=== PATIENT | female | born 1950 | race Caucasian/White ===

== ENCOUNTER 2016-04-06 13:01 | Emergency (ER) | payer OTHER, MEDICAID ==
[~2016-04-06] VITALS: Ht 165.1 cm; Wt 73.6 kg
[~2016-04-06 13:01] MED LIST: ALBUPOW26; CLOP75TA28 PO; ESCI10TA; ESCI10TA PO; GABA-339 PO; GEM600T GT; HYDR-2549 PO; LEVO13CA PO; LEVOTHYROXINE PO; LORA2TAB10 PO; METF-312 PO; NITR0.4S31; OXYB5TAB62 PO; PHEN60IN; PHENOBARBITAL PO; TIOTCAP IN; phenobarbital PO
[2016-04-06 14:25] VITALS: BP 146/86
== END 2016-04-06 15:04 | disposition home or self-care (01) ==
LOC: ER 13:05
DX: S60.212A Contusion of left wrist, initial encounter (principal); M19.90 Unspecified osteoarthritis, unspecified site; J45.909 Unspecified asthma, uncomplicated; J44.9 Chronic obstructive pulmonary disease, unspecified; Z86.73 Personal history of transient ischemic attack (TIA), and cerebral infarction without residual deficits; I25.10 Atherosclerotic heart disease of native coronary artery without angina pectoris; E11.9 Type 2 diabetes mellitus without complications; E78.5 Hyperlipidemia, unspecified; I10 Essential (primary) hypertension; Z88.6 Allergy status to analgesic agent; I25.2 Old myocardial infarction; E07.9 Disorder of thyroid, unspecified; Z90.49 Acquired absence of other specified parts of digestive tract; Z88.0 Allergy status to penicillin; Z88.8 Allergy status to other drugs, medicaments and biological substances; Z79.899 Other long term (current) drug therapy; F17.210 Nicotine dependence, cigarettes, uncomplicated; W18.39XA Other fall on same level, initial encounter; Y93.41 Activity, dancing; Y99.9 Unspecified external cause status; Y92.89 Other specified places as the place of occurrence of the external cause
CPT/HCPCS: 29125; 73110

== ENCOUNTER 2016-09-26 15:14 | Inpatient (IN) | payer OTHER, MEDICAID ==
[~2016-09-26] VITALS: Ht 165.1 cm; Wt 89.7 kg
[~2016-09-26 15:14] MED LIST changes: -METF-312 PO; +METF-370 PO
[2016-09-26 16:17] LABS: Basophils # (auto) 0 uL; Basophils % (auto) 0.3 % (0.0-2.0); CONDITION Y; Eosinophils # (auto) 0.2 uL; Eosinophils % (auto) 1.7 % (0.0-7.0); Hematocrit 42.3 % (36.0-46.0); Hemoglobin 14.7 g/dL (12.2-16.2); Lymphocytes # (auto) 1.9 uL; Lymphocytes % (auto) 21.6 % (10.0-50.0); Mean Corpuscular Hemoglobin 33.6 pg (28.0-32.0); Mean Corpuscular Hgb Conc. 34.7 g/dL (32.0-36.0); Mean Corpuscular Volume 96.9 fL (80.0-100.0); Mean Platelet Volume 8.3 fL (7.4-10.4); Monocytes # (auto) 0.6 uL; Monocytes % (auto) 7.2 % (0.0-12.0); Neutrophils # (auto) 6.2 uL; Neutrophils % (auto) 69.2 % (37.0-80.0); Platelet Count (auto) 327 10^3/uL (140-450); Red Cell Distribution Width 12.6 % (11.6-16.0); White Blood Cell 8.9 10^3/uL (4.4-10.8)
[2016-09-26 16:55] LABS: Albumin 3.9 g/dL (3.4-5.0); Alkaline Phosphatase 82 U/L (45-117); BUN/Creatinine Ratio 21.2; Bilirubin, Total 0.3 mg/dL (0.2-1.0); Blood Urea Nitrogen 21 mg/dL (7-18); Calcium 8.4 mg/dL (8.5-10.1); Carbon Dioxide 22 mmol/L (21-32); Chloride 107 mmol/L (98-107); GFR African American 72 mL/min; GFR Non-African American 60 mL/min; Glucose 111 mg/dL (74-106); Total Protein 7.3 g/dL (6.4-8.2)
[2016-09-26 17:09] LABS: Anion Gap 15 (5-15); Sodium 144 mmol/L (136-145)
[2016-09-26 17:10] LABS: Aspartate Aminotransferase 21 U/L (15-37); Potassium 4.1 mmol/L (3.5-5.1)
[2016-09-26] MEDS ORDERED: NITROGLYCERIN 0.2MG/HR TOPICAL PATCH TD ONE (20:00)
[2016-09-26] MEDS ORDERED: ONDANSETRON HCL 4 MG/2 ML VIAL IV ONE (20:00)
[2016-09-26] MEDS ORDERED: SODIUM CHLORIDE 0.9% 1,000 ML IV ONE (20:00)
[2016-09-26] MEDS ORDERED: MORPHINE SULFATE 4 MG/ML SYRG IV ONE (20:00)
[2016-09-26] MEDS ORDERED: ASPirin 81 mg TAB PO ONE ×2 (20:15→21:30)
[2016-09-26 20:33] LABS: B-Type Natriuretic Peptide 4.12 pg/mL (0-100)
[2016-09-26 20:42] LABS: Temperature: 23.9 C (20.0-25.0)
[2016-09-26] MEDS: SODIUM CHLORIDE 0.9% 1,000 ML IV SCH (21:19)
[2016-09-26] MEDS ORDERED: DEXTROSE (50%) 50ML SYRG IV PRN (21:30)
[2016-09-26] MEDS ORDERED: NITROGLYCERIN 0.4 MG SL TAB SL PRN (21:30)
[2016-09-26] MEDS ORDERED: LACTULOSE 20Gm/30ML SOLN PO PRN (21:30)
[2016-09-26] MEDS ORDERED: MORPHINE SULF INJ 2 MG/ML SYRINGE 1ML IV PRN (21:30)
[2016-09-26 23:00] VITALS: BP 127/59
[2016-09-26] MEDS: GEMFIBROZIL 600 MG TAB PO SCH (23:45)
[2016-09-26] MEDS: ENOXAPARIN SOD 30 MG/0.3 ML SYRINGE SC SCH (23:45)
[2016-09-26] MEDS: ATORVASTATIN 20 MG TAB PO SCH (23:46)
[2016-09-26] MEDS: OXYBUTYNIN CHL 5 MG TAB PO SCH (23:46)
[2016-09-26] MEDS: PHENobarbital 32.4 MG TAB PO SCH (23:46)
[2016-09-26] MEDS: ACCU-CHEK COMFORT CURVE STRIP VI SCH (23:48)
[2016-09-26] MEDS: METOPROLOL TARTRATE 25 MG TAB PO SCH (23:48)
[2016-09-26] MEDS: InsuLIN REG 1unit/0.01ml Soln (100units/ml) SC SCH (23:48)
[2016-09-27] VITALS (8 sets, daily range): BP systolic 93–127; BP diastolic 44–65
[2016-09-27] MEDS ORDERED: ACETAMINOPHEN 325 MG TAB PO ONE (02:37)
[2016-09-27] MEDS: ACETAMINOPHEN 325 MG TAB PO PRN ×3 (02:40→11:00)
[2016-09-27] MEDS: ALBUTEROL SULF 2.5 MG/0.5ML(0.5%) NEB SOLN NEB PRN ×2 (02:50→19:05)
[2016-09-27] MEDS: IPRATROPIUM BROM 0.5 MG/2.5ML INH SOL NEB SCH ×4 (02:50→19:05)
[2016-09-27] MEDS: InsuLIN REG 1unit/0.01ml Soln (100units/ml) SC SCH ×4 (06:00→23:59)
[2016-09-27] MEDS: ACCU-CHEK COMFORT CURVE STRIP VI SCH ×4 (06:00→23:59)
[2016-09-27 06:18] LABS: Basophils # (auto) 0 uL; Basophils % (auto) 0.3 % (0.0-2.0); CONDITION Y; Eosinophils # (auto) 0 uL; Eosinophils % (auto) 0.4 % (0.0-7.0); Hematocrit 37.6 % (36.0-46.0); Hemoglobin 13.1 g/dL (12.2-16.2); Lymphocytes # (auto) 1.5 uL; Mean Corpuscular Hemoglobin 33.8 pg (28.0-32.0); Mean Corpuscular Hgb Conc. 34.9 g/dL (32.0-36.0); Mean Corpuscular Volume 96.9 fL (80.0-100.0); Mean Platelet Volume 8.1 fL (7.4-10.4); Monocytes # (auto) 0.7 uL; Monocytes % (auto) 5.8 % (0.0-12.0); Neutrophils # (auto) 9.1 uL; Neutrophils % (auto) 80.5 % (37.0-80.0); Platelet Count (auto) 285 10^3/uL (140-450); Red Cell Distribution Width 12.6 % (11.6-16.0); White Blood Cell 11.3 10^3/uL (4.4-10.8)
[2016-09-27] MEDS: PHENobarbital 32.4 MG TAB PO SCH ×3 (06:42→21:35)
[2016-09-27] MEDS: LEVOTHYROXINE SODIUM 50 MCG TAB PO SCH (06:43)
[2016-09-27 07:03] LABS: Albumin 3.4 g/dL (3.4-5.0); BUN/Creatinine Ratio 25.6; Bilirubin, Total 0.4 mg/dL (0.2-1.0); Calcium 8.1 mg/dL (8.5-10.1); Potassium 4.5 mmol/L (3.5-5.1); Total Protein 6.2 g/dL (6.4-8.2)
[2016-09-27] MEDS: SODIUM CHLORIDE 0.9% 1,000 ML IV SCH (09:49)
[2016-09-27] MEDS ORDERED: ROZEREM 8 MG PO SCH ×2 (10:00→22:00)
[2016-09-27] MEDS: METOPROLOL TARTRATE 25 MG TAB PO SCH ×2 (10:00→21:35)
[2016-09-27] MEDS: OXYBUTYNIN CHL 5 MG TAB PO SCH ×2 (10:31→21:34)
[2016-09-27] MEDS: ASPirin 81 mg TAB PO SCH (10:32)
[2016-09-27] MEDS: GEMFIBROZIL 600 MG TAB PO SCH ×2 (10:32→21:34)
[2016-09-27] MEDS: ENALAPRIL MALEATE 10 MG TAB PO SCH (10:32)
[2016-09-27] MEDS: NITROGLYCERIN 0.2MG/HR TOPICAL PATCH TD SCH (10:32)
[2016-09-27] MEDS ORDERED: HYDROcodone-ACET 10/325MG TAB PO PRN (17:15)
[2016-09-27] MEDS: ENOXAPARIN SOD 30 MG/0.3 ML SYRINGE SC SCH (19:54)
[2016-09-27] MEDS: ATORVASTATIN 20 MG TAB PO SCH (21:34)
[2016-09-27] MEDS: IBUPROFEN 600 MG TAB PO SCH (21:34)
[2016-09-28 05:00] VITALS: BP 100/64
[2016-09-28] MEDS: IBUPROFEN 600 MG TAB PO SCH ×2 (05:40→14:36)
[2016-09-28] MEDS: PHENobarbital 32.4 MG TAB PO SCH ×2 (05:41→14:36)
[2016-09-28] MEDS: ACCU-CHEK COMFORT CURVE STRIP VI SCH ×2 (05:49→12:00)
[2016-09-28] MEDS: InsuLIN REG 1unit/0.01ml Soln (100units/ml) SC SCH ×2 (05:50→12:00)
[2016-09-28 06:08] LABS: Basophils # (auto) 0.1 uL; Basophils % (auto) 0.9 % (0.0-2.0); CONDITION Y; Eosinophils # (auto) 0.2 uL; Eosinophils % (auto) 1.7 % (0.0-7.0); Hemoglobin 13.5 g/dL (12.2-16.2); Lymphocytes % (auto) 21.3 % (10.0-50.0); Mean Corpuscular Hemoglobin 33.6 pg (28.0-32.0); Mean Corpuscular Hgb Conc. 34.5 g/dL (32.0-36.0); Mean Corpuscular Volume 97.3 fL (80.0-100.0); Mean Platelet Volume 7.8 fL (7.4-10.4); Monocytes # (auto) 0.8 uL; Monocytes % (auto) 8.8 % (0.0-12.0); Neutrophils # (auto) 6.3 uL; Neutrophils % (auto) 67.3 % (37.0-80.0); Platelet Count (auto) 288 10^3/uL (140-450); Red Cell Distribution Width 12.5 % (11.6-16.0); White Blood Cell 9.3 10^3/uL (4.4-10.8)
[2016-09-28] MEDS: IPRATROPIUM BROM 0.5 MG/2.5ML INH SOL NEB SCH ×3 (06:24→11:42)
[2016-09-28 06:27] LABS: BUN/Creatinine Ratio 19.6; Calcium 8.2 mg/dL (8.5-10.1); Magnesium 2.3 mg/dL (1.6-2.6); Phosphorus 3.3 mg/dL (2.5-4.90)
[2016-09-28] MEDS: LEVOTHYROXINE SODIUM 50 MCG TAB PO SCH (06:44)
[2016-09-28 07:00] LABS: Potassium 4.4 mmol/L (3.5-5.1)
[2016-09-28 08:00] VITALS: BP 123/86
[2016-09-28 09:00] VITALS: BP 123/86
[2016-09-28] MEDS: METOPROLOL TARTRATE 25 MG TAB PO SCH (09:53)
[2016-09-28] MEDS: ASPirin 81 mg TAB PO SCH (09:53)
[2016-09-28] MEDS: ENALAPRIL MALEATE 10 MG TAB PO SCH (09:53)
[2016-09-28] MEDS: OXYBUTYNIN CHL 5 MG TAB PO SCH (09:53)
[2016-09-28] MEDS: GEMFIBROZIL 600 MG TAB PO SCH (09:54)
[2016-09-28] MEDS: NITROGLYCERIN 0.2MG/HR TOPICAL PATCH TD SCH (09:54)
[2016-09-28 11:13] VITALS: BP 123/86
[2016-09-28 13:00] VITALS: BP 111/68
== END 2016-09-28 14:50 | disposition home or self-care (01) | DRG 198 ==
LOC: ER 15:18 → TELE 15:19 → CENTRAL 21:45 → TELE-CENTR 23:49
PROVIDERS: ADMIT Family Medicine; ATTEND Family Medicine
DX: J84.9 Interstitial pulmonary disease, unspecified (principal); E03.9 Hypothyroidism, unspecified; E11.9 Type 2 diabetes mellitus without complications; E78.5 Hyperlipidemia, unspecified; M94.0 Chondrocostal junction syndrome [Tietze]; F17.210 Nicotine dependence, cigarettes, uncomplicated; F41.9 Anxiety disorder, unspecified; G40.909 Epilepsy, unspecified, not intractable, without status epilepticus; I11.0 Hypertensive heart disease with heart failure; I25.10 Atherosclerotic heart disease of native coronary artery without angina pectoris; I50.9 Heart failure, unspecified; J44.9 Chronic obstructive pulmonary disease, unspecified; M19.90 Unspecified osteoarthritis, unspecified site; Z82.49 Family history of ischemic heart disease and other diseases of the circulatory system; Z83.3 Family history of diabetes mellitus; Z86.73 Personal history of transient ischemic attack (TIA), and cerebral infarction without residual deficits; I25.2 Old myocardial infarction; Z88.6 Allergy status to analgesic agent; Z88.0 Allergy status to penicillin; Z88.8 Allergy status to other drugs, medicaments and biological substances; Z79.899 Other long term (current) drug therapy; Z90.49 Acquired absence of other specified parts of digestive tract; Z90.89 Acquired absence of other organs; Z98.51 Tubal ligation status
CPT/HCPCS: 36415; 71010; 80048; 80053; 80061; 82962; 83036; 83735; 83880; 84100; 84484; 85025; 93005; 94640; 96374; 96375; J2405

== ENCOUNTER 2017-01-17 23:44 | Emergency (ER) | payer OTHER, MEDICAID ==
[~2017-01-17] VITALS: Ht 165.1 cm; Wt 81.6 kg
[~2017-01-17 23:44] MED LIST changes: -ALBUPOW26; -ESCI10TA; -NITR0.4S31; -PHEN60IN; -PHENOBARBITAL PO
[2017-01-18 01:51] LABS: Basophils # (auto) 0.1 uL; Basophils % (auto) 0.7 % (0.0-2.0); Eosinophils # (auto) 0.1 uL; Eosinophils % (auto) 1.3 % (0.0-7.0); Hematocrit 43.5 % (36.0-46.0); Hemoglobin 14.9 g/dL (12.2-16.2); Lymphocytes # (auto) 1.5 uL; Mean Corpuscular Hemoglobin 33.6 pg (28.0-32.0); Mean Corpuscular Hgb Conc. 34.1 g/dL (32.0-36.0); Mean Corpuscular Volume 98.5 fL (80.0-100.0); Mean Platelet Volume 7.1 fL (6.9-10.8); Monocytes # (auto) 0.5 uL; Neutrophils # (auto) 6.2 uL; Platelet Count (auto) 325 10^3/uL (140-450); White Blood Cell 8.4 10^3/uL (4.4-10.8)
[2017-01-18 02:04] LABS: Albumin 4.4 g/dL (3.4-5.0); BUN/Creatinine Ratio 21.3; Calcium 9.1 mg/dL (8.5-10.1); Potassium 3.3 mmol/L (3.5-5.1)
[2017-01-18 02:06] LABS: Bilirubin, Total 0.3 mg/dL (0.2-1.0); Total Protein 7.8 g/dL (6.4-8.2)
[2017-01-18 04:36] VITALS: BP 125/78
[2017-01-18] MEDS ORDERED: ACETAMINOPHEN 325 MG TAB PO ONE ×2 (04:45→04:54)
== END 2017-01-18 05:19 | disposition home or self-care (01) ==
LOC: EDBD 23:44 → ER 23:49
DX: S01.01XA Laceration without foreign body of scalp, initial encounter (principal); J45.909 Unspecified asthma, uncomplicated; E11.9 Type 2 diabetes mellitus without complications; I10 Essential (primary) hypertension; I25.2 Old myocardial infarction; M19.90 Unspecified osteoarthritis, unspecified site; E78.5 Hyperlipidemia, unspecified; I25.10 Atherosclerotic heart disease of native coronary artery without angina pectoris; F17.210 Nicotine dependence, cigarettes, uncomplicated; Z86.73 Personal history of transient ischemic attack (TIA), and cerebral infarction without residual deficits; Z90.49 Acquired absence of other specified parts of digestive tract; Z98.51 Tubal ligation status; X58.XXXA Exposure to other specified factors, initial encounter; Y93.89 Activity, other specified; Y99.8 Other external cause status; Y92.89 Other specified places as the place of occurrence of the external cause; Z88.0 Allergy status to penicillin; Z88.6 Allergy status to analgesic agent
CPT/HCPCS: 12002; 36415; 70450; 72125; 80053; 80320; 85025

== ENCOUNTER 2017-11-03 14:04 | Emergency (ER) | payer MEDICARE ==
[~2017-11-03] VITALS: Ht 165.1 cm; Wt 81.6 kg
[~2017-11-03 14:04] MED LIST changes: +ALBUAER3 IN; -CLOP75TA28 PO; -ESCI10TA PO; -GABA-339 PO; -GEM600T GT; -HYDR-2549 PO; -LEVO13CA PO; +LEVO500T21 PO; -LEVOTHYROXINE PO; -LORA2TAB10 PO; -METF-370 PO; -OXYB5TAB62 PO; -TIOTCAP IN; -phenobarbital PO
[2017-11-03 14:45] LABS: Basophils # (auto) 0 uL; Basophils % (auto) 0.7 % (0.0-2.0); Eosinophils # (auto) 0.2 uL; Eosinophils % (auto) 2.8 % (0.0-7.0); Hematocrit 39.9 % (36.0-46.0); Hemoglobin 13.6 g/dL (12.2-16.2); Lymphocytes % (auto) 32.2 % (10.0-50.0); Mean Corpuscular Hemoglobin 33.7 pg (28.0-32.0); Mean Corpuscular Hgb Conc. 34.1 g/dL (32.0-36.0); Mean Corpuscular Volume 98.7 fL (80.0-100.0); Monocytes # (auto) 0.4 uL; Monocytes % (auto) 6.6 % (0.0-12.0); Neutrophils # (auto) 3.6 uL; Neutrophils % (auto) 57.7 % (37.0-80.0); Platelet Count (auto) 268 10^3/uL (140-450); Red Blood Cells 4.05 10^6/uL (4.0-5.20); Red Cell Distribution Width 13.1 % (11.8-14.3); White Blood Cell 6.3 10^3/uL (4.4-10.8)
[2017-11-03 15:10] LABS: Alanine Aminotransferase 22 U/L (13-56); Albumin 3.7 g/dL (3.4-5.0); Alkaline Phosphatase 65 U/L (45-117); Anion Gap 7 (5-15); Aspartate Aminotransferase 12 U/L (15-37); Bilirubin, Total 0.5 mg/dL (0.2-1.0); Blood Urea Nitrogen 19 mg/dL (7-18); Calcium 8.3 mg/dL (8.5-10.1); Carbon Dioxide 24 mmol/L (21-32); Chloride 110 mmol/L (98-107); GFR African American 58 mL/min; GFR Non-African American 48 mL/min; Glucose 117 mg/dL (74-106); Potassium 3.7 mmol/L (3.5-5.1); Sodium 141 mmol/L (136-145); Total Protein 6.9 g/dL (6.4-8.2)
[2017-11-03] MEDS ORDERED: FUROSEMIDE 40 MG TAB PO ONE (19:45)
[2017-11-03 19:55] VITALS: BP 155/92
== END 2017-11-03 20:22 | disposition home or self-care (01) ==
LOC: ER 14:05
DX: R60.0 Localized edema (principal); M19.90 Unspecified osteoarthritis, unspecified site; J44.9 Chronic obstructive pulmonary disease, unspecified; E78.5 Hyperlipidemia, unspecified; I10 Essential (primary) hypertension; E07.9 Disorder of thyroid, unspecified; F17.210 Nicotine dependence, cigarettes, uncomplicated; Z88.5 Allergy status to narcotic agent; Z88.0 Allergy status to penicillin; Z88.1 Allergy status to other antibiotic agents; Z88.8 Allergy status to other drugs, medicaments and biological substances; Z79.899 Other long term (current) drug therapy; Z86.73 Personal history of transient ischemic attack (TIA), and cerebral infarction without residual deficits; Z90.49 Acquired absence of other specified parts of digestive tract
CPT/HCPCS: 36415; 71045; 80053; 83880; 84484; 85025; 93005; 93970

== ENCOUNTER 2018-02-08 14:20 | Emergency (ER) | payer MEDICARE ==
[~2018-02-08] VITALS: Ht 165.1 cm; Wt 95.3 kg
[~2018-02-08 14:20] MED LIST changes: +LEV100T PO
[2018-02-08 15:03] VITALS: BP 134/72
== END 2018-02-08 15:42 | disposition home or self-care (01) ==
LOC: ER 14:23
DX: S80.01XA Contusion of right knee, initial encounter (principal); M19.90 Unspecified osteoarthritis, unspecified site; J44.9 Chronic obstructive pulmonary disease, unspecified; E78.5 Hyperlipidemia, unspecified; I10 Essential (primary) hypertension; I25.2 Old myocardial infarction; E07.9 Disorder of thyroid, unspecified; F17.210 Nicotine dependence, cigarettes, uncomplicated; Z88.5 Allergy status to narcotic agent; Z88.0 Allergy status to penicillin; Z88.8 Allergy status to other drugs, medicaments and biological substances; Z79.899 Other long term (current) drug therapy; Z86.73 Personal history of transient ischemic attack (TIA), and cerebral infarction without residual deficits; Z90.49 Acquired absence of other specified parts of digestive tract; W01.0XXA Fall on same level from slipping, tripping and stumbling without subsequent striking against object, initial encounter; Y93.89 Activity, other specified; Y99.8 Other external cause status; Y92.096 Garden or yard of other non-institutional residence as the place of occurrence of the external cause
CPT/HCPCS: 73562

== ENCOUNTER 2018-08-18 16:20 | Emergency (ER) | payer MEDICARE ==
[~2018-08-18] VITALS: Ht 162.6 cm; Wt 103.4 kg
[~2018-08-18 16:20] MED LIST changes: +GABA300C10 PO; -LEVO500T21 PO
[2018-08-18 16:37] VITALS: BP 148/79
[2018-08-18 17:10] LABS: Basophils # (auto) 0 uL; Basophils % (auto) 0.6 % (0.0-2.0); Eosinophils # (auto) 0.1 uL; Eosinophils % (auto) 1.9 % (0.0-7.0); Hematocrit 42.9 % (36.0-46.0); Hemoglobin 14.5 g/dL (12.2-16.2); Lymphocytes # (auto) 1.4 uL; Mean Corpuscular Hemoglobin 33.5 pg (28.0-32.0); Mean Corpuscular Hgb Conc. 33.8 g/dL (32.0-36.0); Mean Corpuscular Volume 99.1 fL (80.0-100.0); Monocytes # (auto) 0.6 uL; Monocytes % (auto) 8.3 % (0.0-12.0); Neutrophils # (auto) 4.7 uL; Neutrophils % (auto) 68.2 % (37.0-80.0); Nucleated Red Blood Cells % 0.1 %; Platelet Count (auto) 250 10^3/uL (140-450); Red Blood Cells 4.33 10^6/uL (4.0-5.20); Red Cell Distribution Width 12.9 % (11.8-14.3); White Blood Cell 6.8 10^3/uL (4.4-10.8)
[2018-08-18 17:22] LABS: Alanine Aminotransferase 28 U/L (13-56); Albumin 3.9 g/dL (3.4-5.0); Anion Gap 10 (5-15); Aspartate Aminotransferase 19 U/L (15-37); BUN/Creatinine Ratio 20.6; Blood Urea Nitrogen 20 mg/dL (7-18); Calcium 8.6 mg/dL (8.5-10.1); Carbon Dioxide 23 mmol/L (21-32); Chloride 110 mmol/L (98-107); GFR African American 74 mL/min; GFR Non-African American 61 mL/min; Glucose 102 mg/dL (74-106); Magnesium 2.1 mg/dL (1.6-2.6); Sodium 143 mmol/L (136-145)
[2018-08-18 17:27] LABS: Alkaline Phosphatase 94 U/L (45-117); Bilirubin, Total 0.3 mg/dL (0.2-1.0); Total Protein 7.4 g/dL (6.4-8.2)
[2018-08-18 17:29] LABS: INR 0.93 (0.9-1.15); Partial Thromboplastin Time 26.9 sec (23.78-33.04)
== END 2018-08-18 20:55 | disposition left against medical advice (07) ==
LOC: ER 16:24
DX: R07.9 Chest pain, unspecified (principal); Z53.21 Procedure and treatment not carried out due to patient leaving prior to being seen by health care provider
CPT/HCPCS: 36415; 71045; 80053; 83735; 83880; 84484; 85025; 85610; 85730; 93005

== ENCOUNTER 2018-08-19 14:03 | Inpatient (IN) | payer MEDICARE ==
[~2018-08-19] VITALS: Ht 162.6 cm; Wt 108.7 kg
[2018-08-19 17:42] LABS: Basophils # (auto) 0 uL; Basophils % (auto) 0.6 % (0.0-2.0); Eosinophils # (auto) 0.1 uL; Eosinophils % (auto) 2.2 % (0.0-7.0); Hematocrit 42.6 % (36.0-46.0); Hemoglobin 14.6 g/dL (12.2-16.2); Lymphocytes # (auto) 1.7 uL; Lymphocytes % (auto) 27.4 % (10.0-50.0); Mean Corpuscular Hemoglobin 33.8 pg (28.0-32.0); Mean Corpuscular Hgb Conc. 34.2 g/dL (32.0-36.0); Mean Corpuscular Volume 99.1 fL (80.0-100.0); Monocytes # (auto) 0.6 uL; Neutrophils # (auto) 3.8 uL; Neutrophils % (auto) 60.8 % (37.0-80.0); Platelet Count (auto) 255 10^3/uL (140-450); Red Cell Distribution Width 13.1 % (11.8-14.3); White Blood Cell 6.3 10^3/uL (4.4-10.8)
[2018-08-19 17:48] LABS: INR 0.93 (0.9-1.15); Partial Thromboplastin Time 27.7 sec (23.78-33.04)
[2018-08-19 17:52] LABS: Anion Gap 7 (5-15); Blood Urea Nitrogen 15 mg/dL (7-18); Calcium 8.7 mg/dL (8.5-10.1); Carbon Dioxide 24 mmol/L (21-32); Chloride 111 mmol/L (98-107); Glucose 142 mg/dL (74-106); Magnesium 2.3 mg/dL (1.6-2.6); Potassium 3.7 mmol/L (3.5-5.1); Sodium 142 mmol/L (136-145)
[2018-08-19 17:59] LABS: Alanine Aminotransferase 27 U/L (13-56); Alkaline Phosphatase 93 U/L (45-117); Aspartate Aminotransferase 17 U/L (15-37); BUN/Creatinine Ratio 15.2; Bilirubin, Total 0.3 mg/dL (0.2-1.0); GFR African American 72 mL/min; GFR Non-African American 59 mL/min; Total Protein 7.3 g/dL (6.4-8.2)
[2018-08-19] MEDS ORDERED: NITROGLYCERIN 0.4 MG SL TAB SL PRN (19:00)
[2018-08-19] MEDS ORDERED: LACTULOSE 20Gm/30ML SOLN PO PRN (19:00)
[2018-08-19] MEDS ORDERED: ONDANSETRON HCL 4 MG/2 ML VIAL IV PRN (19:00)
[2018-08-19] MEDS ORDERED: ACETAMINOPHEN 500 MG TAB PO PRN (19:00)
[2018-08-19] MEDS ORDERED: ALBUTEROL SULF 2.5 MG/0.5ML(0.5%) NEB SOLN NEB PRN (19:00)
[2018-08-19] MEDS ORDERED: DEXTROSE (50%) 50ML SYRG IV PRN (19:00)
[2018-08-19] MEDS ORDERED: traMADol HCL 50 MG TAB PO PRN (19:00)
[2018-08-19] MEDS ORDERED: MORPHINE SULF INJ 2 MG/ML SYRINGE 1ML IV PRN (19:00)
[2018-08-19] MEDS: DOXYCYCLINE 100MG/250ML 250 ML IV SCH (21:57)
[2018-08-19] MEDS: ATORVASTATIN 20 MG TAB PO SCH (22:33)
[2018-08-19] MEDS: GABAPENTIN 300 MG CAP PO SCH (22:34)
[2018-08-19] MEDS: ACCU-CHEK COMFORT CURVE STRIP VI SCH (22:34)
[2018-08-19] MEDS: SODIUM CHLOR 0.9% PF (SALINE LOCK) 10ML VIAL/SYR IV SCH (22:34)
[2018-08-19] MEDS: InsuLIN REG 1unit/0.01ml Soln (100units/ml) SC SCH (22:35)
[2018-08-19 22:50] VITALS: BP 146/94
--- NOTE | 2018-08-19 22:50 | NUR ---
Telemetry admit from ER LEATHACONSUELO admitted to Telemetry unit after SBAR received. Patient oriented to HERB RABAGO RN primary RN, unit, room, bed, and unit policies regarding patient care and visiting hours. Patient now on continuous telemetry monitoring, tele box # 42 and telemetry reading on arrival to unit is SR. Patient placed on bedside oxygen, weighed by bedscale and encouraged to call if they need something. All questions and concerns addressed, patient verbalized understanding. Note:
[2018-08-19 22:55] VITALS: BP 146/94
[2018-08-20] MEDS: ALBUTEROL SULF 2.5 MG/0.5ML(0.5%) NEB SOLN NEB SCH ×4 (00:23→18:56)
[2018-08-20] MEDS: IPRATROPIUM BROM 0.5 MG/2.5ML INH SOL NEB SCH ×4 (00:23→18:56)
[2018-08-20 05:00] VITALS: BP 118/69
[2018-08-20] MEDS: ACCU-CHEK COMFORT CURVE STRIP VI SCH ×4 (05:38→21:28)
[2018-08-20] MEDS: LEVOTHYROXINE SODIUM 100 MCG TAB PO SCH (05:38)
[2018-08-20] MEDS: DOXYCYCLINE 100MG/250ML 250 ML IV SCH ×2 (05:38→18:26)
[2018-08-20] MEDS: GABAPENTIN 300 MG CAP PO SCH ×3 (05:38→21:28)
[2018-08-20] MEDS: SODIUM CHLOR 0.9% PF (SALINE LOCK) 10ML VIAL/SYR IV SCH ×3 (05:38→21:29)
[2018-08-20] MEDS: InsuLIN REG 1unit/0.01ml Soln (100units/ml) SC SCH ×4 (06:06→21:33)
[2018-08-20 08:38] VITALS: BP 159/82
--- NOTE | 2018-08-20 09:15 | NUR ---
pt went outside AMA to smoke, pt educated for tips on how to stop smoking but pt said " i will have anxiety and panic attack if i cannot smoke" pt given information regarding nicotine patch but she refused it, per pt it doesn't work for her.
--- NOTE | 2018-08-20 10:12 | NUR ---
pt is back in room.
[2018-08-20] MEDS: ASPirin 81 mg TAB PO SCH (10:15)
[2018-08-20] MEDS: PANTOPRAZOLE 40 MG TAB PO SCH (10:15)
[2018-08-20] MEDS: ENOXAPARIN SOD 40 MG/0.4 ML SYRINGE SC SCH (10:15)
[2018-08-20 11:11] LABS: Urine Bacteria NONE SEEN /hpf (None Seen); Urine Blood Negative /uL (Negative); Urine Specific Gravity 1.017 (1.001-1.035); Urine WBC 1 /hpf (0 - 5)
[2018-08-20 11:17] LABS: Alcohol, Urine < 3.0 mg/dL (0-5); Amphetamine Screen, Urine NEGATIVE (NEGATIVE); Barbiturate Scree,Urine NEGATIVE (NEGATIVE); Benzodiazephine Screen, Urine NEGATIVE (NEGATIVE); Cannabinoid Screen, Urine NEGATIVE (NEGATIVE); Cocaine Screen, Urine NEGATIVE (NEGATIVE); Opiate Scree,Urine NEGATIVE (NEGATIVE); Phencyclidine Screen, Urine NEGATIVE (NEGATIVE)
[2018-08-20 12:03] VITALS: BP 116/79
--- NOTE | 2018-08-20 12:30 | NUR ---
PT WENT OUTSIDE AMA TO SMOKE
--- NOTE | 2018-08-20 14:40 | NUR ---
HEADACHE DR. MORFIN MADE AWARE PT IS COMPLAINING OF HEADACHE 12/14, PT WAS GIVEN TRAMADOL BUT DID NOT HELP, PER PT TYLENOL DOES NOT HELP EITHER. DR. MORFIN ORDERED TO PUT CONSULT FOR NEUROLOGY FOR HEADACHE AND LEFT SIDED WEAKNESS, HE ORDERED NORCO 10/325 Q6HRS PRN FOR PAIN.
[2018-08-20] MEDS ORDERED: HYDROcodone-ACET 10/325MG TAB PO PRN (15:00)
--- NOTE | 2018-08-20 16:07 | NUR ---
DR. MORFIN ORDERED TO INSERT MIDLINE
[2018-08-20 16:21] VITALS: BP 120/96
--- NOTE | 2018-08-20 16:53 | NUR ---
Midline Placement: Patient educated on need for midline placement. All risks and benefits explained and all questions and concerns addresses prior to procedure. 18g/10cm midline inserted via left basilic vein using Ultrasound. Sterile technique utilized. Blood return obtained from the lumen and flushed easily with NS using proper technique. Midline secured with saline lock; biodisc and occlusive dressing applied. Primary RN notified. Midline lot # [id number]. x1 attempt
--- NOTE | 2018-08-20 19:20 | NUR ---
Opening Shift Note Assumed care of patient, awake and alert. No S/S of distress/SOB or pain. Bed in lowest locked position, side rails up x2, call light within reach. Instructed on POC and to call for assist PRN, will continue to monitor for changes Q1hr and PRN. Addendum: 08/23/18 at 0102 by SAM ELIZABETH RN RN ADDITION: Seizure precautions in place at time of original note.
[2018-08-20] MEDS: ATORVASTATIN 20 MG TAB PO SCH (21:27)
[2018-08-20] MEDS: HYDROcodone-ACET 10/325MG TAB PO PRN (21:27)
[2018-08-20 22:00] VITALS: BP 141/86
[2018-08-21] MEDS: ALBUTEROL SULF 2.5 MG/0.5ML(0.5%) NEB SOLN NEB SCH ×5 (00:27→23:27)
[2018-08-21] MEDS: IPRATROPIUM BROM 0.5 MG/2.5ML INH SOL NEB SCH ×5 (00:27→23:27)
[2018-08-21 05:00] VITALS: BP 121/73
--- NOTE | 2018-08-21 06:14 | NUR ---
Smoking Patient ambulating downstairs to smoke, steady gait noted with no s/s of distress.
[2018-08-21] MEDS: InsuLIN REG 1unit/0.01ml Soln (100units/ml) SC SCH ×4 (07:00→22:00)
--- NOTE | 2018-08-21 07:00 | NUR ---
Return From Smoking Patient returned from smoking , no s/s of distress, will continue to monitor.
[2018-08-21] MEDS: HYDROcodone-ACET 10/325MG TAB PO PRN ×3 (07:08→22:24)
[2018-08-21] MEDS: LEVOTHYROXINE SODIUM 100 MCG TAB PO SCH (07:08)
[2018-08-21] MEDS: SODIUM CHLOR 0.9% PF (SALINE LOCK) 10ML VIAL/SYR IV SCH ×3 (07:09→22:24)
[2018-08-21] MEDS: ACCU-CHEK COMFORT CURVE STRIP VI SCH ×4 (07:09→22:24)
[2018-08-21] MEDS: GABAPENTIN 300 MG CAP PO SCH ×3 (07:09→22:23)
[2018-08-21] MEDS: DOXYCYCLINE 100MG/250ML 250 ML IV SCH ×2 (07:13→18:45)
--- NOTE | 2018-08-21 07:15 | NUR ---
Closing Note Patient lying in bed, awake and alert. No s/s of distress. Care endorsed to dayshift RN.
[2018-08-21 08:00] VITALS: BP 155/93
[2018-08-21 09:00] VITALS: BP 155/93
--- NOTE | 2018-08-21 10:10 | NUR ---
DR. LIMA AT BEDSIDE FOR NEUROLOGY CONSULT.
--- NOTE | 2018-08-21 10:30 | NUR ---
DR. ROBERTS AT BEDSIDE. POC DISCUSSED WITH PT.
[2018-08-21] MEDS: ASPirin 81 mg TAB PO SCH (10:34)
[2018-08-21] MEDS: PANTOPRAZOLE 40 MG TAB PO SCH (10:34)
[2018-08-21] MEDS: ENOXAPARIN SOD 40 MG/0.4 ML SYRINGE SC SCH (10:35)
[2018-08-21 12:40] VITALS: BP 129/83
[2018-08-21 17:00] VITALS: BP 125/100
[2018-08-21 22:05] VITALS: BP 102/66
[2018-08-21] MEDS: ATORVASTATIN 20 MG TAB PO SCH (22:23)
[2018-08-22] VITALS (7 sets, daily range): BP systolic 102–125; BP diastolic 58–75
[2018-08-22] MEDS: HYDROcodone-ACET 10/325MG TAB PO PRN ×3 (04:42→22:25)
--- NOTE | 2018-08-22 06:17 | NUR ---
Smoking Patient ambulating downstairs to smoke, steady gait noted with no s/s of distress.
--- NOTE | 2018-08-22 06:41 | NUR ---
Return From Smoking Patient returned from smoking , no s/s of distress, will continue to monitor.
[2018-08-22] MEDS: SODIUM CHLOR 0.9% PF (SALINE LOCK) 10ML VIAL/SYR IV SCH ×3 (06:56→22:22)
[2018-08-22] MEDS: GABAPENTIN 300 MG CAP PO SCH ×3 (06:56→22:22)
[2018-08-22] MEDS: DOXYCYCLINE 100MG/250ML 250 ML IV SCH ×2 (06:57→18:28)
[2018-08-22] MEDS: LEVOTHYROXINE SODIUM 100 MCG TAB PO SCH (06:57)
[2018-08-22] MEDS: ACCU-CHEK COMFORT CURVE STRIP VI SCH ×4 (06:57→22:22)
[2018-08-22] MEDS: InsuLIN REG 1unit/0.01ml Soln (100units/ml) SC SCH ×4 (07:00→22:30)
--- NOTE | 2018-08-22 07:20 | NUR ---
Closing Note Patient lying in bed, awake and alert. No s/s of distress. Care endorsed to dayshift RN.
--- NOTE | 2018-08-22 07:28 | NUR ---
Opening Shift Note Assumed care of patient, awake and alert. No S/S of distress/SOB or pain. Instructed on POC and to call for assist PRN, will continue to monitor for changes Q1hr and PRN.
[2018-08-22] MEDS: ALBUTEROL SULF 2.5 MG/0.5ML(0.5%) NEB SOLN NEB SCH ×4 (07:48→23:42)
[2018-08-22] MEDS: IPRATROPIUM BROM 0.5 MG/2.5ML INH SOL NEB SCH ×4 (07:48→23:42)
[2018-08-22] MEDS: ASPirin 81 mg TAB PO SCH (10:04)
[2018-08-22] MEDS: PANTOPRAZOLE 40 MG TAB PO SCH (10:04)
[2018-08-22] MEDS: ENOXAPARIN SOD 40 MG/0.4 ML SYRINGE SC SCH (10:04)
--- NOTE | 2018-08-22 19:21 | NUR ---
Change of shift given to aeronautical inspector RN. No distress noted.
--- NOTE | 2018-08-22 22:00 | NUR ---
CPAP Patient placed on CPAP by RT, tolerating well, will continue to monitor.
[2018-08-22] MEDS: ATORVASTATIN 20 MG TAB PO SCH (22:22)
[2018-08-23 06:20] VITALS: BP 130/70
[2018-08-23] MEDS: DOXYCYCLINE 100MG/250ML 250 ML IV SCH (06:21)
[2018-08-23] MEDS: LEVOTHYROXINE SODIUM 100 MCG TAB PO SCH (06:21)
[2018-08-23] MEDS: GABAPENTIN 300 MG CAP PO SCH ×2 (06:21→14:00)
[2018-08-23] MEDS: SODIUM CHLOR 0.9% PF (SALINE LOCK) 10ML VIAL/SYR IV SCH ×2 (06:21→14:00)
[2018-08-23] MEDS: ACCU-CHEK COMFORT CURVE STRIP VI SCH ×2 (06:22→11:30)
--- NOTE | 2018-08-23 06:34 | NUR ---
Smoking Patient ambulating downstairs to smoke, steady gait noted with no s/s of distress.
[2018-08-23] MEDS: InsuLIN REG 1unit/0.01ml Soln (100units/ml) SC SCH ×2 (06:36→11:30)
[2018-08-23] MEDS: IPRATROPIUM BROM 0.5 MG/2.5ML INH SOL NEB SCH ×2 (06:57→12:56)
[2018-08-23] MEDS: ALBUTEROL SULF 2.5 MG/0.5ML(0.5%) NEB SOLN NEB SCH ×2 (06:57→12:56)
[2018-08-23] MEDS: HYDROcodone-ACET 10/325MG TAB PO PRN (07:06)
--- NOTE | 2018-08-23 07:06 | NUR ---
Return From Smoking Patient returned from smoking , no s/s of distress, will continue to monitor.
--- NOTE | 2018-08-23 07:18 | NUR ---
Closing Note Patient lying in bed, awake and alert. No s/s of distress. Care endorsed to dayshift RN.
[2018-08-23 08:15] VITALS: BP 115/91
[2018-08-23 09:00] VITALS: BP 115/91
[2018-08-23] MEDS: ASPirin 81 mg TAB PO SCH (09:40)
[2018-08-23] MEDS: PANTOPRAZOLE 40 MG TAB PO SCH (09:40)
[2018-08-23] MEDS: ENOXAPARIN SOD 40 MG/0.4 ML SYRINGE SC SCH ×2 (09:41→10:00)
--- NOTE | 2018-08-23 12:20 | NUR ---
Spoke with Dr. Hernandez. aware of allergies. Patient is receiving doxycycline, no reaction noted. Per MD, patient can receive doxycycline on discharge.
[2018-08-23 13:00] VITALS: BP 119/69
--- NOTE | 2018-08-23 14:31 | NUR ---
Discharge instructions given as ordered. Encourage to follow up with PMD as instructed. All questions and concerns addressed. Patient verbalized understanding. Medication reconciliation form completed and copy given to patient. Patient denies Home medications held in Pharmacy. IV removed with catheter intact, pressure dressing applied. Telemetry unit returned to [facility]. Patient taken to vehicle via wheelchair with all personal belongings, accompanied by staff and family member. No distress noted at time of departure.
--- NOTE | 2018-08-23 16:00 | NUR ---
assessment Patient discharged home prior to being assessed. Addendum: 08/24/18 at 0919 by Delma SEGOVIA Amended: Links added.
== END 2018-08-23 14:15 | disposition home or self-care (01) | DRG 65 ==
LOC: ER 14:10 → TELE 19:03 → TELE-WESTW 22:50
PROVIDERS: ADMIT Internal Medicine; ATTEND Family Medicine
DX: I63.9 Cerebral infarction, unspecified (principal); J44.1 Chronic obstructive pulmonary disease with (acute) exacerbation; I13.0 Hypertensive heart and chronic kidney disease with heart failure and stage 1 through stage 4 chronic kidney disease, or unspecified chronic kidney disease; Z68.41 Body mass index [BMI] 40.0-44.9, adult; R56.9 Unspecified convulsions; N18.2 Chronic kidney disease, stage 2 (mild); E11.21 Type 2 diabetes mellitus with diabetic nephropathy; E11.40 Type 2 diabetes mellitus with diabetic neuropathy, unspecified; E11.22 Type 2 diabetes mellitus with diabetic chronic kidney disease; I50.9 Heart failure, unspecified; F41.9 Anxiety disorder, unspecified; F32.9 Major depressive disorder, single episode, unspecified; E03.9 Hypothyroidism, unspecified; E66.01 Morbid (severe) obesity due to excess calories; I25.10 Atherosclerotic heart disease of native coronary artery without angina pectoris; M19.90 Unspecified osteoarthritis, unspecified site; E78.00 Pure hypercholesterolemia, unspecified; K44.9 Diaphragmatic hernia without obstruction or gangrene; E78.5 Hyperlipidemia, unspecified; G47.10 Hypersomnia, unspecified; I25.2 Old myocardial infarction; Z79.899 Other long term (current) drug therapy; Z79.82 Long term (current) use of aspirin; Z82.0 Family history of epilepsy and other diseases of the nervous system; Z82.49 Family history of ischemic heart disease and other diseases of the circulatory system; Z83.3 Family history of diabetes mellitus; Z90.49 Acquired absence of other specified parts of digestive tract; Z88.0 Allergy status to penicillin; Z88.8 Allergy status to other drugs, medicaments and biological substances; Z72.0 Tobacco use
CPT/HCPCS: 36415; 70450; 70551; 71045; 80053; 80307; 81001; 82550; 82962; 83036; 83735; 83880; 84443; 84484; 85025; 85379; 85610; 85652; 85730; 87070; 87205; 93005; 94640; 94660; 94761; 94762; 96365; G0378; J3490

== ENCOUNTER 2018-09-26 16:07 | Inpatient (IN) | payer MEDICARE ==
[~2018-09-26] VITALS: Ht 162.6 cm; Wt 102.9 kg
[2018-09-26] MEDS ORDERED: ALBUTEROL SULF 2.5 MG/0.5ML(0.5%) NEB SOLN NEB ONE ×2 (16:30→20:00)
[2018-09-26] MEDS ORDERED: IPRATROPIUM BROM 0.5 MG/2.5ML INH SOL NEB ONE ×2 (16:30→20:00)
[2018-09-26 18:44] LABS: Eosinophils # (auto) 0.1 uL; Monocytes # (auto) 0.6 uL; Neutrophils # (auto) 6.5 uL; Nucleated Red Blood Cells % 0.1 %
[2018-09-26] MEDS ORDERED: ONDANSETRON HCL 4 MG/2 ML VIAL IV ONE ×2 (18:45→20:00)
[2018-09-26] MEDS ORDERED: MORPHINE SULF INJ 2 MG/ML SYRINGE 1ML IV ONE (18:45)
[2018-09-26 18:47] LABS: Basophils # (auto) 0.1 uL; Basophils % (auto) 0.6 % (0.0-2.0); Hematocrit 45.1 % (36.0-46.0); Hemoglobin 15.2 g/dL (12.2-16.2); Lymphocytes # (auto) 2.2 uL; Lymphocytes % (auto) 23.3 % (10.0-50.0); Mean Corpuscular Hemoglobin 33.7 pg (28.0-32.0); Mean Corpuscular Hgb Conc. 33.7 g/dL (32.0-36.0); Mean Corpuscular Volume 99.8 fL (80.0-100.0); Monocytes % (auto) 6.2 % (0.0-12.0); Neutrophils % (auto) 68.9 % (37.0-80.0); Platelet Count (auto) 260 10^3/uL (140-450); Red Blood Cells 4.52 10^6/uL (4.0-5.20); Red Cell Distribution Width 12.7 % (11.8-14.3); White Blood Cell 9.4 10^3/uL (4.4-10.8)
[2018-09-26 19:05] LABS: Albumin 4.4 g/dL (3.4-5.0); Anion Gap 7 (5-15); Blood Urea Nitrogen 14 mg/dL (7-18); Calcium 9.3 mg/dL (8.5-10.1); Carbon Dioxide 26 mmol/L (21-32); Chloride 107 mmol/L (98-107); Glucose 92 mg/dL (74-106); Potassium 3.8 mmol/L (3.5-5.1); Sodium 140 mmol/L (136-145)
[2018-09-26 19:11] LABS: Alanine Aminotransferase 22 U/L (13-56); Alkaline Phosphatase 93 U/L (45-117); Aspartate Aminotransferase 14 U/L (15-37); BUN/Creatinine Ratio 14.4; Bilirubin, Total 0.3 mg/dL (0.2-1.0); GFR African American 74 mL/min; GFR Non-African American 61 mL/min; Total Protein 7.7 g/dL (6.4-8.2)
[2018-09-26] MEDS ORDERED: methylPREDNISolone SOD SUCC 125 MG/2 ML VL IV ONE (20:00)
[2018-09-26] MEDS ORDERED: ONDANSETRON HCL 4 MG/2 ML VIAL ONE (21:50)
[2018-09-26] MEDS ORDERED: NITROGLYCERIN 0.4 MG SL TAB SL PRN (22:30)
[2018-09-26] MEDS ORDERED: MORPHINE SULF INJ 2 MG/ML SYRINGE 1ML IV PRN (22:30)
[2018-09-26] MEDS ORDERED: ONDANSETRON HCL 4 MG/2 ML VIAL IV PRN (22:30)
[2018-09-26] MEDS ORDERED: ACETAMINOPHEN 500 MG TAB PO PRN (22:30)
--- NOTE | 2018-09-26 23:10 | NUR ---
Telemetry admit from ER LEATHACONSUELO Eduardo admitted to Telemetry unit after SBAR received. Patient oriented to CHRISTIAN CHURCH RN primary RN, unit, room, bed, and unit policies regarding patient care and visiting hours. Patient now on continuous telemetry monitoring, tele box # 23 and telemetry reading on arrival to unit is SR. Patient placed on bedside oxygen, weighed by bedscale and encouraged to call if they need something. All questions and concerns addressed, patient verbalized understanding.
[2018-09-27] VITALS (7 sets, daily range): BP systolic 116–177; BP diastolic 62–101
--- NOTE | 2018-09-27 00:12 | NUR ---
Hospitalist paged. Patient complaining of pain and had an elevated BP.
--- NOTE | 2018-09-27 00:25 | NUR ---
Hospitalist returned page: Hospitalist informed about patients situation and status. New orders obtained.
[2018-09-27] MEDS ORDERED: HYDROcodone-ACET 10/325MG TAB PO PRN (00:45)
[2018-09-27] MEDS: HYDROcodone-ACET 5/325MG TAB PO PRN ×4 (01:11→19:23)
[2018-09-27] MEDS ORDERED: HYDR-4683 PO (01:32)
[2018-09-27] MEDS: IPRATROPIUM BROM 0.5 MG/2.5ML INH SOL NEB SCH ×7 (02:25→21:15)
[2018-09-27] MEDS: ALBUTEROL SULF 2.5 MG/0.5ML(0.5%) NEB SOLN NEB SCH ×7 (02:25→21:15)
[2018-09-27] MEDS: PANTOPRAZOLE 40 MG TAB PO SCH (05:31)
[2018-09-27] MEDS: GABAPENTIN 300 MG CAP PO SCH ×3 (05:31→21:40)
[2018-09-27] MEDS: methylPREDNISolone SOD SUCC 40 MG/ML VL IV SCH ×3 (05:31→21:40)
[2018-09-27] MEDS: LEVOTHYROXINE SODIUM 100 MCG TAB PO SCH (06:34)
[2018-09-27] MEDS ORDERED: ALBUTEROL SULF 2.5 MG/0.5ML(0.5%) NEB SOLN NEB PRN (12:45)
[2018-09-27] MEDS ORDERED: NICOTINE 21MG/24 HR TOPICAL PATCH TD ONE (12:45)
--- NOTE | 2018-09-27 16:30 | NUR ---
PT DENIES NEED FOR P.T.
--- NOTE | 2018-09-27 19:00 | NUR ---
Opening Shift Note Assumed care of patient, awake and alert. No S/S of distress/SOB or pain. Instructed on POC and to call for assist PRN, will continue to monitor for changes Q1hr and PRN.
--- NOTE | 2018-09-27 20:23 | NUR ---
IV insertion IV access obtained, via clean sterile technique by inserting 22 gauge catheter at left hand after 1 attempt. IV secured properly. No trauma to site. Patient tolerated procedure well.
[2018-09-28] MEDS: IPRATROPIUM BROM 0.5 MG/2.5ML INH SOL NEB SCH ×3 (01:18→14:37)
[2018-09-28] MEDS: ALBUTEROL SULF 2.5 MG/0.5ML(0.5%) NEB SOLN NEB SCH ×3 (01:18→14:37)
[2018-09-28 05:29] VITALS: BP 105/44
[2018-09-28] MEDS: GABAPENTIN 300 MG CAP PO SCH (05:48)
[2018-09-28] MEDS: methylPREDNISolone SOD SUCC 40 MG/ML VL IV SCH (05:48)
[2018-09-28] MEDS: PANTOPRAZOLE 40 MG TAB PO SCH (05:49)
[2018-09-28] MEDS: HYDROcodone-ACET 5/325MG TAB PO PRN ×2 (05:50→12:17)
[2018-09-28 05:56] LABS: Basophils # (auto) 0 uL; Eosinophils # (auto) 0 uL; Hematocrit 39.2 % (36.0-46.0); Hemoglobin 13.2 g/dL (12.2-16.2); Lymphocytes # (auto) 0.7 uL; Lymphocytes % (auto) 3.2 % (10.0-50.0); Mean Corpuscular Hemoglobin 33.5 pg (28.0-32.0); Mean Corpuscular Hgb Conc. 33.8 g/dL (32.0-36.0); Mean Corpuscular Volume 99.2 fL (80.0-100.0); Monocytes # (auto) 0.6 uL; Monocytes % (auto) 2.7 % (0.0-12.0); Neutrophils # (auto) 19.7 uL; Neutrophils % (auto) 94.1 % (37.0-80.0); Platelet Count (auto) 248 10^3/uL (140-450); Red Blood Cells 3.95 10^6/uL (4.0-5.20); Red Cell Distribution Width 12.7 % (11.8-14.3)
[2018-09-28 06:23] LABS: Calcium 8.8 mg/dL (8.5-10.1); Magnesium 2.6 mg/dL (1.6-2.6); Potassium 4.6 mmol/L (3.5-5.1)
[2018-09-28] MEDS: LEVOTHYROXINE SODIUM 100 MCG TAB PO SCH (06:30)
--- NOTE | 2018-09-28 06:43 | NUR ---
Respiratory note: PT NOT IN ROOM FOR SCHEDULED MED NEB TX.
--- NOTE | 2018-09-28 06:51 | NUR ---
Respiratory note: PT NOT IN ROOM FOR SCHEDULED MED NEB TX
[2018-09-28 09:00] VITALS: BP 150/75
[2018-09-28] MEDS ORDERED: NICOTINE 21MG/24 HR TOPICAL PATCH TD SCH (10:00)
[2018-09-28] MEDS ORDERED: DOXYCYCLINE 100MG/250ML 250 ML IV SCH (10:00)
[2018-09-28] MEDS ORDERED: SODIUM CHLORIDE 0.9% 1,000 ML IV SCH (10:00)
[2018-09-28] MEDS ORDERED: DOXY100C41 PO (12:25)
[2018-09-28] MEDS ORDERED: ALBUAER3 IN (12:25)
[2018-09-28] MEDS ORDERED: METH4PAK PO (12:25)
[2018-09-28] MEDS ORDERED: PANT40TA2 PO (12:25)
[2018-09-28 12:32] VITALS: BP 140/87
--- NOTE | 2018-09-28 16:32 | NUR ---
patient dc home feeling very well vitals signs in normal limits not complaining of pain at this time all DC instruction gave to the patient //Epi RN
[2018-09-28 16:35] VITALS: BP 136/75
[2018-09-28] MEDS ORDERED: methylPREDNISolone SOD SUCC 40 MG/ML VL IV SCH (18:00)
== END 2018-09-28 18:00 | disposition home or self-care (01) | DRG 189 ==
LOC: ER 16:07 → TELE 16:08 → TELE-WESTW 23:13
PROVIDERS: ADMIT Nurse Practitioner Family; ATTEND Internal Medicine
DX: J96.00 Acute respiratory failure, unspecified whether with hypoxia or hypercapnia (principal); N17.0 Acute kidney failure with tubular necrosis; I13.0 Hypertensive heart and chronic kidney disease with heart failure and stage 1 through stage 4 chronic kidney disease, or unspecified chronic kidney disease; J43.9 Emphysema, unspecified; E66.01 Morbid (severe) obesity due to excess calories; E03.9 Hypothyroidism, unspecified; E11.22 Type 2 diabetes mellitus with diabetic chronic kidney disease; E11.40 Type 2 diabetes mellitus with diabetic neuropathy, unspecified; E78.5 Hyperlipidemia, unspecified; M19.90 Unspecified osteoarthritis, unspecified site; R07.89 Other chest pain; F17.210 Nicotine dependence, cigarettes, uncomplicated; F32.9 Major depressive disorder, single episode, unspecified; F41.9 Anxiety disorder, unspecified; I25.10 Atherosclerotic heart disease of native coronary artery without angina pectoris; I50.9 Heart failure, unspecified; K44.9 Diaphragmatic hernia without obstruction or gangrene; N18.9 Chronic kidney disease, unspecified; T38.0X5A Adverse effect of glucocorticoids and synthetic analogues, initial encounter; Z82.49 Family history of ischemic heart disease and other diseases of the circulatory system; Z83.3 Family history of diabetes mellitus; I25.2 Old myocardial infarction; Z86.73 Personal history of transient ischemic attack (TIA), and cerebral infarction without residual deficits; Z91.19 Patient's noncompliance with other medical treatment and regimen; Z79.899 Other long term (current) drug therapy; Z81.8 Family history of other mental and behavioral disorders; Y92.89 Other specified places as the place of occurrence of the external cause; Z88.0 Allergy status to penicillin; Z88.5 Allergy status to narcotic agent; Z88.1 Allergy status to other antibiotic agents; Z98.51 Tubal ligation status; Z90.49 Acquired absence of other specified parts of digestive tract
CPT/HCPCS: 36415; 71045; 80048; 80053; 83735; 83880; 84443; 84484; 85025; 93005; 94640; 96374; 96375; G0378; J2405

== ENCOUNTER 2018-10-26 16:01 | Inpatient (IN) | payer MEDICARE ==
[~2018-10-26] VITALS: Ht 165.1 cm; Wt 151.9 kg
[~2018-10-26 16:01] MED LIST changes: +DOXY-299 PO; +HYDR-4833 PO; +METH4PAK PO; +PANT40TA2 PO
[2018-10-26] MEDS ORDERED: methylPREDNISolone SOD SUCC 125 MG/2 ML VL IV ONE (16:30)
[2018-10-26] MEDS ORDERED: ALBUTEROL SULF 2.5 MG/0.5ML(0.5%) NEB SOLN HHN ONE (16:30)
[2018-10-26] MEDS ORDERED: IPRATROPIUM BROM 0.5 MG/2.5ML INH SOL HHN ONE (16:30)
[2018-10-26] MEDS ORDERED: cefTRIAXone 1GM/50ML D5W 50 ML IV ONE (17:30)
[2018-10-26 18:29] LABS: Basophils # (auto) 0.1 uL; Basophils % (auto) 0.7 % (0.0-2.0); Eosinophils # (auto) 0.1 uL; Eosinophils % (auto) 1.4 % (0.0-7.0); Hematocrit 43.5 % (36.0-46.0); Hemoglobin 14.8 g/dL (12.2-16.2); Lymphocytes # (auto) 2.5 uL; Lymphocytes % (auto) 31.5 % (10.0-50.0); Mean Corpuscular Hemoglobin 33.7 pg (28.0-32.0); Mean Corpuscular Volume 99.4 fL (80.0-100.0); Monocytes # (auto) 0.7 uL; Monocytes % (auto) 8.6 % (0.0-12.0); Neutrophils # (auto) 4.6 uL; Neutrophils % (auto) 57.8 % (37.0-80.0); Platelet Count (auto) 267 10^3/uL (140-450); Red Blood Cells 4.38 10^6/uL (4.0-5.20); White Blood Cell 7.9 10^3/uL (4.4-10.8)
[2018-10-26 18:48] LABS: Alanine Aminotransferase 24 U/L (13-56); Albumin 4.3 g/dL (3.4-5.0); Anion Gap 7 (5-15); BUN/Creatinine Ratio 14.3; Blood Urea Nitrogen 17 mg/dL (7-18); Calcium 9.1 mg/dL (8.5-10.1); Carbon Dioxide 25 mmol/L (21-32); Chloride 113 mmol/L (98-107); GFR African American 58 mL/min; GFR Non-African American 48 mL/min; Potassium 3.2 mmol/L (3.5-5.1); Sodium 145 mmol/L (136-145)
[2018-10-26 18:53] LABS: Alkaline Phosphatase 83 U/L (45-117); Aspartate Aminotransferase 15 U/L (15-37); Bilirubin, Total 0.3 mg/dL (0.2-1.0); Glucose 116 mg/dL (74-106); Total Protein 7.6 g/dL (6.4-8.2)
[2018-10-26] MEDS ORDERED: MORPHINE SULF INJ 2 MG/ML SYRINGE 1ML IV PRN ×2 (19:00)
[2018-10-26] MEDS ORDERED: NITROGLYCERIN 0.4 MG SL TAB SL PRN (19:00)
[2018-10-26] MEDS ORDERED: ALBUTEROL SULF 2.5 MG/0.5ML(0.5%) NEB SOLN NEB PRN (19:00)
[2018-10-26] MEDS ORDERED: ONDANSETRON HCL 4 MG/2 ML VIAL IV PRN (19:00)
[2018-10-26] MEDS ORDERED: IPRATROPIUM BROM 0.5 MG/2.5ML INH SOL NEB PRN (19:00)
[2018-10-26] MEDS ORDERED: FUROSEMIDE 20 MG/2 ML VIAL IV ONE (19:00)
[2018-10-26] MEDS ORDERED: ACETAMINOPHEN 500 MG TAB PO PRN (19:00)
[2018-10-26] MEDS ORDERED: DOCUSATE SOD 100 MG CAP PO PRN (19:00)
[2018-10-26] MEDS: BUDESONIDE (INHALATION) 0.5 MG/2 ML NEB NEB SCH (19:50)
[2018-10-26 22:00] VITALS: BP 139/85
--- NOTE | 2018-10-26 22:01 | NUR ---
HOSPITALIST PAGED PATIENT DOES NOT HAVE A DIET ORDER.
[2018-10-26] MEDS: GABAPENTIN 300 MG CAP PO SCH (22:17)
[2018-10-26] MEDS: ENALAPRIL MALEATE 2.5 MG TAB PO SCH (22:17)
[2018-10-26] MEDS: HYDROcodone-ACET 5/325MG TAB PO PRN (22:22)
--- NOTE | 2018-10-26 23:00 | NUR ---
CONSUELO ZHANG states they want to leave the floor Against Medical Advice (AMA) to go outside and smoke. Patient encouraged to stay on floor and not smoke. Patient advised of the risks and benefits of leaving AMA. Patient verbalized understanding and signed required AMA form.
[2018-10-27 03:47] VITALS: BP 139/85
[2018-10-27] MEDS: HYDROcodone-ACET 5/325MG TAB PO PRN ×3 (04:56→20:20)
[2018-10-27 05:00] VITALS: BP 123/77
[2018-10-27 06:01] LABS: Basophils # (auto) 0 uL; Basophils % (auto) 0.1 % (0.0-2.0); Eosinophils # (auto) 0 uL; Hematocrit 41.5 % (36.0-46.0); Hemoglobin 14.2 g/dL (12.2-16.2); Lymphocytes # (auto) 0.5 uL; Lymphocytes % (auto) 5.7 % (10.0-50.0); Mean Corpuscular Hemoglobin 33.9 pg (28.0-32.0); Mean Corpuscular Hgb Conc. 34.1 g/dL (32.0-36.0); Mean Corpuscular Volume 99.5 fL (80.0-100.0); Monocytes # (auto) 0.1 uL; Neutrophils # (auto) 8.5 uL; Neutrophils % (auto) 93.2 % (37.0-80.0); Platelet Count (auto) 283 10^3/uL (140-450); Red Blood Cells 4.18 10^6/uL (4.0-5.20); White Blood Cell 9.1 10^3/uL (4.4-10.8)
[2018-10-27] MEDS: LEVOTHYROXINE SODIUM 100 MCG TAB PO SCH (06:03)
[2018-10-27] MEDS: GABAPENTIN 300 MG CAP PO SCH ×3 (06:03→21:59)
[2018-10-27 06:32] LABS: Potassium 3.3 mmol/L (3.5-5.1)
[2018-10-27 06:37] LABS: Albumin 4.1 g/dL (3.4-5.0); BUN/Creatinine Ratio 14.9; Calcium 8.5 mg/dL (8.5-10.1)
[2018-10-27 06:40] LABS: Bilirubin, Total 0.3 mg/dL (0.2-1.0); Total Protein 7.1 g/dL (6.4-8.2)
[2018-10-27] MEDS: IPRATROPIUM BROM 0.5 MG/2.5ML INH SOL NEB SCH ×3 (07:22→19:23)
[2018-10-27] MEDS: ALBUTEROL SULF 2.5 MG/0.5ML(0.5%) NEB SOLN NEB SCH ×3 (07:22→19:23)
[2018-10-27] MEDS: BUDESONIDE (INHALATION) 0.5 MG/2 ML NEB NEB SCH ×2 (07:22→19:23)
--- NOTE | 2018-10-27 07:55 | NUR ---
Opening Shift Note Assumed care of patient, awake and alert. No S/S of distress/SOB or pain. Instructed on POC and to call for assist PRN, will continue to monitor for changes Q1hr and PRN.
--- NOTE | 2018-10-27 08:35 | NUR ---
PATIENT GOING DOWN TO SMOKE, RISKS EXPLAINED PT AWARE SHE SIGNED AMA FORM TO SMOKE
[2018-10-27 09:00] VITALS: BP 137/93
[2018-10-27] MEDS: PANTOPRAZOLE 40 MG TAB PO SCH (09:55)
[2018-10-27] MEDS: FAMOTIDINE 20 MG TAB PO SCH (09:56)
[2018-10-27] MEDS: ENALAPRIL MALEATE 2.5 MG TAB PO SCH ×2 (09:56→22:01)
--- NOTE | 2018-10-27 11:25 | NUR ---
patient came from smoking downstairs noted at the nursing station with SOB, shaking, diaphoretic, walked patient to room in bed, vitals 140/86 p:90 o2:95% on 6 LITERS O2 mask put on pt, blood sugar: 162. MD Hernandez made aware new order to order Lorazepam 1mg x1 dose stat
[2018-10-27] MEDS ORDERED: LORazepam 2MG/ML-1ML VIAL IV ONE (11:30)
[2018-10-27 13:00] VITALS: BP 139/88
--- NOTE | 2018-10-27 13:23 | NUR ---
sister at bedside, MD Hernandez rounded on pt updated on POC, possible discharge tomorrow, copd exacerbation, pt explained she gets frequent muscle cramping new orders noted and carried out
[2018-10-27] MEDS ORDERED: methylPREDNISolone SOD SUCC 125 MG/2 ML VL IM ONE (13:30)
--- NOTE | 2018-10-27 13:45 | NUR ---
pt went to smoke outside accomoanied by sister pt in wheelchair, advised the risk of smoking
[2018-10-27] MEDS: CYCLOBENZAPRINE HCL 10 MG TAB PO SCH ×2 (13:51→22:03)
[2018-10-27] MEDS: LORazepam 2MG/ML-1ML VIAL IV PRN ×2 (14:07→20:43)
--- NOTE | 2018-10-27 14:10 | NUR ---
pt back in room, sister came to station and stated "my sister is having a seizure" MD Hernandez and myself went to pt room to assess pt in wheelchair at bedside shaking, sob diaphoretic. O2 put on pt via mask, new orders for lorazepam q6 prn per MD Hernandez "she has rhese all the time"
--- NOTE | 2018-10-27 15:08 | NUR ---
PT left to go downstairs to smoke, advised risk of going downstairs to smoke consodering last two times she went down she was sob shaky. pt stated "i wont have a seizure ill go slow" advised pt that lroazepam cant be given upon her return because she already recieved 2 doses. pt verbalized understanding and walking downstairs to smoke
--- NOTE | 2018-10-27 15:26 | NUR ---
pt back inside her room no respiratory distress noted
[2018-10-27 16:54] VITALS: BP 141/83
--- NOTE | 2018-10-27 17:32 | NUR ---
PT LEAVING DOWNSTAIRS TO SMOKE ADVISED RISK PT STILL GOING TO SMOKE
--- NOTE | 2018-10-27 20:20 | NUR ---
PATIENT RETURNS FROM SMOKING WITH A PACK OF CIGARETTES IN HAND. PATIENT HAS SIGNED AMA TO SMOKE IN CHART. PATIENT AMBULATING BACK TO ROOM AND REPORTS INCREASED SHORTNESS OF BREATH AND LOWER EXTREMITY WEAKNESS. PATIENT PLACED IN WHEELCHAIR AND WHEELED THE REST OF THE WAY BACK TO ROOM. PLACED ON OXYGEN AT 3LNC. PATIENT REPORTS IMPROVEMENT IN SHORTNESS OF BREATH. ENCOURAGED PATIENT NOT TO GO DOWNSTAIRS TO SMOKE, SHE VERBALIZED UNDERSTANDING.
--- NOTE | 2018-10-27 20:35 | NUR ---
IV insertion IV access obtained, via clean sterile technique by inserting 22 gauge catheter at Right Hand after 1 attempt. IV secured properly. No trauma to site. Patient tolerated well. NOTE: IV inserted by Natacha CHOW
--- NOTE | 2018-10-27 20:37 | NUR ---
IV removal IV DC'd with clean sterile technique, catheter fully intact. Pressure dressing applied to site. Patient tolerated well. Patient reporting tenderness at site.
[2018-10-27 22:00] VITALS: BP 128/82
[2018-10-27] MEDS: methylPREDNISolone SOD SUCC 125 MG/2 ML VL IV SCH (22:03)
[2018-10-28] MEDS: LORazepam 2MG/ML-1ML VIAL IV PRN (05:21)
[2018-10-28] MEDS: HYDROcodone-ACET 5/325MG TAB PO PRN (05:23)
[2018-10-28 05:59] VITALS: BP 145/96
[2018-10-28] MEDS: ALBUTEROL SULF 2.5 MG/0.5ML(0.5%) NEB SOLN NEB SCH ×2 (06:30→12:15)
[2018-10-28] MEDS: IPRATROPIUM BROM 0.5 MG/2.5ML INH SOL NEB SCH ×2 (06:30→12:15)
[2018-10-28] MEDS: LEVOTHYROXINE SODIUM 100 MCG TAB PO SCH (06:36)
[2018-10-28] MEDS: GABAPENTIN 300 MG CAP PO SCH (06:36)
[2018-10-28] MEDS: CYCLOBENZAPRINE HCL 10 MG TAB PO SCH (06:36)
[2018-10-28 08:00] VITALS: BP_SYST 112; BP_SYST 142; BP_DIAS 70; BP_DIAS 97
[2018-10-28 08:03] VITALS: BP 142/97
[2018-10-28] MEDS: PANTOPRAZOLE 40 MG TAB PO SCH (09:22)
[2018-10-28] MEDS: ENALAPRIL MALEATE 2.5 MG TAB PO SCH (09:22)
[2018-10-28] MEDS: methylPREDNISolone SOD SUCC 125 MG/2 ML VL IV SCH (09:24)
[2018-10-28] MEDS: FAMOTIDINE 20 MG TAB PO SCH (09:24)
[2018-10-28] MEDS ORDERED: ALPRAZolam 0.5 MG TAB PO ONE (09:45)
[2018-10-28 11:43] VITALS: BP 142/97
[2018-10-28] MEDS: BUDESONIDE (INHALATION) 0.5 MG/2 ML NEB NEB SCH (12:15)
--- NOTE | 2018-10-28 12:55 | NUR ---
Discharge from Med Surg Discharge instructions given as ordered. Encourage to follow up with PMD as instructed. All questions and concerns addressed. Patient verbalized understanding. Medication reconciliation form completed and copy given to patient. IV removed with catheter intact, pressure dressing applied. Patient taken to vehicle via wheelchair with all personal belongings, accompanied by staff and family member. No distress noted at time of departure.
== END 2018-10-28 13:00 | disposition home or self-care (01) | DRG 291 ==
LOC: ER 16:08 → OVERFLOW 16:09 → CENTRAL 21:02
PROVIDERS: ADMIT Nurse Practitioner Acute Care; ATTEND Family Medicine
DX: I11.0 Hypertensive heart disease with heart failure (principal); J96.20 Acute and chronic respiratory failure, unspecified whether with hypoxia or hypercapnia; J18.9 Pneumonia, unspecified organism; J44.1 Chronic obstructive pulmonary disease with (acute) exacerbation; J44.0 Chronic obstructive pulmonary disease with (acute) lower respiratory infection; Z68.43 Body mass index [BMI] 50.0-59.9, adult; I50.43 Acute on chronic combined systolic (congestive) and diastolic (congestive) heart failure; E66.9 Obesity, unspecified; E03.9 Hypothyroidism, unspecified; E87.6 Hypokalemia; E78.00 Pure hypercholesterolemia, unspecified; E11.21 Type 2 diabetes mellitus with diabetic nephropathy; F41.9 Anxiety disorder, unspecified; I25.10 Atherosclerotic heart disease of native coronary artery without angina pectoris; E11.42 Type 2 diabetes mellitus with diabetic polyneuropathy; Z86.73 Personal history of transient ischemic attack (TIA), and cerebral infarction without residual deficits; Z88.8 Allergy status to other drugs, medicaments and biological substances; Z91.19 Patient's noncompliance with other medical treatment and regimen; Z71.6 Tobacco abuse counseling
CPT/HCPCS: 36415; 71045; 80053; 82962; 83036; 83605; 83880; 84443; 84484; 85025; 85379; 87040; 93005; 94640; 94644; 94761; 96365; 96375; G0378; J0696

== ENCOUNTER 2018-11-18 17:13 | Inpatient (IN) | payer MEDICARE ==
[~2018-11-18] VITALS: Ht 165.1 cm; Wt 101.8 kg
[2018-11-18 18:00] LABS: Basophils # (auto) 0 uL; Basophils % (auto) 0.6 % (0.0-2.0); Eosinophils # (auto) 0.2 uL; Eosinophils % (auto) 2.2 % (0.0-7.0); Hematocrit 42.2 % (36.0-46.0); Hemoglobin 14.3 g/dL (12.2-16.2); Lymphocytes # (auto) 2.1 uL; Lymphocytes % (auto) 27.4 % (10.0-50.0); Mean Corpuscular Hemoglobin 33.9 pg (28.0-32.0); Mean Corpuscular Volume 99.7 fL (80.0-100.0); Monocytes # (auto) 0.6 uL; Neutrophils # (auto) 4.8 uL; Neutrophils % (auto) 61.8 % (37.0-80.0); Platelet Count (auto) 268 10^3/uL (140-450); Red Blood Cells 4.23 10^6/uL (4.0-5.20); White Blood Cell 7.7 10^3/uL (4.4-10.8)
[2018-11-18 18:13] LABS: Albumin 3.9 g/dL (3.4-5.0); Anion Gap 7 (5-15); Blood Urea Nitrogen 18 mg/dL (7-18); Calcium 8.7 mg/dL (8.5-10.1); Carbon Dioxide 25 mmol/L (21-32); Chloride 111 mmol/L (98-107); Glucose 112 mg/dL (74-106); Potassium 3.7 mmol/L (3.5-5.1); Sodium 143 mmol/L (136-145)
[2018-11-18 18:14] LABS: BUN/Creatinine Ratio 15.1; GFR African American 58 mL/min; GFR Non-African American 48 mL/min
[2018-11-18] MEDS ORDERED: ONDANSETRON HCL 4 MG/2 ML VIAL IV ONE (18:15)
[2018-11-18] MEDS ORDERED: HYDROmorphone HCL 2 MG/ML VL IV ONE ×2 (18:15→21:30)
[2018-11-18 18:20] LABS: Alanine Aminotransferase 31 U/L (13-56); Alkaline Phosphatase 90 U/L (45-117); Aspartate Aminotransferase 16 U/L (15-37); Bilirubin, Total 0.2 mg/dL (0.2-1.0); Total Protein 7.1 g/dL (6.4-8.2)
[2018-11-18] MEDS ORDERED: ONDANSETRON HCL 4 MG/2 ML VIAL IV PRN (21:30)
[2018-11-18] MEDS ORDERED: DOCUSATE SOD 100 MG CAP PO PRN (21:30)
[2018-11-18] MEDS ORDERED: ACETAMINOPHEN 500 MG TAB PO PRN (21:30)
[2018-11-18] MEDS ORDERED: NITROGLYCERIN 0.4 MG SL TAB SL PRN (21:30)
[2018-11-18 21:46] VITALS: BP 130/71
[2018-11-18] MEDS ORDERED: ATORVASTATIN 20 MG TAB PO SCH (22:00)
[2018-11-18] MEDS: ALBUTEROL SULF 2.5 MG/0.5ML(0.5%) NEB SOLN NEB SCH (22:09)
[2018-11-18] MEDS: IPRATROPIUM BROM 0.5 MG/2.5ML INH SOL NEB SCH (22:09)
[2018-11-18 22:30] VITALS: BP_SYST 133; BP_DIAS 77; BP_DIAS 97
--- NOTE | 2018-11-18 22:30 | NUR ---
Telemetry admit from ER LEATHACONUSELO Eduardo admitted to Telemetry unit after SBAR received. Patient oriented to Belen Hawthorne, primary RN, unit, room, bed, and unit policies regarding patient care and visiting hours. Patient now on continuous telemetry monitoring, tele box # 45 and telemetry reading on arrival to unit is 77. Patient placed on bedside oxygen, weighed by bedscale and encouraged to call if they need something. All questions and concerns addressed, patient verbalized understanding. Note:
[2018-11-18] MEDS: GABAPENTIN 300 MG CAP PO SCH (22:50)
[2018-11-18] MEDS ORDERED: ASPI-404 PO (22:52)
[2018-11-18] MEDS ORDERED: GABA300C PO (22:52)
[2018-11-18] MEDS ORDERED: DEXTROSE (50%) 50ML SYRG IV PRN (23:00)
[2018-11-19 00:26] VITALS: BP 133/77
[2018-11-19] MEDS: IPRATROPIUM BROM 0.5 MG/2.5ML INH SOL NEB SCH ×6 (02:31→22:32)
[2018-11-19] MEDS: ALBUTEROL SULF 2.5 MG/0.5ML(0.5%) NEB SOLN NEB SCH ×6 (02:31→22:31)
[2018-11-19] MEDS: HYDROcodone-ACET 5/325MG TAB PO PRN ×4 (02:44→22:13)
[2018-11-19 05:41] VITALS: BP 98/74
[2018-11-19] MEDS: GABAPENTIN 300 MG CAP PO SCH ×3 (05:43→22:00)
[2018-11-19] MEDS: InsuLIN REG 1unit/0.01ml Soln (100units/ml) SC SCH ×4 (06:04→21:57)
[2018-11-19] MEDS: ACCU-CHEK COMFORT CURVE STRIP VI SCH ×4 (06:05→21:57)
[2018-11-19 09:00] VITALS: BP 116/74
--- NOTE | 2018-11-19 09:30 | NUR ---
Opening Shift Note Assumed care of patient, awake and alert. No S/S of distress/SOB or pain. Instructed on POC and to call for assist PRN, will continue to monitor for changes Q1hr and PRN.
[2018-11-19] MEDS: ASPirin-EC 81 mg tab PO SCH (09:42)
[2018-11-19 11:56] LABS: Basophils # (auto) 0 uL; Basophils % (auto) 0.5 % (0.0-2.0); Eosinophils # (auto) 0.1 uL; Eosinophils % (auto) 0.8 % (0.0-7.0); Hematocrit 38.2 % (36.0-46.0); Hemoglobin 13.1 g/dL (12.2-16.2); Lymphocytes # (auto) 1.7 uL; Lymphocytes % (auto) 24.9 % (10.0-50.0); Mean Corpuscular Hemoglobin 33.8 pg (28.0-32.0); Mean Corpuscular Hgb Conc. 34.3 g/dL (32.0-36.0); Mean Corpuscular Volume 98.6 fL (80.0-100.0); Monocytes # (auto) 0.6 uL; Monocytes % (auto) 8.1 % (0.0-12.0); Neutrophils # (auto) 4.6 uL; Neutrophils % (auto) 65.7 % (37.0-80.0); Platelet Count (auto) 243 10^3/uL (140-450); Red Blood Cells 3.88 10^6/uL (4.0-5.20); Red Cell Distribution Width 12.6 % (11.8-14.3)
[2018-11-19 12:16] LABS: Calcium 8.6 mg/dL (8.5-10.1); Potassium 3.8 mmol/L (3.5-5.1)
[2018-11-19] MEDS ORDERED: IOHEXOL 350 MG/ML 100ML IJ ONE (12:17)
--- NOTE | 2018-11-19 12:18 | NUR ---
Patient left unit to OR. Addendum: 11/19/18 at 1242 by SHANTELL SILVERIO RN wrong patient
[2018-11-19 12:33] LABS: Cholesterol 178 mg/dL (< 200)
[2018-11-19 12:36] LABS: HDL Cholesterol 26 mg/dL (40-59); LDL Cholesterol 103 mg/dL (< 100); Triglycerides 266 mg/dL (< 150)
[2018-11-19 13:00] VITALS: BP 139/69
[2018-11-19] MEDS: LORazepam 0.5 MG TAB PO PRN (16:19)
[2018-11-19 17:00] VITALS: BP 130/76
--- NOTE | 2018-11-19 19:35 | NUR ---
Assumed care of patient, awake and alert. No S/S of distress/SOB or pain. Instructed on POC and to call for assist PRN, will continue to monitor for changes Q1hr and PRN.
[2018-11-19 21:53] VITALS: BP 103/52
[2018-11-19] MEDS: methylPREDNISolone SOD SUCC 40 MG/ML VL IV SCH (21:59)
[2018-11-19] MEDS: ATORVASTATIN 20 MG TAB PO SCH (21:59)
[2018-11-19 22:09] LABS: Urine Bacteria NONE SEEN /hpf (None Seen); Urine Blood TRACE /uL (Negative); Urine WBC <1 /hpf (0 - 5)
[2018-11-19 23:06] LABS: Alcohol, Urine < 3.0 mg/dL (0-5); Amphetamine Screen, Urine NEGATIVE (NEGATIVE); Barbiturate Scree,Urine NEGATIVE (NEGATIVE); Benzodiazephine Screen, Urine NEGATIVE (NEGATIVE); Cannabinoid Screen, Urine NEGATIVE (NEGATIVE); Cocaine Screen, Urine NEGATIVE (NEGATIVE); Opiate Scree,Urine NEGATIVE (NEGATIVE); Phencyclidine Screen, Urine NEGATIVE (NEGATIVE)
[2018-11-20] MEDS: ALBUTEROL SULF 2.5 MG/0.5ML(0.5%) NEB SOLN NEB SCH ×6 (02:41→22:06)
[2018-11-20] MEDS: IPRATROPIUM BROM 0.5 MG/2.5ML INH SOL NEB SCH ×6 (02:41→22:06)
--- NOTE | 2018-11-20 02:42 | NUR ---
RT NOTE PT ASKED NOT TO BE WOKEN FOR THIS TX IF SLEEPING. PT SLEEPING. NO SIGNS OF RESP DISTRESS NOTED BY RT. TX HELD PER PT REQUEST.
[2018-11-20 04:53] VITALS: BP 120/72
[2018-11-20] MEDS: HYDROcodone-ACET 5/325MG TAB PO PRN ×3 (05:27→20:44)
[2018-11-20] MEDS: methylPREDNISolone SOD SUCC 40 MG/ML VL IV SCH ×3 (06:03→22:07)
[2018-11-20] MEDS: GABAPENTIN 300 MG CAP PO SCH ×3 (06:03→22:07)
[2018-11-20] MEDS: ACCU-CHEK COMFORT CURVE STRIP VI SCH ×4 (06:03→22:08)
[2018-11-20] MEDS: InsuLIN REG 1unit/0.01ml Soln (100units/ml) SC SCH ×4 (06:58→22:15)
[2018-11-20] MEDS: LORazepam 0.5 MG TAB PO PRN ×2 (08:15→20:00)
[2018-11-20] MEDS: ASPirin-EC 81 mg tab PO SCH (09:34)
[2018-11-20 09:36] VITALS: BP 131/79
[2018-11-20 13:00] VITALS: BP 133/80
[2018-11-20 17:28] VITALS: BP 125/85
[2018-11-20 22:00] VITALS: BP 143/88
[2018-11-20] MEDS: ATORVASTATIN 20 MG TAB PO SCH (22:08)
[2018-11-21] MEDS: ALBUTEROL SULF 2.5 MG/0.5ML(0.5%) NEB SOLN NEB SCH ×3 (02:05→09:36)
[2018-11-21] MEDS: IPRATROPIUM BROM 0.5 MG/2.5ML INH SOL NEB SCH ×3 (02:05→09:36)
[2018-11-21 05:00] VITALS: BP 148/90
[2018-11-21] MEDS: GABAPENTIN 300 MG CAP PO SCH ×2 (06:27→13:39)
[2018-11-21] MEDS: methylPREDNISolone SOD SUCC 40 MG/ML VL IV SCH ×2 (06:27→13:39)
[2018-11-21] MEDS: ACCU-CHEK COMFORT CURVE STRIP VI SCH ×2 (06:28→11:45)
[2018-11-21] MEDS: InsuLIN REG 1unit/0.01ml Soln (100units/ml) SC SCH ×2 (06:30→11:45)
[2018-11-21] MEDS: LORazepam 0.5 MG TAB PO PRN (06:33)
[2018-11-21] MEDS: HYDROcodone-ACET 5/325MG TAB PO PRN ×2 (08:50→13:40)
[2018-11-21 09:00] VITALS: BP 139/91
[2018-11-21] MEDS: ASPirin-EC 81 mg tab PO SCH (10:07)
[2018-11-21 12:16] VITALS: BP 151/86
[2018-11-21 13:00] VITALS: BP 151/86
--- NOTE | 2018-11-21 14:08 | NUR ---
Discharge instructions given as ordered. Encourage to follow up with PMD (Please follow up with Dr. Martín Flores.Phone number: [phone]. Adress: [id number] [facility] [address]. Follow up with Dr. Hudson in 1-3 days or sooner Address: [address] [place] [address] ) as instructed. All questions and concerns addressed. Patient verbalized understanding. Medication reconciliation form completed and copy given to patient. IV removed with catheter intact, pressure dressing applied. Telemetry unit returned to [facility]. Patient taken to vehicle via wheelchair with all personal belongings, accompanied by staff and family member. No distress noted at time of departure.
== END 2018-11-21 14:10 | disposition home or self-care (01) | DRG 191 ==
LOC: ER 17:16 → TELE 17:17 → TELE-WESTW 22:33
PROVIDERS: ADMIT Nurse Practitioner Family; ATTEND Internal Medicine
DX: J44.1 Chronic obstructive pulmonary disease with (acute) exacerbation (principal); J98.11 Atelectasis; I13.0 Hypertensive heart and chronic kidney disease with heart failure and stage 1 through stage 4 chronic kidney disease, or unspecified chronic kidney disease; R07.89 Other chest pain; I50.9 Heart failure, unspecified; E78.5 Hyperlipidemia, unspecified; F17.210 Nicotine dependence, cigarettes, uncomplicated; F32.9 Major depressive disorder, single episode, unspecified; M19.90 Unspecified osteoarthritis, unspecified site; E66.9 Obesity, unspecified; E03.9 Hypothyroidism, unspecified; E11.22 Type 2 diabetes mellitus with diabetic chronic kidney disease; N18.9 Chronic kidney disease, unspecified; F41.9 Anxiety disorder, unspecified; Z88.5 Allergy status to narcotic agent; Z88.0 Allergy status to penicillin; Z88.1 Allergy status to other antibiotic agents; Z88.8 Allergy status to other drugs, medicaments and biological substances; I25.2 Old myocardial infarction; Z79.84 Long term (current) use of oral hypoglycemic drugs; Z79.899 Other long term (current) drug therapy; Z86.73 Personal history of transient ischemic attack (TIA), and cerebral infarction without residual deficits; Z90.49 Acquired absence of other specified parts of digestive tract; Z90.89 Acquired absence of other organs; Z90.710 Acquired absence of both cervix and uterus; Z98.51 Tubal ligation status; Z83.3 Family history of diabetes mellitus; Z82.49 Family history of ischemic heart disease and other diseases of the circulatory system; Z68.37 Body mass index [BMI] 37.0-37.9, adult; Z71.6 Tobacco abuse counseling; Z82.0 Family history of epilepsy and other diseases of the nervous system
CPT/HCPCS: 36415; 36600; 71046; 71275; 80048; 80053; 80061; 80307; 80320; 81001; 82805; 82962; 83735; 83880; 84439; 84484; 85025; 87081; 93005; 94640; 94761; 99291; G0378; J1815; J2405

== ENCOUNTER 2018-12-13 13:42 | Emergency (ER) | payer MEDICARE ==
[~2018-12-13] VITALS: Ht 165.1 cm; Wt 80.7 kg
[~2018-12-13 13:42] MED LIST changes: -ALBUAER3 IN; +ASPI-404 PO; -DOXY-299 PO; +GABA300C PO; -GABA300C10 PO; -HYDR-4833 PO; -LEV100T PO; -METH4PAK PO; -PANT40TA2 PO
[2018-12-13 14:26] LABS: Basophils # (auto) 0 uL; Basophils % (auto) 0.4 % (0.0-2.0); Eosinophils # (auto) 0.1 uL; Eosinophils % (auto) 1.7 % (0.0-7.0); Hematocrit 40.9 % (36.0-46.0); Hemoglobin 14.1 g/dL (12.2-16.2); Lymphocytes # (auto) 1.6 uL; Lymphocytes % (auto) 22.2 % (10.0-50.0); Mean Corpuscular Hemoglobin 34.6 pg (28.0-32.0); Mean Corpuscular Hgb Conc. 34.4 g/dL (32.0-36.0); Mean Corpuscular Volume 100.5 fL (80.0-100.0); Monocytes # (auto) 0.5 uL; Monocytes % (auto) 6.9 % (0.0-12.0); Neutrophils # (auto) 5.1 uL; Neutrophils % (auto) 68.8 % (37.0-80.0); Platelet Count (auto) 230 10^3/uL (140-450); Red Blood Cells 4.07 10^6/uL (4.0-5.20); Red Cell Distribution Width 13.1 % (11.8-14.3); White Blood Cell 7.4 10^3/uL (4.4-10.8)
[2018-12-13 14:39] LABS: INR < 0.93 (0.9-1.15); Partial Thromboplastin Time 26.5 sec (23.64-32.05)
[2018-12-13 14:42] LABS: Albumin 3.9 g/dL (3.4-5.0); Anion Gap 6 (5-15); BUN/Creatinine Ratio 17.8; Blood Urea Nitrogen 18 mg/dL (7-18); Calcium 8.6 mg/dL (8.5-10.1); Carbon Dioxide 28 mmol/L (21-32); Chloride 109 mmol/L (98-107); GFR African American 70 mL/min; GFR Non-African American 58 mL/min; Glucose 106 mg/dL (74-106); Potassium 4.2 mmol/L (3.5-5.1); Sodium 143 mmol/L (136-145)
[2018-12-13 14:47] LABS: Alanine Aminotransferase 21 U/L (13-56); Alkaline Phosphatase 75 U/L (45-117); Aspartate Aminotransferase 15 U/L (15-37); Bilirubin, Total 0.5 mg/dL (0.2-1.0); Total Protein 6.8 g/dL (6.4-8.2)
[2018-12-13] MEDS ORDERED: HYDROmorphone HCL 2 MG/ML VL IV ONE (16:15)
[2018-12-13] MEDS ORDERED: ALBUTEROL SULF 2.5 MG/0.5ML(0.5%) NEB SOLN HHN ONE (16:15)
[2018-12-13] MEDS ORDERED: ONDANSETRON HCL 4 MG/2 ML VIAL IV ONE (16:15)
[2018-12-13] MEDS ORDERED: methylPREDNISolone SOD SUCC 125 MG/2 ML VL IV ONE (16:15)
[2018-12-13] MEDS ORDERED: IPRATROPIUM BROM 0.5 MG/2.5ML INH SOL HHN ONE (16:15)
[2018-12-13 18:18] VITALS: BP 112/72
== END 2018-12-13 18:29 | disposition home or self-care (01) ==
LOC: ER 13:42
DX: R07.89 Other chest pain (principal); J44.1 Chronic obstructive pulmonary disease with (acute) exacerbation; E11.22 Type 2 diabetes mellitus with diabetic chronic kidney disease; I13.0 Hypertensive heart and chronic kidney disease with heart failure and stage 1 through stage 4 chronic kidney disease, or unspecified chronic kidney disease; N18.9 Chronic kidney disease, unspecified; I50.89 Other heart failure; E78.5 Hyperlipidemia, unspecified; F17.210 Nicotine dependence, cigarettes, uncomplicated; Z86.73 Personal history of transient ischemic attack (TIA), and cerebral infarction without residual deficits; Z90.49 Acquired absence of other specified parts of digestive tract; Z90.710 Acquired absence of both cervix and uterus; Z98.51 Tubal ligation status; Z88.0 Allergy status to penicillin; Z88.1 Allergy status to other antibiotic agents; Z88.6 Allergy status to analgesic agent
CPT/HCPCS: 36415; 71045; 80053; 83880; 84484; 85025; 85610; 85730; 93005; 94640; 94761; 96374; 96375; 99284; J1170; J2405; J2930; J7611; J7644; 94644

== ENCOUNTER 2018-12-20 19:37 | Emergency (ER) | payer MEDICARE ==
[~2018-12-20] VITALS: Ht 165.1 cm; Wt 80.7 kg
[2018-12-21 02:53] VITALS: BP 151/103
[2018-12-21] MEDS ORDERED: HYDROcodone-ACET 5/325MG TAB PO ONE (03:15)
== END 2018-12-21 03:33 | disposition home or self-care (01) ==
LOC: ER 19:39
DX: S92.514A Nondisplaced fracture of proximal phalanx of right lesser toe(s), initial encounter for closed fracture (principal); M19.90 Unspecified osteoarthritis, unspecified site; J44.9 Chronic obstructive pulmonary disease, unspecified; E78.5 Hyperlipidemia, unspecified; I25.2 Old myocardial infarction; E07.9 Disorder of thyroid, unspecified; E11.22 Type 2 diabetes mellitus with diabetic chronic kidney disease; I13.0 Hypertensive heart and chronic kidney disease with heart failure and stage 1 through stage 4 chronic kidney disease, or unspecified chronic kidney disease; N18.9 Chronic kidney disease, unspecified; I50.9 Heart failure, unspecified; F17.210 Nicotine dependence, cigarettes, uncomplicated; Z88.5 Allergy status to narcotic agent; Z88.0 Allergy status to penicillin; Z88.1 Allergy status to other antibiotic agents; Z88.8 Allergy status to other drugs, medicaments and biological substances; Z79.82 Long term (current) use of aspirin; Z86.73 Personal history of transient ischemic attack (TIA), and cerebral infarction without residual deficits; Z90.49 Acquired absence of other specified parts of digestive tract; Z90.710 Acquired absence of both cervix and uterus; Z98.51 Tubal ligation status; W22.8XXA Striking against or struck by other objects, initial encounter; Y93.89 Activity, other specified; Y99.8 Other external cause status; Y92.89 Other specified places as the place of occurrence of the external cause
CPT/HCPCS: 73630

== ENCOUNTER 2019-01-25 16:05 | Inpatient (IN) | payer MEDICARE ==
[~2019-01-25] VITALS: Ht 153.4 cm; Wt 99.3 kg
[2019-01-25 20:32] LABS: Basophils # (auto) 0 uL; Basophils % (auto) 0.5 % (0.0-2.0); Eosinophils # (auto) 0.1 uL; Hematocrit 46.5 % (36.0-46.0); Hemoglobin 15.6 g/dL (12.2-16.2); Lymphocytes # (auto) 2.2 uL; Lymphocytes % (auto) 21.9 % (10.0-50.0); Mean Corpuscular Hemoglobin 33.9 pg (28.0-32.0); Mean Corpuscular Hgb Conc. 33.6 g/dL (32.0-36.0); Monocytes # (auto) 0.7 uL; Monocytes % (auto) 6.6 % (0.0-12.0); Neutrophils # (auto) 7.1 uL; Nucleated Red Blood Cells % 0.1 %; Platelet Count (auto) 332 10^3/uL (140-450); Red Blood Cells 4.61 10^6/uL (4.0-5.20); Red Cell Distribution Width 12.3 % (11.8-14.3); White Blood Cell 10.1 10^3/uL (4.4-10.8)
[2019-01-25 20:44] LABS: Anion Gap 10 (5-15); Blood Urea Nitrogen 17 mg/dL (7-18); Calcium 8.5 mg/dL (8.5-10.1); Carbon Dioxide 22 mmol/L (21-32); Chloride 109 mmol/L (98-107); Glucose 99 mg/dL (74-106); Potassium 4.2 mmol/L (3.5-5.1); Sodium 141 mmol/L (136-145)
[2019-01-25 20:49] LABS: Alanine Aminotransferase 30 U/L (13-56); Alkaline Phosphatase 94 U/L (45-117); Aspartate Aminotransferase 16 U/L (15-37); BUN/Creatinine Ratio 15.3; Bilirubin, Total 0.3 mg/dL (0.2-1.0); GFR African American 63 mL/min; GFR Non-African American 52 mL/min; Total Protein 7.6 g/dL (6.4-8.2)
[2019-01-25 21:00] LABS: INR < 0.93 (0.9-1.15); Partial Thromboplastin Time 28.2 sec (23.64-32.05)
[2019-01-26] VITALS (7 sets, daily range): BP systolic 103–131; BP diastolic 65–90
[2019-01-26] MEDS ORDERED: FUROSEMIDE 20 MG/2 ML VIAL IV ONE (00:45)
[2019-01-26] MEDS ORDERED: HYDROmorphone HCL 2 MG/ML VL IV ONE (03:15)
[2019-01-26] MEDS ORDERED: ONDANSETRON HCL 4 MG/2 ML VIAL IV ONE (03:15)
[2019-01-26] MEDS ORDERED: TEMAZEPAM 15 MG CAP PO PRN (05:15)
[2019-01-26] MEDS ORDERED: ONDANSETRON HCL 4 MG/2 ML VIAL IV PRN (05:15)
[2019-01-26] MEDS ORDERED: ACETAMINOPHEN 325 MG TAB PO PRN (05:15)
[2019-01-26] MEDS ORDERED: DEXTROSE (50%) 50ML SYRG IV PRN (05:15)
[2019-01-26] MEDS ORDERED: ALBUTEROL SULF 2.5 MG/0.5ML(0.5%) NEB SOLN NEB PRN (05:15)
[2019-01-26] MEDS ORDERED: MORPHINE SULF INJ 2 MG/ML SYRINGE 1ML IV PRN (05:45)
[2019-01-26] MEDS ORDERED: NITROGLYCERIN 0.4 MG SL TAB SL PRN (05:45)
[2019-01-26] MEDS: InsuLIN REG 1unit/0.01ml Soln (100units/ml) SC SCH ×4 (07:00→22:25)
[2019-01-26] MEDS: GABAPENTIN 300 MG CAP PO SCH ×3 (07:04→22:24)
[2019-01-26] MEDS: ACCU-CHEK COMFORT CURVE STRIP VI SCH ×4 (07:09→22:24)
--- NOTE | 2019-01-26 07:10 | NUR ---
Opening Shift Note Assumed care of patient, awake and alert. No S/S of distress/SOB or pain. Instructed on POC and to call for assist PRN, will continue to monitor for changes Q1hr and PRN. Bed locked in lowest position with two side rails up and call light in reach.
[2019-01-26 09:06] LABS: Urine Bacteria FEW /hpf (None Seen); Urine Blood TRACE /uL (Negative); Urine Specific Gravity 1.028 (1.001-1.035); Urine WBC 2 /hpf (0 - 5)
[2019-01-26] MEDS: FAMOTIDINE 20 MG TAB PO SCH ×2 (09:17→22:24)
[2019-01-26] MEDS: ASPirin 81 mg TAB PO SCH (09:17)
[2019-01-26] MEDS: HYDROcodone-ACET 5/325MG TAB PO PRN ×3 (09:18→22:24)
[2019-01-26] MEDS: SOD CHL 0.45% 1,000 ML IV SCH (11:14)
[2019-01-26 11:26] LABS: Basophils # (auto) 0 uL; Eosinophils # (auto) 0.1 uL; Hemoglobin 13.8 g/dL (12.2-16.2); Lymphocytes # (auto) 1.5 uL; Monocytes # (auto) 0.6 uL; Neutrophils # (auto) 6.7 uL; White Blood Cell 8.9 10^3/uL (4.4-10.8)
[2019-01-26 11:29] LABS: Basophils % (auto) 0.2 % (0.0-2.0); Hematocrit 40.8 % (36.0-46.0); Lymphocytes % (auto) 16.7 % (10.0-50.0); Mean Corpuscular Hgb Conc. 33.8 g/dL (32.0-36.0); Mean Corpuscular Volume 100.5 fL (80.0-100.0); Monocytes % (auto) 7.1 % (0.0-12.0); Platelet Count (auto) 267 10^3/uL (140-450); Red Blood Cells 4.06 10^6/uL (4.0-5.20); Red Cell Distribution Width 12.2 % (11.8-14.3)
[2019-01-26 11:44] LABS: Alanine Aminotransferase 76 U/L (13-56); Albumin 3.5 g/dL (3.4-5.0); Anion Gap 7 (5-15); Aspartate Aminotransferase 75 U/L (15-37); BUN/Creatinine Ratio 22.8; Blood Urea Nitrogen 23 mg/dL (7-18); Calcium 8.5 mg/dL (8.5-10.1); Carbon Dioxide 25 mmol/L (21-32); Chloride 108 mmol/L (98-107); GFR African American 70 mL/min; GFR Non-African American 58 mL/min; Glucose 122 mg/dL (74-106); Magnesium 2.2 mg/dL (1.6-2.6); Sodium 140 mmol/L (136-145)
[2019-01-26 11:48] LABS: Alkaline Phosphatase 94 U/L (45-117); Bilirubin, Total 0.5 mg/dL (0.2-1.0); Total Protein 6.6 g/dL (6.4-8.2)
[2019-01-26 11:55] LABS: Free T4 (Free Thyroxine) 0.51 ng/dL (0.89-1.76)
--- NOTE | 2019-01-26 12:30 | NUR ---
DR JORGE DING
--- NOTE | 2019-01-26 17:43 | NUR ---
IV DISCONTINUED LEFT WRIST IV DC'D NEW IV PLACED ON UPPER LEFT ARM 22G PATIENT TOLERATED WELL. IV IS PATENT AND FLUSHING WELL.
--- NOTE | 2019-01-26 19:25 | NUR ---
Opening Shift Note Received report from mariusz Schwarz RN. Assumed care of patient, awake and alert. No S/S of distress/SOB or pain. Instructed on POC and to call for assist PRN, will continue to monitor for changes Q1hr and PRN. Bed placed in lowest position, and call light within reach. Patient refused to have bed alarm on. Will monitor.
--- NOTE | 2019-01-26 20:00 | NUR ---
Patient left AMA to smoke.
--- NOTE | 2019-01-26 20:20 | NUR ---
Patient came back from [place] to smoke.
[2019-01-26] MEDS ORDERED: ATORVASTATIN 20 MG TAB PO SCH (22:00)
--- NOTE | 2019-01-26 22:31 | NUR ---
PT ASSESSED FOR PRN MED NEB TX. SPO2 87% ON RA. PT PLACED ON 2L NC. SPO2 NOW 93%, HR 86. PT DENIES ANY RESPIRATORY DISTRESS. NO TX INDICATED. PT IS AWARE TO HAVE RT PAGED IF TX NEEDED.
[2019-01-27 04:48] LABS: Basophils # (auto) 0 uL; Eosinophils # (auto) 0.2 uL; Lymphocytes # (auto) 1.9 uL; Mean Corpuscular Hemoglobin 34.5 pg (28.0-32.0); Monocytes # (auto) 0.8 uL; Platelet Count (auto) 257 10^3/uL (140-450)
[2019-01-27 04:49] LABS: Basophils % (auto) 0.4 % (0.0-2.0); Eosinophils % (auto) 2.3 % (0.0-7.0); Hematocrit 40.3 % (36.0-46.0); Lymphocytes % (auto) 25.2 % (10.0-50.0); Mean Corpuscular Hgb Conc. 34.7 g/dL (32.0-36.0); Mean Corpuscular Volume 99.3 fL (80.0-100.0); Monocytes % (auto) 10.2 % (0.0-12.0); Neutrophils # (auto) 4.7 uL; Neutrophils % (auto) 61.9 % (37.0-80.0); Red Blood Cells 4.06 10^6/uL (4.0-5.20); Red Cell Distribution Width 12.3 % (11.8-14.3); White Blood Cell 7.5 10^3/uL (4.4-10.8)
[2019-01-27 05:06] LABS: Albumin 3.4 g/dL (3.4-5.0); BUN/Creatinine Ratio 25.8; Calcium 8.2 mg/dL (8.5-10.1)
[2019-01-27 05:09] LABS: Bilirubin, Total 0.4 mg/dL (0.2-1.0); Total Protein 6.2 g/dL (6.4-8.2)
[2019-01-27 05:32] VITALS: BP 109/80
--- NOTE | 2019-01-27 06:00 | NUR ---
IV insertion IV access obtained, via clean sterile technique by inserting 22 gauge catheter at Left hand after 3rd attempt(s). IV secured properly. No trauma to site. Patient tolerated procedure well.
[2019-01-27] MEDS: GABAPENTIN 300 MG CAP PO SCH ×2 (06:05→14:00)
[2019-01-27] MEDS: SOD CHL 0.45% 1,000 ML IV SCH (06:06)
[2019-01-27] MEDS: HYDROcodone-ACET 5/325MG TAB PO PRN (06:07)
[2019-01-27] MEDS: ACCU-CHEK COMFORT CURVE STRIP VI SCH ×2 (06:40→11:30)
[2019-01-27] MEDS: InsuLIN REG 1unit/0.01ml Soln (100units/ml) SC SCH ×2 (06:41→11:30)
[2019-01-27] MEDS ORDERED: LEVOTHYROXINE SODIUM 112 MCG TAB PO SCH (07:00)
[2019-01-27 08:00] VITALS: BP 137/86
[2019-01-27] MEDS ORDERED: ADENOSINE 83 MG in GIVE UN-DILUTED 0 ML IV STA (08:23)
[2019-01-27 09:00] VITALS: BP 99/88
[2019-01-27 09:52] LABS: Hepatitis A Ab IgM Negative; Hepatitis B Core IgM Negative
[2019-01-27 09:53] LABS: Hepatitis B Surface Antigen Negative (Negative); Hepatitis C Antibody Negative (Negative)
[2019-01-27] MEDS: ASPirin 81 mg TAB PO SCH (10:10)
[2019-01-27] MEDS: FAMOTIDINE 20 MG TAB PO SCH (10:11)
[2019-01-27] MEDS ORDERED: ROSU20TA14 PO (12:05)
[2019-01-27] MEDS ORDERED: GABA300C10 PO (12:05)
[2019-01-27] MEDS ORDERED: ASPI-404 PO (12:05)
[2019-01-27] MEDS ORDERED: LEV112T PO (12:05)
[2019-01-27 13:00] VITALS: BP 128/75
[2019-01-27 14:04] VITALS: BP 128/75
--- NOTE | 2019-01-27 14:16 | NUR ---
IV removal 2IVS DC'd with clean sterile technique, catheter fully intact. Pressure dressing applied to site. Patient tolerated well.
--- NOTE | 2019-01-27 14:53 | NUR ---
Discharge instructions given as ordered. Encourage to follow up with PMD as instructed. All questions and concerns addressed. Patient verbalized understanding. Medication reconciliation form completed and copy given to patient. IV removed with catheter intact, pressure dressing applied. Telemetry unit returned to ICU. Patient taken to vehicle via wheelchair with all personal belongings, accompanied by staff. No distress noted at time of departure.
== END 2019-01-27 14:55 | disposition home or self-care (01) | DRG 313 ==
LOC: ER 16:05 → TELE 16:06 → TELE-WESTW 01-26 09:04
PROVIDERS: ADMIT Nurse Practitioner; ATTEND Internal Medicine
DX: R07.89 Other chest pain (principal); J44.1 Chronic obstructive pulmonary disease with (acute) exacerbation; I13.0 Hypertensive heart and chronic kidney disease with heart failure and stage 1 through stage 4 chronic kidney disease, or unspecified chronic kidney disease; I31.3 Pericardial effusion (noninflammatory); Z68.41 Body mass index [BMI] 40.0-44.9, adult; E66.01 Morbid (severe) obesity due to excess calories; E11.22 Type 2 diabetes mellitus with diabetic chronic kidney disease; G89.4 Chronic pain syndrome; I08.0 Rheumatic disorders of both mitral and aortic valves; I50.9 Heart failure, unspecified; N18.9 Chronic kidney disease, unspecified; F32.9 Major depressive disorder, single episode, unspecified; I25.10 Atherosclerotic heart disease of native coronary artery without angina pectoris; F41.9 Anxiety disorder, unspecified; M19.90 Unspecified osteoarthritis, unspecified site; R56.9 Unspecified convulsions; E03.9 Hypothyroidism, unspecified; F17.210 Nicotine dependence, cigarettes, uncomplicated; Z82.0 Family history of epilepsy and other diseases of the nervous system; Z82.49 Family history of ischemic heart disease and other diseases of the circulatory system; Z86.73 Personal history of transient ischemic attack (TIA), and cerebral infarction without residual deficits; Z90.710 Acquired absence of both cervix and uterus; Z91.19 Patient's noncompliance with other medical treatment and regimen; Z88.1 Allergy status to other antibiotic agents; Z88.5 Allergy status to narcotic agent; Z88.0 Allergy status to penicillin; Z88.8 Allergy status to other drugs, medicaments and biological substances; Z98.51 Tubal ligation status; Z90.49 Acquired absence of other specified parts of digestive tract
CPT/HCPCS: 36415; 71045; 76705; 80053; 80074; 81001; 82140; 82607; 82962; 83036; 83735; 83880; 84439; 84443; 84484; 85025; 85379; 85610; 85730; 86703; 93005; 93306; 96374; 96375; G0378; J0153; J1815; J2405

== ENCOUNTER 2019-02-08 15:16 | Inpatient (IN) | payer MEDICARE ==
[~2019-02-08] VITALS: Ht 162.6 cm; Wt 100.2 kg
[~2019-02-08 15:16] MED LIST changes: -GABA300C PO; +GABA300C10 PO; +LEV112T PO; +ROSU20TA14 PO
[2019-02-08] MEDS ORDERED: cloNIDine HCL 0.1 MG TAB PO ONE (16:00)
[2019-02-08 16:12] LABS: Basophils # (auto) 0.1 uL; Monocytes # (auto) 0.5 uL; Monocytes % (auto) 6.3 % (0.0-12.0)
[2019-02-08 16:14] LABS: Basophils % (auto) 0.7 % (0.0-2.0); Eosinophils # (auto) 0.1 uL; Eosinophils % (auto) 1.7 % (0.0-7.0); Hematocrit 41.7 % (36.0-46.0); Hemoglobin 14.5 g/dL (12.2-16.2); Lymphocytes % (auto) 23.8 % (10.0-50.0); Mean Corpuscular Hemoglobin 34.6 pg (28.0-32.0); Mean Corpuscular Hgb Conc. 34.7 g/dL (32.0-36.0); Mean Corpuscular Volume 99.5 fL (80.0-100.0); Neutrophils # (auto) 5.8 uL; Neutrophils % (auto) 67.5 % (37.0-80.0); Platelet Count (auto) 315 10^3/uL (140-450); Red Blood Cells 4.19 10^6/uL (4.0-5.20); Red Cell Distribution Width 12.1 % (11.8-14.3); White Blood Cell 8.6 10^3/uL (4.4-10.8)
[2019-02-08 16:26] LABS: INR < 0.93 (0.9-1.15); Partial Thromboplastin Time 26.8 sec (23.64-32.05)
[2019-02-08 16:28] LABS: Alanine Aminotransferase 26 U/L (13-56); Albumin 4.1 g/dL (3.4-5.0); Anion Gap 8 (5-15); Blood Alcohol < 3.0 mg/dL (0-5); Blood Urea Nitrogen 20 mg/dL (7-18); Calcium 8.7 mg/dL (8.5-10.1); Carbon Dioxide 23 mmol/L (21-32); Chloride 110 mmol/L (98-107); Glucose 125 mg/dL (74-106); Potassium 3.9 mmol/L (3.5-5.1); Sodium 141 mmol/L (136-145)
[2019-02-08 16:33] LABS: Alkaline Phosphatase 87 U/L (45-117); Aspartate Aminotransferase 20 U/L (15-37); BUN/Creatinine Ratio 20.2; Bilirubin, Total 0.2 mg/dL (0.2-1.0); GFR African American 72 mL/min; GFR Non-African American 59 mL/min; Total Protein 7.4 g/dL (6.4-8.2)
[2019-02-08] MEDS ORDERED: IPRATROPIUM BROM 0.5 MG/2.5ML INH SOL NEB PRN (20:15)
[2019-02-08] MEDS ORDERED: MORPHINE SULF INJ 2 MG/ML SYRINGE 1ML IV PRN (20:15)
[2019-02-08] MEDS ORDERED: ALBUTEROL SULF 2.5 MG/0.5ML(0.5%) NEB SOLN NEB PRN (20:15)
[2019-02-08] MEDS ORDERED: DEXTROSE (50%) 50ML SYRG IV PRN (20:15)
[2019-02-08] MEDS ORDERED: NITROGLYCERIN 0.4 MG SL TAB SL PRN (20:15)
[2019-02-08] MEDS ORDERED: HYDROmorphone HCL 2 MG/ML VL IV PRN (20:15)
[2019-02-08] MEDS ORDERED: traMADol HCL 50 MG TAB PO PRN (20:15)
[2019-02-08] MEDS: DOXYCYCLINE 100MG/250ML 250 ML IV SCH (21:35)
[2019-02-08] MEDS: InsuLIN REG 1unit/0.01ml Soln (100units/ml) SC SCH (22:00)
[2019-02-08] MEDS ORDERED: BUDESONIDE (INHALATION) 0.5 MG/2 ML NEB NEB SCH (22:00)
[2019-02-08] MEDS ORDERED: AMITRIPTYLINE HCL 25 MG TAB PO SCH (22:00)
[2019-02-08] MEDS: DOCUSATE SOD 100 MG CAP PO SCH (22:25)
[2019-02-08] MEDS: GABAPENTIN 300 MG CAP PO SCH (22:26)
[2019-02-08 22:29] VITALS: BP 154/94
[2019-02-08] MEDS: ACCU-CHEK COMFORT CURVE STRIP VI SCH (22:29)
[2019-02-08 22:47] VITALS: BP 154/94
--- NOTE | 2019-02-08 22:47 | NUR ---
Telemetry admit from ER LEATHA,CONSUELO Eduardo admitted to Telemetry unit. Patient oriented to JOSH SAUCEDA RN primary RN, unit, room, bed, and unit policies regarding patient care and visiting hours. Patient now on continuous telemetry monitoring, tele box #30 and telemetry reading on arrival to unit is SR. Patient placed on bedside oxygen 2L NC, weighed by bedscale and encouraged to call if they need something. Fall and safety precautions in place. Call light within reach. All questions and concerns addressed, patient verbalized understanding.
--- NOTE | 2019-02-08 23:00 | NUR ---
MRSA MRSA swab obtained of nares and sent to lab via bullet. Patient tolerated well
--- NOTE | 2019-02-08 23:15 | NUR ---
AMA Patient requesting to go downstairs to smoke. Patient was advised against smoking and educated, but still insisting to go. AMA form signed and placed in chart. Patient currently ambulating down hallway towards elevator. No distress noted.
--- NOTE | 2019-02-08 23:45 | NUR ---
AMA Patient back on floor. No distress noted
--- NOTE | 2019-02-08 23:50 | NUR ---
URINE Urine sample obtained and sent to lab via bullet.
[2019-02-08 23:59] LABS: Urine WBC None Seen /hpf (0 - 5)
[2019-02-09 00:14] LABS: Urine Bacteria NONE SEEN /hpf (None Seen); Urine Blood TRACE /uL (Negative); Urine Specific Gravity 1.017 (1.001-1.035)
--- NOTE | 2019-02-09 00:20 | NUR ---
Respiratory note: PT SEEN FOR PRN MED NEB TX AT 0020, TX NOT INDICATED AT THIS TIME. PT DISPLAYING NO SIGNS OF DISTRESS. PT'S SCHEDULED WHILE AWAKE ALBUTEROL AND ATROVENT TXS WERE ORDERED AFTER 1800 AND UNAVAILABLE TO GIVE, BUT CHECKED IF SHE WANTED HER PRN TX. PT NEXT SCHEDULED MED NEB IS DUE AT 0600. PT AWARE. HR 78 RR 18 POX 96% ON ROOM AIR.
[2019-02-09 00:22] VITALS: BP 154/94
[2019-02-09 00:22] LABS: Alcohol, Urine < 3.0 mg/dL (0-5); Amphetamine Screen, Urine NEGATIVE (NEGATIVE); Barbiturate Scree,Urine NEGATIVE (NEGATIVE); Benzodiazephine Screen, Urine NEGATIVE (NEGATIVE); Cannabinoid Screen, Urine NEGATIVE (NEGATIVE); Cocaine Screen, Urine NEGATIVE (NEGATIVE); Opiate Scree,Urine NEGATIVE (NEGATIVE); Phencyclidine Screen, Urine NEGATIVE (NEGATIVE)
--- NOTE | 2019-02-09 01:20 | NUR ---
IV insertion IV access obtained, via clean sterile technique by inserting 22 gauge catheter at right shoulder after 3 attempts. IV secured properly. No trauma to site. Patient tolerated well. IV removal IV DC'd with clean sterile technique, catheter fully intact. Pressure dressing applied to site. Patient tolerated well. Left shoulder 20 gauge dc due to pain.
[2019-02-09] MEDS ORDERED: DIPH1TAB30 PO (02:27)
[2019-02-09] MEDS ORDERED: INFLUENZA QUAD 2019-2020 0.5ml SYRG IM ONE (02:30)
[2019-02-09 05:00] VITALS: BP 123/86
[2019-02-09] MEDS ORDERED: IPRATROPIUM BROM 0.5 MG/2.5ML INH SOL NEB SCH (06:00)
[2019-02-09] MEDS ORDERED: ALBUTEROL SULF 2.5 MG/0.5ML(0.5%) NEB SOLN NEB SCH (06:00)
[2019-02-09] MEDS: GABAPENTIN 300 MG CAP PO SCH ×2 (06:07→13:58)
[2019-02-09] MEDS: InsuLIN REG 1unit/0.01ml Soln (100units/ml) SC SCH ×2 (06:57→11:57)
[2019-02-09] MEDS: ACCU-CHEK COMFORT CURVE STRIP VI SCH ×2 (06:58→11:57)
[2019-02-09] MEDS ORDERED: LEVOTHYROXINE SODIUM 112 MCG TAB PO SCH (07:00)
--- NOTE | 2019-02-09 08:00 | NUR ---
RECEIVED PATIENT ALERT AND ORIENTED X4, NOT IN DISTRESS, WHEEZING LS IN BILATERAL UPPER AND LOWER LS, RR=18 SAT=95% IN RA, RS R=76 ON TELE MONITOR, ABDOMEN SOFT WITH ACTIVE BS, TOLERATED 100% OF BREAKFAST TRAY, LAST BM THIS MORNING REPORTED, SKIN INTACT WARM TO TOUCH, RADIAL AND PEDAL PULSES PALPABLE AND STRONG, NO EDEMA OR SKIN BREAK NOTED, RESTING ON BED, HEAD OF BED ELEVATED, BED ON LOW POSITION, RAILS UP X2, CALL LIGHT ON REACH, PENDING SS CONSULT ORDERED, WILL CONTINUE MONITORING.
[2019-02-09] MEDS: DOXYCYCLINE 100MG/250ML 250 ML IV SCH (08:58)
[2019-02-09] MEDS: DOCUSATE SOD 100 MG CAP PO SCH (08:58)
[2019-02-09 09:00] VITALS: BP 135/91
[2019-02-09] MEDS ORDERED: ASPirin-EC 81 mg tab PO SCH ×2 (10:00)
[2019-02-09] MEDS ORDERED: LEVOTHYROXINE SODIUM 100 MCG/5 ML INJ IV SCH (10:00)
--- NOTE | 2019-02-09 11:00 | NUR ---
assessment Patient is a 68 year old female who is alert and oriented. Patients cognitive abilities are intact. Prior to admission patient lived home with family and functioned independently. Patient informed me she is able to care for her own ADLs. Per patient she will return home to her prior living arrangements post discharge and family will transport her home. Patients PCP is Dr Flores. Patient informed me she feels safe returning home on discharge. Patient informed me she has a fww for home use. I informed patient she has a ss consult for dc planning and medication assistance. 2nd ss consult patient cannot afford prescriptions. Patient has an income of 1,204 per month. I informed patient to apply for [employer] to help cover her 20% that medicare does not cover. I also informed patient to get any secondary insurance. I referred patient to Onel De Oliveira of [facility] for help with applying for medi-jose. Patient agreed to finding a secondary insurance. I informed patient she has a right to speak to a social staff worker regarding all care. I informed patient she has a right to participate in any and all discharge planning. Patient does not have a POA and advanced directive. I have offered patient information on POA and advanced directives. I informed the patient the advantages and benefits of having an Advanced Directive. Patient verbalized understanding and agreed to discharge plan. Addendum: 02/09/19 at 1609 by Delma SEGOVIA Amended: Links added.
[2019-02-09] MEDS ORDERED: ASP81EC PO (11:53)
[2019-02-09] MEDS ORDERED: ROSU20TA14 PO (11:53)
[2019-02-09] MEDS ORDERED: LEV112T PO (11:53)
--- NOTE | 2019-02-09 12:25 | NUR ---
PENDING D/C HOME, SS LORY WAS CONTACTED FOR FOLLOW UP, PENDING SS CONSULT REPORTED BY SS LORY, WILL CONTINUE MONITORING.
[2019-02-09 13:23] VITALS: BP 138/82
--- NOTE | 2019-02-09 14:14 | NUR ---
D/C INSTRUCTIONS WERE GIVEN, FOLLOW UP PCP APPOINTMENT AND TO FOLLOW UP WITH DR. KOENIG THE TOBACCO SCRAP SIFTER INFORMATION PROVIDED, VERBALIZED UNDERSTANDING, D/C IV SITE AND TELE, TOLERATED WELL, VS T=98.3 RR=18 SAT=96, P=80 IH=360/73, NOT IN DISTRESS, DENIED PAIN, WC WAS PROVIDED, D/C HOME WALKING, ACCOMPANIED BY SISTER, TOOK ALL BELONGINGS AND LEFT NOTING BEHIND.
== END 2019-02-09 14:06 | disposition home or self-care (01) | DRG 192 ==
LOC: ER 15:23 → TELE 15:24 → TELE-CENTR 22:39
PROVIDERS: ADMIT Nurse Practitioner Acute Care; ATTEND Internal Medicine
DX: J44.1 Chronic obstructive pulmonary disease with (acute) exacerbation (principal); R09.1 Pleurisy; E03.9 Hypothyroidism, unspecified; E66.9 Obesity, unspecified; F41.9 Anxiety disorder, unspecified; E11.40 Type 2 diabetes mellitus with diabetic neuropathy, unspecified; F17.210 Nicotine dependence, cigarettes, uncomplicated; F32.9 Major depressive disorder, single episode, unspecified; K21.9 Gastro-esophageal reflux disease without esophagitis; M19.90 Unspecified osteoarthritis, unspecified site; R56.9 Unspecified convulsions; H53.8 Other visual disturbances; I50.9 Heart failure, unspecified; I11.0 Hypertensive heart disease with heart failure; Z79.84 Long term (current) use of oral hypoglycemic drugs; Z86.73 Personal history of transient ischemic attack (TIA), and cerebral infarction without residual deficits; Z91.19 Patient's noncompliance with other medical treatment and regimen; Z68.37 Body mass index [BMI] 37.0-37.9, adult; Z88.5 Allergy status to narcotic agent; Z88.1 Allergy status to other antibiotic agents; Z88.8 Allergy status to other drugs, medicaments and biological substances; Z23 Encounter for immunization; Z82.0 Family history of epilepsy and other diseases of the nervous system; Z82.49 Family history of ischemic heart disease and other diseases of the circulatory system; Z90.710 Acquired absence of both cervix and uterus; Z79.899 Other long term (current) drug therapy; Z90.49 Acquired absence of other specified parts of digestive tract; Z98.51 Tubal ligation status
CPT/HCPCS: 36415; 70450; 71045; 80053; 80307; 80320; 81001; 82962; 83036; 83880; 84443; 84484; 85025; 85610; 85730; 87081; 93005; 94640; 99291; G0378; J1815; J3490

== ENCOUNTER 2019-07-24 14:14 | Inpatient (IN) | payer MEDICARE ==
[~2019-07-24] VITALS: Ht 152.4 cm; Wt 95.5 kg
[~2019-07-24 14:14] MED LIST changes: +ASP81EC PO; -ASPI-404 PO; +NIC21P TOP
[2019-07-24 15:03] LABS: Basophils # (auto) 0.1 10 ^3/uL (0-0.2); Eosinophils # (auto) 0.1 10 ^3/uL (0-0.8); Lymphocytes # (auto) 2.3 10 ^3/uL (0.4-5.4); Lymphocytes % (auto) 27.6 % (10.0-50.0); Mean Corpuscular Hemoglobin 34.3 pg (28.0-32.0); Monocytes # (auto) 0.7 10 ^3/uL (0-1.3); Monocytes % (auto) 7.9 % (0.0-12.0); Neutrophils # (auto) 5.2 10 ^3/uL (1.6-8.6); Neutrophils % (auto) 62.2 % (37.0-80.0); Nucleated Red Blood Cells % 0.1 %; Red Blood Cells 4.74 10^6/uL (4.0-5.20); White Blood Cell 8.4 10^3/uL (4.4-10.8)
[2019-07-24 15:05] LABS: Eosinophils % (auto) 1.3 % (0.0-7.0); Hematocrit 47.2 % (36.0-46.0); Hemoglobin 16.3 g/dL (12.2-16.2); Mean Corpuscular Hgb Conc. 34.5 g/dL (32.0-36.0); Mean Corpuscular Volume 99.5 fL (80.0-100.0); Platelet Count (auto) 297 10^3/uL (140-450); Red Cell Distribution Width 12.9 % (11.8-14.3)
[2019-07-24 15:15] LABS: Albumin 4.3 g/dL (3.4-5.0); Anion Gap 8 (5-15); Blood Urea Nitrogen 14 mg/dL (7-18); Calcium 8.9 mg/dL (8.5-10.1); Carbon Dioxide 25 mmol/L (21-32); Chloride 109 mmol/L (98-107); Glucose 94 mg/dL (74-106); Potassium 4.2 mmol/L (3.5-5.1); Sodium 142 mmol/L (136-145)
[2019-07-24 15:19] LABS: INR 0.97 (0.9-1.15); Partial Thromboplastin Time 27.7 sec (23.64-32.05)
[2019-07-24 15:20] LABS: Alanine Aminotransferase 19 U/L (13-56); Alkaline Phosphatase 96 U/L (45-117); Aspartate Aminotransferase 18 U/L (15-37); BUN/Creatinine Ratio 13.6; Bilirubin, Total 0.3 mg/dL (0.2-1.0); GFR African American 69 mL/min; GFR Non-African American 57 mL/min; Total Protein 7.6 g/dL (6.4-8.2)
[2019-07-24] MEDS ORDERED: SODIUM CHLORIDE 0.9% 1,000 ML IV ONE ×2 (15:58)
[2019-07-24] MEDS ORDERED: KETOROLAC TROMETH 15 mg/ml 1ML VL IV ONE (16:00)
[2019-07-24] MEDS ORDERED: KETOROLAC TROMETH 30 MG/ML 1ML VIAL ONE (16:14)
[2019-07-24 16:35] LABS: Urine Bacteria FEW /hpf (None Seen); Urine Blood 1+ /uL (Negative); Urine WBC <1 /hpf (0 - 5)
[2019-07-24] MEDS ORDERED: ONDANSETRON HCL 4 MG/2 ML VIAL ONE (17:07)
[2019-07-24] MEDS ORDERED: NITROGLYCERIN 0.4 MG SL TAB SL PRN (17:30)
[2019-07-24] MEDS ORDERED: DEXTROSE (50%) 50ML SYRG IV PRN (17:30)
[2019-07-24] MEDS ORDERED: TEMAZEPAM 15 MG CAP PO PRN (17:30)
[2019-07-24] MEDS ORDERED: LACTULOSE 20Gm/30ML SOLN PO PRN (17:30)
[2019-07-24] MEDS ORDERED: ACETAMINOPHEN 500 MG TAB PO PRN (17:30)
[2019-07-24] MEDS ORDERED: ALBUTEROL SULF 2.5 MG/0.5ML(0.5%) NEB SOLN NEB SCH ×2 (17:30→18:00)
[2019-07-24] MEDS ORDERED: IPRATROPIUM BROM 0.5 MG/2.5ML INH SOL NEB SCH ×2 (17:30→18:00)
[2019-07-24] MEDS ORDERED: ALBUTEROL SULF 2.5 MG/0.5ML(0.5%) NEB SOLN NEB PRN (17:30)
[2019-07-24] MEDS ORDERED: PROMETHAZINE HCL 25 MG/ML 1ML IV PRN (17:30)
[2019-07-24] MEDS: DOXYCYCLINE 100MG/250ML 250 ML IV SCH (18:09)
[2019-07-24] MEDS: ENOXAPARIN SOD 40 MG/0.4 ML SYRINGE SC SCH (18:09)
[2019-07-24] MEDS: methylPREDNISolone SOD SUCC 40 MG/ML VL IV SCH (18:09)
--- NOTE | 2019-07-24 18:35 | NUR ---
Telemetry admit from ER LEATHACONSUELO Eduardo admitted to Telemetry unit after SBAR received. Patient oriented to CLEMENTINA BASURTO, primary RN, unit, room, bed, and unit policies regarding patient care and visiting hours. Patient now on continuous telemetry monitoring, tele box # 2 and telemetry reading on arrival to unit is . Patient placed on bedside oxygen, weighed by bedscale and encouraged to call if they need something. All questions and concerns addressed, patient verbalized understanding.
[2019-07-24 18:45] VITALS: BP 142/103
[2019-07-24] MEDS ORDERED: LEVOTHYROXINE SODIUM 25 MCG TAB PO ONE (19:15)
[2019-07-24] MEDS: traMADol HCL 50 MG TAB PO PRN (19:25)
--- NOTE | 2019-07-24 19:25 | NUR ---
OPENING NOTE- NOC SHIFT RECEIVED REPORT FROM DAY SHIFT NURSE WILL RN PATIENT IS ADMITTED COVID-19 RULE OUT. COVID-19, PRECAUTIONS PER PROTOCOL IN PLACE. THIS PATIENT WILL RECEIVE CLUSTERED CARE USING PROVIDED PPE. PATIENT IS ON CONTINUOUS EKG, BP AND PULSE OX MONITOR.
--- NOTE | 2019-07-24 19:28 | NUR ---
CARE AND ADMISSION ENDORSED TO ERYN ALBERT RN.
[2019-07-24 20:00] VITALS: BP 150/97
--- NOTE | 2019-07-24 20:20 | NUR ---
DECAF COFFEE PROVIDED REQUESTED FOR PATIENT.
--- NOTE | 2019-07-24 20:45 | NUR ---
ROUNDS PATIENT IS COMFORTABLE IN BED. NO S/SX OF DISTRESS OR SOB. PATIENT COMPLAINS OF ABDOMINAL PAIN 11/13, PAIN MEDICATION WAS PROVIDED BY DAY SHIFT RN; OFFERED HEAT PACK. PATIENT BED IS LOCKED AT LOWEST POSITION, BED RAILS UP X2 AND HEAD OF BED IS UP >30 DEGREES. BEDSIDE TABLE WITHIN REACH, CALL LIGHT WITHIN REACH. DISCUSSED POC WITH PATIENT AND INSTRUCTED PATIENT TO CALL USING CALL LIGHT; PATIENT VERBALIZES UNDERSTANDING. WILL CONTINUE TO MONITOR.
--- NOTE | 2019-07-24 20:46 | NUR ---
BLOOD SENT TO LAB
[2019-07-24 21:12] VITALS: BP 150/97
[2019-07-24 21:24] LABS: CRP High Sensitivity 0.08 mg/dL (< 0.3)
[2019-07-24] MEDS ORDERED: ATORVASTATIN 20 MG TAB PO SCH (22:00)
[2019-07-24] MEDS: InsuLIN REG 1unit/0.01ml Soln (100units/ml) SC SCH (22:00)
[2019-07-24] MEDS ORDERED: ROSUVASTATIN CALCIUM PO SCH (22:00)
[2019-07-24] MEDS: ALBUTEROL SULF HFA 90MCG INH 200DOSE IN SCH (22:25)
[2019-07-24] MEDS: GABAPENTIN 300 MG CAP PO SCH (22:26)
[2019-07-24] MEDS: ACCU-CHEK COMFORT CURVE STRIP VI SCH (22:27)
--- NOTE | 2019-07-24 22:27 | NUR ---
PATIENT REFUSED INSULIN BS 161. PATIENT STATES THAT SHE IS CONCERNED THAT HER BLOOD SUGAR WILL DROP SINCE SHE WILL NOT BE EATING DURING THE NIGHT, SHE STATES THAT SHE WILL HAVE INSULIN IN THE MORNING IF SHE NEEDS IT.
--- NOTE | 2019-07-24 22:28 | NUR ---
BREATHING TREATMENT COMPLETED PER eMAR. EDUCATION PROVIDED. PATIENT TOLERATED WELL.
--- NOTE | 2019-07-25 00:40 | NUR ---
UNSUCCESSFUL BLOOD DRAW FOR ORDERED LAB SPOKE WITH BARN BOSS TO REQUEST SUPERVISORY INVESTIGATIVE SPECIALIST FOR BLOOD DRAW.
--- NOTE | 2019-07-25 01:19 | NUR ---
LAB AT BEDSIDE
[2019-07-25 02:35] LABS: Cholesterol 220 mg/dL (< 200)
[2019-07-25 02:38] LABS: HDL Cholesterol 36 mg/dL (40-59); LDL Cholesterol 139 mg/dL (< 100); Triglycerides 156 mg/dL (< 150)
[2019-07-25] MEDS: GABAPENTIN 300 MG CAP PO SCH ×3 (06:06→21:51)
[2019-07-25] MEDS: methylPREDNISolone SOD SUCC 40 MG/ML VL IV SCH (06:06)
[2019-07-25] MEDS: DOXYCYCLINE 100MG/250ML 250 ML IV SCH (06:06)
[2019-07-25] MEDS: ALBUTEROL SULF HFA 90MCG INH 200DOSE IN SCH ×3 (06:07→22:25)
[2019-07-25] MEDS: LEVOTHYROXINE SODIUM 112 MCG TAB PO SCH (06:07)
[2019-07-25] MEDS: InsuLIN REG 1unit/0.01ml Soln (100units/ml) SC SCH ×4 (06:07→21:56)
[2019-07-25] MEDS: ACCU-CHEK COMFORT CURVE STRIP VI SCH ×4 (06:08→21:51)
--- NOTE | 2019-07-25 06:08 | NUR ---
PATIENT STATES THAT SHE WILL TAKE INSULIN IF SHE NEEDS IT AFTER BREAKFAST.
[2019-07-25] MEDS: traMADol HCL 50 MG TAB PO PRN ×3 (06:35→17:15)
--- NOTE | 2019-07-25 06:47 | NUR ---
Respiratory note: HR 77, RR 26, SPO2 97% ON RA, BS CLEAR. MDI GIVEN BY RN. PT TOLERATED WELL. NO SIGNS OR SYMPTOMS OF RESPIRATORY DISTRESS NOTED AT THIS TIME.
--- NOTE | 2019-07-25 06:53 | NUR ---
CLOSING NOTE- NOC SHIFT PATIENT IS RESTING IN BED. NO S/SX OF DISTRESS OR SOB. WILL ENDORSE PATIENT CARE TO DAY SHIFT NURSE.
[2019-07-25] MEDS ORDERED: LEVOTHYROXINE SODIUM 25 MCG TAB PO SCH (07:00)
--- NOTE | 2019-07-25 07:15 | NUR ---
Opening Shift Note Assumed care of patient, awake and alert. No S/S of distress/SOB or pain. Instructed on POC and to call for assist PRN, will continue to monitor for changes Q1hr and PRN. Fall precautions in place per safety protocol.
[2019-07-25 08:00] VITALS: BP 150/95
--- NOTE | 2019-07-25 09:49 | NUR ---
Received Social Service consult regarding Advance Directives. Provided pt with information on Advance Directives and Durable power of Wire Stitcher Machine Form. Pt verbalized understanding and accepted the information. Will Contact Benefits Technician for any further concern or issues. Addendum: 07/25/19 at 1003 by EVI SIMON SS Amended: Links added.
[2019-07-25] MEDS ORDERED: FUROSEMIDE 40 MG/4 ML VIAL IV SCH (10:00)
[2019-07-25] MEDS: NITROGLYCERIN 0.2MG/HR TOPICAL PATCH TD SCH (10:00)
[2019-07-25] MEDS ORDERED: FUROSEMIDE 20 MG/2 ML VIAL IV SCH ×2 (10:13→18:00)
[2019-07-25] MEDS: ASPirin 81 mg TAB PO SCH (10:19)
[2019-07-25] MEDS: ENALAPRIL MALEATE 2.5 MG TAB PO SCH (10:20)
[2019-07-25] MEDS: POTASSIUM CHL 20 Meq TABLET PO SCH (10:20)
[2019-07-25] MEDS: ENOXAPARIN SOD 40 MG/0.4 ML SYRINGE SC SCH (10:20)
[2019-07-25 10:29] LABS: Free T3 2.27 pg/mL (2.3-4.2); Free T4 (Free Thyroxine) 0.56 ng/dL (0.89-1.76)
--- NOTE | 2019-07-25 11:15 | NUR ---
Hospitalist at bedside. MD Lopez at bedside, aware of patient status. No new orders received at this time. Will cont to monitor patient.
--- NOTE | 2019-07-25 11:50 | NUR ---
Patient requesting pin medication at this time for pain med of 10/13. Will administer medications accordingly and cont to monitor ptient.
--- NOTE | 2019-07-25 12:00 | NUR ---
Patient COVID result back negative, Patient will be transferred to room 220A with FLORENCE Barrett.
--- NOTE | 2019-07-25 12:50 | NUR ---
RECEIVED PATIENT FROM [facility]. REPORT RECEIVED FROM FLORENCE HASSAN. NO S/S OF DISTRESS OR SOB, NO PAIN NOTED. BED LOCKED IN LOWEST POSITION, SIDE RAILS UP X2, CALL LIGHT WITHIN REACH. WILL CONTINUE TO MONITOR Q1HR AND PRN.
--- NOTE | 2019-07-25 13:00 | NUR ---
PATIENT SIGNED AMA TO SMOKE. PATIENT OFF THE UNIT TO SMOKE.
[2019-07-25 14:00] VITALS: BP 146/81
--- NOTE | 2019-07-25 14:15 | NUR ---
MDI GIVEN BY RT, TOLERATED WELL. NO SIGNS OR SYMPTOMS OF RESPIRATORY DISTRESS NOTED. Respiratory note:
[2019-07-25] MEDS ORDERED: ONDANSETRON HCL 4 MG/2 ML VIAL IV PRN (17:00)
[2019-07-25 17:14] VITALS: BP 111/73
[2019-07-25 17:14] LABS: Basophils # (auto) 0 10 ^3/uL (0-0.2); Basophils % (auto) 0.1 % (0.0-2.0); Eosinophils # (auto) 0 10 ^3/uL (0-0.8); Hematocrit 42.3 % (36.0-46.0); Hemoglobin 14.3 g/dL (12.2-16.2); Lymphocytes # (auto) 1.1 10 ^3/uL (0.4-5.4); Lymphocytes % (auto) 6.5 % (10.0-50.0); Mean Corpuscular Hemoglobin 33.3 pg (28.0-32.0); Mean Corpuscular Hgb Conc. 33.7 g/dL (32.0-36.0); Mean Corpuscular Volume 98.8 fL (80.0-100.0); Monocytes # (auto) 0.8 10 ^3/uL (0-1.3); Monocytes % (auto) 4.7 % (0.0-12.0); Neutrophils # (auto) 14.5 10 ^3/uL (1.6-8.6); Neutrophils % (auto) 88.7 % (37.0-80.0); Platelet Count (auto) 303 10^3/uL (140-450); Red Blood Cells 4.28 10^6/uL (4.0-5.20); Red Cell Distribution Width 13.1 % (11.8-14.3); White Blood Cell 16.4 10^3/uL (4.4-10.8)
[2019-07-25] MEDS: DOXYCYCLINE 100 MG TAB/CAP PO SCH (17:15)
[2019-07-25 17:32] LABS: Albumin 3.8 g/dL (3.4-5.0); Calcium 9.1 mg/dL (8.5-10.1); Potassium 4.1 mmol/L (3.5-5.1)
[2019-07-25 17:35] LABS: Bilirubin, Total 0.4 mg/dL (0.2-1.0); Total Protein 7.4 g/dL (6.4-8.2)
--- NOTE | 2019-07-25 17:36 | NUR ---
IV removal and insertion IV DC'd with clean sterile technique, catheter fully intact. Pressure dressing applied to site. Patient tolerated well. IV insertion IV access obtained, via clean sterile technique by inserting 22 gauge catheter at left hand after 1 attempt. IV secured properly. No trauma to site. Patient tolerated procedure well.
[2019-07-25] MEDS: ATORVASTATIN 20 MG TAB PO SCH (21:51)
[2019-07-25 21:57] VITALS: BP 109/72
[2019-07-25] MEDS ORDERED: ROSUVASTATIN CALCIUM 20 MG PO SCH (22:00)
[2019-07-26] VITALS (7 sets, daily range): BP systolic 99–160; BP diastolic 62–85
[2019-07-26] MEDS: InsuLIN REG 1unit/0.01ml Soln (100units/ml) SC SCH ×4 (05:56→22:00)
[2019-07-26] MEDS: DOXYCYCLINE 100 MG TAB/CAP PO SCH ×2 (05:56→17:40)
[2019-07-26] MEDS: LEVOTHYROXINE SODIUM 112 MCG TAB PO SCH (05:56)
[2019-07-26] MEDS: GABAPENTIN 300 MG CAP PO SCH ×3 (05:56→20:30)
[2019-07-26] MEDS: ACCU-CHEK COMFORT CURVE STRIP VI SCH ×4 (05:57→22:00)
[2019-07-26] MEDS: traMADol HCL 50 MG TAB PO PRN ×3 (06:03→15:49)
[2019-07-26] MEDS: ALBUTEROL SULF HFA 90MCG INH 200DOSE IN SCH ×3 (06:24→22:20)
--- NOTE | 2019-07-26 08:00 | NUR ---
opening note Assumed care of patient. Alert and orientated x4. No distress or SOB noted. POC discussed. Patient verbalized understanding. Bed in lowest position. Brakes on. Side rails up x2. Will continue to monitor.
[2019-07-26] MEDS ORDERED: ADENOSINE 82 MG in GIVE UN-DILUTED 0 ML IV STA (08:34)
--- NOTE | 2019-07-26 08:45 | NUR ---
Social Service consult regarding Advance Directives. Provided pt with information on Advance Directives and Durable Power of Hydraulic Rockbreaker Operator Form. Pt verbalized understanding and accepted information. Will contact Helper Driver for any further concerns or issues.
[2019-07-26] MEDS: ENALAPRIL MALEATE 2.5 MG TAB PO SCH (10:00)
[2019-07-26] MEDS: NITROGLYCERIN 0.2MG/HR TOPICAL PATCH TD SCH ×2 (10:00→17:27)
[2019-07-26] MEDS: ASPirin 81 mg TAB PO SCH (10:12)
[2019-07-26] MEDS: POTASSIUM CHL 20 Meq TABLET PO SCH (10:12)
[2019-07-26] MEDS: ENOXAPARIN SOD 40 MG/0.4 ML SYRINGE SC SCH (10:13)
--- NOTE | 2019-07-26 13:23 | NUR ---
Patient back from stress test, per tech okay to eat now.
[2019-07-26] MEDS: MORPHINE SULF INJ 2 MG/ML SYRINGE 1ML IV PRN ×2 (16:37→18:38)
--- NOTE | 2019-07-26 16:40 | NUR ---
CHEST PAIN PATIENT WAS COMPLAINING OF ACUTE CHEST PAIN RADIATING TO LEFT ARM, PAIN 10/10. EKG PERFORMED AND READ BY STEFFANY PEDERSON. NO NEW ORDERS RECEIVED. ADMINISTERED MORPHINE PER MD ORDERS FOR CHEST PAIN. SPOKE WITH CARDIO FRONT OFFICE SPEC ANICETO, WILL BE COME TO THE FLOOR TO ASSESS PATIENT.
--- NOTE | 2019-07-26 17:34 | NUR ---
NITRO PATCH PATIENT REQUESTING NITRO PATCH THAT WAS REFUSED DURING MORNING MEDICATION PASS. ADMINISTERED UNSCHEDULED ADMINISTRATION.
[2019-07-26] MEDS: ATORVASTATIN 20 MG TAB PO SCH (20:31)
[2019-07-26] MEDS: RANOLAZINE ER 500 MG TAB PO SCH (20:32)
--- NOTE | 2019-07-26 20:35 | NUR ---
OBTAINED CONSENT FOR PATIENT LEFT HEART CATHERIZATION WITH DR EDWARDS. PATIENT VERBALIZES UNDERSTANDING NO QUESTIONS ASKED.
[2019-07-27] MEDS: MORPHINE SULF INJ 2 MG/ML SYRINGE 1ML IV PRN ×2 (04:07→10:06)
[2019-07-27 05:00] VITALS: BP 95/55
[2019-07-27] MEDS: GABAPENTIN 300 MG CAP PO SCH ×2 (06:00→14:23)
[2019-07-27] MEDS: DOXYCYCLINE 100 MG TAB/CAP PO SCH (06:00)
[2019-07-27 06:13] LABS: Basophils # (auto) 0.1 10 ^3/uL (0-0.2); Basophils % (auto) 0.8 % (0.0-2.0); Eosinophils # (auto) 0.2 10 ^3/uL (0-0.8); Eosinophils % (auto) 2.2 % (0.0-7.0); Hematocrit 41.6 % (36.0-46.0); Hemoglobin 14.3 g/dL (12.2-16.2); Lymphocytes # (auto) 3.5 10 ^3/uL (0.4-5.4); Lymphocytes % (auto) 35.2 % (10.0-50.0); Mean Corpuscular Hemoglobin 34.4 pg (28.0-32.0); Mean Corpuscular Hgb Conc. 34.4 g/dL (32.0-36.0); Mean Corpuscular Volume 99.9 fL (80.0-100.0); Monocytes # (auto) 0.9 10 ^3/uL (0-1.3); Monocytes % (auto) 9.2 % (0.0-12.0); Neutrophils # (auto) 5.3 10 ^3/uL (1.6-8.6); Neutrophils % (auto) 52.6 % (37.0-80.0); Nucleated Red Blood Cells % 0.1 %; Platelet Count (auto) 274 10^3/uL (140-450); Red Blood Cells 4.17 10^6/uL (4.0-5.20); Red Cell Distribution Width 13.1 % (11.8-14.3)
[2019-07-27] MEDS: ACCU-CHEK COMFORT CURVE STRIP VI SCH ×3 (06:18→17:00)
[2019-07-27] MEDS: InsuLIN REG 1unit/0.01ml Soln (100units/ml) SC SCH ×3 (06:18→17:00)
[2019-07-27 06:31] LABS: Partial Thromboplastin Time 26.3 sec (23.64-32.05)
[2019-07-27 06:34] LABS: Calcium 8.2 mg/dL (8.5-10.1); Potassium 4.8 mmol/L (3.5-5.1)
[2019-07-27 06:36] LABS: BUN/Creatinine Ratio 21.3
[2019-07-27] MEDS: LEVOTHYROXINE SODIUM 112 MCG TAB PO SCH (06:56)
[2019-07-27] MEDS: ALBUTEROL SULF HFA 90MCG INH 200DOSE IN SCH ×2 (07:06→15:06)
--- NOTE | 2019-07-27 07:30 | NUR ---
Opening shift note Assumed care of patient. Patient sitting up in bed A&Ox4, respirations even and non-labored with no s/s of distress. Discussed POC with patient who verbalized understanding. Patient on 3L NC. IVs flushed, patent and intact. Bed lowered/locked with 2 side rails up. Call light within reach. Will continue to monitor.
[2019-07-27 09:00] VITALS: BP 105/70
[2019-07-27] MEDS: ENOXAPARIN SOD 40 MG/0.4 ML SYRINGE SC SCH (10:00)
--- NOTE | 2019-07-27 10:00 | NUR ---
Pain Patient c/o 8/10 left upper chest pain. Administered 2mg Morphine per EMAR. Will continue to monitor.
[2019-07-27] MEDS: ENALAPRIL MALEATE 2.5 MG TAB PO SCH (10:03)
[2019-07-27] MEDS: RANOLAZINE ER 500 MG TAB PO SCH (10:03)
[2019-07-27] MEDS: ASPirin 81 mg TAB PO SCH (10:05)
[2019-07-27] MEDS: NITROGLYCERIN 0.2MG/HR TOPICAL PATCH TD SCH (10:05)
[2019-07-27] MEDS: POTASSIUM CHL 20 Meq TABLET PO SCH (10:05)
--- NOTE | 2019-07-27 10:40 | NUR ---
Pain reassessed Patient reassessed for pain. Patient stated that her pain was a 4/10 and now at a tolerable level. Will continue to monitor.
--- NOTE | 2019-07-27 11:30 | NUR ---
PATIENT WAS NOT IN ROOM TO DO BLOOD GLUCOSE CHECK. WILL RE-ATTEMPT WHEN BACK IN BED.
--- NOTE | 2019-07-27 12:10 | NUR ---
RETAIL ZONE SPECIALIST REQUESTING PATIENT TO BE BROUGHT DOWN. PATIENT JUST RETURNED TO ROOM, UNABLE TO DO BLOOD GLUCOSE CHECK AT THIS TIME,.
--- NOTE | 2019-07-27 12:15 | NUR ---
PATIENT TAKEN TO BUS ASSISTANT. NO DISTRESS NOTED.
[2019-07-27] MEDS ORDERED: IODIXANOL 320MG/ML 100ML BTL IV ONE (12:22)
[2019-07-27] MEDS ORDERED: LIDOCAINE 2%HCL (LOCAL ANESTH.) INJ 20ML MDV ONE (12:22)
[2019-07-27] MEDS ORDERED: ANGIOMAX 250 MG VIAL IV ONE (12:40)
[2019-07-27] MEDS ORDERED: HEPARIN SODIUM (PORCINE) 5000 UNITS/ML 1ML VIAL ONE ×2 (12:40)
[2019-07-27] MEDS ORDERED: fentaNYL CITRATE 100 MCG/2 ML VL ONE (12:41)
[2019-07-27] MEDS ORDERED: MIDAZOLAM HCL 1MG/1ML-2 ML VIAL ONE (12:41)
[2019-07-27] MEDS ORDERED: VERAPAMIL 2.5MG/ML INJ 2ML VIAL IV ONE (12:41)
[2019-07-27] MEDS ORDERED: SODIUM CHL 0.9% 0 ML ONE (12:42)
[2019-07-27 13:00] VITALS: BP 153/111
--- NOTE | 2019-07-27 13:50 | NUR ---
Patient returned from laboratory development technician
[2019-07-27 14:00] VITALS: BP 112/65
--- NOTE | 2019-07-27 14:00 | NUR ---
Post cath VS 97.4, 112/65, 57 MS, 18RR, 95% on RA. 0/10 pain. Patient A&Ox4, educated patient not to use right arm and to notify if bleeding occurs at right vasc band. Will continue to monitor.
--- NOTE | 2019-07-27 14:20 | NUR ---
Removed 2 ml from right radial vasc band. No bleeding noted. Will continue to monitor.
--- NOTE | 2019-07-27 14:29 | NUR ---
Patient downstairs to smoke with family member. Addendum: 07/27/19 at 1430 by CHUCKY HAYES RN RN Advised patient not to use right arm and to return in 10 minutes to monitor vasc band.
--- NOTE | 2019-07-27 14:50 | NUR ---
Vasc band Patient returned from smoking downstairs. Removed 2 mL from right vasc band. No bleeding noted. Will continue to monitor.
--- NOTE | 2019-07-27 15:06 | NUR ---
RT NOTE: PT. REFUSED MDI TREATMENT. PT. STATES SHE CAN DO IT AT HOME. NO S/S OF RESPIRATORY DISTRESS NOTED. PT. GATHERING HER BELONGINGS TO GO HOME AT THIS TIME.
--- NOTE | 2019-07-27 15:15 | NUR ---
Vasc band Removed 2 ml from right vasc band. No bleeding noted. Patient leaving to smoke, advised against leaving and to notify if bleeding occurs. Patient verbalized understanding. Will continue to monitor.
--- NOTE | 2019-07-27 16:05 | NUR ---
VASC BAND REMOVAL REMOVED PER REMOVAL INSTRUCTIONS, SEE HARD CHART FOR INSTRUCTIONS FOLLOWED. NO SIGNS OF BLEEDING NOTED, AFFECTED HAND AND FINGERS ASSESSED FOR ADEQUATE CIRCULATION, SENSATION, AND MOTOR FUNCTION. TEGADERM DRESSING APPLIED. PATIENT WAS EDUCATED PER VASC BAND REMOVAL INSTRUCTIONS REGARDING USE OF AFFECTED WRIST. PATIENT WAS ADVISED THAT SHE MAY REMOVE DRESSING AFTER 24 HOURS AND SHOWER.
[2019-07-27 16:55] VITALS: BP 112/65
[2019-07-27 17:00] VITALS: BP 120/87
--- NOTE | 2019-07-27 17:50 | NUR ---
Discharge home Discharge instructions given as ordered. Encourage to follow up with PMD as instructed. All questions and concerns addressed. Patient verbalized understanding. Medication reconciliation form completed and copy given to patient. IV removed with catheter intact, pressure dressing applied. Telemetry unit returned to ICU. Patient taken to vehicle via wheelchair with all personal belongings, accompanied by staff. No distress noted at time of departure.
== END 2019-07-27 17:50 | disposition home or self-care (01) | DRG 286 ==
LOC: ER 14:14 → EDUNIT# 14:15 → TELE 14:15 → TELE-EAST 18:57 → TELE-CENTR 07-25 12:48
PROVIDERS: ADMIT Internal Medicine; ATTEND Internal Medicine
PROC: 4A023N7 Measurement of Cardiac Sampling and Pressure, Left Heart, Percutaneous Approach (ICD-10-PCS; principal; 2019-07-27)
PROC: B211YZZ Fluoroscopy of Multiple Coronary Arteries using Other Contrast (ICD-10-PCS; 2019-07-27)
PROC: B215YZZ Fluoroscopy of Left Heart using Other Contrast (ICD-10-PCS; 2019-07-27)
DX: R07.9 Chest pain, unspecified (principal); N17.0 Acute kidney failure with tubular necrosis; I50.32 Chronic diastolic (congestive) heart failure; J45.901 Unspecified asthma with (acute) exacerbation; I13.0 Hypertensive heart and chronic kidney disease with heart failure and stage 1 through stage 4 chronic kidney disease, or unspecified chronic kidney disease; J44.9 Chronic obstructive pulmonary disease, unspecified; E11.22 Type 2 diabetes mellitus with diabetic chronic kidney disease; N18.2 Chronic kidney disease, stage 2 (mild); E11.40 Type 2 diabetes mellitus with diabetic neuropathy, unspecified; K44.9 Diaphragmatic hernia without obstruction or gangrene; F41.9 Anxiety disorder, unspecified; F32.9 Major depressive disorder, single episode, unspecified; I25.10 Atherosclerotic heart disease of native coronary artery without angina pectoris; F17.200 Nicotine dependence, unspecified, uncomplicated; E78.5 Hyperlipidemia, unspecified; E03.9 Hypothyroidism, unspecified; E66.01 Morbid (severe) obesity due to excess calories; Z68.35 Body mass index [BMI] 35.0-35.9, adult; Z88.6 Allergy status to analgesic agent; Z88.1 Allergy status to other antibiotic agents; Z88.0 Allergy status to penicillin; Z88.8 Allergy status to other drugs, medicaments and biological substances; Z79.899 Other long term (current) drug therapy; Z86.73 Personal history of transient ischemic attack (TIA), and cerebral infarction without residual deficits; Z79.82 Long term (current) use of aspirin; Z82.49 Family history of ischemic heart disease and other diseases of the circulatory system; Z90.49 Acquired absence of other specified parts of digestive tract; Z83.3 Family history of diabetes mellitus; Z03.818 Encounter for observation for suspected exposure to other biological agents ruled out
CPT/HCPCS: 36415; 71045; 78452; 80048; 80053; 80061; 81001; 82550; 82962; 83036; 83735; 83880; 84439; 84443; 84481; 84484; 85025; 85379; 85610; 85652; 85730; 86141; 87070; 87804; 87880; 93005; 93017; 93458; 94640; 99152; G0378; J0153; J1815; J1885; J2250; J2405; J3490; Q9967

== ENCOUNTER 2019-10-18 12:18 | Emergency (ER) | payer OTHER, MEDICAID ==
[~2019-10-18] VITALS: Ht 165.1 cm; Wt 90.7 kg
[~2019-10-18 12:18] MED LIST changes: -ASP81EC PO; +ASPI-394 PO
[2019-10-18 13:47] VITALS: BP 148/95
[2019-10-18] MEDS ORDERED: ACETAMINOPHEN/CODEINE#3 (300/30mg) TAB PO ONE (14:30)
[2019-10-18] MEDS ORDERED: HYDROcodone-ACET 5/325MG TAB PO ONE (14:30)
[2019-11-15] MEDS ORDERED: TRAZ-181 PO (06:23)
[2019-11-15] MEDS ORDERED: GABA300C10 PO (06:24)
[2019-11-15] MEDS ORDERED: MELA3TAB27 PO (06:24)
[2019-11-15] MEDS ORDERED: CYCL7.5T45 PO (06:27)
[2019-11-15] MEDS ORDERED: DIPH1TAB30 PO (06:27)
[2019-11-15] MEDS ORDERED: HYDR-4833 PO (06:31)
[2019-11-15] MEDS ORDERED: ALBUAER3 IN (06:31)
== END 2019-10-18 14:37 | disposition home or self-care (01) ==
LOC: MERGE 12:18 → ER 12:18
DX: S62.661A Nondisplaced fracture of distal phalanx of left index finger, initial encounter for closed fracture (principal); I10 Essential (primary) hypertension; E11.9 Type 2 diabetes mellitus without complications; Z88.8 Allergy status to other drugs, medicaments and biological substances; Z88.1 Allergy status to other antibiotic agents; Z88.5 Allergy status to narcotic agent; Z88.0 Allergy status to penicillin; Z86.73 Personal history of transient ischemic attack (TIA), and cerebral infarction without residual deficits; W22.8XXA Striking against or struck by other objects, initial encounter; Y93.89 Activity, other specified; Y92.89 Other specified places as the place of occurrence of the external cause; Y99.8 Other external cause status
CPT/HCPCS: 29130; 73140

== ENCOUNTER 2019-10-21 11:16 | Emergency (ER) | payer OTHER, MEDICAID ==
[~2019-10-21] VITALS: Ht 165.1 cm; Wt 98.9 kg
[2019-10-21 11:32] VITALS: BP 151/92
[2019-11-15] MEDS ORDERED: TRAZ-181 PO (06:23)
[2019-11-15] MEDS ORDERED: GABA300C10 PO (06:24)
[2019-11-15] MEDS ORDERED: MELA3TAB27 PO (06:24)
[2019-11-15] MEDS ORDERED: DIPH1TAB30 PO (06:27)
[2019-11-15] MEDS ORDERED: CYCL7.5T45 PO (06:27)
[2019-11-15] MEDS ORDERED: ALBUAER3 IN (06:31)
[2019-11-15] MEDS ORDERED: HYDR-4833 PO (06:31)
== END 2019-10-21 12:21 | disposition home or self-care (01) ==
LOC: MERGE 11:16 → ER 11:16
DX: S62.661D Nondisplaced fracture of distal phalanx of left index finger, subsequent encounter for fracture with routine healing (principal); E11.9 Type 2 diabetes mellitus without complications; I10 Essential (primary) hypertension; Z86.73 Personal history of transient ischemic attack (TIA), and cerebral infarction without residual deficits; Z88.0 Allergy status to penicillin; Z88.1 Allergy status to other antibiotic agents; X58.XXXD Exposure to other specified factors, subsequent encounter

== ENCOUNTER 2020-05-07 13:31 | Inpatient (IN) | payer OTHER, MEDICAID ==
[~2020-05-07] VITALS: Ht 162.6 cm; Wt 108.0 kg
[~2020-05-07 13:31] MED LIST changes: +ALBUAER3 IN; +CYCL7.5T45 PO; +DIPH1TAB30 PO; +HYDR-4833 PO; +MELA3TAB27 PO; +TRAZ-181 PO
[2020-05-07] MEDS ORDERED: ASPirin 81 mg TAB PO ONE (14:00)
[2020-05-07 15:44] LABS: Basophils # (auto) 0.1 10 ^3/uL (0-0.2); Eosinophils # (auto) 0.2 10 ^3/uL (0-0.8); Monocytes # (auto) 0.7 10 ^3/uL (0-1.3); Neutrophils # (auto) 6.2 10 ^3/uL (1.6-8.6); White Blood Cell 9.2 10^3/uL (4.4-10.8)
[2020-05-07 15:46] LABS: Eosinophils % (auto) 1.8 % (0.0-7.0); Hemoglobin 13.9 g/dL (12.2-16.2); Lymphocytes # (auto) 2.1 10 ^3/uL (0.4-5.4); Mean Corpuscular Hemoglobin 34.2 pg (28.0-32.0); Mean Corpuscular Hgb Conc. 34.8 g/dL (32.0-36.0); Mean Corpuscular Volume 98.5 fL (80.0-100.0); Monocytes % (auto) 7.3 % (0.0-12.0); Neutrophils % (auto) 66.9 % (37.0-80.0); Nucleated Red Blood Cells % 0.1 %; Platelet Count (auto) 308 10^3/uL (140-450); Red Blood Cells 4.06 10^6/uL (4.0-5.20); Red Cell Distribution Width 13.2 % (11.8-14.3)
[2020-05-07 16:04] LABS: Alanine Aminotransferase 21 U/L (13-56); Albumin 3.8 g/dL (3.4-5.0); Anion Gap 5 (5-15); Blood Urea Nitrogen 15 mg/dL (7-18); Calcium 8.4 mg/dL (8.5-10.1); Carbon Dioxide 28 mmol/L (21-32); Chloride 107 mmol/L (98-107); Glucose 103 mg/dL (74-106); Magnesium 2.3 mg/dL (1.6-2.6); Potassium 3.6 mmol/L (3.5-5.1); Sodium 140 mmol/L (136-145)
[2020-05-07 16:09] LABS: Alkaline Phosphatase 94 U/L (45-117); Aspartate Aminotransferase 14 U/L (15-37); Bilirubin, Total 0.2 mg/dL (0.2-1.0); GFR African American 71 mL/min; GFR Non-African American 59 mL/min; Total Protein 7.7 g/dL (6.4-8.2)
[2020-05-07 16:57] LABS: Urine Bacteria FEW /hpf (None Seen); Urine Blood Negative /uL (Negative); Urine Specific Gravity 1.007 (1.001-1.035); Urine WBC 2 /hpf (0 - 5)
[2020-05-07] MEDS ORDERED: NITROGLYCERIN 0.4 MG SL TAB SL PRN ×3 (18:45→19:00)
[2020-05-07] MEDS ORDERED: MORPHINE SULF INJ 2 MG/ML SYRINGE 1ML IV PRN ×2 (18:45→19:00)
[2020-05-07] MEDS ORDERED: METOPROLOL SUCCINATE XL 50 MG TAB PO ONE (19:00)
[2020-05-07] MEDS ORDERED: CYCL10TA6 PO (19:00)
[2020-05-07] MEDS ORDERED: ALUM & MAG HYDROX-SIMETH LIQ(MAALOX) 30 ML PO ONE (19:00)
[2020-05-07] MEDS ORDERED: ONDANSETRON HCL 4 MG/2 ML VIAL IV PRN (19:00)
[2020-05-07] MEDS ORDERED: HYDROcodone-ACET 5/325MG TAB PO PRN (19:00)
[2020-05-07] MEDS ORDERED: LORazepam 0.5 MG TAB PO PRN (19:00)
[2020-05-07] MEDS ORDERED: ENOXAPARIN SOD 40 MG/0.4 ML SYRINGE SC ONE (19:00)
[2020-05-07] MEDS ORDERED: DOCUSATE SOD 100 MG CAP PO PRN (19:00)
[2020-05-07] MEDS ORDERED: ATORVASTATIN 20 MG TAB PO ONE (19:00)
[2020-05-07] MEDS ORDERED: TRAZ-184 PO (19:01)
[2020-05-07] MEDS ORDERED: HYDR-4798 PO (19:03)
[2020-05-07] MEDS ORDERED: PROC10TA2 PO (19:05)
[2020-05-07] MEDS ORDERED: FLUT1AER3 IN (19:05)
[2020-05-07] MEDS ORDERED: MEMA1TAB5 PO (19:05)
[2020-05-07] MEDS ORDERED: PROM1SOL4 PO (19:06)
[2020-05-07] MEDS ORDERED: ALBU0.084 NEB (19:06)
[2020-05-07] MEDS ORDERED: ESCI-28 PO (19:08)
[2020-05-07] MEDS ORDERED: HYDROmorphone HCL 2 MG/ML VL IV ONE (19:30)
[2020-05-07] MEDS ORDERED: DEXTROSE (50%) 50ML SYRG IV PRN (19:30)
[2020-05-07] MEDS ORDERED: ENALAPRILAT 1.25 MG/ML-1ML VIAL IV ONE (19:30)
[2020-05-07] MEDS ORDERED: hydrALAZINE HCL 20 MG/ML VL IV PRN (19:30)
[2020-05-07] MEDS ORDERED: methylPREDNISolone SOD SUCC 125 MG/2 ML VL IV ONE (21:00)
[2020-05-07] MEDS: SODIUM CHLORIDE 0.9% 1,000 ML IV SCH (21:30)
[2020-05-07] MEDS: InsuLIN REG 1unit/0.01ml Soln (100units/ml) SC SCH (22:00)
[2020-05-07] MEDS: ACCU-CHEK COMFORT CURVE STRIP VI SCH (22:00)
[2020-05-07] MEDS: IPRATROPIUM BROM 0.5 MG/2.5ML INH SOL NEB SCH (22:15)
[2020-05-07] MEDS: ALBUTEROL SULF 2.5 MG/0.5ML(0.5%) NEB SOLN NEB SCH (22:15)
[2020-05-07] MEDS: BUDESONIDE (INHALATION) 0.5 MG/2 ML NEB NEB SCH (22:15)
[2020-05-07] MEDS: GABAPENTIN 300 MG CAP PO SCH (22:50)
[2020-05-08] MEDS ORDERED: NIFEdipine ER 30 MG TAB PO ONE (01:30)
[2020-05-08] MEDS: DOXYCYCLINE 100MG/250ML 250 ML IV SCH ×3 (02:12→21:54)
[2020-05-08] MEDS: ALBUTEROL SULF 2.5 MG/0.5ML(0.5%) NEB SOLN NEB SCH ×6 (02:30→23:16)
[2020-05-08] MEDS: IPRATROPIUM BROM 0.5 MG/2.5ML INH SOL NEB SCH ×6 (02:30→23:16)
[2020-05-08] MEDS: MORPHINE SULF INJ 2 MG/ML SYRINGE 1ML IV PRN ×3 (04:47→19:48)
[2020-05-08] MEDS: methylPREDNISolone SOD SUCC 40 MG/ML VL IV SCH ×3 (06:25→21:53)
[2020-05-08] MEDS: GABAPENTIN 300 MG CAP PO SCH ×3 (06:25→21:52)
[2020-05-08] MEDS: ACCU-CHEK COMFORT CURVE STRIP VI SCH ×4 (07:12→21:51)
[2020-05-08 07:54] LABS: Basophils # (auto) 0 10 ^3/uL (0-0.2); Basophils % (auto) 0.4 % (0.0-2.0); Eosinophils # (auto) 0 10 ^3/uL (0-0.8); Eosinophils % (auto) 0.1 % (0.0-7.0); Hematocrit 44.5 % (36.0-46.0); Hemoglobin 15.1 g/dL (12.2-16.2); Lymphocytes # (auto) 0.5 10 ^3/uL (0.4-5.4); Mean Corpuscular Hemoglobin 33.6 pg (28.0-32.0); Mean Corpuscular Volume 98.7 fL (80.0-100.0); Monocytes # (auto) 0.1 10 ^3/uL (0-1.3); Neutrophils % (auto) 91.5 % (37.0-80.0); Nucleated Red Blood Cells % 0.1 %; Platelet Count (auto) 324 10^3/uL (140-450); Red Blood Cells 4.51 10^6/uL (4.0-5.20); Red Cell Distribution Width 13.4 % (11.8-14.3); White Blood Cell 7.7 10^3/uL (4.4-10.8)
[2020-05-08] MEDS: LEVOTHYROXINE SODIUM 112 MCG TAB PO SCH (08:01)
[2020-05-08 08:08] LABS: Calcium 8.5 mg/dL (8.5-10.1); Magnesium 2.3 mg/dL (1.6-2.6); Potassium 3.7 mmol/L (3.5-5.1)
[2020-05-08 08:12] LABS: BUN/Creatinine Ratio 12.9; Bilirubin, Total 0.4 mg/dL (0.2-1.0); Phosphorus 2.1 mg/dL (2.5-4.90); Total Protein 8.3 g/dL (6.4-8.2)
[2020-05-08] MEDS: InsuLIN REG 1unit/0.01ml Soln (100units/ml) SC SCH ×4 (08:16→21:45)
[2020-05-08 08:19] LABS: INR 0.98 (0.9-1.15); Partial Thromboplastin Time 29.5 sec (23.0-31.2)
[2020-05-08] MEDS: BUDESONIDE (INHALATION) 0.5 MG/2 ML NEB NEB SCH ×2 (10:00→23:16)
[2020-05-08] MEDS: NICOTINE 21MG/24 HR TOPICAL PATCH TD SCH (10:00)
[2020-05-08] MEDS: DOCUSATE SOD 100 MG CAP PO SCH (10:00)
[2020-05-08] MEDS: CITALOPRAM HYDROBR 20 MG TAB PO SCH (10:28)
[2020-05-08] MEDS: ASPirin-EC 81 mg tab PO SCH (10:28)
[2020-05-08] MEDS: RANOLAZINE ER 500 MG TAB PO SCH ×2 (10:29→21:51)
[2020-05-08] MEDS: ENOXAPARIN SOD 40 MG/0.4 ML SYRINGE SC SCH (10:30)
[2020-05-08] MEDS: LOSARTAN POTASSIUM 25 MG TAB PO SCH (10:48)
[2020-05-08] MEDS: NIFEdipine ER 30 MG TAB PO SCH (10:49)
[2020-05-08] MEDS: METOPROLOL SUCCINATE XL 50 MG TAB PO SCH (10:49)
[2020-05-08 16:00] VITALS: BP 141/83
[2020-05-08] MEDS: SODIUM CHLORIDE 0.9% 1,000 ML IV SCH (19:00)
[2020-05-08 22:00] VITALS: BP 120/57
[2020-05-08] MEDS ORDERED: ATORVASTATIN 20 MG TAB PO SCH (22:00)
[2020-05-08] MEDS ORDERED: traZODone HCL 50 MG TAB PO SCH (22:00)
[2020-05-09] VITALS: BP 120/57
[2020-05-09] MEDS: ALBUTEROL SULF 2.5 MG/0.5ML(0.5%) NEB SOLN NEB SCH ×4 (02:10→14:00)
[2020-05-09] MEDS: IPRATROPIUM BROM 0.5 MG/2.5ML INH SOL NEB SCH ×4 (02:10→14:00)
[2020-05-09 05:00] VITALS: BP 133/76
[2020-05-09] MEDS: InsuLIN REG 1unit/0.01ml Soln (100units/ml) SC SCH ×2 (05:37→11:23)
[2020-05-09] MEDS: GABAPENTIN 300 MG CAP PO SCH ×2 (05:38→14:52)
[2020-05-09] MEDS: ACCU-CHEK COMFORT CURVE STRIP VI SCH ×2 (05:38→11:22)
[2020-05-09] MEDS: LEVOTHYROXINE SODIUM 112 MCG TAB PO SCH (05:38)
[2020-05-09] MEDS: methylPREDNISolone SOD SUCC 40 MG/ML VL IV SCH ×2 (05:39→14:53)
[2020-05-09] MEDS: MORPHINE SULF INJ 2 MG/ML SYRINGE 1ML IV PRN (05:42)
[2020-05-09 08:00] VITALS: BP 146/84
[2020-05-09] MEDS: DOXYCYCLINE 100MG/250ML 250 ML IV SCH (09:39)
[2020-05-09] MEDS: ENOXAPARIN SOD 40 MG/0.4 ML SYRINGE SC SCH (09:39)
[2020-05-09] MEDS: NICOTINE 21MG/24 HR TOPICAL PATCH TD SCH (09:40)
[2020-05-09] MEDS: RANOLAZINE ER 500 MG TAB PO SCH (09:40)
[2020-05-09] MEDS: ASPirin-EC 81 mg tab PO SCH (09:40)
[2020-05-09] MEDS: NIFEdipine ER 30 MG TAB PO SCH (09:41)
[2020-05-09] MEDS: METOPROLOL SUCCINATE XL 50 MG TAB PO SCH (09:42)
[2020-05-09] MEDS: LOSARTAN POTASSIUM 25 MG TAB PO SCH (09:43)
[2020-05-09] MEDS: CITALOPRAM HYDROBR 20 MG TAB PO SCH (09:44)
[2020-05-09] MEDS: DOCUSATE SOD 100 MG CAP PO SCH (09:44)
[2020-05-09] MEDS: BUDESONIDE (INHALATION) 0.5 MG/2 ML NEB NEB SCH (10:00)
[2020-05-09 13:13] VITALS: BP 146/84
== END 2020-05-09 15:20 | disposition home or self-care (01) | DRG 313 ==
LOC: ER 13:31 → TELE 13:32 → TELE-EAST 05-08 09:30
PROVIDERS: ADMIT Hospitalist; ATTEND Family Medicine
DX: R07.89 Other chest pain (principal); I13.0 Hypertensive heart and chronic kidney disease with heart failure and stage 1 through stage 4 chronic kidney disease, or unspecified chronic kidney disease; I50.32 Chronic diastolic (congestive) heart failure; I25.10 Atherosclerotic heart disease of native coronary artery without angina pectoris; E66.01 Morbid (severe) obesity due to excess calories; G56.01 Carpal tunnel syndrome, right upper limb; F41.9 Anxiety disorder, unspecified; M19.90 Unspecified osteoarthritis, unspecified site; I25.2 Old myocardial infarction; Z82.0 Family history of epilepsy and other diseases of the nervous system; Z82.49 Family history of ischemic heart disease and other diseases of the circulatory system; Z90.710 Acquired absence of both cervix and uterus; Z91.19 Patient's noncompliance with other medical treatment and regimen; E03.9 Hypothyroidism, unspecified; E78.00 Pure hypercholesterolemia, unspecified; E78.5 Hyperlipidemia, unspecified; F17.210 Nicotine dependence, cigarettes, uncomplicated; Z20.822 Contact with and (suspected) exposure to COVID-19; N18.30 Chronic kidney disease, stage 3 unspecified; E11.22 Type 2 diabetes mellitus with diabetic chronic kidney disease; Z86.73 Personal history of transient ischemic attack (TIA), and cerebral infarction without residual deficits; Z88.1 Allergy status to other antibiotic agents; Z88.0 Allergy status to penicillin; Z88.8 Allergy status to other drugs, medicaments and biological substances; J44.9 Chronic obstructive pulmonary disease, unspecified; Z68.34 Body mass index [BMI] 34.0-34.9, adult
CPT/HCPCS: 36415; 71046; 80053; 81001; 82962; 83036; 83735; 83880; 84100; 84484; 85025; 85379; 85610; 85730; 87040; 87426; 93005; 94640; 96360; G0378; J1815; J3490

== ENCOUNTER 2020-06-14 13:54 | Inpatient (IN) | payer OTHER, MEDICAID ==
[~2020-06-14] VITALS: Ht 165.1 cm; Wt 108.8 kg
[~2020-06-14 13:54] MED LIST changes: +ALBU0.084 NEB; -ALBUAER3 IN; +CYCL10TA6 PO; -CYCL7.5T45 PO; -DIPH1TAB30 PO; +ESCI-28 PO; +FLUT1AER3 IN; +HYDR-4798 PO; -HYDR-4833 PO; -LEV112T PO; -MELA3TAB27 PO; +MEMA1TAB5 PO; -NIC21P TOP; +PROC10TA2 PO; +PROM1SOL4 PO; -ROSU20TA14 PO; -TRAZ-181 PO; +TRAZ-184 PO
[2020-06-14] MEDS ORDERED: methylPREDNISolone SOD SUCC 125 MG/2 ML VL IV ONE (14:15)
[2020-06-14 15:10] LABS: Basophils # (auto) 0.1 10 ^3/uL (0-0.2); Basophils % (auto) 1.1 % (0.0-2.0); Eosinophils # (auto) 0.2 10 ^3/uL (0-0.8); Eosinophils % (auto) 1.9 % (0.0-7.0); Lymphocytes # (auto) 1.5 10 ^3/uL (0.4-5.4); Mean Corpuscular Volume 99.1 fL (80.0-100.0); Monocytes # (auto) 0.6 10 ^3/uL (0-1.3); Neutrophils % (auto) 71.3 % (37.0-80.0)
[2020-06-14 15:12] LABS: Hematocrit 41.8 % (36.0-46.0); Hemoglobin 14.8 g/dL (12.2-16.2); Lymphocytes % (auto) 18.8 % (10.0-50.0); Mean Corpuscular Hemoglobin 35.2 pg (28.0-32.0); Mean Corpuscular Hgb Conc. 35.5 g/dL (32.0-36.0); Monocytes % (auto) 6.9 % (0.0-12.0); Neutrophils # (auto) 5.8 10 ^3/uL (1.6-8.6); Platelet Count (auto) 295 10^3/uL (140-450); Red Blood Cells 4.22 10^6/uL (4.0-5.20); Red Cell Distribution Width 13.7 % (11.8-14.3); White Blood Cell 8.2 10^3/uL (4.4-10.8)
[2020-06-14] MEDS ORDERED: ONDANSETRON HCL 4 MG/2 ML VIAL IV ONE (15:15)
[2020-06-14] MEDS ORDERED: MORPHINE SULFATE 4 MG/ML SYR/VIAL IV ONE (15:15)
[2020-06-14] MEDS ORDERED: diphenhdrAMINE HCL 50 MG/1 ML VL ONE (15:24)
[2020-06-14 15:26] LABS: Albumin 3.7 g/dL (3.4-5.0); Anion Gap 5 (5-15); Blood Urea Nitrogen 18 mg/dL (7-18); Calcium 8.9 mg/dL (8.5-10.1); Carbon Dioxide 28 mmol/L (21-32); Chloride 108 mmol/L (98-107); Glucose 85 mg/dL (74-106); Potassium 4.4 mmol/L (3.5-5.1); Sodium 141 mmol/L (136-145)
[2020-06-14 15:31] LABS: BUN/Creatinine Ratio 16.8
[2020-06-14 15:32] LABS: Alanine Aminotransferase 18 U/L (13-56); Alkaline Phosphatase 81 U/L (45-117); Aspartate Aminotransferase 9 U/L (15-37); Bilirubin, Total 0.2 mg/dL (0.2-1.0); GFR African American 66 mL/min; GFR Non-African American 54 mL/min; Total Protein 7.4 g/dL (6.4-8.2)
[2020-06-14] MEDS ORDERED: diphenhdrAMINE HCL 50 MG/1 ML VL IV ONE (15:45)
[2020-06-14 17:13] LABS: Urine Bacteria NONE SEEN /hpf (None Seen); Urine Blood Negative /uL (Negative); Urine Specific Gravity 1.011 (1.001-1.035); Urine WBC <1 /hpf (0 - 5)
[2020-06-14] MEDS ORDERED: NITROGLYCERIN 0.4 MG SL TAB SL PRN (17:15)
[2020-06-14] MEDS ORDERED: ALBUTEROL SULF 2.5 MG/0.5ML(0.5%) NEB SOLN NEB PRN (19:30)
[2020-06-14] MEDS ORDERED: LACTULOSE 20Gm/30ML SOLN PO PRN ×2 (19:30)
[2020-06-14] MEDS ORDERED: ACETAMINOPHEN 500 MG TAB PO PRN (19:30)
[2020-06-14 20:30] VITALS: BP 142/97
[2020-06-14] MEDS: SODIUM CHLOR 0.9% PF (SALINE LOCK) 10ML VIAL/SYR IV SCH (21:45)
[2020-06-14 21:47] VITALS: BP 154/88
[2020-06-14] MEDS ORDERED: RANO500T2 PO (21:57)
[2020-06-14] MEDS: ATORVASTATIN 20 MG TAB PO SCH (21:58)
[2020-06-14] MEDS: GABAPENTIN 300 MG CAP PO SCH (21:58)
[2020-06-14] MEDS: CARVEDILOL 3.125 MG TAB PO SCH (21:58)
[2020-06-14] MEDS: MEMANTINE HCL 5 MG TAB PO SCH (21:58)
[2020-06-14] MEDS: traMADol HCL 50 MG TAB PO PRN (21:59)
[2020-06-14] MEDS: TEMAZEPAM 15 MG CAP PO PRN (21:59)
[2020-06-14] MEDS ORDERED: ALBUTEROL SULF 2.5 MG/0.5ML(0.5%) NEB SOLN NEB SCH (22:00)
[2020-06-14] MEDS ORDERED: METOPROLOL TARTRATE 25 MG TAB PO SCH (22:00)
[2020-06-14 23:18] LABS: Alcohol, Urine < 3.0 mg/dL (0-10); Amphetamine Screen, Urine NEGATIVE (NEGATIVE); Barbiturate Scree,Urine NEGATIVE (NEGATIVE); Benzodiazephine Screen, Urine NEGATIVE (NEGATIVE); Cannabinoid Screen, Urine NEGATIVE (NEGATIVE); Cocaine Screen, Urine NEGATIVE (NEGATIVE); Opiate Scree,Urine NEGATIVE (NEGATIVE); Phencyclidine Screen, Urine NEGATIVE (NEGATIVE)
[2020-06-15 04:58] VITALS: BP 117/75
[2020-06-15] MEDS: GABAPENTIN 300 MG CAP PO SCH ×3 (05:50→21:53)
[2020-06-15 05:56] LABS: Basophils # (auto) 0 10 ^3/uL (0-0.2); Basophils % (auto) 0.1 % (0.0-2.0); Eosinophils # (auto) 0 10 ^3/uL (0-0.8); Hemoglobin 14.3 g/dL (12.2-16.2); Monocytes # (auto) 0.3 10 ^3/uL (0-1.3)
[2020-06-15 05:59] LABS: Hematocrit 40.7 % (36.0-46.0); Lymphocytes # (auto) 0.7 10 ^3/uL (0.4-5.4); Lymphocytes % (auto) 5.6 % (10.0-50.0); Mean Corpuscular Hemoglobin 35.1 pg (28.0-32.0); Mean Corpuscular Hgb Conc. 35.1 g/dL (32.0-36.0); Monocytes % (auto) 2.3 % (0.0-12.0); Platelet Count (auto) 301 10^3/uL (140-450); Red Blood Cells 4.07 10^6/uL (4.0-5.20); Red Cell Distribution Width 13.3 % (11.8-14.3); White Blood Cell 13.1 10^3/uL (4.4-10.8)
[2020-06-15 06:06] LABS: Chloride 108 mmol/L (98-107); Potassium 4.5 mmol/L (3.5-5.1); Sodium 142 mmol/L (136-145)
[2020-06-15] MEDS: SODIUM CHLOR 0.9% PF (SALINE LOCK) 10ML VIAL/SYR IV SCH ×3 (06:18→21:52)
[2020-06-15 06:36] LABS: Alanine Aminotransferase 35 U/L (13-56); Albumin 3.4 g/dL (3.4-5.0); Alkaline Phosphatase 79 U/L (45-117); Anion Gap 6 (5-15); Aspartate Aminotransferase 27 U/L (15-37); BUN/Creatinine Ratio 17.9; Bilirubin, Total 0.3 mg/dL (0.2-1.0); Blood Urea Nitrogen 21 mg/dL (7-18); Calcium 8.7 mg/dL (8.5-10.1); Carbon Dioxide 28 mmol/L (21-32); GFR African American 59 mL/min; GFR Non-African American 49 mL/min; Glucose 145 mg/dL (74-106)
[2020-06-15 09:00] VITALS: BP 143/93
[2020-06-15] MEDS: traMADol HCL 50 MG TAB PO PRN (09:30)
[2020-06-15] MEDS: NITROGLYCERIN 0.2MG/HR TOPICAL PATCH TD SCH (10:00)
[2020-06-15] MEDS: ASPirin 81 mg TAB PO SCH (10:18)
[2020-06-15] MEDS: CITALOPRAM HYDROBR 20 MG TAB PO SCH (10:18)
[2020-06-15] MEDS: CARVEDILOL 3.125 MG TAB PO SCH ×2 (10:19→21:52)
[2020-06-15] MEDS: MEMANTINE HCL 5 MG TAB PO SCH ×2 (10:19→21:53)
[2020-06-15] MEDS: ENOXAPARIN SOD 40 MG/0.4 ML SYRINGE SC SCH (10:20)
[2020-06-15] MEDS: ENALAPRIL MALEATE 2.5 MG TAB PO SCH (10:20)
[2020-06-15] MEDS ORDERED: MORPHINE SULF INJ 2 MG/ML SYRINGE 1ML IV PRN (12:15)
[2020-06-15] MEDS ORDERED: TROLAMINE SALICYLATE 10% TOP CREAM TOP PRN (12:15)
[2020-06-15] MEDS: MORPHINE SULF INJ 2 MG/ML SYRINGE 1ML IV PRN ×3 (12:28→21:55)
[2020-06-15 13:00] VITALS: BP 132/77
[2020-06-15 17:00] VITALS: BP 130/92
[2020-06-15] MEDS: TROLAMINE SALICYLATE 10% TOP CREAM TOP SCH ×2 (21:00→21:53)
[2020-06-15] MEDS: ATORVASTATIN 20 MG TAB PO SCH (21:53)
[2020-06-15] MEDS: TEMAZEPAM 15 MG CAP PO PRN (21:55)
[2020-06-15 22:00] VITALS: BP 130/63
[2020-06-15] MEDS ORDERED: diphenhdrAMINE HCL 50 MG/1 ML VL IV PRN (22:45)
[2020-06-16 05:00] VITALS: BP 126/82
[2020-06-16] MEDS: SODIUM CHLOR 0.9% PF (SALINE LOCK) 10ML VIAL/SYR IV SCH ×2 (05:32→14:00)
[2020-06-16] MEDS: GABAPENTIN 300 MG CAP PO SCH ×2 (06:00→14:00)
[2020-06-16] MEDS: TROLAMINE SALICYLATE 10% TOP CREAM TOP SCH ×2 (06:00→12:00)
[2020-06-16 06:31] LABS: Basophils # (auto) 0 10 ^3/uL (0-0.2); Eosinophils # (auto) 0 10 ^3/uL (0-0.8); Eosinophils % (auto) 0.3 % (0.0-7.0); Monocytes # (auto) 0.9 10 ^3/uL (0-1.3); Monocytes % (auto) 6.9 % (0.0-12.0)
[2020-06-16 06:36] LABS: Alanine Aminotransferase 30 U/L (13-56); Albumin 3.4 g/dL (3.4-5.0); Anion Gap 3 (5-15); Blood Urea Nitrogen 25 mg/dL (7-18); Calcium 8.3 mg/dL (8.5-10.1); Carbon Dioxide 31 mmol/L (21-32); Chloride 108 mmol/L (98-107); Glucose 101 mg/dL (74-106); Potassium 3.9 mmol/L (3.5-5.1); Sodium 142 mmol/L (136-145)
[2020-06-16 06:37] LABS: Basophils % (auto) 0.3 % (0.0-2.0); Hematocrit 41.6 % (36.0-46.0); Hemoglobin 14.3 g/dL (12.2-16.2); Lymphocytes # (auto) 2.1 10 ^3/uL (0.4-5.4); Lymphocytes % (auto) 15.9 % (10.0-50.0); Mean Corpuscular Hemoglobin 34.5 pg (28.0-32.0); Mean Corpuscular Hgb Conc. 34.5 g/dL (32.0-36.0); Mean Corpuscular Volume 99.9 fL (80.0-100.0); Neutrophils # (auto) 10.2 10 ^3/uL (1.6-8.6); Neutrophils % (auto) 76.6 % (37.0-80.0); Platelet Count (auto) 272 10^3/uL (140-450); Red Blood Cells 4.16 10^6/uL (4.0-5.20); Red Cell Distribution Width 13.3 % (11.8-14.3); White Blood Cell 13.3 10^3/uL (4.4-10.8)
[2020-06-16 06:42] LABS: Alkaline Phosphatase 72 U/L (45-117); Aspartate Aminotransferase 15 U/L (15-37); BUN/Creatinine Ratio 23.6; Bilirubin, Total 0.2 mg/dL (0.2-1.0); GFR African American 66 mL/min; GFR Non-African American 55 mL/min; Total Protein 6.8 g/dL (6.4-8.2)
[2020-06-16 08:49] VITALS: BP 144/86
[2020-06-16] MEDS: NITROGLYCERIN 0.2MG/HR TOPICAL PATCH TD SCH (10:00)
[2020-06-16] MEDS: MEMANTINE HCL 5 MG TAB PO SCH (10:32)
[2020-06-16] MEDS: ASPirin 81 mg TAB PO SCH (10:32)
[2020-06-16] MEDS: ENALAPRIL MALEATE 2.5 MG TAB PO SCH (10:33)
[2020-06-16] MEDS: CITALOPRAM HYDROBR 20 MG TAB PO SCH (10:33)
[2020-06-16] MEDS: CARVEDILOL 3.125 MG TAB PO SCH (10:34)
[2020-06-16] MEDS: ENOXAPARIN SOD 40 MG/0.4 ML SYRINGE SC SCH (10:34)
[2020-06-16] MEDS: MORPHINE SULF INJ 2 MG/ML SYRINGE 1ML IV PRN (10:35)
[2020-06-16 13:03] VITALS: BP 138/89
== END 2020-06-16 15:40 | disposition home or self-care (01) | DRG 205 ==
LOC: ER 13:54 → TELE 13:55 → TELE-EAST 20:27 → TELE-WESTW 06-15 05:33
PROVIDERS: ADMIT Internal Medicine; ATTEND Internal Medicine
DX: M94.0 Chondrocostal junction syndrome [Tietze] (principal); N17.0 Acute kidney failure with tubular necrosis; I50.32 Chronic diastolic (congestive) heart failure; I13.0 Hypertensive heart and chronic kidney disease with heart failure and stage 1 through stage 4 chronic kidney disease, or unspecified chronic kidney disease; E11.21 Type 2 diabetes mellitus with diabetic nephropathy; E66.01 Morbid (severe) obesity due to excess calories; I25.10 Atherosclerotic heart disease of native coronary artery without angina pectoris; M19.90 Unspecified osteoarthritis, unspecified site; D72.829 Elevated white blood cell count, unspecified; E03.9 Hypothyroidism, unspecified; E11.22 Type 2 diabetes mellitus with diabetic chronic kidney disease; E78.5 Hyperlipidemia, unspecified; F17.210 Nicotine dependence, cigarettes, uncomplicated; F32.9 Major depressive disorder, single episode, unspecified; J44.9 Chronic obstructive pulmonary disease, unspecified; Z20.822 Contact with and (suspected) exposure to COVID-19; G40.909 Epilepsy, unspecified, not intractable, without status epilepticus; Z88.0 Allergy status to penicillin; Z88.6 Allergy status to analgesic agent; Z88.5 Allergy status to narcotic agent; Z88.8 Allergy status to other drugs, medicaments and biological substances; I25.2 Old myocardial infarction; Z79.890 Hormone replacement therapy; Z82.0 Family history of epilepsy and other diseases of the nervous system; Z82.49 Family history of ischemic heart disease and other diseases of the circulatory system; Z83.3 Family history of diabetes mellitus; Z86.73 Personal history of transient ischemic attack (TIA), and cerebral infarction without residual deficits; Z90.710 Acquired absence of both cervix and uterus; Z68.39 Body mass index [BMI] 39.0-39.9, adult; N18.31 Chronic kidney disease, stage 3a
CPT/HCPCS: 36415; 71045; 80053; 80307; 81001; 82550; 83036; 83880; 84443; 84484; 85025; 85379; 85652; 87426; 93005; 94640; 96374; 96375; 99291; G0378; J2405

== ENCOUNTER 2020-08-12 10:04 | Emergency (ER) | payer OTHER, MEDICAID ==
[~2020-08-12] VITALS: Ht 165.1 cm; Wt 86.2 kg
[~2020-08-12 10:04] MED LIST changes: +CYCL-839 PO; -CYCL10TA6 PO; +RANO500T2 PO
[2020-08-12 10:12] VITALS: BP 142/77
== END 2020-08-12 12:07 | disposition home or self-care (01) ==
LOC: ER 10:05
DX: S61.411A Laceration without foreign body of right hand, initial encounter (principal); E11.22 Type 2 diabetes mellitus with diabetic chronic kidney disease; I13.0 Hypertensive heart and chronic kidney disease with heart failure and stage 1 through stage 4 chronic kidney disease, or unspecified chronic kidney disease; N18.9 Chronic kidney disease, unspecified; I50.89 Other heart failure; F17.210 Nicotine dependence, cigarettes, uncomplicated; J44.9 Chronic obstructive pulmonary disease, unspecified; E78.5 Hyperlipidemia, unspecified; Z90.49 Acquired absence of other specified parts of digestive tract; Z98.51 Tubal ligation status; Z88.0 Allergy status to penicillin; Z88.6 Allergy status to analgesic agent; Z88.1 Allergy status to other antibiotic agents; Z88.8 Allergy status to other drugs, medicaments and biological substances; W54.0XXA Bitten by dog, initial encounter; Y93.89 Activity, other specified; Y92.89 Other specified places as the place of occurrence of the external cause; Y99.8 Other external cause status
CPT/HCPCS: 73130

== ENCOUNTER 2021-07-20 13:29 | Emergency (ER) | payer OTHER, MEDICAID ==
[~2021-07-20] VITALS: Ht 165.1 cm; Wt 90.7 kg
[2021-07-20 13:53] VITALS: BP 184/97
== END 2021-07-20 15:27 | disposition home or self-care (01) ==
LOC: ER 13:29
DX: M17.12 Unilateral primary osteoarthritis, left knee (principal); I13.0 Hypertensive heart and chronic kidney disease with heart failure and stage 1 through stage 4 chronic kidney disease, or unspecified chronic kidney disease; E11.22 Type 2 diabetes mellitus with diabetic chronic kidney disease; N18.9 Chronic kidney disease, unspecified; I50.9 Heart failure, unspecified; I25.10 Atherosclerotic heart disease of native coronary artery without angina pectoris; J44.9 Chronic obstructive pulmonary disease, unspecified; E03.9 Hypothyroidism, unspecified; F17.210 Nicotine dependence, cigarettes, uncomplicated; Z90.49 Acquired absence of other specified parts of digestive tract; Z90.89 Acquired absence of other organs; Z90.710 Acquired absence of both cervix and uterus; Z79.82 Long term (current) use of aspirin; Z79.899 Other long term (current) drug therapy; Z88.0 Allergy status to penicillin; Z88.1 Allergy status to other antibiotic agents; Z88.5 Allergy status to narcotic agent; Z88.8 Allergy status to other drugs, medicaments and biological substances
CPT/HCPCS: 73562

== ENCOUNTER 2021-11-20 13:32 | Inpatient (IN) | payer OTHER, MEDICAID ==
[~2021-11-20] VITALS: Ht 165.1 cm; Wt 109.0 kg
[2021-11-20 15:55] LABS: Basophils # (auto) 0.1 10 ^3/uL (0-0.2); Basophils % (auto) 0.7 % (0.0-2.0); Eosinophils # (auto) 0.2 10 ^3/uL (0-0.8); Eosinophils % (auto) 1.8 % (0.0-7.0); Hematocrit 44.6 % (36.0-46.0); Hemoglobin 14.6 g/dL (12.2-16.2); Lymphocytes # (auto) 2.1 10 ^3/uL (0.4-5.4); Lymphocytes % (auto) 21.9 % (10.0-50.0); Mean Corpuscular Hemoglobin 32.6 pg (28.0-32.0); Mean Corpuscular Hgb Conc. 32.6 g/dL (32.0-36.0); Mean Corpuscular Volume 99.8 fL (80.0-100.0); Monocytes # (auto) 0.7 10 ^3/uL (0-1.3); Monocytes % (auto) 7.8 % (0.0-12.0); Neutrophils # (auto) 6.5 10 ^3/uL (1.6-8.6); Neutrophils % (auto) 67.8 % (37.0-80.0); Red Blood Cells 4.48 10^6/uL (4.0-5.20); Red Cell Distribution Width 13.2 % (11.8-14.3); White Blood Cell 9.5 10^3/uL (4.4-10.8)
[2021-11-20] MEDS ORDERED: SODIUM CHLORIDE 0.9% 1,000 ML IV ONE ×2 (16:15→16:45)
[2021-11-20 16:21] LABS: Albumin 3.7 g/dL (3.4-5.0); BUN/Creatinine Ratio 14.6; Calcium 8.9 mg/dL (8.5-10.1); Potassium 4.3 mmol/L (3.5-5.1)
[2021-11-20 16:24] LABS: Bilirubin, Total 0.3 mg/dL (0.2-1.0); Total Protein 6.9 g/dL (6.4-8.2)
[2021-11-20 17:24] LABS: Urine Bacteria FEW /hpf (None Seen); Urine Blood Negative /uL (Negative); Urine Hyaline Cast MOD /lpf (0 - 2); Urine Mucus FEW (None Seen); Urine Specific Gravity 1.031 (1.001-1.035); Urine WBC 4 /hpf (0 - 5)
[2021-11-20] MEDS ORDERED: ACETAMINOPHEN 325 MG TAB PO PRN (19:00)
[2021-11-20] MEDS ORDERED: DOCUSATE SOD 100 MG CAP PO PRN (19:00)
[2021-11-20] MEDS ORDERED: HYDROcodone-ACET 5/325MG TAB PO PRN (19:00)
[2021-11-20] MEDS ORDERED: ONDANSETRON HCL 4 MG/2 ML VIAL IV PRN (19:00)
[2021-11-20] MEDS ORDERED: SODIUM CHLORIDE 0.9% 1,000 ML IV SCH (19:00)
[2021-11-20] MEDS: MORPHINE SULFATE INJ 2 MG/ml SYRG IV PRN (20:10)
[2021-11-20 22:00] VITALS: BP 171/89
[2021-11-20 22:04] VITALS: BP 171/89
[2021-11-20] MEDS: ATORVASTATIN 20 MG TAB PO SCH (23:00)
[2021-11-20] MEDS: GABAPENTIN 300 MG CAP PO SCH (23:00)
[2021-11-20 23:04] VITALS: BP 153/87
[2021-11-20] MEDS ORDERED: cloNIDine HCL 0.1 MG TAB PO PRN (23:15)
[2021-11-21] MEDS: MORPHINE SULFATE INJ 2 MG/ml SYRG IV PRN ×5 (01:51→22:28)
[2021-11-21 05:00] VITALS: BP 122/70
[2021-11-21] MEDS: GABAPENTIN 300 MG CAP PO SCH ×3 (05:38→22:29)
[2021-11-21 09:00] VITALS: BP 126/75
[2021-11-21 09:15] LABS: Basophils # (auto) 0.1 10 ^3/uL (0-0.2); Basophils % (auto) 0.9 % (0.0-2.0); Eosinophils # (auto) 0.2 10 ^3/uL (0-0.8); Eosinophils % (auto) 2.9 % (0.0-7.0); Hematocrit 40.6 % (36.0-46.0); Hemoglobin 13.4 g/dL (12.2-16.2); Lymphocytes # (auto) 1.7 10 ^3/uL (0.4-5.4); Mean Corpuscular Hemoglobin 33.1 pg (28.0-32.0); Mean Corpuscular Hgb Conc. 33.1 g/dL (32.0-36.0); Mean Corpuscular Volume 100.2 fL (80.0-100.0); Monocytes # (auto) 0.6 10 ^3/uL (0-1.3); Monocytes % (auto) 7.8 % (0.0-12.0); Neutrophils # (auto) 4.7 10 ^3/uL (1.6-8.6); Neutrophils % (auto) 65.4 % (37.0-80.0); Nucleated Red Blood Cells % 0.1 %; Red Blood Cells 4.05 10^6/uL (4.0-5.20); Red Cell Distribution Width 12.9 % (11.8-14.3); White Blood Cell 7.2 10^3/uL (4.4-10.8)
[2021-11-21 09:23] LABS: Albumin 3.2 g/dL (3.4-5.0); Calcium 8.2 mg/dL (8.5-10.1); Potassium 4.2 mmol/L (3.5-5.1)
[2021-11-21 09:28] LABS: BUN/Creatinine Ratio 21.1; Bilirubin, Total 0.4 mg/dL (0.2-1.0)
[2021-11-21] MEDS ORDERED: ENOXAPARIN SOD 40 MG/0.4 ML SYRINGE SC SCH (10:00)
[2021-11-21] MEDS: ASPirin 81 mg TAB PO SCH (10:23)
[2021-11-21] MEDS: MEMANTINE HCL 5 MG TAB PO SCH (10:23)
[2021-11-21] MEDS: traZODone HCL 50 MG TAB PO SCH (10:23)
[2021-11-21] MEDS ORDERED: cefTRIAXone 1GM/50ML D5W 50 ML IV ONE (10:45)
[2021-11-21 13:00] VITALS: BP 147/79
[2021-11-21] MEDS: ATORVASTATIN 20 MG TAB PO SCH (22:28)
[2021-11-21 23:22] VITALS: BP 160/78
[2021-11-22] MEDS: MORPHINE SULFATE INJ 2 MG/ml SYRG IV PRN ×2 (04:44→08:49)
[2021-11-22 05:42] VITALS: BP 163/87
[2021-11-22] MEDS: GABAPENTIN 300 MG CAP PO SCH (06:13)
[2021-11-22] MEDS: traZODone HCL 50 MG TAB PO SCH (08:58)
[2021-11-22] MEDS: MEMANTINE HCL 5 MG TAB PO SCH (08:58)
[2021-11-22] MEDS: ASPirin 81 mg TAB PO SCH (08:59)
[2021-11-22] MEDS ORDERED: cefTRIAXone 1GM/50ML D5W 50 ML IV SCH (09:00)
[2021-11-22 09:22] VITALS: BP 164/96
[2021-11-22] MEDS ORDERED: CITALOPRAM HYDROBR 20 MG TAB PO SCH (10:00)
[2021-11-22] MEDS ORDERED: LEV25T PO (10:51)
[2021-11-22] MEDS ORDERED: LEVOTHYROXINE SODIUM 25 MCG TAB PO ONE (11:00)
[2021-11-22 11:30] VITALS: BP 111/63
== END 2021-11-22 12:08 | disposition home or self-care (01) | DRG 947 ==
LOC: ER 13:32 → TELE 18:51 → TELE-CENTR 22:04
PROVIDERS: ADMIT Internal Medicine; ATTEND Internal Medicine
DX: R53.1 Weakness (principal); N17.0 Acute kidney failure with tubular necrosis; I13.0 Hypertensive heart and chronic kidney disease with heart failure and stage 1 through stage 4 chronic kidney disease, or unspecified chronic kidney disease; N39.0 Urinary tract infection, site not specified; Z68.41 Body mass index [BMI] 40.0-44.9, adult; E11.22 Type 2 diabetes mellitus with diabetic chronic kidney disease; E66.01 Morbid (severe) obesity due to excess calories; F17.210 Nicotine dependence, cigarettes, uncomplicated; F41.1 Generalized anxiety disorder; G47.00 Insomnia, unspecified; G62.9 Polyneuropathy, unspecified; Z20.822 Contact with and (suspected) exposure to COVID-19; N18.30 Chronic kidney disease, stage 3 unspecified; I50.9 Heart failure, unspecified; E03.9 Hypothyroidism, unspecified; I25.10 Atherosclerotic heart disease of native coronary artery without angina pectoris; J44.9 Chronic obstructive pulmonary disease, unspecified; Z88.1 Allergy status to other antibiotic agents; Z88.5 Allergy status to narcotic agent; Z88.0 Allergy status to penicillin; Z88.8 Allergy status to other drugs, medicaments and biological substances; Z79.899 Other long term (current) drug therapy; Z82.49 Family history of ischemic heart disease and other diseases of the circulatory system; Z86.73 Personal history of transient ischemic attack (TIA), and cerebral infarction without residual deficits; Z90.710 Acquired absence of both cervix and uterus; Z71.6 Tobacco abuse counseling
CPT/HCPCS: 36415; 70450; 70551; 71045; 80053; 81001; 83735; 84443; 84484; 85025; 93005; 96360; 96361; G0378; J0696

== ENCOUNTER 2022-02-12 16:36 | Inpatient (IN) | payer OTHER, MEDICAID ==
[~2022-02-12] VITALS: Ht 165.1 cm; Wt 109.3 kg
[~2022-02-12 16:36] MED LIST changes: +LEV25T PO
[2022-02-12 20:54] LABS: Basophils # (auto) 0 10 ^3/uL (0-0.2); Basophils % (auto) 0.3 % (0.0-2.0); Eosinophils # (auto) 0.1 10 ^3/uL (0-0.8); Eosinophils % (auto) 0.6 % (0.0-7.0); Hematocrit 46.9 % (36.0-46.0); Hemoglobin 15.8 g/dL (12.2-16.2); Lymphocytes # (auto) 1.9 10 ^3/uL (0.4-5.4); Lymphocytes % (auto) 13.4 % (10.0-50.0); Mean Corpuscular Hemoglobin 33.9 pg (28.0-32.0); Mean Corpuscular Hgb Conc. 33.7 g/dL (32.0-36.0); Mean Corpuscular Volume 100.6 fL (80.0-100.0); Monocytes # (auto) 1.2 10 ^3/uL (0-1.3); Monocytes % (auto) 8.1 % (0.0-12.0); Neutrophils % (auto) 77.6 % (37.0-80.0); Red Blood Cells 4.66 10^6/uL (4.0-5.20); Red Cell Distribution Width 13.8 % (11.8-14.3); White Blood Cell 14.2 10^3/uL (4.4-10.8)
[2022-02-12 20:58] LABS: Albumin 4.1 g/dL (3.4-5.0); Anion Gap 9 (5-15); Blood Urea Nitrogen 14 mg/dL (7-18); Calcium 9.2 mg/dL (8.5-10.1); Carbon Dioxide 26 mmol/L (21-32); Chloride 106 mmol/L (98-107); GFR African American 70 mL/min; GFR Non-African American 58 mL/min; Glucose 113 mg/dL (74-106); Potassium 4.3 mmol/L (3.5-5.1); Sodium 141 mmol/L (136-145)
[2022-02-12 21:01] LABS: Alanine Aminotransferase 23 U/L (13-56); Alkaline Phosphatase 88 U/L (45-117); Aspartate Aminotransferase 33 U/L (15-37); Bilirubin, Total 0.6 mg/dL (0.2-1.0); Total Protein 7.6 g/dL (6.4-8.2)
[2022-02-12] MEDS ORDERED: IODIXANOL 320MG/ML 100ML BTL IV ONE (22:20)
[2022-02-12] MEDS ORDERED: ASPirin 81 mg TAB PO ONE (22:30)
[2022-02-12] MEDS ORDERED: ONDANSETRON HCL 4 MG/2 ML VIAL IV PRN (23:45)
[2022-02-12] MEDS ORDERED: NITROGLYCERIN 0.4 MG SL TAB SL PRN (23:45)
[2022-02-12] MEDS ORDERED: MORPHINE SULFATE INJ 2 MG/ml SYRG IV PRN (23:45)
[2022-02-12] MEDS ORDERED: ENOXAPARIN SOD 100 MG/1 ML SYRINGE SC ONE (23:45)
[2022-02-12] MEDS ORDERED: ACETAMINOPHEN 325 MG TAB PO PRN (23:45)
[2022-02-13] MEDS ORDERED: cloNIDine HCL 0.1 MG TAB PO PRN
[2022-02-13] MEDS ORDERED: ALBUTEROL SULF 2.5 MG/0.5ML(0.5%) NEB SOLN NEB ONE
[2022-02-13] MEDS: cloNIDine HCL 0.1 MG TAB PO PRN (00:08)
[2022-02-13] MEDS: ATORVASTATIN 20 MG TAB PO SCH ×2 (00:08→21:36)
[2022-02-13 02:06] LABS: Urine Bacteria NONE SEEN /hpf (None Seen); Urine Blood Negative /uL (Negative); Urine Specific Gravity 1.026 (1.001-1.035); Urine WBC 1 /hpf (0 - 5)
[2022-02-13] MEDS: HYDROcodone-ACET 5/325MG TAB PO PRN ×2 (03:16→20:00)
[2022-02-13 06:30] LABS: Basophils # (auto) 0 10 ^3/uL (0-0.2); Basophils % (auto) 0.5 % (0.0-2.0); Eosinophils # (auto) 0.1 10 ^3/uL (0-0.8); Eosinophils % (auto) 0.9 % (0.0-7.0); Hematocrit 43.5 % (36.0-46.0); Hemoglobin 14.6 g/dL (12.2-16.2); Lymphocytes # (auto) 1.7 10 ^3/uL (0.4-5.4); Mean Corpuscular Hgb Conc. 33.7 g/dL (32.0-36.0); Monocytes % (auto) 9.1 % (0.0-12.0); Neutrophils # (auto) 7.9 10 ^3/uL (1.6-8.6); Neutrophils % (auto) 73.5 % (37.0-80.0); Nucleated Red Blood Cells % 0.1 %; Red Blood Cells 4.31 10^6/uL (4.0-5.20); Red Cell Distribution Width 13.7 % (11.8-14.3); White Blood Cell 10.7 10^3/uL (4.4-10.8)
[2022-02-13 06:50] LABS: Albumin 3.4 g/dL (3.4-5.0); BUN/Creatinine Ratio 14.8; Calcium 8.7 mg/dL (8.5-10.1); Potassium 3.9 mmol/L (3.5-5.1)
[2022-02-13 06:53] LABS: Bilirubin, Total 0.7 mg/dL (0.2-1.0); Total Protein 6.6 g/dL (6.4-8.2)
[2022-02-13] MEDS: LEVOTHYROXINE SODIUM 25 MCG TAB PO SCH (07:38)
[2022-02-13] MEDS ORDERED: ASPirin 81 mg TAB PO SCH (10:00)
[2022-02-13] MEDS: RANOLAZINE ER 500 MG TAB PO SCH ×2 (10:32→21:37)
[2022-02-13] MEDS: MEMANTINE HCL 5 MG TAB PO SCH ×2 (10:32→21:37)
[2022-02-13] MEDS: PANTOPRAZOLE 40 MG TAB PO SCH (10:32)
[2022-02-13] MEDS ORDERED: LISINOPRIL 20 MG TAB PO ONE (13:30)
[2022-02-13] MEDS ORDERED: NICOTINE 21MG/24 HR TOPICAL PATCH TD ONE (13:30)
[2022-02-13 13:53] LABS: Magnesium 2.1 mg/dL (1.6-2.6)
[2022-02-13] MEDS ORDERED: COLCHICINE 0.6 MG CAP PO ONE (17:15)
[2022-02-13] MEDS: hydrALAZINE HCL 20 MG/ML VL IV PRN (17:56)
[2022-02-13 20:00] VITALS: BP 140/77
[2022-02-13] MEDS ORDERED: ENOXAPARIN SOD 40 MG/0.4 ML SYRINGE SC SCH (21:00)
[2022-02-13 21:17] VITALS: BP 152/74
[2022-02-13] MEDS ORDERED: ATORVASTATIN 20 MG TAB PO SCH (22:00)
[2022-02-13] MEDS: COLCHICINE 0.6 MG CAP PO SCH (22:00)
[2022-02-13 22:37] VITALS: BP 152/74
[2022-02-14] MEDS ORDERED: BACL20TA (00:14)
[2022-02-14] MEDS ORDERED: GABA400C11 PO (00:14)
[2022-02-14] MEDS ORDERED: HYDR-4072 (00:14)
[2022-02-14] MEDS: hydrALAZINE HCL 20 MG/ML VL IV PRN (00:21)
[2022-02-14 04:24] VITALS: BP 161/67
[2022-02-14] MEDS: LEVOTHYROXINE SODIUM 25 MCG TAB PO SCH (06:00)
[2022-02-14] MEDS: cloNIDine HCL 0.1 MG TAB PO PRN (06:01)
[2022-02-14 08:00] VITALS: BP 156/72
[2022-02-14] MEDS ORDERED: SENNA 8.6 MG TAB PO PRN (08:45)
[2022-02-14] MEDS ORDERED: POLYETHYLENE GLYCOL 17 GM PWDR PO PRN (08:45)
[2022-02-14] MEDS ORDERED: HYDROcodone-ACET 10/325MG TAB PO PRN ×2 (08:45)
[2022-02-14] MEDS ORDERED: POLYETHYLENE GLYCOL 17 GM PWDR PO SCH (10:00)
[2022-02-14] MEDS ORDERED: NICOTINE 21MG/24 HR TOPICAL PATCH TD SCH (10:00)
[2022-02-14] MEDS ORDERED: LISINOPRIL 20 MG TAB PO SCH (10:00)
[2022-02-14] MEDS: RANOLAZINE ER 500 MG TAB PO SCH (11:27)
[2022-02-14] MEDS: MEMANTINE HCL 5 MG TAB PO SCH (11:27)
[2022-02-14] MEDS: COLCHICINE 0.6 MG CAP PO SCH (11:28)
[2022-02-14] MEDS: PANTOPRAZOLE 40 MG TAB PO SCH (11:32)
[2022-02-14 12:00] VITALS: BP 132/86
[2022-02-14] MEDS ORDERED: LEV25T PO (13:42)
[2022-02-14] MEDS ORDERED: COLC0.6T56 PO (13:42)
[2022-02-14] MEDS ORDERED: ASPI1TAB19 PO (13:59)
[2022-02-14] MEDS ORDERED: ROSU1TAB13 PO (13:59)
[2022-02-14 16:00] VITALS: BP 132/75
[2022-02-14 16:58] VITALS: BP 132/86
[2022-02-14] MEDS ORDERED: SENNA 8.6 MG TAB PO SCH (22:00)
== END 2022-02-14 18:00 | disposition home or self-care (01) | DRG 312 ==
LOC: EDBD 16:36 → ER 16:36 → TELE 23:39 → TELE-CENTR 02-13 18:38
PROVIDERS: ADMIT Nurse Practitioner; ATTEND Student in an Organized Health Care Education/Training Program
DX: R55 Syncope and collapse (principal); I13.0 Hypertensive heart and chronic kidney disease with heart failure and stage 1 through stage 4 chronic kidney disease, or unspecified chronic kidney disease; I50.32 Chronic diastolic (congestive) heart failure; I16.0 Hypertensive urgency; E11.22 Type 2 diabetes mellitus with diabetic chronic kidney disease; E78.5 Hyperlipidemia, unspecified; F03.90 Unspecified dementia, unspecified severity, without behavioral disturbance, psychotic disturbance, mood disturbance, and anxiety; F17.210 Nicotine dependence, cigarettes, uncomplicated; E03.9 Hypothyroidism, unspecified; M10.9 Gout, unspecified; Z20.822 Contact with and (suspected) exposure to COVID-19; I25.10 Atherosclerotic heart disease of native coronary artery without angina pectoris; I65.29 Occlusion and stenosis of unspecified carotid artery; J44.9 Chronic obstructive pulmonary disease, unspecified; N18.2 Chronic kidney disease, stage 2 (mild); S80.212A Abrasion, left knee, initial encounter; Z88.0 Allergy status to penicillin; Z88.5 Allergy status to narcotic agent; Z88.8 Allergy status to other drugs, medicaments and biological substances; Z79.4 Long term (current) use of insulin; Z82.0 Family history of epilepsy and other diseases of the nervous system; Z82.49 Family history of ischemic heart disease and other diseases of the circulatory system; Z86.73 Personal history of transient ischemic attack (TIA), and cerebral infarction without residual deficits; Z90.49 Acquired absence of other specified parts of digestive tract; Z90.710 Acquired absence of both cervix and uterus; W18.39XA Other fall on same level, initial encounter; Y93.89 Activity, other specified; Y92.89 Other specified places as the place of occurrence of the external cause; Y99.8 Other external cause status
CPT/HCPCS: 36415; 70450; 71045; 71250; 71260; 72125; 73562; 73610; 73700; 74176; 74177; 78452; 80053; 80061; 81001; 83036; 83735; 83880; 84443; 84484; 84550; 85025; 85379; 87426; 93005; 93017; 93306; 93886; 94640; 96372; 96374; 97163; G0378; Q9967

== ENCOUNTER 2022-04-16 13:55 | Inpatient (IN) | payer OTHER, MEDICAID ==
[~2022-04-16] VITALS: Ht 162.6 cm; Wt 98.0 kg
[~2022-04-16 13:55] MED LIST changes: +ASPI1TAB19 PO; +BACL20TA; +COLC0.6T56 PO; +GABA400C11 PO; +HYDR-4072; +ROSU1TAB13 PO
[2022-04-16 14:39] LABS: Basophils # (auto) 0 10 ^3/uL (0-0.2); Eosinophils # (auto) 0 10 ^3/uL (0-0.8); Hemoglobin 16.4 g/dL (12.2-16.2); Lymphocytes # (auto) 1.5 10 ^3/uL (0.4-5.4); Mean Corpuscular Hemoglobin 34.9 pg (28.0-32.0); Monocytes # (auto) 0.7 10 ^3/uL (0-1.3); Red Blood Cells 4.71 10^6/uL (4.0-5.20)
[2022-04-16 14:40] LABS: Basophils % (auto) 0.5 % (0.0-2.0); Eosinophils % (auto) 0.4 % (0.0-7.0); Hematocrit 45.9 % (36.0-46.0); Lymphocytes % (auto) 15.8 % (10.0-50.0); Mean Corpuscular Hgb Conc. 35.8 g/dL (32.0-36.0); Mean Corpuscular Volume 97.5 fL (80.0-100.0); Monocytes % (auto) 7.9 % (0.0-12.0); Neutrophils % (auto) 75.4 % (37.0-80.0); Nucleated Red Blood Cells % 0.1 %; White Blood Cell 9.3 10^3/uL (4.4-10.8)
[2022-04-16 14:56] LABS: Albumin 4.2 g/dL (3.4-5.0); Calcium 8.9 mg/dL (8.5-10.1); Potassium 3.7 mmol/L (3.5-5.1)
[2022-04-16 14:59] LABS: Bilirubin, Total 0.6 mg/dL (0.2-1.0); Total Protein 6.8 g/dL (6.4-8.2)
[2022-04-16] MEDS ORDERED: KETOROLAC TROMETH 30 MG/ML 1ML VIAL IV ONE (18:15)
[2022-04-16] MEDS ORDERED: SODIUM CHLORIDE 0.9% 1,000 ML IVB ONE (18:15)
[2022-04-16] MEDS ORDERED: SODIUM CHLORIDE 0.9% 1,000 ML IV ONE (18:15)
[2022-04-16] MEDS ORDERED: METOCLOPRAMIDE HCL 5MG/ml INJ 2ml VIAL IV ONE (18:15)
[2022-04-17] MEDS ORDERED: HYDROcodone-ACET 5/325MG TAB PO ONE (02:00)
[2022-04-17 06:58] LABS: Urine Amorphous Crystal MOD /hpf (None Seen); Urine Bacteria NONE SEEN /hpf (None Seen); Urine Blood Negative /uL (Negative); Urine Specific Gravity 1.017 (1.001-1.035); Urine WBC 2 /hpf (0 - 5)
[2022-04-17] MEDS ORDERED: NITROGLYCERIN 0.4 MG SL TAB SL PRN (10:15)
[2022-04-17] MEDS ORDERED: ACETAMINOPHEN 325 MG TAB PO PRN (10:15)
[2022-04-17] MEDS ORDERED: ONDANSETRON HCL 4 MG/2 ML VIAL IV PRN (10:15)
[2022-04-17 10:55] LABS: INR 1.03 (0.9-1.15)
[2022-04-17] MEDS: CYCLOBENZAPRINE HCL 10 MG TAB PO SCH ×2 (11:43→20:05)
[2022-04-17] MEDS ORDERED: MORPHINE SULFATE INJ 2 MG/ml SYRG IV ONE (12:00)
[2022-04-17] MEDS ORDERED: LORazepam 2MG/ML-1ML VIAL IV ONE (12:00)
[2022-04-17] MEDS ORDERED: ALBUTEROL MEDNEB 2.5 mg/3ml NEB ONE (13:09)
[2022-04-17 13:49] VITALS: BP 135/68
[2022-04-17] MEDS: GABAPENTIN 400 MG CAP PO SCH ×2 (14:29→22:05)
[2022-04-17] MEDS: MORPHINE SULFATE 4 MG/ML SYR/VIAL IV PRN (19:31)
[2022-04-17] MEDS ORDERED: ATORVASTATIN 20 MG TAB PO SCH (22:00)
[2022-04-17] MEDS: COLCHICINE 0.6 MG CAP PO SCH (22:04)
[2022-04-17] MEDS: MEMANTINE HCL 5 MG TAB PO SCH (22:04)
[2022-04-17] MEDS: ATORVASTATIN 20 MG TAB PO SCH (22:05)
[2022-04-17] MEDS: IPRATROPIUM BROM 0.5 MG/2.5ML INH SOL NEB PRN (22:07)
[2022-04-17] MEDS: ALBUTEROL SULF 2.5 MG/0.5ML(0.5%) NEB SOLN NEB PRN (22:07)
[2022-04-17] MEDS: RANOLAZINE ER 500 MG TAB PO SCH (22:10)
[2022-04-18] MEDS: MORPHINE SULFATE 4 MG/ML SYR/VIAL IV PRN (01:40)
[2022-04-18] MEDS: CYCLOBENZAPRINE HCL 10 MG TAB PO SCH ×3 (02:45→18:59)
[2022-04-18] MEDS ORDERED: ALBUTEROL MEDNEB 2.5 mg/3ml NEB ONE ×2 (04:09→07:51)
[2022-04-18] MEDS ORDERED: IPRATROPIUM BROM 0.5 MG/2.5ML INH SOL ONE (04:09)
[2022-04-18 05:50] LABS: Basophils # (auto) 0.1 10 ^3/uL (0-0.2); Basophils % (auto) 0.6 % (0.0-2.0); Eosinophils # (auto) 0.2 10 ^3/uL (0-0.8); Lymphocytes % (auto) 21.1 % (10.0-50.0); Mean Corpuscular Hemoglobin 34.4 pg (28.0-32.0)
[2022-04-18 05:51] LABS: Eosinophils % (auto) 1.6 % (0.0-7.0); Hematocrit 47.3 % (36.0-46.0); Hemoglobin 16.3 g/dL (12.2-16.2); Lymphocytes # (auto) 2.6 10 ^3/uL (0.4-5.4); Mean Corpuscular Hgb Conc. 34.4 g/dL (32.0-36.0); Monocytes % (auto) 7.9 % (0.0-12.0); Neutrophils # (auto) 8.4 10 ^3/uL (1.6-8.6); Neutrophils % (auto) 68.8 % (37.0-80.0); Red Blood Cells 4.73 10^6/uL (4.0-5.20); White Blood Cell 12.2 10^3/uL (4.4-10.8)
[2022-04-18] MEDS: GABAPENTIN 400 MG CAP PO SCH ×3 (06:00→21:55)
[2022-04-18 06:04] LABS: Albumin 3.9 g/dL (3.4-5.0); Calcium 8.7 mg/dL (8.5-10.1); Potassium 3.7 mmol/L (3.5-5.1)
[2022-04-18 06:10] LABS: BUN/Creatinine Ratio 13.7; Total Protein 6.9 g/dL (6.4-8.2)
[2022-04-18] MEDS ORDERED: LEVOTHYROXINE SODIUM 25 MCG TAB PO SCH (07:00)
[2022-04-18] MEDS: IPRATROPIUM BROM 0.5 MG/2.5ML INH SOL NEB PRN (08:26)
[2022-04-18] MEDS: ALBUTEROL SULF 2.5 MG/0.5ML(0.5%) NEB SOLN NEB PRN (08:26)
[2022-04-18] MEDS: PATIENTS OWN MEDICATION (Fluticasone-Umeclidinium-Vilan (Trelegy Ellipta 100-62.5-25 Mcg/I IN SCH (10:00)
[2022-04-18] MEDS ORDERED: ASPirin 81 mg TAB PO SCH (10:00)
[2022-04-18] MEDS: DOCUSATE SOD 100 MG CAP PO SCH (10:00)
[2022-04-18] MEDS: MEMANTINE HCL 5 MG TAB PO SCH ×2 (10:17→21:55)
[2022-04-18] MEDS: CITALOPRAM HYDROBR 20 MG TAB PO SCH (10:17)
[2022-04-18] MEDS: COLCHICINE 0.6 MG CAP PO SCH ×2 (10:17→21:55)
[2022-04-18] MEDS: RANOLAZINE ER 500 MG TAB PO SCH ×2 (10:17→21:54)
[2022-04-18] MEDS: PANTOPRAZOLE 40 MG TAB PO SCH (10:17)
[2022-04-18] MEDS: ASPirin-EC 81 mg tab PO SCH (10:17)
[2022-04-18] MEDS: ENOXAPARIN SOD 40 MG/0.4 ML SYRINGE SC SCH (10:18)
[2022-04-18 12:44] VITALS: BP 155/89
[2022-04-18 17:00] VITALS: BP 124/83
[2022-04-18] MEDS: ATORVASTATIN 20 MG TAB PO SCH (21:55)
[2022-04-18 22:00] VITALS: BP 155/82
[2022-04-19] VITALS (7 sets, daily range): BP systolic 110–167; BP diastolic 70–89
[2022-04-19] MEDS: CYCLOBENZAPRINE HCL 10 MG TAB PO SCH ×3 (02:42→18:24)
[2022-04-19] MEDS: GABAPENTIN 400 MG CAP PO SCH ×3 (05:11→21:36)
[2022-04-19] MEDS: LEVOTHYROXINE SODIUM 100 MCG TAB PO SCH (06:30)
[2022-04-19] MEDS: PATIENTS OWN MEDICATION (Fluticasone-Umeclidinium-Vilan (Trelegy Ellipta 100-62.5-25 Mcg/I IN SCH (10:00)
[2022-04-19] MEDS: DOCUSATE SOD 100 MG CAP PO SCH (10:00)
[2022-04-19] MEDS: CITALOPRAM HYDROBR 20 MG TAB PO SCH (10:20)
[2022-04-19] MEDS: ASPirin-EC 81 mg tab PO SCH (10:21)
[2022-04-19] MEDS: RANOLAZINE ER 500 MG TAB PO SCH ×2 (10:21→21:36)
[2022-04-19] MEDS: COLCHICINE 0.6 MG CAP PO SCH ×2 (10:21→21:35)
[2022-04-19] MEDS: PANTOPRAZOLE 40 MG TAB PO SCH (10:21)
[2022-04-19] MEDS: ENOXAPARIN SOD 40 MG/0.4 ML SYRINGE SC SCH (10:21)
[2022-04-19] MEDS: MEMANTINE HCL 5 MG TAB PO SCH ×2 (10:21→21:36)
[2022-04-19] MEDS ORDERED: HYDROcodone-ACET 5/325MG TAB PO PRN (16:45)
[2022-04-19] MEDS: MORPHINE SULFATE INJ 2 MG/ml SYRG IV PRN ×2 (17:00→20:59)
[2022-04-19] MEDS: ATORVASTATIN 20 MG TAB PO SCH (21:36)
[2022-04-20] MEDS: CYCLOBENZAPRINE HCL 10 MG TAB PO SCH ×2 (01:54→08:51)
[2022-04-20] MEDS: GABAPENTIN 400 MG CAP PO SCH (05:05)
[2022-04-20 05:28] VITALS: BP 128/63
[2022-04-20] MEDS: LEVOTHYROXINE SODIUM 100 MCG TAB PO SCH (06:38)
[2022-04-20 08:00] VITALS: BP 109/70
[2022-04-20] MEDS: PATIENTS OWN MEDICATION (Fluticasone-Umeclidinium-Vilan (Trelegy Ellipta 100-62.5-25 Mcg/I IN SCH (08:50)
[2022-04-20] MEDS: DOCUSATE SOD 100 MG CAP PO SCH (08:50)
[2022-04-20] MEDS: CITALOPRAM HYDROBR 20 MG TAB PO SCH (08:50)
[2022-04-20] MEDS: ENOXAPARIN SOD 40 MG/0.4 ML SYRINGE SC SCH (08:51)
[2022-04-20] MEDS: ASPirin-EC 81 mg tab PO SCH (08:51)
[2022-04-20] MEDS: MEMANTINE HCL 5 MG TAB PO SCH (08:51)
[2022-04-20] MEDS: COLCHICINE 0.6 MG CAP PO SCH (08:51)
[2022-04-20] MEDS: PANTOPRAZOLE 40 MG TAB PO SCH (08:51)
[2022-04-20] MEDS: RANOLAZINE ER 500 MG TAB PO SCH (08:51)
[2022-04-20 09:00] VITALS: BP 109/70
[2022-04-20 10:59] VITALS: BP 109/70
== END 2022-04-20 11:37 | disposition home or self-care (01) | DRG 291 ==
LOC: EDBD 13:55 → ER 13:55 → TELE 04-17 10:21 → TELE-E-ADS 04-18 12:44 → TELE-EAST 04-18 14:45
PROVIDERS: ADMIT Nurse Practitioner Family; ATTEND Family Medicine
DX: I13.0 Hypertensive heart and chronic kidney disease with heart failure and stage 1 through stage 4 chronic kidney disease, or unspecified chronic kidney disease (principal); I50.23 Acute on chronic systolic (congestive) heart failure; J96.01 Acute respiratory failure with hypoxia; J44.1 Chronic obstructive pulmonary disease with (acute) exacerbation; Z68.42 Body mass index [BMI] 45.0-49.9, adult; E66.01 Morbid (severe) obesity due to excess calories; N18.30 Chronic kidney disease, stage 3 unspecified; E03.9 Hypothyroidism, unspecified; F17.210 Nicotine dependence, cigarettes, uncomplicated; E11.22 Type 2 diabetes mellitus with diabetic chronic kidney disease; I25.10 Atherosclerotic heart disease of native coronary artery without angina pectoris; R25.2 Cramp and spasm; E78.5 Hyperlipidemia, unspecified; Z20.822 Contact with and (suspected) exposure to COVID-19; F03.90 Unspecified dementia, unspecified severity, without behavioral disturbance, psychotic disturbance, mood disturbance, and anxiety; D72.829 Elevated white blood cell count, unspecified; Z82.0 Family history of epilepsy and other diseases of the nervous system; Z82.49 Family history of ischemic heart disease and other diseases of the circulatory system; Z86.73 Personal history of transient ischemic attack (TIA), and cerebral infarction without residual deficits; Z88.0 Allergy status to penicillin; Z88.8 Allergy status to other drugs, medicaments and biological substances; Z90.710 Acquired absence of both cervix and uterus; Z88.1 Allergy status to other antibiotic agents; Z88.5 Allergy status to narcotic agent; Z98.51 Tubal ligation status; Z90.49 Acquired absence of other specified parts of digestive tract
CPT/HCPCS: 36415; 36600; 71045; 80053; 80061; 81001; 82805; 83735; 84443; 84484; 85025; 85610; 87426; 93005; 93970; 94640; 96361; 96374; 96375; G0378; J1885

== ENCOUNTER 2022-12-15 16:59 | Inpatient (IN) | payer OTHER, MEDICAID ==
[~2022-12-15] VITALS: Ht 165.1 cm; Wt 104.0 kg
[~2022-12-15 16:59] MED LIST changes: -ESCI-28 PO; +ESCI1TAB36 PO; +GABA-1250 PO; +GABA-1251 PO; -GABA300C10 PO; -GABA400C11 PO; -PROC10TA2 PO; +PROC10TA6 PO; +ROSU10TA64 PO; -ROSU1TAB13 PO
[2022-12-15] MEDS ORDERED: ALBUTEROL SULF 2.5 MG/0.5ML(0.5%) NEB SOLN HHN ONE (18:45)
[2022-12-15] MEDS ORDERED: IPRATROPIUM BROM 0.5 MG/2.5ML INH SOL HHN ONE (18:45)
[2022-12-15] MEDS ORDERED: DexAMETHasone SOD PHOS 10MG/1ML VIAL INJ IV ONE (18:45)
[2022-12-15 19:13] LABS: Basophils # (auto) 0.1 10 ^3/uL (0-0.2); Basophils % (auto) 0.6 % (0.0-2.0); Eosinophils # (auto) 0.1 10 ^3/uL (0-0.8); Eosinophils % (auto) 1.4 % (0.0-7.0); Hematocrit 45.8 % (36.0-46.0); Hemoglobin 15.7 g/dL (12.2-16.2); Lymphocytes # (auto) 1.8 10 ^3/uL (0.4-5.4); Lymphocytes % (auto) 19.3 % (10.0-50.0); Mean Corpuscular Hemoglobin 33.7 pg (28.0-32.0); Mean Corpuscular Hgb Conc. 34.2 g/dL (32.0-36.0); Mean Corpuscular Volume 98.3 fL (80.0-100.0); Monocytes # (auto) 0.7 10 ^3/uL (0-1.3); Monocytes % (auto) 7.4 % (0.0-12.0); Neutrophils # (auto) 6.8 10 ^3/uL (1.6-8.6); Neutrophils % (auto) 71.3 % (37.0-80.0); Nucleated Red Blood Cells % 0.1 %; Red Blood Cells 4.66 10^6/uL (4.0-5.20); White Blood Cell 9.5 10^3/uL (4.4-10.8)
[2022-12-15 19:42] LABS: Alanine Aminotransferase 14 U/L (7-40); Albumin 4.4 g/dL (3.2-4.8); Alkaline Phosphatase 84 U/L (46-116); Anion Gap 5.2 (5-15); BUN/Creatinine Ratio 12.9 (10.0-20.0); Bilirubin, Total 0.5 mg/dL (0.2-1.0); Blood Urea Nitrogen 12 mg/dL (9-23); Calcium 9.3 mg/dL (8.7-10.4); Carbon Dioxide 28.8 mmol/L (20-30); Chloride 104 mmol/L (98-107); Glucose 108 mg/dL (74-106); Magnesium 1.6 mg/dL (1.6-2.6); Potassium 3.9 mmol/L (3.5-5.1); Sodium 138 mmol/L (136-145); Total Protein 6.8 g/dL (5.7-8.2)
[2022-12-15 20:01] LABS: Aspartate Aminotransferase 13 U/L (13-40)
[2022-12-15] MEDS ORDERED: ONDANSETRON HCL 4 MG/2 ML VIAL IV ONE (21:45)
[2022-12-15] MEDS ORDERED: MORPHINE SULFATE INJ 2 MG/ml SYRG IV ONE (21:45)
[2022-12-15] MEDS ORDERED: DEXTROSE (50%) 50ML SYRG IV PRN (23:00)
[2022-12-15] MEDS ORDERED: ALBUTEROL SULF 2.5 MG/0.5ML(0.5%) NEB SOLN NEB PRN (23:00)
[2022-12-15] MEDS ORDERED: IPRATROPIUM BROM 0.5 MG/2.5ML INH SOL NEB PRN (23:00)
[2022-12-15] MEDS ORDERED: NITROGLYCERIN 0.4 MG SL TAB SL PRN (23:00)
[2022-12-15] MEDS ORDERED: MAGNESIUM SULFATE 1GM/100ML 100 ML IV ONE (23:00)
[2022-12-15 23:35] VITALS: PULSE 80; RESP 14; O2SAT 91
[2022-12-15 23:39] VITALS: BP 164/93; PULSE 76; RESP 16; TEMP 97.2; O2SAT 94
[2022-12-16] VITALS (8 sets, daily range): BP systolic 123–139; BP diastolic 70–74; PULSE 78–86; RESP 16–21; TEMP 98.1–98.3; O2SAT 87–99
[2022-12-16] MEDS: ACCU-CHEK COMFORT CURVE STRIP VI SCH ×5 (00:14→21:50)
[2022-12-16] MEDS: InsuLIN REG 1unit/0.01ml Soln (100units/ml) SC SCH ×5 (00:22→21:57)
[2022-12-16] MEDS: DOXYCYCLINE 100MG/250ML 250 ML IV SCH ×3 (01:19→21:59)
[2022-12-16 04:48] LABS: COVID19 ANTIGEN SOFIA FIA NEGATIVE (NEGATIVE)
[2022-12-16] MEDS: MORPHINE SULFATE INJ 2 MG/ml SYRG IV PRN ×2 (04:53→11:09)
[2022-12-16] MEDS: ONDANSETRON HCL 4 MG/2 ML VIAL IV PRN ×2 (04:53→11:09)
[2022-12-16] MEDS ORDERED: IPRATROPIUM BROM 0.5 MG/2.5ML INH SOL NEB PRN (06:00)
[2022-12-16] MEDS: LEVOTHYROXINE SODIUM 25 MCG TAB PO SCH (06:07)
[2022-12-16] MEDS: GABAPENTIN 300 MG CAP PO SCH ×3 (06:07→21:50)
[2022-12-16 07:23] LABS: Hematocrit 43.2 % (36.0-46.0); Hemoglobin 14.7 g/dL (12.2-16.2); Mean Corpuscular Hemoglobin 33.9 pg (28.0-32.0); Mean Corpuscular Hgb Conc. 34.1 g/dL (32.0-36.0); Mean Corpuscular Volume 99.4 fL (80.0-100.0); Red Blood Cells 4.34 10^6/uL (4.0-5.20); Red Cell Distribution Width 13.1 % (11.8-14.3); White Blood Cell 10.4 10^3/uL (4.4-10.8)
[2022-12-16 07:35] LABS: Chloride 103 mmol/L (98-107); Potassium 3.5 mmol/L (3.5-5.1); Sodium 139 mmol/L (136-145)
[2022-12-16 07:36] LABS: Anion Gap 11.3 (5-15); Band Neutrophils % (manual) 0; Basophils % (manual) 0 (0.0-2.0); Blast Cells 0; Calcium 8.9 mg/dL (8.5-10.1); Carbon Dioxide 24.7 mmol/L (20-30); Eosinophils % (manual) 0 (0-7); Metamyelocytes % 0; Monocytes % (manual) 0 (0-12); Myelocytes % 0; Promyelocytes % 0; Reactive Lymphocytes 0
[2022-12-16 07:41] LABS: BUN/Creatinine Ratio 12.4 (10.0-20.0); Blood Urea Nitrogen 14 mg/dL (9-23); Glucose 225 mg/dL (74-106)
[2022-12-16] MEDS: ASPirin 81 mg TAB PO SCH (08:20)
[2022-12-16] MEDS: ENOXAPARIN SOD 40 MG/0.4 ML SYRINGE SC SCH (08:21)
[2022-12-16] MEDS: MEMANTINE HCL 5 MG TAB PO SCH ×2 (08:21→21:50)
[2022-12-16] MEDS: PANTOPRAZOLE 40 MG TAB PO SCH (08:21)
[2022-12-16] MEDS: RANOLAZINE ER 500 MG TAB PO SCH ×2 (08:21→21:50)
[2022-12-16] MEDS: CITALOPRAM HYDROBR 20 MG TAB PO SCH (10:19)
[2022-12-16 12:31] LABS: Lymphocytes % (manual) 1 (10.0-50.0); Platelet Estimate Adequate
[2022-12-16] MEDS ORDERED: ALBUTEROL SULF 2.5 MG/0.5ML(0.5%) NEB SOLN NEB PRN (15:00)
[2022-12-16] MEDS ORDERED: POTASSIUM CHL 20 Meq TABLET PO ONE (15:00)
[2022-12-16] MEDS ORDERED: FUROSEMIDE 40 MG/4 ML VIAL IV ONE (15:00)
[2022-12-16] MEDS ORDERED: methylPREDNISolone SOD SUCC 40 MG/ML VL IV ONE (15:00)
[2022-12-16] MEDS ORDERED: DEXTROSE (50%) 50ML SYRG IV PRN (15:15)
[2022-12-16] MEDS: ALBUTEROL SULF 2.5 MG/0.5ML(0.5%) NEB SOLN NEB SCH (19:39)
[2022-12-16] MEDS: IPRATROPIUM BROM 0.5 MG/2.5ML INH SOL NEB SCH (19:39)
[2022-12-16] MEDS: methylPREDNISolone SOD SUCC 40 MG/ML VL IV SCH (21:49)
[2022-12-16] MEDS: ACETAMINOPHEN 325 MG TAB PO PRN (21:50)
[2022-12-16] MEDS: ATORVASTATIN 20 MG TAB PO SCH (21:50)
[2022-12-16 22:40] LABS: Rapid Influenza A Negative (Negative); Rapid Influenza B Negative (Negative)
[2022-12-17] VITALS (11 sets, daily range): BP systolic 125–143; BP diastolic 51–72; PULSE 61–90; RESP 16–21; TEMP 98.2–98.8; O2SAT 86–96
[2022-12-17] MEDS: LEVOTHYROXINE SODIUM 25 MCG TAB PO SCH (06:05)
[2022-12-17] MEDS: ACCU-CHEK COMFORT CURVE STRIP VI SCH ×4 (06:05→21:55)
[2022-12-17] MEDS: GABAPENTIN 300 MG CAP PO SCH ×3 (06:05→21:54)
[2022-12-17 06:06] LABS: Basophils # (auto) 0 10 ^3/uL (0-0.2); Basophils % (auto) 0.1 % (0.0-2.0); Eosinophils # (auto) 0 10 ^3/uL (0-0.8); Hematocrit 45.8 % (36.0-46.0); Hemoglobin 15.6 g/dL (12.2-16.2); Lymphocytes # (auto) 0.8 10 ^3/uL (0.4-5.4); Lymphocytes % (auto) 3.7 % (10.0-50.0); Mean Corpuscular Hemoglobin 33.8 pg (28.0-32.0); Mean Corpuscular Volume 99.3 fL (80.0-100.0); Monocytes # (auto) 0.7 10 ^3/uL (0-1.3); Monocytes % (auto) 3.1 % (0.0-12.0); Neutrophils # (auto) 19.6 10 ^3/uL (1.6-8.6); Neutrophils % (auto) 93.1 % (37.0-80.0); Red Blood Cells 4.61 10^6/uL (4.0-5.20); Red Cell Distribution Width 13.1 % (11.8-14.3); White Blood Cell 21.1 10^3/uL (4.4-10.8)
[2022-12-17] MEDS: InsuLIN REG 1unit/0.01ml Soln (100units/ml) SC SCH ×4 (06:09→22:30)
[2022-12-17 06:36] LABS: Alanine Aminotransferase 15 U/L (7-40); Albumin 4.5 g/dL (3.2-4.8); Alkaline Phosphatase 80 U/L (46-116); Aspartate Aminotransferase 9 U/L (13-40); BUN/Creatinine Ratio 16.8 (10.0-20.0); Blood Urea Nitrogen 17 mg/dL (9-23); Calcium 9.9 mg/dL (8.7-10.4); Chloride 100 mmol/L (98-107); Folate (Folic Acid) 12.68 ng/mL (>5.38); Glucose 145 mg/dL (74-106); INR 0.97 (0.9-1.15); Magnesium 1.8 mg/dL (1.6-2.6); Prothrombin Time 10.2 sec (9.3-11.8); Sodium 137 mmol/L (136-145)
[2022-12-17 06:37] LABS: Bilirubin, Total 0.3 mg/dL (0.2-1.0); Phosphorus 2.8 mg/dL (2.4-5.1); Total Protein 7.2 g/dL (5.7-8.2)
[2022-12-17] MEDS: ALBUTEROL SULF 2.5 MG/0.5ML(0.5%) NEB SOLN NEB SCH ×3 (06:46→19:08)
[2022-12-17] MEDS: IPRATROPIUM BROM 0.5 MG/2.5ML INH SOL NEB SCH ×4 (06:47→19:09)
[2022-12-17] MEDS: methylPREDNISolone SOD SUCC 40 MG/ML VL IV SCH ×2 (07:44→21:54)
[2022-12-17] MEDS: CITALOPRAM HYDROBR 20 MG TAB PO SCH (07:44)
[2022-12-17] MEDS: ENOXAPARIN SOD 40 MG/0.4 ML SYRINGE SC SCH (07:44)
[2022-12-17] MEDS: ASPirin 81 mg TAB PO SCH (07:45)
[2022-12-17] MEDS: PANTOPRAZOLE 40 MG TAB PO SCH (07:45)
[2022-12-17] MEDS: RANOLAZINE ER 500 MG TAB PO SCH ×2 (07:45→21:54)
[2022-12-17] MEDS: ACETAMINOPHEN 325 MG TAB PO PRN ×2 (07:45→15:55)
[2022-12-17] MEDS: MEMANTINE HCL 5 MG TAB PO SCH ×2 (07:46→21:54)
[2022-12-17] MEDS: DOXYCYCLINE 100MG/250ML 250 ML IV SCH ×2 (08:02→21:55)
[2022-12-17] MEDS ORDERED: FUROSEMIDE 40 MG/4 ML VIAL IV SCH (10:00)
[2022-12-17] MEDS ORDERED: POTASSIUM CHL 20 Meq TABLET PO SCH (10:00)
[2022-12-17 10:19] LABS: Urine Bacteria FEW /hpf (None Seen); Urine Blood Negative /uL (Negative); Urine Clarity Clear (Clear); Urine Hyaline Cast FEW /lpf (0 - 2); Urine Protein, UAD Negative (Negative); Urine Specific Gravity 1.007 (1.001-1.035); Urine Urobilinogen Normal (Negative); Urine WBC 1 /hpf (0 - 5)
[2022-12-17 10:20] LABS: Urine Color Straw (Yellow)
[2022-12-17 11:17] LABS: Base Excess 5.3 mmol/L (-2.0-2.0)
[2022-12-17] MEDS ORDERED: NYSTATIN TOPICAL POWDER 15GM TOP ONE (11:30)
[2022-12-17] MEDS: HYDROcodone-ACET 5/325MG TAB PO PRN ×2 (13:27→18:42)
[2022-12-17] MEDS: ATORVASTATIN 20 MG TAB PO SCH (21:56)
[2022-12-17] MEDS: NYSTATIN TOPICAL POWDER 15GM TOP SCH (22:00)
[2022-12-18] VITALS (12 sets, daily range): BP systolic 100–157; BP diastolic 76–93; PULSE 61–76; RESP 16–24; TEMP 97.5–98.7; O2SAT 90–95
[2022-12-18] MEDS: HYDROcodone-ACET 5/325MG TAB PO PRN ×3 (03:14→22:22)
[2022-12-18] MEDS: GABAPENTIN 300 MG CAP PO SCH ×3 (05:43→21:44)
[2022-12-18] MEDS: ACCU-CHEK COMFORT CURVE STRIP VI SCH ×3 (05:43→17:06)
[2022-12-18] MEDS: LEVOTHYROXINE SODIUM 25 MCG TAB PO SCH (05:43)
[2022-12-18] MEDS: InsuLIN REG 1unit/0.01ml Soln (100units/ml) SC SCH ×4 (05:46→21:25)
[2022-12-18] MEDS: ALBUTEROL SULF 2.5 MG/0.5ML(0.5%) NEB SOLN NEB SCH ×3 (06:47→18:05)
[2022-12-18] MEDS: IPRATROPIUM BROM 0.5 MG/2.5ML INH SOL NEB SCH ×4 (06:47→18:05)
[2022-12-18 08:27] LABS: Basophils # (auto) 0 10 ^3/uL (0-0.2); Basophils % (auto) 0.2 % (0.0-2.0); Eosinophils # (auto) 0 10 ^3/uL (0-0.8); Hematocrit 46.6 % (36.0-46.0); Lymphocytes # (auto) 0.9 10 ^3/uL (0.4-5.4); Lymphocytes % (auto) 4.9 % (10.0-50.0); Mean Corpuscular Hemoglobin 33.9 pg (28.0-32.0); Mean Corpuscular Hgb Conc. 34.3 g/dL (32.0-36.0); Mean Corpuscular Volume 98.6 fL (80.0-100.0); Monocytes # (auto) 0.5 10 ^3/uL (0-1.3); Monocytes % (auto) 2.8 % (0.0-12.0); Neutrophils # (auto) 16.8 10 ^3/uL (1.6-8.6); Neutrophils % (auto) 92.1 % (37.0-80.0); Red Blood Cells 4.72 10^6/uL (4.0-5.20); Red Cell Distribution Width 13.3 % (11.8-14.3); White Blood Cell 18.2 10^3/uL (4.4-10.8)
[2022-12-18] MEDS: ASPirin 81 mg TAB PO SCH (08:55)
[2022-12-18] MEDS: CITALOPRAM HYDROBR 20 MG TAB PO SCH (08:55)
[2022-12-18] MEDS: RANOLAZINE ER 500 MG TAB PO SCH ×2 (08:55→21:42)
[2022-12-18] MEDS: DOXYCYCLINE 100 MG TAB/CAP PO SCH ×2 (08:55→21:44)
[2022-12-18] MEDS: MEMANTINE HCL 5 MG TAB PO SCH ×2 (08:56→21:44)
[2022-12-18] MEDS: NYSTATIN TOPICAL POWDER 15GM TOP SCH (08:59)
[2022-12-18] MEDS: ENOXAPARIN SOD 40 MG/0.4 ML SYRINGE SC SCH (08:59)
[2022-12-18 09:01] LABS: Anion Gap 4 (5-15); Carbon Dioxide 32 mmol/L (20-30); Chloride 99 mmol/L (98-107); Potassium 4.7 mmol/L (3.5-5.1); Sodium 135 mmol/L (136-145)
[2022-12-18 09:02] LABS: Calcium 9.4 mg/dL (8.5-10.1)
[2022-12-18 09:07] LABS: BUN/Creatinine Ratio 18.9 (10.0-20.0); Blood Urea Nitrogen 21 mg/dL (9-23); Glucose 143 mg/dL (74-106)
[2022-12-18 09:08] LABS: Magnesium 1.7 mg/dL (1.6-2.6)
[2022-12-18] MEDS ORDERED: predniSONE 20 MG TAB PO SCH (10:00)
[2022-12-18] MEDS ORDERED: FUROSEMIDE 20 MG TAB PO SCH (10:00)
[2022-12-18] MEDS ORDERED: DEX4T PO (10:40)
[2022-12-18] MEDS: ATORVASTATIN 20 MG TAB PO SCH (21:42)
[2022-12-19] VITALS: BP 147/88; PULSE 70; RESP 20; TEMP 98.7; O2SAT 93
[2022-12-19 00:03] VITALS: BP 147/88; PULSE 70; RESP 20; TEMP 98.7
== END 2022-12-19 00:15 | disposition home or self-care (01) | DRG 291 ==
LOC: ER 16:59 → TELE 23:03 → TELE-CENTR 12-16 16:54
PROVIDERS: ADMIT Nurse Practitioner; ATTEND Internal Medicine Pulmonary Disease
DX: I13.0 Hypertensive heart and chronic kidney disease with heart failure and stage 1 through stage 4 chronic kidney disease, or unspecified chronic kidney disease (principal); I50.33 Acute on chronic diastolic (congestive) heart failure; J96.21 Acute and chronic respiratory failure with hypoxia; J18.9 Pneumonia, unspecified organism; J44.1 Chronic obstructive pulmonary disease with (acute) exacerbation; E11.22 Type 2 diabetes mellitus with diabetic chronic kidney disease; N18.31 Chronic kidney disease, stage 3a; E11.42 Type 2 diabetes mellitus with diabetic polyneuropathy; I25.10 Atherosclerotic heart disease of native coronary artery without angina pectoris; F03.90 Unspecified dementia, unspecified severity, without behavioral disturbance, psychotic disturbance, mood disturbance, and anxiety; Z20.822 Contact with and (suspected) exposure to COVID-19; F17.210 Nicotine dependence, cigarettes, uncomplicated; E03.9 Hypothyroidism, unspecified; E78.5 Hyperlipidemia, unspecified; L30.4 Erythema intertrigo; Z86.73 Personal history of transient ischemic attack (TIA), and cerebral infarction without residual deficits; Z88.0 Allergy status to penicillin; Z88.1 Allergy status to other antibiotic agents; Z88.5 Allergy status to narcotic agent; Z88.8 Allergy status to other drugs, medicaments and biological substances; Z90.710 Acquired absence of both cervix and uterus; Z98.51 Tubal ligation status; Z90.49 Acquired absence of other specified parts of digestive tract; Z71.6 Tobacco abuse counseling
CPT/HCPCS: 36415; 36600; 71045; 71250; 80048; 80053; 81001; 82607; 82746; 82805; 82962; 83036; 83605; 83735; 83880; 84100; 84443; 84484; 85007; 85025; 85027; 85379; 85610; 87040; 87081; 87426; 87804; 93005; 93306; 93970; 94640; 94644; 99291; G0378; J1100; J1815; J2405; J3490

== ENCOUNTER 2024-03-08 19:51 | Inpatient (IN) | payer OTHER, MEDICAID ==
[~2024-03-08] VITALS: Ht 167.6 cm; Wt 100.4 kg
[~2024-03-08 19:51] MED LIST changes: +DEX4T PO; +DOXE3TAB4 PO; +MORP15TA PO; +NALO1TAB PO; +NITR0.4S29 SL
--- NOTE | 2024-03-08 20:17 | ED.PDOC ---
SOB-HPI HPI Comments 73-year-old female brought in by EMS presents with a chief complaint of SOB, cough, wheezing, and nasal congestion x 1 week. Per EMS Patient reports that she received the COVID vaccine x 1 week ago and has since developed flu-like symptoms. Patient was wheezing per EMS, and got a total of 3 breathing treatments. Patient reports cough productive of sputum, congestion, rhinorrhea, fever, chills, body aches, nausea, vomiting, shortness of breath since receiving her flu shot on 02/24/2024. Patient reports she fell out of bed last night striking her chest against a metal table. She states she felt out of bed while she was sleeping, no known syncope. Patient has past medical history of COPD, she is on 3 L oxygen at baseline. She denies any worsening lower extremity edema. No other symptoms or modifying factors present at this time. Chief Complaint: Shortness of Breath Time Seen by MD: 19:58 Primary Care Provider: TRI Diego notes: Medications, Allergies Information Source: Emergency Med Personnel Mode of Arrival: EMS Severity: Moderate Timing: Days Duration: Since onset Context: Other (AFTER COVID VACCINE) PE Risk Factors: None History of: Asthma, COPD, CHF Prehospital treatment: Breathing Tx, Oxygen Associated Signs and Symptoms: Wheeze, Cough, Nasal Congestion If cough with SOB: Non-Productive Vital Signs Vital Signs Date Time Temp Pulse Resp B/P (MAP) Pulse Ox O2 Delivery O2 Flow Rate FiO2 03/09/24 01:00 74 16 150/89 (109) 92 03/08/24 21:20 Nasal Cannula* 5 40 03/08/24 21:20 98.6 98.6 Physical Exam General: Awake, alert and oriented. No acute distress. Skin: Skin in warm, dry and intact. Appropriate color for ethnicity. Nailbeds pink with no cyanosis. HEENT: The head is normocephalic and atraumatic. Conjunctivae are clear without exudates or hemorrhage. Sclera is non-icteric. EOM are intact. No signs of nystagmus. Eyelids are normal in appearance without swelling or lesions. Oral mucosa is pink and moist Neck: The neck is supple with normal range of motion. No JVD. Cardiac: Heart rate and rhythm are normal. No murmurs, gallops, or rubs are auscultated. No chest wall bruising. Respiratory: Audible wheezes, diminished breath sounds. No respiratory distress. Patient is speaking in full sentences. Abdominal: Abdomen is soft, non-tender without distention. Bowel sounds are present and normoactive in all four quadrants. Extremities: Upper and lower extremities are atraumatic in appearance without deformity or edema. Neurological: The patient is awake, alert and oriented to person, place, and time with normal speech. Speech is clear. There is no facial asymmetry. Psychiatric: Appropriate mood and affect. Good judgement and insight. No visual or auditory hallucinations. Review of Systems: As stated in HPI Past Medical History PAST MEDICAL HISTORY: CAD, CHF, CKF, COPD, CVA, Dementia, DM, High Lipids, HTN, Thyroid, TIA Surgical History: Appendectomy, Cholecystectomy, Hernia Repair, Hysterectomy, Tonsillectomy, Tubal Ligation CASTING SORTER History: No Pertinent CASTING SORTER History Family History Family History: Reviewed,noncontributory to illness, Family hx of heart bc Social History Smoker: Cigarettes, Less Than 1 Pack/Day Alcohol: Denies ETOH Use Drugs: Denies Drug Use Lives In: Home EKG EKG : Pulse Rate (adult): 86 [place]: Normal Cardiac Rhythm: NSR Block: None Hypertrophy: RVH ST: Normal Was a procedure done? Was a procedure done?: No Differential Dx Differential Diagnosis: Other Comments Differential diagnoses considered includebut arenot limited to acute Bronchitis, Asthma, COPD, Pneumothorax, PE, CHF, Pulmonary HTN, Anemia, CO Poisoning, Methemoglobinemia, Hyperventilation, Metabolic Acidosis, Pulmonary Edema, Pneumonia, ACS, Pericardial Tamponade, Anxiety, other X-Ray, Labs, Meds, VS Vital Signs Date Time Temp Pulse Resp B/P (MAP) Pulse Ox O2 Delivery O2 Flow Rate FiO2 03/09/24 01:00 74 16 150/89 (109) 92 03/09/24 00:00 79 03/08/24 23:00 80 18 155/96 (115) 91 03/08/24 21:20 88 18 91 Nasal Cannula* 5 40 03/08/24 21:20 98.6 88 18 147/96 (113) 91 98.6 03/08/24 20:17 86 03/08/24 20:08 86 03/08/24 20:04 98.3 92 20 161/92 (115) 78 Lab Test 03/08/24 22:00 03/08/24 21:45 Range/Units Blood Gas Specimen Type Arterial Blood Gas Sample Site Right radial Blood Gas Patient Temperature 37.0 Arterial Blood Date Drawn Arterial Blood pH 7.376 7.350-7.450 Arterial Blood Partial Pressure CO2 49.5 H 32.0-45.0 mmHg Arterial Blood Partial Pressure O2 51.5 *L 83.0-108.0 mmHg Arterial Blood HCO3 28.4 H 21.0-28.0 mmol/L Arterial Blood Oxygen Saturation 85.4 L 94.0-98.0 % Arterial Blood Base Excess 2.2 -2.0-3.0 mmol/L Arterial Blood Oxyhemoglobin 83.0 L 94.0-98.0 % Arterial Blood Carboxyhemoglobin 2.3 H 0.5-1.5 % Arterial Blood Methemoglobin 0.5 0.0-1.5 % Mark Test Modified Blood Gas Total Hemoglobin 16.20 H 12.0-16.0 g/dL Blood Gas Liter Flow 4.00 Blood Gas Modality Nasal cannula FiO2 % 36.0 Blood Gas Critical Value Read Back Yes Blood Gas Notified Whom mark White md Blood Gas Notified Time [id number] Blood Gas Notified By cuauhtemoc Paz rrt Influenza Type A Antigen Negative Negative Influenza Type B Antigen Negative Negative SARS-CoV-2 Antigen (Rapid) Negative NEGATIVE White Blood Count 8.9 4.4-10.8 10^3/uL Red Blood Count 4.66 4.0-5.20 10^6/uL Hemoglobin 15.7 12.2-16.2 g/dL Hematocrit 46.3 H 36.0-46.0 % Mean Corpuscular Volume 99.4 80.0-100.0 fL Mean Corpuscular Hemoglobin 33.7 H 28.0-32.0 pg Mean Corpuscular Hemoglobin Concent 33.9 32.0-36.0 g/dL Red Cell Distribution Width 13.0 11.8-14.3 % Platelet Count 276 140-450 10^3/uL Mean Platelet Volume 7.7 6.9-10.8 fL Neutrophils (%) (Auto) 80.4 H 37.0-80.0 % Lymphocytes (%) (Auto) 11.8 10.0-50.0 % Monocytes (%) (Auto) 7.1 0.0-12.0 % Eosinophils (%) (Auto) 0.3 0.0-7.0 % Basophils (%) (Auto) 0.4 0.0-2.0 % Neutrophils # (Auto) 7.1 1.6-8.6 10 ^3/uL Lymphocytes # (Auto) 1.1 0.4-5.4 10 ^3/uL Monocytes # (Auto) 0.6 0-1.3 10 ^3/uL Eosinophils # (Auto) 0 0-0.8 10 ^3/uL Basophils # (Auto) 0 0-0.2 10 ^3/uL Nucleated Red Blood Cells 0.1 % Sodium Level 139 136-145 mmol/L Potassium Level 3.8 3.5-5.1 mmol/L Chloride Level 101 98-107 mmol/L Carbon Dioxide Level 30 20-31 mmol/L Anion Gap 8 5-15 Blood Urea Nitrogen 11 9-23 mg/dL Creatinine 0.83 0.550-1.02 mg/dL Glomerular Filtration Rate Calc 75 >90 mL/min BUN/Creatinine Ratio 13.3 10.0-20.0 Serum Glucose 125 H 74-106 mg/dL Lactic Acid Level 1.6 0.4-2.0 mmol/L Calcium Level 9.9 8.7-10.4 mg/dL Total Bilirubin 0.5 0.2-1.0 mg/dL Aspartate Amino Transferase (AST) 22 13-40 U/L Alanine Aminotransferase (ALT) 27 7-40 U/L Alkaline Phosphatase 98 46-116 U/L Troponin I High Sensitivity 6 </=34 ng/L B-Type Natriuretic Peptide 70.38 0-100 pg/mL Total Protein 6.7 5.7-8.2 g/dL Albumin 4.3 3.2-4.8 g/dL Time of 1ST Reevaluation: 20:28 Reevaluation 1ST: Unchanged Patient Education/Counseling: Diagnosis, Treatment, Prognosis Family Education/Counseling: No Family Present Departure 1 Departure Time of Disposition: 21:45 Impression: Primary Impression: COPD exacerbation Additional Impression: Right lower lobe pneumonia Disposition: ADMITTED INPATIENT Condition: Guarded Comments 73-year-old female with COPD exacerbation. Patient admitted for further treatment, evaluation and monitoring. I reviewed the following notes from the pt's past medical encounters: Most recent hospitalization at this facility for community-acquired pneumonia. The following tests were ordered, and results were reviewed by me: Labs, imaging, EKG Additional information was gathered from interviewing the following independent historians: EMS I reviewed and agreed with the following test results read by other providers: EKG independently interpreted, no STEMI. Agree with radiologist's interpretation of chest x-ray. I discussed treatments and results with patient, patient's nurse. Critical Care Note Critical Care Time?: No Stability Stability form required: No Heart Score Heart Score: Heart Score Response (Comments) Value History N/A 0 EKG N/A 0 Age N/A 0 Risk Factors N/A 0 Troponin N/A 0 Total 0 I personally scribed for GRETCHEN WHITE MD ([email or web address]) on 03/08/24 at 20:17. Electronically submitted by Bill Peguero ([email or web address]). GRETCHEN WHITE MD Mar 08, 2024 20:17
--- NOTE | 2024-03-08 20:58 | ECG ---
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
[2024-03-08 21:20] VITALS: PULSE 88; RESP 18; O2SAT 91
[2024-03-08] MEDS ORDERED: methylPREDNISolone SOD SUCC 125 MG/2 ML VL IV ONE (21:45)
[2024-03-08 22:05] LABS: Basophils # (auto) 0 10 ^3/uL (0-0.2); Basophils % (auto) 0.4 % (0.0-2.0); Eosinophils # (auto) 0 10 ^3/uL (0-0.8); Eosinophils % (auto) 0.3 % (0.0-7.0); Hematocrit 46.3 % (36.0-46.0); Hemoglobin 15.7 g/dL (12.2-16.2); Lymphocytes # (auto) 1.1 10 ^3/uL (0.4-5.4); Lymphocytes % (auto) 11.8 % (10.0-50.0); Mean Corpuscular Hemoglobin 33.7 pg (28.0-32.0); Mean Corpuscular Hgb Conc. 33.9 g/dL (32.0-36.0); Mean Corpuscular Volume 99.4 fL (80.0-100.0); Monocytes # (auto) 0.6 10 ^3/uL (0-1.3); Monocytes % (auto) 7.1 % (0.0-12.0); Neutrophils # (auto) 7.1 10 ^3/uL (1.6-8.6); Neutrophils % (auto) 80.4 % (37.0-80.0); Nucleated Red Blood Cells % 0.1 %; Platelet Count (auto) 276 10^3/uL (140-450); Red Blood Cells 4.66 10^6/uL (4.0-5.20); White Blood Cell 8.9 10^3/uL (4.4-10.8)
[2024-03-08 22:11] LABS: Base Excess 2.2 mmol/L (-2.0-3.0)
[2024-03-08 22:12] LABS: Alanine Aminotransferase 27 U/L (7-40); Albumin 4.3 g/dL (3.2-4.8); Alkaline Phosphatase 98 U/L (46-116); Anion Gap 8 (5-15); Aspartate Aminotransferase 22 U/L (13-40); BUN/Creatinine Ratio 13.3 (10.0-20.0); Blood Urea Nitrogen 11 mg/dL (9-23); Calcium 9.9 mg/dL (8.7-10.4); Carbon Dioxide 30 mmol/L (20-31); Chloride 101 mmol/L (98-107); Potassium 3.8 mmol/L (3.5-5.1); Sodium 139 mmol/L (136-145)
[2024-03-08 22:13] LABS: Bilirubin, Total 0.5 mg/dL (0.2-1.0); Glucose 125 mg/dL (74-106); Total Protein 6.7 g/dL (5.7-8.2)
[2024-03-08 22:48] LABS: COVID19 ANTIGEN SOFIA FIA NEGATIVE (NEGATIVE)
--- NOTE | 2024-03-08 23:02 | DVH ---
CHEST RADIOGRAPH Indication: sob Technique: Single frontal view of the chest was obtained COMPARISON: XY CHEST PORTABLE on DOS: 12/16/22, CHEST PORTABLE on DOS: 04/16/22, CXRP on DOS: 04/16/22, EKG on DOS: 02/12/22, CXR1 on DOS: 02/12/22 FINDINGS: Lines and Tubes: None Lungs: Clear Pleura: No effusion. No pneumothorax. Cardiomediastinal contours: Unremarkable Bones: Unremarkable IMPRESSION: 1. No acute disease.
[2024-03-08 23:10] LABS: Rapid Influenza A Negative (Negative); Rapid Influenza B Negative (Negative)
[2024-03-09] VITALS (44 sets, daily range): BP systolic 69–171; BP diastolic 15–115; PULSE 67–92; RESP 16–28; TEMP 97.7–99; O2SAT 88–100
--- NOTE | 2024-03-09 00:30 | DVH ---
CTA Chest with intravenous contrast INDICATION: Cp, SOB, Hypoxia, R/o PE COMPARISON: CT CHEST WITHOUT CONTRAST on DOS: 12/17/22, CT R ANKLE WO CONTRAST on DOS: 02/13/22 TECHNIQUE: Multidetector spiral CTA of the chest was performed of the chest with intravenous contrast . PULMONARY ANGIOGRAPHY PROTOCOL was utilized using a bolus-tracking technique centered on the main p ulmonary artery. Axial, coronal and sagittal multiplanar and MIP reformats were performed. Radiation Dose : 1. Chest: CTDI volume is 25.6 mGy. Dose-length product is 948 mGy*cm The dose indicators for CT are the volume Computed Tomography (CT) Dose Index (CTDIvol) and the Dose Length Product (DLP), and are measured in units of mGy and mGy-cm, respectively. These indicators are not patient dose, but values generated from the CT scanner acquisition factors. The report includes radiation exposure data for exposures received during this examination. Findings: Pulmonary artery: No pulmonary embolism Lower neck: Normal thyroid. Lungs: Severe centrilobular emphysema. Right lower lobe pnemonia. Heart/Vascular Structures: Normal heart size. No pericardial effusion. Lymph Nodes: Mediastinal lymphadenopathy Pleura: No pleural effusion or significant pneumothorax. Musculoskeletal: No acute osseous abnormality. Soft tissues: Normal. Upper abdomen: Limited portions of the upper abdomen are unremarkable. IMPRESSION: 1. No pulmonary embolism. 2. Right lower lobe pnemonia 3. Severe centrilobular emphysema 4. Mediastinal lymphadenopathy
[2024-03-09] MEDS: IOHEXOL 300 MG/ML 100ML BOTTLE IJ ONE (00:49)
[2024-03-09] MEDS: AZITHROMYCIN 500MG/ 250ML 250 ML IV ONE (00:59)
[2024-03-09] MEDS ORDERED: ACETAMINOPHEN 325 MG TAB PO PRN (01:30)
[2024-03-09] MEDS ORDERED: DEXTROSE (50%) 50ML SYRG IV PRN (01:30)
[2024-03-09] MEDS ORDERED: ONDANSETRON HCL 4 MG/2 ML VIAL IV PRN (01:30)
[2024-03-09] MEDS: ALBUTEROL SULF 2.5 MG/0.5ML(0.5%) NEB SOLN NEB PRN (03:32)
[2024-03-09] MEDS: IPRATROPIUM BROM 0.5 MG/2.5ML INH SOL NEB PRN (03:32)
--- NOTE | 2024-03-09 04:22 | DVHHP2 ---
History of Present Illness Reason for Visit: Shortness of breaths History of Present Illness 73-year-old presents for evaluation of shortness for breath. Patient reports a one-week history of worsening shortness for breath with associated wheezing, cough and congestion. Patient reports developing symptoms after receiving COVID vaccine last month approximately a week ago. Past Medical History COPD, chronic kidney disease, CHF, CAD, dementia, diabetes mellitus, dyslipidemia, hypertension thyroid Past Surgical History Cholecystectomy, hernia repair, hysterectomy, tonsillectomy, tubal ligation and appendectomy Family History Noncontributory Smoke: <1 pack per day ALCOHOL: none Drugs: None Review of Systems Review of Systems Review of systems are currently negative otherwise addressed in HPI. Allergies: Coded Allergies: Levofloxacin (Verified Allergy, Intermediate, ITCHY RASH + DIFFICULTY DEBORAH THING, 12/18/22) PT STATES EXPERIENCING ITCHING + RASH + DIFFICULTY BREATHING. DID NOT SEEK MEDICAL CARE FOR RXN. PT CLAIMS TO HAVE TAKEN BENADRYL TO ALLEVIATE SYMPTOMS. Penicillins (Verified Allergy, Intermediate, ITCHY RASH + DIFFICULTY BREATHING, 12/18/22) PT STATES EXPERIENCING ITCHING + RASH + DIFFICULTY BREATHING. DID NOT SEEK MEDICAL CARE FOR RXN. PT CLAIMS TO HAVE TAKEN BENADRYL TO ALLEVIATE SYMPTOMS. Codeine (Verified Allergy, Unknown, 02/13/22) PER PT SHE IS ABLE TO TOLERATE MORPHINE, AND NORCO Prednisone (Verified Allergy, Unknown, 08/18/18) Diazepam (Verified Adverse Reaction, Intermediate, PT GETS VIOLENT, 08/18/18) Medications Current Medications Medications Dose Ordered Sig/Kinjal Route Start Time Stop Time Status Last Admin Dose Admin Amlodipine Besylate 5 mg DAILY PO 03/09/24 10:00 Azithromycin 250 ml @ 125 mls/hr DAILY@0100 IV 03/10/24 01:00 Methylprednisolone Sodium Succinate 40 mg BID IV 03/09/24 10:00 Aspirin 81 mg DAILY PO 03/09/24 10:00 Levothyroxine Sodium 75 mcg QAM@0600 PO 03/09/24 06:00 Memantine 10 mg Q12HR PO 03/09/24 10:00 Ranolazine 500 mg BID PO 03/09/24 10:00 Atorvastatin Calcium 20 mg HS PO 03/09/24 22:00 Gabapentin 300 mg TID PO 03/09/24 06:00 Albuterol 2.5 mg Q6HPRN PRN NEB 03/09/24 01:15 12/4/24 03:32 2.5 MG Ipratropium [place] 0.5 mg Q6HPRN PRN NEB 03/09/24 01:15 03/09/24 03:32 0.5 MG Diagnostic Test (Pha) 1 strip ACHS 03/09/24 07:00 Insulin Human Regular ACHS SC 03/09/24 07:00 Dextrose 50 ml UD PRN IV 03/09/24 01:30 Ondansetron HCl 4 mg Q4HP PRN IV 03/09/24 01:30 Enoxaparin Sodium 40 mg DAILY SC 03/09/24 10:00 Acetaminophen 650 mg Q6HP PRN PO 03/09/24 01:30 Exam Vital Signs Vital Signs Date Time Temp Pulse Resp B/P (MAP) Pulse Ox O2 Delivery O2 Flow Rate FiO2 03/09/24 01:00 74 16 150/89 (109) 92 03/08/24 21:20 Nasal Cannula* 5 40 03/08/24 21:20 98.6 98.6 Exam Gen: 73-year-old female in mild distress Skin: Warm, dry, normal color and texture, no rash. HEENT: Normocephalic atraumatic, mucous membranes moist and pink. Neck: Cervical and supraclavicular nodes normal without enlargement, trachea is midline, thyroid gland is normal without masses. Pulmonary bilateral wheeze Cardiac: Regular rate and rhythm. No murmur Abdomen: Soft, nontender, nondistended, bowel sounds present all 4 quadrants, no guarding, no rigidity, no organomegaly. Extremities: No cyanosis, clubbing, no edema Neuro: Cranial nerves II through XII grossly intact, normal affect and speech, no focal motor deficits. Labs/Xrays ORDERING PHYSICIAN: GRETCHEN WHITE MD PROCEDURE(s): CTACH - CT ANGIO CHEST CONTRAST REASON: Cp, SOB, Hypoxia, R/o PE ORDER NUMBER(s): [id number], ACCESSION NUMBER(s): [id number] CTA Chest with intravenous contrast INDICATION: Cp, SOB, Hypoxia, R/o PE COMPARISON: CT CHEST WITHOUT CONTRAST on DOS: 12/17/22, CT R ANKLE WO CONTRAST on DOS: 02/13/22 TECHNIQUE: Multidetector spiral CTA of the chest was performed of the chest with intravenous contrast. PULMONARY ANGIOGRAPHY PROTOCOL was utilized using a bolus- tracking technique centered on the main pulmonary artery. Axial, coronal and sagittal multiplanar and MIP reformats were performed. Radiation Dose : 1. Chest: CTDI volume is 25.6 mGy. Dose-length product is 948 mGy*cm The dose indicators for CT are the volume Computed Tomography (CT) Dose Index (CTDIvol) and the Dose Length Product (DLP), and are measured in units of mGy and mGy-cm, respectively. These indicators are not patient dose, but values generated from the CT scanner acquisition factors. The report includes radiation exposure data for exposures received during this examination. Findings: Pulmonary artery: No pulmonary embolism Lower neck: Normal thyroid. Lungs: Severe centrilobular emphysema. Right lower lobe pnemonia. Heart/Vascular Structures: Normal heart size. No pericardial effusion. Lymph Nodes: Mediastinal lymphadenopathy Pleura: No pleural effusion or significant pneumothorax. Musculoskeletal: No acute osseous abnormality. Soft tissues: Normal. Upper abdomen: Limited portions of the upper abdomen are unremarkable. IMPRESSION: 1. No pulmonary embolism. 2. Right lower lobe pnemonia 3. Severe centrilobular emphysema 4. Mediastinal lymphadenopathy Labs Test 03/08/24 22:00 03/08/24 21:45 Range/Units Blood Gas Specimen Type Arterial Blood Gas Sample Site Right radial Blood Gas Patient Temperature 37.0 Arterial Blood Date Drawn [id number] Arterial Blood pH 7.376 7.350-7.450 Arterial Blood Partial Pressure CO2 49.5 H 32.0-45.0 mmHg Arterial Blood Partial Pressure O2 51.5 *L 83.0-108.0 mmHg Arterial Blood HCO3 28.4 H 21.0-28.0 mmol/L Arterial Blood Oxygen Saturation 85.4 L 94.0-98.0 % Arterial Blood Base Excess 2.2 -2.0-3.0 mmol/L Arterial Blood Oxyhemoglobin 83.0 L 94.0-98.0 % Arterial Blood Carboxyhemoglobin 2.3 H 0.5-1.5 % Arterial Blood Methemoglobin 0.5 0.0-1.5 % Mark Test Modified Blood Gas Total Hemoglobin 16.20 H 12.0-16.0 g/dL Blood Gas Liter Flow 4.00 Blood Gas Modality Nasal cannula FiO2 % 36.0 Blood Gas Critical Value Read Back Yes Blood Gas Notified Whom mark White md Blood Gas Notified Time [id number] Blood Gas Notified By cuauhtemoc Paz rrt Influenza Type A Antigen Negative Negative Influenza Type B Antigen Negative Negative SARS-CoV-2 Antigen (Rapid) Negative NEGATIVE White Blood Count 8.9 4.4-10.8 10^3/uL Red Blood Count 4.66 4.0-5.20 10^6/uL Hemoglobin 15.7 12.2-16.2 g/dL Hematocrit 46.3 H 36.0-46.0 % Mean Corpuscular Volume 99.4 80.0-100.0 fL Mean Corpuscular Hemoglobin 33.7 H 28.0-32.0 pg Mean Corpuscular Hemoglobin Concent 33.9 32.0-36.0 g/dL Red Cell Distribution Width 13.0 11.8-14.3 % Platelet Count 276 140-450 10^3/uL Mean Platelet Volume 7.7 6.9-10.8 fL Neutrophils (%) (Auto) 80.4 H 37.0-80.0 % Lymphocytes (%) (Auto) 11.8 10.0-50.0 % Monocytes (%) (Auto) 7.1 0.0-12.0 % Eosinophils (%) (Auto) 0.3 0.0-7.0 % Basophils (%) (Auto) 0.4 0.0-2.0 % Neutrophils # (Auto) 7.1 1.6-8.6 10 ^3/uL Lymphocytes # (Auto) 1.1 0.4-5.4 10 ^3/uL Monocytes # (Auto) 0.6 0-1.3 10 ^3/uL Eosinophils # (Auto) 0 0-0.8 10 ^3/uL Basophils # (Auto) 0 0-0.2 10 ^3/uL Nucleated Red Blood Cells 0.1 % Sodium Level 139 136-145 mmol/L Potassium Level 3.8 3.5-5.1 mmol/L Chloride Level 101 98-107 mmol/L Carbon Dioxide Level 30 20-31 mmol/L Anion Gap 8 5-15 Blood Urea Nitrogen 11 9-23 mg/dL Creatinine 0.83 0.550-1.02 mg/dL Glomerular Filtration Rate Calc 75 >90 mL/min BUN/Creatinine Ratio 13.3 10.0-20.0 Serum Glucose 125 H 74-106 mg/dL Lactic Acid Level 1.6 0.4-2.0 mmol/L Calcium Level 9.9 8.7-10.4 mg/dL Total Bilirubin 0.5 0.2-1.0 mg/dL Aspartate Amino Transferase (AST) 22 13-40 U/L Alanine Aminotransferase (ALT) 27 7-40 U/L Alkaline Phosphatase 98 46-116 U/L Troponin I High Sensitivity 6 </=34 ng/L B-Type Natriuretic Peptide 70.38 0-100 pg/mL Total Protein 6.7 5.7-8.2 g/dL Albumin 4.3 3.2-4.8 g/dL Assessment/Plan Assessment/Plan Assessment Community-acquired pneumonia COPD exacerbation Diabetes mellitus Hypertension Plan Admit the patient to telemetry to the hospitalist Taran coreas Azithromycin Resume home medications Continue treatment per orders. Plan discussed with: Patient My Orders Orders - MIKAYLA GRIMM Procedure Category Date Status Time Amlodipine Tablet PHA 03/09/24 In Process (Norvasc Tablet) 10:00 Methylprednisolone PHA 03/09/24 In Process Sod Succ (Solu Medrol 10:00 Aspirin Enteric PHA 03/09/24 In Process Coated Tablet 10:00 Levothyroxine Tablet PHA 03/09/24 In Process (Synthroid Tablet) 06:00 Memantine Tablet PHA 03/09/24 In Process (Namenda Tablet) 10:00 Ranolazine (Ranexa Er) PHA 03/09/24 In Process 10:00 Atorvastatin (Lipitor) PHA 03/09/24 In Process 22:00 Gabapentin Capsule PHA 03/09/24 In Process (Neurontin Capsule) 06:00 Albuterol Medneb PHA 03/09/24 In Process (Ventolin Medneb) 01:15 Ipratropium Medneb PHA 03/09/24 In Process (Atrovent Medneb) 01:15 Basic Metabolic Panel LAB 03/10/24 Verified 04:00 Glucose Blood PHA 03/09/24 In Process (Accu-Chek Comfort 07:00 Insulin R (Human) PHA 03/09/24 In Process (Insulin R) 07:00 Dextrose 50% Syringe PHA 03/09/24 In Process 01:30 Admit ADMIT 03/09/24 Transmitted 01:30 Ondansetron Hcl PHA 03/09/24 In Process (Zofran) 01:30 Enoxaparin Sodium PHA 03/09/24 In Process (Lovenox) 10:00 Complete Blood Count LAB 03/10/24 Verified 04:00 Cardiac DIET 03/09/24 Transmitted Diet-2gna,Lofat,Lochol Breakfast Condition: Fair SHAKIRA 03/09/24 In Process 01:30 Acetaminophen Tablet PHA 03/09/24 In Process (Tylenol Tablet) 01:30 Bedrest With Bathroom SHAKIRA 03/09/24 In Process Privileg 01:30 Azithromycin 500mg/ PHA 03/10/24 In Process 250ml (Zithromax 50 01:00 Abg W/ Co-Ox RT 03/09/24 Logged 04:08 Date of Service: Mar 09, 2024 Billing Provider: MIKAYLA GRIMM Common Visit Codes: [id number] INP/OBS CARE (HIGH) MIKAYLA GRIMM Mar 09, 2024 04:22
[2024-03-09 04:24] LABS: Base Excess 1.7 mmol/L (-2.0-3.0)
[2024-03-09] MEDS: methylPREDNISolone SOD SUCC 125 MG/2 ML VL IV ONE (05:03)
[2024-03-09] MEDS: GABAPENTIN 300 MG CAP PO SCH (05:57)
[2024-03-09] MEDS: LEVOTHYROXINE SODIUM 25 MCG TAB PO SCH (05:57)
[2024-03-09] MEDS: ACCU-CHEK COMFORT CURVE STRIP VI SCH (06:03)
[2024-03-09] MEDS: InsuLIN REG 1unit/0.01ml Soln (100units/ml) SC SCH (06:53)
[2024-03-09] MEDS: FUROSEMIDE 20 MG/2 ML VIAL ONE (09:04)
[2024-03-09] MEDS: LEVALBUTEROL HCL 1.25 MG/3 ML NEB NEB SCH (09:05)
[2024-03-09] MEDS: IPRATROPIUM BROM 0.5 MG/2.5ML INH SOL NEB SCH (09:05)
[2024-03-09] MEDS: hydrALAZINE HCL 20 MG/ML VL IV ONE ×2 (09:10→09:45)
[2024-03-09] MEDS: FUROSEMIDE 20 MG/2 ML VIAL IV ONE (09:20)
[2024-03-09] MEDS: hydrALAZINE HCL 20 MG/ML VL ONE (09:21)
[2024-03-09 09:28] LABS: Base Excess 0.5 mmol/L (-2.0-3.0)
[2024-03-09 09:30] LABS: Basophils # (auto) 0 10 ^3/uL (0-0.2); Basophils % (auto) 0.1 % (0.0-2.0); Eosinophils # (auto) 0 10 ^3/uL (0-0.8); Eosinophils % (auto) 0.1 % (0.0-7.0); Hematocrit 48.8 % (36.0-46.0); Hemoglobin 16.8 g/dL (12.2-16.2); Lymphocytes # (auto) 0.6 10 ^3/uL (0.4-5.4); Lymphocytes % (auto) 5.2 % (10.0-50.0); Mean Corpuscular Hemoglobin 33.9 pg (28.0-32.0); Mean Corpuscular Hgb Conc. 34.5 g/dL (32.0-36.0); Mean Corpuscular Volume 98.5 fL (80.0-100.0); Monocytes # (auto) 0.1 10 ^3/uL (0-1.3); Monocytes % (auto) 1.1 % (0.0-12.0); Neutrophils # (auto) 10.4 10 ^3/uL (1.6-8.6); Neutrophils % (auto) 93.5 % (37.0-80.0); Nucleated Red Blood Cells % 0.2 %; Platelet Count (auto) 284 10^3/uL (140-450); Red Blood Cells 4.95 10^6/uL (4.0-5.20); Red Cell Distribution Width 12.8 % (11.8-14.3); White Blood Cell 11.2 10^3/uL (4.4-10.8)
[2024-03-09] MEDS ORDERED: hydrALAZINE HCL 20 MG/ML VL IV ONE (09:30)
[2024-03-09] MEDS: methylPREDNISolone SOD SUCC 40 MG/ML VL IV SCH (09:42)
[2024-03-09] MEDS: RANOLAZINE ER 500 MG TAB PO SCH (10:00)
[2024-03-09] MEDS ORDERED: methylPREDNISolone SOD SUCC 40 MG/ML VL IV SCH (10:00)
[2024-03-09] MEDS: MEMANTINE HCL 5 MG TAB PO SCH (10:00)
[2024-03-09] MEDS: NIFEdipine ER 30 MG TAB PO SCH (10:00)
[2024-03-09] MEDS ORDERED: amLODIPine BESYLATE 5 MG TAB PO SCH (10:00)
[2024-03-09] MEDS: ASPirin-EC 81 mg tab PO SCH (10:00)
--- NOTE | 2024-03-09 10:07 | RESUS ---
CODE ASSIST ASSESSSMENT Initial Information Code Assist Date: Mar 09, 2024 Code Assist Time: 08:55 Location of Arrest: [facility] Room # 222b Provider Name Dr Solomon/ Dr Ferguson Time Notified: 08:55 Crash Cart Opened and Supplies: No Situation Staff concerned/worried, speci: SaO2 <90, Change LOC Situation comment: Patient admitted to [facility] unit for dx pneumonia. Patient initially on 6LPM NC with reports SPO2 readings 95-96%. [facility]ST staff and primary RN reports patient continuously removes nasal canula and requieres redirection. Per MST staff patient noted to have SPO2 reading 87% without administered O@ and was lethargic/ hard to arouse. Code Assist paged Assessment Temperature (Fahrenheit): 98.3 Blood Pressure Systolic: 201 Blood Pressure Diastolic: 130 Respiratory Rate: 32 O2 Sat by Pulse Oximetry: 91 Recommendations/Interventions Other Interventions Patient placed on Bi Pap by RT staff 40% Fio2 Repositioned in bed into High Fowlers Outcome Outcome: Other (patient remained in 222b, Bipap in Place) Follow up Report Follow up Report Patient is more lucid, able to follow simple commands richardson catheter insertion for I&O monitoring Team Members Team Members Dr Juanito Ferguson RN Toma RN Abi Carnes RN Sarah Castelan Mar 09, 2024 10:07
[2024-03-09] MEDS: MAGNESIUM SULFATE 1GM/100ML 100 ML IV SCH (10:10)
[2024-03-09 10:16] LABS: Base Excess 2.9 mmol/L (-2.0-3.0)
--- NOTE | 2024-03-09 10:44 | DVH ---
BILATERAL LOWER EXTREMITY VENOUS DOPPLER CLINICAL HISTORY: suspected PE Technique: Duplex Doppler evaluation of the deep venous systems of both lower extremities from the co mmon femoral veins to the popliteal veins including color Doppler and spectral/pulsed waveform analys is was performed. COMPARISON: US BILAT LOWER DVT on DOS: 12/17/22, BLDVT on DOS: 04/17/22 FINDINGS: The right and left common femoral, superficial femoral, popliteal, posterior tibial veins appear pa tent with normal augmentation, phasicity, compressibility and color-flow. IMPRESSION: 1. There is no sonographic evidence for DVT in the lower extremities. HS:Y
[2024-03-09] MEDS: NTG 0.1MG/HR TOPICAL PATCH TD ONE (11:17)
[2024-03-09] MEDS: FUROSEMIDE 40 MG/4 ML VIAL IV ONE (11:18)
[2024-03-09] MEDS: diphenhdrAMINE HCL 50 MG/1 ML VL IV ONE (11:18)
[2024-03-09] MEDS: methylPREDNISolone SOD SUCC 40 MG/ML VL IV ONE (11:19)
[2024-03-09 11:21] LABS: Anion Gap 7 (5-15)
[2024-03-09 11:36] LABS: Alanine Aminotransferase 31 U/L (7-40); Albumin 4.4 g/dL (3.2-4.8); Alkaline Phosphatase 95 U/L (46-116); Aspartate Aminotransferase 24 U/L (13-40); BUN/Creatinine Ratio 8.3 (10.0-20.0); Bilirubin, Total 0.5 mg/dL (0.2-1.0); Blood Urea Nitrogen 6 mg/dL (9-23); Calcium 9.9 mg/dL (8.7-10.4); Carbon Dioxide 30 mmol/L (20-31); Chloride 103 mmol/L (98-107); Glucose 122 mg/dL (74-106); Potassium 3.8 mmol/L (3.5-5.1); Sodium 140 mmol/L (136-145); Total Protein 7.1 g/dL (5.7-8.2)
[2024-03-09] MEDS: ROCURONIUM 10MG/ML 10ML VIAL IV ONE ×2 (12:13→12:36)
[2024-03-09] MEDS: ETOMIDATE (2MG/ML) 20ML VIAL IV ONE ×2 (12:13→12:36)
[2024-03-09] MEDS: MIDAZOLAM DRIP 50 mg/50mL 50 ML IV ONE (12:19)
[2024-03-09] MEDS: fentaNYL Drip 2500mCg/250mlNS 250 ML IV ONE (12:19)
[2024-03-09] MEDS: MIDAZOLAM DRIP 50 mg/50mL 50 ML IV SCH (12:45)
[2024-03-09] MEDS: fentaNYL Drip 2500mCg/250mlNS 250 ML IV SCH (12:45)
[2024-03-09] MEDS: PANTOPRAZOLE 40 MG/10 ML VIAL INJ IV ONE (13:46)
[2024-03-09] MEDS: ENOXAPARIN SOD 40 MG/0.4 ML SYRINGE SC SCH (13:46)
[2024-03-09 14:21] LABS: Base Excess 3.2 mmol/L (-2.0-3.0)
--- NOTE | 2024-03-09 14:24 | DVH ---
EXAM: XY CHEST XRAY 1 VIEW Indication: POST INTUBATION Technique: Single frontal view of the chest was obtained Comparison: XY CHEST XRAY 1 VIEW on DOS: 03/08/24, XY CHEST PORTABLE on DOS: 12/16/22, CHEST PORTABLE o n DOS: 04/16/22, CXRP on DOS: 04/16/22, EKG on DOS: 02/12/22 FINDINGS: Lines and Tubes: Endotracheal tube projects 4 cm above level the darcie right internal jugular centra l venous catheter tip projects over the superior vena cava. Lungs: No focal consolidation. Pleura: No effusion. No pneumothorax. Cardiomediastinal contours: Unremarkable Bones: No acute osseous abnormality. IMPRESSION: Endotracheal tube and right internal jugular central venous catheter in appropriate position.
[2024-03-09] MEDS: NOREPINEPHRINE 8 MG/250ML KIT 250 ML IV ONE (15:02)
[2024-03-09] MEDS: NOREPINEPHRINE 8 MG/250ML KIT 250 ML IV SCH (15:38)
--- NOTE | 2024-03-09 15:41 | DVHNC2 ---
Central Line Recorder of insertion practice: Professional Tutor Occupation of refrigerating engineer head: Attending Physician, Name of refrigerating engineer head (Dr. Ferguson) Indication: Hypotension Room prepared for procedure: Yes Professional Tutor performed hand hygien: Yes Maximal sterile barrier precau: Mask/Eye shield, Sterile gown, Cap, Sterlie gloves, Large sterlie drape Skin Preparation: Providine iodine Skin preparation completely dr: Yes Insertion site: Right, Internal jugular Central line catheter type: [id number] dialysis Number of lumens: 3 Central line exchanged over a: No Antiseptic ointment applied to: No Post Assessment: Chest X-Ray, Proper placement, No Pneumothorax Informed consent obtained: Yes Risks/benefits/alt described: Yes Notes Supervised by Dr. Hawthorne Date of Service: Mar 09, 2024 Billing Provider: MARYJANE HAWTHORNE MD Common Visit Codes: PROCEDURE ONLY PAULY MAURO RESIDENT Mar 09, 2024 15:41 MARYJANE HAWTHORNE MD Mar 11, 2024 17:22
--- NOTE | 2024-03-09 15:43 | DVHNC2 ---
Intubation Indication: Respiratory Insufficiency, Altered Mental Status, Airway Protection Prep: Preoxygenation Pretreated with: Analgesia, Sedation Medicated with: Other (Etomidate 16mg and Rocuronium 50mg given) Intubation Approach: Orotracheal Intubation size: cm (8.0) Informed consent obtained: Yes Risks/benefits/alt described: Yes Notes Supervised by Dr. Hawthorne Date of Service: Mar 09, 2024 Billing Provider: MARYJANE HAWTHORNE MD Common Visit Codes: PROCEDURE ONLY PAULY MAURO RESIDENT Mar 09, 2024 15:43 MARYJANE HAWTHORNE MD Mar 11, 2024 17:22
[2024-03-09] MEDS: CEFEPIME 1GM/ 50ML 50 ML IV SCH (15:46)
--- NOTE | 2024-03-09 16:10 | DVHSR ---
APPROVED REPORT EXAM: Two-dimensional and M-mode echocardiogram with Doppler and color Doppler. Blood Pressure: 142/115 mmHg INDICATION Dyspnea RISK FACTORS Height: 5'6", Weight: 201 DIMENSIONS LVDd3.8 (3.8-5.7cm)LA (2D) (1.9-4.0cm)Aortic Root (2.0-3.7cm) LVDs2.1 (2.5-4.0cm)LA (MM) (1.9-4.0cm)Aortic Cusp Exc (1.5-2.0cm) EF (%) 76.0 (55-70%)Rt. Atrium (1.9-4.0cm)Asc. Aorta cm Mitral Valve MitralMitral Stenosis E wave0.48m/sMV Mean GR.mmHg A wave0.99m/sMV Peak GR.mmHg E/A ratio0.52D MVAcm2 DECEL [id number] 1/2 Timems Aortic Valve Aortic ValveAortic Stenosis V11.21m/Felix Mean GR.6mmHg V21.43m/Felix Peak GR.8mmHg Other Information Quality : Technically LimitedRhythm : Technically limited study due to body habitus and on vent Conclusion Limited images were obtained due to patient body habitus. Overall preserved left ventricular systolic function estimated ejection fraction 55%. There is a gra de1 diastolic dysfunction. Normal right ventricular size and dimension. Normal right ventricular systolic function. Normal biatrial size and dimension. Normal aortic valve structure and function. Normal mitral valve structure and function. Normal tricuspid valve structure and function. The pulmonary valve is grossly normal. No pericardial effusion.
[2024-03-09 16:37] LABS: Urine Bacteria FEW /hpf (None Seen); Urine Blood 2+ /uL (Negative); Urine Clarity Turbid (Clear); Urine Color Yellow (Yellow); Urine Mucus FEW (None Seen); Urine Protein, UAD 1+ (Negative); Urine Specific Gravity 1.025 (1.001-1.035); Urine Urobilinogen 2 mg/dL (Negative); Urine WBC 13 /hpf (0 - 5); Urine pH 5.5 (5.0-9.0)
--- NOTE | 2024-03-09 17:14 | DVHPNRES ---
Progress Note Date Seen: Mar 09, 2024 Resident Creating Document: ORLANDO ALVAREZDAVID RESIDENT Medical Necessity Reason Pt with a Central, PICC or Fol: Yes Subjective Review of Systems Patient is a 73-year-old woman who presents for evaluation of shortness for breath. Patient reports a one-week history of worsening shortness for breath with associated wheezing, cough and congestion. Patient reports developing symptoms after receiving COVID vaccine last month approximately a week ago. Past Medical History: COPD, chronic kidney disease, CHF, CAD, dementia, diabetes mellitus, dyslipidemia, hypertension thyroid Past Surgical History: Cholecystectomy, hernia repair, hysterectomy, tonsillectomy, tubal ligation and appendectomy Family History: Noncontributory Social history: Reports smoking less than 1 pack per day, denies alcohol and illicit drug use Review of systems Patient was seen and examined at the bedside. A/O x4 in the morning , in respiratory distress with the use of accessory muscles saturating less than 88% on 6 L oxygen via nasal cannula. ABG showed CO2 59, pH 7.29, bicarb 28.7. Patient was put on BiPAP and was pulling about 400-500 mL tidal volume, but increased respiratory rate noted after being on BiPAP for about 2 hours and patient more confused. Patient was intubated and upgraded to WILFRED. Had Low blood pressure and was started on norepinephrine drip. Objective vital signs Vital Sign Date Time Temp Pulse Resp B/P (MAP) Pulse Ox O2 Delivery O2 Flow Rate FiO2 03/09/24 16:47 132/83 03/09/24 16:21 88 20 99 50 03/09/24 13:05 98.4 98.4 03/09/24 11:46 Bi-Pap+ 03/09/24 10:00 5 Total Intake and Output 03/08/24 03/08/24 03/09/24 15:00 23:00 07:00 Intake Total 254.08 ml Balance 254.08 ml medications Current Medications Medications Dose Ordered Sig/Kinjal Route Start Time Stop Time Status Last Admin Dose Admin Azithromycin 250 ml @ 125 mls/hr DAILY@0100 IV 03/10/24 01:00 Aspirin 81 mg DAILY PO 03/09/24 10:00 Levothyroxine Sodium 75 mcg QAM@0600 PO 03/09/24 06:00 03/09/24 05:57 75 MCG Gabapentin 300 mg TID PO 03/09/24 06:00 03/09/24 05:57 300 MG Diagnostic Test (Pha) 1 strip ACHS 03/09/24 07:00 03/09/24 13:46 1 STRIP Insulin Human Regular ACHS SC 03/09/24 07:00 03/09/24 13:48 3 UNITS Dextrose 50 ml UD PRN IV 03/09/24 01:30 Ondansetron HCl 4 mg Q4HP PRN IV 03/09/24 01:30 Enoxaparin Sodium 40 mg DAILY SC 03/09/24 10:00 03/09/24 13:46 40 MG Methylprednisolone Sodium Succinate 40 mg BID IV 03/09/24 10:00 03/09/24 09:42 40 MG Ipratropium [place] 0.5 mg Q4HWA [facility] 03/09/24 10:00 03/09/24 14:21 0.5 MG Levalbuterol HCl 0.625 mg Q4HWA [facility] 03/09/24 10:00 03/09/24 14:21 0.625 MG Cefepime HCl 50 ml @ 12.5 mls/hr Q8HR IV 03/09/24 14:00 03/09/24 15:46 12.5 MLS/HR Midazolam HCl 50 ml @ 1 mls/hr Q24H IV 03/09/24 12:45 03/09/24 16:47 1 MLS/HR Fentanyl Citrate 250 ml @ 2.5 mls/hr Q24H IV 03/09/24 12:45 03/09/24 12:45 2.5 MLS/HR Pantoprazole Sodium 40 mg DAILY IV 03/10/24 10:00 Norepinephrine Bitartrate 250 ml @ 3.75 mls/hr Q24H IV 03/09/24 15:00 03/09/24 15:38 3.75 MLS/HR Examination Physical Examination Gen - no pallor, no icterus, no cyanosis, no clubbing, no LAD, no edema . Skin - Patients skin is warm and dry. HEENT - normocephalic, atraumatic, dry mucous membranes. Neck - full ROM, no LAD, no JVD Pulmonary - B/L expiratory wheezing. no crackles cardiovascular - normal S1,S2 heard. no murmurs heard. peripheral pulses radial 2+, pedal 2+. capillary refill normal <2 secs. GI - soft abdomen. no hepatospleenomegaly. Bowel sounds normoactive Neurological - at examination patient A/O X 4. Moving all limbs. Later the patient was intubated and sedated on Versed and fentanyl. laboratory and microbiology Laboratory Tests 03/09/24 09:15 03/09/24 07:56 Test 03/09/24 07:56 Range/Units Serum Glucose 122 H 74-106 mg/dL Problem List/Assessment/Plan Problem List/Assessment/Plan Assessment and plan # Acute on chronic hypercapnic respiratory failure likely d/t COPD exacerbation # Acute exacerbation of COPD likely d/t pneumonia # Community acquired pneumonia likely d/t Gram+/- pneumonia # Respiratory acidosis seen on ABG - ABG showed pH 7.298, pCO2 67.6, bicarb 32.4 - On mechanical ventilation with PEEP 8 and tidal volume 500ml, breath rate 20/min with goal spO2>92% - CT shows right lower lobe pneumonia and centrilobular emphysema - Cefepime 1g IV q8hr and azithromycin 500mg IV daily - methyprednisolone 40mg IV bid - 2 mg magnesium given - levalbuterol and ipratropium medneb q4hrs - respiratory culture pending - influenza and Covid 19 negative # Septic shock likely d/t pneumonia - CT shows right lower lobe pneumonia - respiratory culture pending - blood culture pending - urine culture pending - leukocytosis WBC 11.8 with left shift - on levophed 2mcg/min - Cefepime 1g IV q8hr and azithromycin 500mg IV daily # Neurological - RASS -3 - On midazolam 2 mg/hour and fentanyl 75 mcg/hr # Renal - kidney function with GFR 89 mL/minute - creatinine 0.72 DVT prophylaxis: Lovenox 40 mg sc daily PUD prophylaxis: Pantoprazole 40 mg IV daily Goals of care discussed with the family for over 35 minutes. Full code Plan discussed with Dr. Solomon Plan discussed with: Patient, Other (RN ( Janey )) My Orders My Orders Orders - ISAAK ALVAREZ RESIDENT Procedure Category Date Status Time Echo 2d Mode Cardiac US 03/09/24 Resulted DOP 08:35 Bilat Lower Dvt US 03/09/24 Resulted 08:41 Pt Request For Service PT 03/09/24 Logged 11:50 Norepinephrine 8 PHA 03/09/24 In Process Mg/250ml Kit 15:00 Date of Service: Mar 09, 2024 Billing Provider: ROBIN RODRIGUEZ MD Common Visit Codes: [id number] INP/OBS CARE(HIGH) ISAAK ALVAREZ RESIDENT Mar 09, 2024 17:14 ROBIN RODRIGUEZ MD Mar 13, 2024 23:31
[2024-03-09 17:31] LABS: Base Excess 2.4 mmol/L (-2.0-3.0)
--- NOTE | 2024-03-09 20:59 | DVHINCON2 ---
Date of service: Mar 09, 2024 Referring Physician Erik Gil MD Reason for Consultation Acute on chronic hypercarbic respiratory failure, pulmonary edema History of Present Illness A 73-year-old woman with PMHx of COPD, chronic kidney disease, CHF, CAD, dementia, diabetes mellitus, dyslipidemia, hypertension and thyroid disease who presented to ED on 03/08/24 for evaluation of shortness of breath. Patient reports a one-week history of worsening shortness for breath with associated wheezing, cough and congestion. Patient reports developing symptoms after receiving COVID vaccine last month approximately a week ago. Patient was admitted for further care and pulmonary consultation is requested for evaluation and management due to these findings. Review of Systems: 14-point review of systems negative unless otherwise noted above. Past Medical History: COPD, chronic kidney disease, CHF, CAD, dementia, diabetes mellitus, d yslipidemia, hypertension and thyroid disease Past Surgical History: Cholecystectomy, hernia repair, hysterectomy, tonsillectomy, tubal ligation and appendectomy Medications: Reviewed. Allergies: No known drug allergies. Family History: No family history of premature CAD. No family history of lung disorders. Social History: Current smoker - <1 pack per day. No alcohol or illicit drug use. Family History: Alzheimer's disease G8 MOTHER FH: aneurysm G8 FATHER FHx: tuberculosis G8 MOTHER Family history: Hypertension G8 MOTHER G8 SISTER Allergies: Coded Allergies: Levofloxacin (Verified Allergy, Intermediate, ITCHY RASH + DIFFICULTY BREATHING, 12/18/22) PT STATES EXPERIENCING ITCHING + RASH + DIFFICULTY BREATHING. DID NOT SEEK MEDICAL CARE FOR RXN. PT CLAIMS TO HAVE TAKEN BENADRYL TO ALLEVIATE SYMPTOMS. Penicillins (Verified Allergy, Intermediate, ITCHY RASH + DIFFICULTY DONN ATHING, 12/18/22) PT STATES EXPERIENCING ITCHING + RASH + DIFFICULTY BREATHING. DID NOT SEEK MEDICAL CARE FOR RXN. PT CLAIMS TO HAVE TAKEN BENADRYL TO ALLEVIATE SYMPTOMS. Codeine (Verified Allergy, Unknown, 02/13/22) PER PT SHE IS ABLE TO TOLERATE MORPHINE, AND NORCO Prednisone (Verified Allergy, Unknown, 08/18/18) Diazepam (Verified Adverse Reaction, Intermediate, PT GETS VIOLENT, 08/18/18) Home Meds Active Scripts Dexamethasone (Decadron) 4 Mg Tb, 4 TAB PO DAILY, #5 TAB Prov:CRISTIAN AGUIRRE MD 9/14/23 Aspirin (Aspirin) 81 Mg Tab, 81 MG PO DAILY for 30 Days, #30 TAB Prov:PEGGY MADSEN MD 02/14/22 Rosuvastatin Calcium (Rosuvastatin Calcium) 10 Mg Tab, 20 MG PO HS for 30 Days, #60 TAB Prov:PEGGY MADSEN MD 02/14/22 Levothyroxine Sodium (Levothyroxine Sodium) 25 Mcg Tab, 75 MCG PO QAM for 30 Days, #90 TAB Prov:PEGGY MADSEN MD 02/14/22 Colchicine (COLCRYS TABLET) 0.6 Mg Tb, 0.6 MG PO Q12HR for 3 Days, #6 TAB Prov:PEGGY MADSEN MD 02/14/22 Reported Medications Doxepin HCl (Sleep) (Doxepin Hydrochloride) 3 Mg Tab, 1 TAB PO DAILY for 30 Days, #30 03/09/24 Morphine Sulfate (Morphine Sulfate) 15 Mg Tab, 1 TAB PO QID PRN for 30 Days, #120 TAKE 1 TABLET BY MOUTH FOUR TIMES DAILY IF NEEDED. 03/09/24 Naloxegol Oxalate (Movantik) 12.5 Mg Tab, 1 TAB PO DAILY for 30 Days, #30 03/09/24 Nitroglycerin (Nitrostat) 0.4 Mg Sub, 1 TAB SL DAILY for 50 Days, #[address] UNDER THE TONGUE ONCE DAILY IF NEEDED. 03/09/24 Hydrocodone-Acetaminophen (Hydrocodone/Acetaminophen 10-325 mg) 1 Tab Tab 02/14/22 Gabapentin (Gabapentin) 400 Mg Cap, 1 CAP PO TID 02/14/22 Baclofen (Baclofen) 20 Mg Tab 02/14/22 Ranolazine (Ranexa) 500 Mg Tab, 500 MG PO BID, TAB 3 Escitalopram Oxalate (ESCITALOPRAM OXALATE) 10 Mg Tab, 1 TAB PO DAILY, #30 TAB 3 Refills 05/07/20 Promethazine-Dm (Promethazine Dm 6.25-15 mg/5Ml) 1 Merry Merry, 5 ML PO QHSP, ML 05/07/20 Albuterol Sulfate (Albuterol Sulfate) 0.083 % Neb, 1 VIAL NEB TID, #50 VIAL 05/07/20 Prochlorperazine Maleate (Compazine) 10 Mg Tb, 1 TAB PO DAILYP, #30 TAB 3 Refills 05/07/20 Qxyhoswujkw-Nnalykcqvlmx-Pdifs (Trelegy Ellipta 100-62.5-25 Mcg/INH) 1 Aer Aer, 1 PUFF IN DAILY, AER 05/07/20 Memantine Hydrochloride (Memantine HCl) 10 Mg Tab, 10 MG PO BID, TAB 05/07/20 Trazodone HCl (Trazodone Hydrocloride) 100 Mg Tab, 1 TAB PO DAILY for 30 Days, #30 TAKE 1 TABLET BY MOUTH ONCE DAILY AFTER MEALS. 05/07/20 Cyclobenzaprine Hcl (Cyclobenzaprine Hcl) 10 Mg Tab, 1 TAB PO TID for 30 Days, #90 05/07/20 Current Medications Current Medications Medications (Trade) Dose Ordered Sig/Kinjal Route PRN Reason Start Time Stop Time Status Last Admin Amlodipine Besylate (Norvasc Tablet) 5 mg DAILY PO 03/09/24 10:00 03/09/24 09:21 DC Azithromycin 250 ml @ 125 mls/hr DAILY@0100 IV 03/10/24 01:00 Methylprednisolone Sodium Succinate (Solu Medrol) 40 mg BID IV 03/09/24 10:00 03/09/24 04:52 DC Aspirin (Ecotrin Enteric Coated Tablet) 81 mg DAILY PO 03/09/24 10:00 Levothyroxine Sodium (Synthroid Tablet) 75 mcg QAM@0600 PO 03/09/24 06:00 03/09/24 05:57 Memantine (Namenda Tablet) 10 mg Q12HR PO 03/09/24 10:00 03/09/24 14:08 DC Ranolazine (Ranexa ER) 500 mg BID PO 03/09/24 10:00 03/09/24 15:00 DC Atorvastatin Calcium (Lipitor) 20 mg HS PO 03/09/24 22:00 03/09/24 14:08 DC Gabapentin (Neurontin Capsule) 300 mg TID PO 03/09/24 06:00 03/09/24 05:57 Albuterol (Ventolin Medneb) 2.5 mg Q6HPRN PRN NEB SHORTNESS OF BREATH 03/09/24 01:15 03/09/24 09:16 DC 03/09/24 03:32 Ipratropium [place] (Atrovent Medneb) 0.5 mg Q6HPRN PRN NEB SHORTNESS OF BREATH 03/09/24 01:15 03/09/24 09:16 DC 03/09/24 03:32 Diagnostic Test (Pha) (Accu-Chek Comfort Curve T) 1 strip ACHS 03/09/24 07:00 03/09/24 17:00 Insulin Human Regular (InsuLIN R) ACHS SC 03/09/24 07:00 03/09/24 17:00 Dextrose 50 ml UD PRN IV Blood Sugar LESS THAN 60 03/09/24 01:30 Ondansetron HCl (Zofran) 4 mg Q4HP PRN IV NAUSEA / VOMITING 03/09/24 01:30 Enoxaparin Sodium (Lovenox) 40 mg DAILY SC 03/09/24 10:00 03/09/24 13:46 Acetaminophen (Tylenol Tablet) 650 mg Q6HP PRN PO PAIN SCALE 1-3 OR TEMP>100.4 03/09/24 01:30 03/09/24 14:08 DC Methylprednisolone Sodium Succinate (Solu Medrol) 40 mg BID IV 03/09/24 10:00 03/09/24 09:42 Ipratropium [place] (Atrovent Medneb) 0.5 mg Q4HWA NEB 03/09/24 10:00 03/09/24 18:31 Levalbuterol HCl (Xopenex Medneb) 0.625 mg Q4HWA NEB 03/09/24 10:00 03/09/24 18:31 Cefepime HCl 50 ml @ 12.5 mls/hr Q8HR IV 03/09/24 14:00 03/09/24 15:46 Magnesium Sulfate/ Dextrose 100 ml @ 100 mls/hr Q1HR IV 03/09/24 10:00 03/09/24 11:59 DC 03/09/24 11:20 Nifedipine (Procardia Xl (Time-Release)) 30 mg DAILY PO 03/09/24 10:00 03/09/24 15:00 DC Midazolam HCl 50 ml @ 1 mls/hr Q24H IV 03/09/24 12:45 03/09/24 16:47 Fentanyl Citrate 250 ml @ 2.5 mls/hr Q24H IV 03/09/24 12:45 12/4/24 12:45 Pantoprazole Sodium (Protonix) 40 mg DAILY IV 03/10/24 10:00 Norepinephrine Bitartrate 250 ml @ 3.75 mls/hr Q24H IV 03/09/24 15:00 03/09/24 15:38 Vital Signs Vital Signs Date Time Temp Pulse Resp B/P (MAP) Pulse Ox O2 Delivery O2 Flow Rate FiO2 03/09/24 20:20 80 20 93/62 (72) 95 50 03/09/24 18:32 Mechanical Ventilator+ 03/09/24 13:05 98.4 98.4 03/09/24 10:00 5 Physical Exam Gen.: Patient lying in bed in no apparent distress. On BiPAP Head: Normocephalic, atraumatic. Eyes: EOMI/PERRLA. Ears: Normal hearing. Normal anatomy. Neck/trachea: Trachea midline, supple. Nose: Normal external anatomy. Mouth: Moist mucous membranes. Chest: Decreased air entry bilaterally. No wheezing or rhonchi. Cardiovascular: Positive S1, positive S2. Regular rate and rhythm. Abdomen: Positive bowel sounds in all 4 quadrants. Soft, non-tender, non- distended. : Deferred. Rectal: Deferred. Skin: Warm, dry. Intact. Extremities: 2+ radial pulses bilaterally. No lower extremity edema. Neuro: Awake, alert, oriented x3. No gross motor or sensory deficits. Cranial nerves II through XII intact. Gait not assessed. Labs/Diagnostic Data Labs Test 03/09/24 18:16 03/09/24 16:15 03/09/24 15:10 03/09/24 10:08 Range/Units POC Glucose 162 H 70-106 mg/dl Blood Gas Specimen Type Arterial Blood Gas Sample Site Left radial Blood Gas Patient Temperature 37.0 Arterial Blood Date Drawn [id number] Arterial Blood pH 7.308 L 7.350-7.450 Arterial Blood Partial Pressure CO2 62.9 *H 32.0-45.0 mmHg Arterial Blood Partial Pressure O2 64.7 L 83.0-108.0 mmHg Arterial Blood HCO3 30.8 H 21.0-28.0 mmol/L Arterial Blood Oxygen Saturation 91.1 L 94.0-98.0 % Arterial Blood Base Excess 2.4 -2.0-3.0 mmol/L Arterial Blood Oxyhemoglobin 90.1 L 94.0-98.0 % Arterial Blood Carboxyhemoglobin 0.9 0.5-1.5 % Arterial Blood Methemoglobin 0.2 0.0-1.5 % Mark Test Modified Blood Gas Total Hemoglobin 16.80 H 12.0-16.0 g/dL Blood Gas Set Respiration Rate 20.0 Blood Gas Modality Vent - ac FiO2 % 50.0 Blood Gas Tidal Volume 450.0 Blood Gas PEEP or CPAP 8.0 Blood Gas Critical Value Read Back Yes Blood Gas Notified Whom Dr. fuentes Blood Gas Notified Time [id number] Blood Gas Notified By Lita galindo rrt Urine Color Yellow Yellow Urine Clarity Turbid H Clear Urine pH 5.5 5.0-9.0 Urine Specific [place] 1.025 1.001-1.035 Urine Protein 1+ H Negative Urine Ketones Negative Negative Urine Blood 2+ H Negative /uL Urine Nitrite Negative Negative Urine Bilirubin Negative Negative Urine Urobilinogen 2 H Negative mg/dL Urine Leukocyte Esterase Negative Negative /uL Urine RBC 58 0 - 4 /hpf Urine WBC 13 0 - 5 /hpf Urine Squamous Epithelial Cells Few <5 /hpf Urine Bacteria Few H None Seen /hpf Urine Mucus Few None Seen Urine Glucose Normal Normal mg/dL Blood Gas EPAP 7 Blood Gas IPAP 17 Test 03/09/24 09:15 03/09/24 07:56 03/09/24 07:54 03/09/24 04:15 Range/Units White Blood Count 11.2 #H 4.4-10.8 10^3/uL Red Blood Count 4.95 4.0-5.20 10^6/uL Hemoglobin 16.8 H 12.2-16.2 g/dL Hematocrit 48.8 H 36.0-46.0 % Mean Corpuscular Volume 98.5 80.0-100.0 fL Mean Corpuscular Hemoglobin 33.9 H 28.0-32.0 pg Mean Corpuscular Hemoglobin Concent 34.5 32.0-36.0 g/dL Red Cell Distribution Width 12.8 11.8-14.3 % Platelet Count 284 140-450 10^3/uL Mean Platelet Volume 7.8 6.9-10.8 fL Neutrophils (%) (Auto) 93.5 H 37.0-80.0 % Lymphocytes (%) (Auto) 5.2 L 10.0-50.0 % Monocytes (%) (Auto) 1.1 0.0-12.0 % Eosinophils (%) (Auto) 0.1 0.0-7.0 % Basophils (%) (Auto) 0.1 0.0-2.0 % Neutrophils # (Auto) 10.4 H 1.6-8.6 10 ^3/uL Lymphocytes # (Auto) 0.6 0.4-5.4 10 ^3/uL Monocytes # (Auto) 0.1 0-1.3 10 ^3/uL Eosinophils # (Auto) 0 0-0.8 10 ^3/uL Basophils # (Auto) 0 0-0.2 10 ^3/uL Nucleated Red Blood Cells 0.2 % Sodium Level 140 136-145 mmol/L Potassium Level 3.8 3.5-5.1 mmol/L Chloride Level 103 98-107 mmol/L Carbon Dioxide Level 30 20-31 mmol/L Anion Gap 7 5-15 Blood Urea Nitrogen 6 L 9-23 mg/dL Creatinine 0.72 0.550-1.02 mg/dL Glomerular Filtration Rate Calc 89 >90 mL/min BUN/Creatinine Ratio 8.3 L 10.0-20.0 Serum Glucose 122 H 74-106 mg/dL Calcium Level 9.9 8.7-10.4 mg/dL Magnesium Level 2.0 1.6-2.6 mg/dL Total Bilirubin 0.5 0.2-1.0 mg/dL Aspartate Amino Transferase (AST) 24 13-40 U/L Alanine Aminotransferase (ALT) 31 7-40 U/L Alkaline Phosphatase 95 46-116 U/L Total Protein 7.1 5.7-8.2 g/dL Albumin 4.4 3.2-4.8 g/dL Vitamin B12 Level 291 211-911 pg/mL Thyroid Stimulating Hormone (TSH) 6.37 H 0.55-4.78 uIU/mL D-Dimer, Quantitative 0.37 0.0-0.49 mg/L FEU Blood Gas Liter Flow 4.00 Test 03/08/24 22:00 03/08/24 21:45 Range/Units Influenza Type A Antigen Negative Negative Influenza Type B Antigen Negative Negative SARS-CoV-2 Antigen (Rapid) Negative NEGATIVE Lactic Acid Level 1.6 0.4-2.0 mmol/L Troponin I High Sensitivity 6 </=34 ng/L B-Type Natriuretic Peptide 70.38 0-100 pg/mL Assessment Impression: Acute on chronic hypercarbic respiratory failure Pulmonary edema Nicotine dependence Obesity Plan: On BiPAP with IPAP 17, EPAP 5. Improved ventilation Post changes, ABG compensated. Upgraded to ICU. On pressors (Levophed) for hemodynamic support Titrate to keep mean arterial pressure greater than 65 mmHg Sedated on Fentanyl, Versed Continue antibiotics Steroids Incentive spirometry Pain control Avoid oversedation Accu-Cheks, ISS. Diurese w/ Lasix Monitor renal function. Monitor electrolytes. Supplement as necessary. Monitor ins and outs. Smoking cessation discussed for greater than 10 minutes Diet and lifestyle modifications for weight reduction Obesity - complicates all care Protonix for GI prophylaxis DVT prophylaxis. Prognosis: Poor given patient's multiple co-morbidities. Condition: Critical Rest of plan per hospitalist and other consultants. A total of 36 minutes of critical care time was spent reviewing the patient record, examining the patient, making a diagnostic and therapeutic plan, discussing this plan with the medical personnel, following up on diagnostic studies and following the patient for clinical stability excluding any and all procedures. At least 50% of this time was spent in direct, [id number] contact. Thank you Dr. Erik Gil MD, for allowing me to participate in this patient's care. Further recommendations will depend on the patient's clinical course. Please do not hesitate to contact me if you have any questions or concerns. This medical document was created using an electronic medical record system with [employer] dictation system. Although these documentations are being carefully reviewed, there may still be some phonetic and typographical changes. The errors are purely typographical, due to imperfection on the software program, and do not reflect any compromise in the patient's medical care. Plan discussed with: Other (MD Ferguson/Jeffery) MARYJANE FUENTES MD Mar 09, 2024 20:59
[2024-03-09] MEDS ORDERED: ATORVASTATIN 20 MG TAB PO SCH (22:00)
[2024-03-10] VITALS (99 sets, daily range): BP systolic 75–148; BP diastolic 41–112; PULSE 54–101; RESP 15–21; TEMP 97.8–99.6; O2SAT 84–100
[2024-03-10] MEDS: AZITHROMYCIN 500MG/ 250ML 250 ML IV SCH (01:56)
--- NOTE | 2024-03-10 04:11 | DVH ---
CHEST RADIOGRAPH Indication: sob Technique: Single frontal view of the chest was obtained Comparison: XY CHEST XRAY 1 VIEW on DOS: 03/09/24, XY CHEST XRAY 1 VIEW on DOS: 03/08/24, XY CHEST PORT ABLE on DOS: 12/16/22, CHEST PORTABLE on DOS: 04/16/22, CXRP on DOS: 04/16/22, XY CHEST XRAY 1 VIEW on D OS: 03/09/24 FINDINGS: Lines and Tubes: Endotracheal tube projects 4 cm above level the darcie right internal jugular centra l venous catheter tip projects over the superior vena cava. Lungs: No focal consolidation. Pleura: No effusion. No pneumothorax. Cardiomediastinal contours: Unremarkable Bones: No acute osseous abnormality. IMPRESSION: Endotracheal tube and right internal jugular central venous catheter in appropriate position.
[2024-03-10 06:15] LABS: Basophils # (auto) 0 10 ^3/uL (0-0.2); Basophils % (auto) 0.1 % (0.0-2.0); Eosinophils # (auto) 0 10 ^3/uL (0-0.8); Eosinophils % (auto) 0.1 % (0.0-7.0); Hematocrit 44.7 % (36.0-46.0); Hemoglobin 14.9 g/dL (12.2-16.2); Lymphocytes # (auto) 0.7 10 ^3/uL (0.4-5.4); Lymphocytes % (auto) 3.2 % (10.0-50.0); Mean Corpuscular Hemoglobin 33.5 pg (28.0-32.0); Mean Corpuscular Hgb Conc. 33.2 g/dL (32.0-36.0); Monocytes # (auto) 1.1 10 ^3/uL (0-1.3); Monocytes % (auto) 5.5 % (0.0-12.0); Neutrophils # (auto) 18.9 10 ^3/uL (1.6-8.6); Neutrophils % (auto) 91.1 % (37.0-80.0); Nucleated Red Blood Cells % 0.1 %; Platelet Count (auto) 371 10^3/uL (140-450); Red Blood Cells 4.43 10^6/uL (4.0-5.20); Red Cell Distribution Width 12.9 % (11.8-14.3); White Blood Cell 20.8 10^3/uL (4.4-10.8)
[2024-03-10 06:58] LABS: Alanine Aminotransferase 22 U/L (7-40); Albumin 4.4 g/dL (3.2-4.8); Alkaline Phosphatase 84 U/L (46-116); Anion Gap 10 (5-15); Aspartate Aminotransferase 15 U/L (13-40); Bilirubin, Total 0.4 mg/dL (0.2-1.0); Blood Urea Nitrogen 16 mg/dL (9-23); Carbon Dioxide 30 mmol/L (20-31); Magnesium 2.3 mg/dL (1.6-2.6); Sodium 138 mmol/L (136-145); Total Protein 6.8 g/dL (5.7-8.2)
[2024-03-10 07:01] LABS: Free T3 1.68 pg/mL (2.3-4.2); Free T4 (Free Thyroxine) 0.58 ng/dL (0.89-1.76)
[2024-03-10 07:05] LABS: Calcium 8.6 mg/dL (8.7-10.4); Chloride 98 mmol/L (98-107); Glucose 206 mg/dL (74-106); Potassium 3.3 mmol/L (3.5-5.1)
[2024-03-10] MEDS: POTASSIUM CHL 20MEQ/100ML 100 ML IV SCH (07:45)
[2024-03-10] MEDS ORDERED: VANCOMYCIN PER PHARMACY 0 MG IV SCH (09:00)
[2024-03-10] MEDS: PANTOPRAZOLE 40 MG/10 ML VIAL INJ IV SCH (09:25)
[2024-03-10] MEDS: VANCOMYCIN 1GM/250ML KIT 250 ML IV ONE (10:28)
[2024-03-10] MEDS: SODIUM CHLORIDE 0.9% 250 ML IV ONE (12:15)
--- NOTE | 2024-03-10 17:16 | DVHPNRES ---
Progress Note Date Seen: Mar 10, 2024 Resident Creating Document: BLAKE REYES KERLINE Has the PT tested + for MRSA If YES, has PT been informed?: Yes Medical Necessity Reason Pt with a Central, PICC or Fol: Yes The following are medically ne: Central Line Subjective Review of Systems Patient is a 73-year-old woman who presents for evaluation of shortness of breath with a one-week history of worsening symptoms, including associated wheezing and cough. The patient reports developing symptoms after receiving the COVID vaccine a week ago. PMHx: COPD, chronic kidney disease, CHF, CAD, dementia, diabetes mellitus, dyslipidemia, hypertension, thyroid disorder PSHx: Cholecystectomy, hernia repair, hysterectomy, tonsillectomy, tubal ligation, appendectomy Family History: Noncontributory Social History: Current cigarette smoker, denies alcohol and illicit drug use Home Medications: Albuterol, aspirin, doxepin, escitalopram, fluticasone, gabapentin, levothyroxine, memantine, morphine sulfate, promethazine, ranolazine, rosuvastatin, trazodone Allergic History: Codeine, diazepam, levofloxacin, penicillin, prednisone Patient seen and examined at the bedside. The patient is sedated and on mechanical ventilation. Review of systems could not be obtained. Patient reports: Feels worse Changes from previous H/P or p: Changes Objective vital signs Vital Sign Date Time Temp Pulse Resp B/P (MAP) Pulse Ox O2 Delivery O2 Flow Rate FiO2 03/10/24 17:00 81/51 03/10/24 16:37 71 20 94 65 03/10/24 16:00 Mechanical Ventilator+ 03/10/24 12:00 98.4 98.4 03/09/24 10:00 5 Total Intake and Output 03/09/24 03/09/24 03/10/24 15:00 23:00 07:00 Intake Total 5 ml 190.745 ml 646.70 ml Output Total 1730 ml 100 ml Balance 5 ml -1539.255 ml 546.70 ml medications Current Medications Medications Dose Ordered Sig/Kinjal Route Start Time Stop Time Status Last Admin Dose Admin Azithromycin 250 ml @ 125 mls/hr DAILY@0100 IV 03/10/24 01:00 03/10/24 01:56 125 MLS/HR Aspirin 81 mg DAILY PO 03/09/24 10:00 03/10/24 09:25 81 MG Levothyroxine Sodium 75 mcg QAM@0600 PO 03/09/24 06:00 03/10/24 06:33 75 MCG Gabapentin 300 mg TID PO 03/09/24 06:00 03/10/24 14:19 300 MG Insulin Human Regular ACHS SC 03/09/24 07:00 03/10/24 11:30 3 UNITS Dextrose 50 ml UD PRN IV 03/09/24 01:30 Methylprednisolone Sodium Succinate 40 mg BID IV 03/09/24 10:00 03/10/24 09:25 40 MG Ipratropium [place] 0.5 mg Q4HWA NEB 03/09/24 10:00 03/10/24 14:28 0.5 MG Levalbuterol HCl 0.625 mg Q4HWA NEB 03/09/24 10:00 03/10/24 14:28 0.625 MG Midazolam HCl 50 ml @ 1 mls/hr Q24H IV 03/09/24 12:45 03/10/24 14:49 3 MLS/HR Fentanyl Citrate 250 ml @ 2.5 mls/hr Q24H IV 03/09/24 12:45 03/10/24 12:45 10 MLS/HR Pantoprazole Sodium 40 mg DAILY IV 03/10/24 10:00 03/10/24 09:25 40 MG Norepinephrine Bitartrate 250 ml @ 3.75 mls/hr Q24H IV 03/09/24 15:00 03/09/24 15:38 3.75 MLS/HR Cefepime HCl 50 ml @ 12.5 mls/hr DAILY IV 03/11/24 10:00 Vancomycin HCl 0 ml @ 0 mls/hr UD IV 03/10/24 09:00 Enoxaparin Sodium 30 mg DAILY SC 03/11/24 10:00 Diagnostic Test (Pha) 1 strip Q6HP 03/10/24 17:15 Sodium Chloride 1,000 ml @ 75 mls/hr [id number] IV 03/10/24 17:15 03/11/24 11:55 Examination General: RASS -4, afebrile, mucosae are moist Cardiovascular: Normal S1 and S2. No murmurs, gallops or rubs Respiratory: Mechanically assisted ventilation, equal bilateral airway entree. Bilateral rhonchi Abdomen: Soft, nontender, no organomegaly, normal bowel sounds MSK/skin: Mobilization of limbs cannot be evaluated. Skin is dry and warm. Neurological: Orientation cannot be assessed. No apparent motor no sensitive deficits. Pupils are isocoric and reactive laboratory and microbiology Laboratory Tests 03/10/24 04:50 Test 03/10/24 04:50 Range/Units Serum Glucose 206 H 74-106 mg/dL Microbiology Date/Time Source Procedure Growth Status 03/09/24 15:19 Blood Blood Culture - Preliminary NO GROWTH AFTER 24 HOURS OF INCUBATION. Resulted 03/09/24 15:10 Voided Urine Urine Culture - Preliminary Resulted 03/09/24 14:32 Nose MRSA Screen - Final Complete 03/09/24 14:15 Sputum Gram Stain - Final Resulted 03/09/24 14:15 Sputum Respiratory Culture - Preliminary Resulted Labs and/or images reviewed: Labs reviewed by me, Image(s) reviewed by me Problem List/Assessment/Plan Problem List/Assessment/Plan This is a 73-year-old obese woman with past medical history of COPD (on 2 L of of oxygen at home), CKD 2, dementia, prediabetes, dyslipidemia, hypertension, hypothyroidism, presented to the hospital with shortness of breaths, cough and wheezing for 1 week. Has history of recurrent hospital admission due to COPD exacerbation and noncompliant to the medicine. Admitted on 03/08. Put on BiPAP on 03/09. Intubated on 03/09. NEURO: Acute metabolic encephalopathy, likely due to respiratory failure Patient is sedated and on mechanical ventilation, RASS score -4 History of dementia Continue memantine CARDIOVASCULAR: Echocardiogram from 03/09 shows LVEF 55% with grade 1 diastolic dysfunction History of hypertension Discontinue antihypertensive medication, given septic shock of PULMONARY: Acute on chronic hypoxic and hypercapnic respiratory failure likely due to COPD exacerbation/pneumonia Acute COPD exacerbation likely emphysematous type Pneumonia, likely due to Gram-positive Gram-negative Respiratory Acidosis Current cigarette smoker Chest CT from 03/08 scan shows right lower lobe pneumonia with severe centrilobular emphysema Chest x-ray shows bilateral lower zone infiltration, with a hyperinflated lung ABGs shows respiratory acidosis with partial metabolic compensation Continue cefepime(started at 03/09), azithromycin(started at 03/09) Started vancomycin at 03/10 Continue methylprednisolone 40 mg b.i.d., started at 03/09 Continue breathing treatment q.4 GASTROINTESTINAL: GENITOURINARY: Acute on CKD grade 2, likely hemodynamically mediated IV fluid 250 mL bolus Continue normal saline at 75 mL/hours Check FENa UTI, unspecified location Urinalysis shows UTI picture Urine culture ENDOCRINE: Hypothyroidism TSH is 6.37, free T4 is 058, free T3 is 1.68 Continue levothyroxine 75 mcg daily Prediabetes, HGB A1c 5.7 Hyperglycemia Accu-Chek q.6 hours Insulin mild sliding scale METABOLIC: Hyperlipidemia, continue rosuvastatin Hypokalemia, supplement HEME: Chest CT angiogram at 03/08 is negative for PE Doppler ultrasound of lower limb at 03/09 is negative for DVT INFECTIOUS DISEASE: Septic shock, likely due to pneumonia/UTI Panculture (blood, urine and sputum) MRSA nares screening Check COVID-19 and flu DIET: NPO without medicine DVT prophylax: Lovenox 40 mg GI prophylaxis: Protonix 40 mg IV Bowel regimen: Lactulose 30 mL b.i.d., Colace 200 mg b.i.d. Code status: Full code LINES/DRAINS/ACCESS: ETT: Intubated on 03/09 IV access: Right internal jugular CVC, placed on 03/09 Left antecubital peripheral line, placed on 03/09 Drips: Fentanyl 100 Versed 3 Levophed 14 Henderson catheter: Transurethral [place] catheter, placed on 03/09 DISPOSITION: ICU status Patient's status discussed with daughters at the bedside. Critical care time spent more than 82 minutes, including patient care, chart review, and updating the family. Excluding any procedures. Case discussed with Dr. Bhakta Plan discussed with: Patient, Daughter, Other (RN) My Orders My Orders Orders - BLAKE REYES RESDIJOANN Procedure Category Date Status Time Vancomycin Per PHA 03/10/24 In Process Pharmacy 09:00 Complete Blood Count LAB 03/11/24 Verified 04:00 Vancomycin,Random LAB 03/11/24 Verified 04:00 Npo (Nothing By DIET 03/10/24 Transmitted Mouth) Diet Dinner Glucose Blood PHA 03/10/24 In Process (Accu-Chek Comfort 17:15 Hemoglobin A1c LAB 03/10/24 In Process 17:09 Sodium Chloride 0.9% PHA 03/10/24 In Process 17:15 Date of Service: Mar 10, 2024 Billing Provider: MIKAYLA BHAKTA MD Common Visit Codes: 31518-[id number] CARE 30-74 MIN, 25321-[id number] CARE-EACH +30MIN BLAKE REYES Mar 10, 2024 17:16 MIKAYLA BHAKTA MD Mar 13, 2024 15:20
[2024-03-10] MEDS: ACCU-CHEK COMFORT CURVE STRIP VI SCH (17:18)
[2024-03-10] MEDS: SODIUM CHLORIDE 0.9% 1,000 ML IV SCH (17:18)
[2024-03-10] MEDS ORDERED: InsuLIN REG 1unit/0.01ml Soln (100units/ml) SC SCH (22:00)
[2024-03-10] MEDS ORDERED: ACCU-CHEK COMFORT CURVE STRIP VI SCH (22:00)
[2024-03-11] VITALS (104 sets, daily range): BP systolic 83–149; BP diastolic 47–88; PULSE 56–92; RESP 11–25; TEMP 97.1–98.3; O2SAT 87–99
[2024-03-11] MEDS: InsuLIN REG 1unit/0.01ml Soln (100units/ml) SC SCH
[2024-03-11] MEDS: ACCU-CHEK COMFORT CURVE STRIP VI SCH (00:43)
[2024-03-11 05:13] LABS: Basophils # (auto) 0 10 ^3/uL (0-0.2); Eosinophils # (auto) 0 10 ^3/uL (0-0.8); Hematocrit 42.7 % (36.0-46.0); Lymphocytes # (auto) 0.6 10 ^3/uL (0.4-5.4); Lymphocytes % (auto) 2.6 % (10.0-50.0); Mean Corpuscular Hemoglobin 32.9 pg (28.0-32.0); Mean Corpuscular Hgb Conc. 32.8 g/dL (32.0-36.0); Mean Corpuscular Volume 100.3 fL (80.0-100.0); Monocytes # (auto) 0.7 10 ^3/uL (0-1.3); Monocytes % (auto) 3.1 % (0.0-12.0); Neutrophils % (auto) 94.3 % (37.0-80.0); Platelet Count (auto) 354 10^3/uL (140-450); Red Blood Cells 4.26 10^6/uL (4.0-5.20); Red Cell Distribution Width 13.1 % (11.8-14.3); White Blood Cell 23.3 10^3/uL (4.4-10.8)
[2024-03-11 05:34] LABS: Alanine Aminotransferase 18 U/L (7-40); Alkaline Phosphatase 79 U/L (46-116); Anion Gap 9 (5-15); BUN/Creatinine Ratio 14.7 (10.0-20.0); Calcium 9.6 mg/dL (8.7-10.4); Carbon Dioxide 28 mmol/L (20-31); Chloride 102 mmol/L (98-107); Potassium 3.6 mmol/L (3.5-5.1); Sodium 139 mmol/L (136-145)
[2024-03-11 05:35] LABS: Total Protein 6.1 g/dL (5.7-8.2)
[2024-03-11 05:39] LABS: Aspartate Aminotransferase 12 U/L (13-40); Bilirubin, Total 0.3 mg/dL (0.2-1.0); Blood Urea Nitrogen 28 mg/dL (9-23); Glucose 166 mg/dL (74-106)
--- NOTE | 2024-03-11 05:47 | DVH ---
Exam: US US GUIDED VASCULAR ACCESS Clinical History: INTUBATION/ CRITICAL MED ACCESS Comparison: None Findings: Targeted sonographic evaluation of the vascular structures was obtained utilizing grayscale and color Doppler imaging. IMPRESSION: Sonographic assistance for central line placement. Please refer to procedural report for detailed fin dings.
--- NOTE | 2024-03-11 05:48 | DVH ---
CHEST RADIOGRAPH Indication: Pneumonia Technique: Single frontal view of the chest was obtained COMPARISON: XY CHEST PORTABLE on DOS: 03/10/24, XY CHEST XRAY 1 VIEW on DOS: 03/09/24, XY CHEST XRAY 1 VIEW on DOS: 03/08/24 FINDINGS: Lines and Tubes: Endotracheal tube, enteric catheter and right central venous catheter in satisfactor y position. Lungs: Patchy bilateral airspace disease. Pleura: No effusion. No pneumothorax. Cardiomediastinal contours: Unremarkable Bones: Unremarkable IMPRESSION: Lines and tubes in satisfactory position. No significant interval change.
[2024-03-11] MEDS: CEFEPIME 1GM/ 50ML 50 ML IV SCH (09:17)
[2024-03-11] MEDS: ENOXAPARIN SOD 30 MG/0.3 ML SYRINGE SC SCH (09:17)
[2024-03-11 09:27] LABS: Base Excess -1.4 mmol/L (-2.0-3.0)
[2024-03-11] MEDS: PROPOFOL 100 ML IV SCH (09:58)
[2024-03-11] MEDS: VANCOMYCIN 750MG VIAL 750 MG in D5W 5% 250 ML IV ONE (12:37)
[2024-03-11 13:09] LABS: Base Excess -2.3 mmol/L (-2.0-3.0)
[2024-03-11] MEDS ORDERED: Nepro With Carb Steady 1 Liter Bottle GT SCH (14:15)
[2024-03-11] MEDS ORDERED: LACTULOSE 20Gm/30ML SOLN GT PRN (14:15)
[2024-03-11] MEDS: NOREPINEPHRINE 8 MG/250ML KIT 250 ML IV SCH (15:45)
[2024-03-11] MEDS: PIPERACILLIN-TAZOB 3.375GM 100 ML IV SCH (21:44)
[2024-03-11] MEDS: Nepro With Carb Steady 1 Liter Bottle GT SCH (21:44)
[2024-03-11] MEDS: DOCUSATE ORAL LIQUID 100 MG/10 ML UD GT SCH (21:44)
[2024-03-11] MEDS ORDERED: PIPERACILLIN-TAZOB 3.375GM 100 ML IV SCH (22:00)
--- NOTE | 2024-03-11 23:22 | DVHPNRES ---
Progress Note Date Seen: Mar 11, 2024 Resident Creating Document: BLAKE REYES RESDIENT Medical Necessity Reason Pt with a Central, PICC or Fol: Yes Subjective Review of Systems This is a 73-year-old obese woman with past medical history of COPD (on 2 L of of oxygen at home), CKD 2, dementia, prediabetes, dyslipidemia, hypertension, hypothyroidism, presented to the hospital with shortness of breaths, cough and wheezing for 1 week. Has history of recurrent hospital admission due to COPD exacerbation and noncompliant to the medicine. Admitted on 03/08. Put on BiPAP on 03/09. Intubated on 03/09. Today patient is seen and examined at the bedside. Patient is sedated and on mechanical ventilation. Review of systems could not obtain. Patient reports: No new complaints Objective vital signs Vital Sign Date Time Temp Pulse Resp B/P (MAP) Pulse Ox O2 Delivery O2 Flow Rate FiO2 03/11/24 22:40 138/84 03/11/24 22:15 64 11 96 03/11/24 22:00 Mechanical Ventilator+ 65 65 03/11/24 20:00 98.3 98.3 03/09/24 10:00 5 Total Intake and Output 03/10/24 03/10/24 03/11/24 15:00 23:00 07:00 Intake Total 568.75 ml 1005.00 ml 1278.50 ml Output Total 625 ml 100 ml Balance 568.75 ml 380.00 ml 1178.50 ml medications Current Medications Medications Dose Ordered Sig/Kinjal Route Start Time Stop Time Status Last Admin Dose Admin Azithromycin 250 ml @ 125 mls/hr DAILY@0100 IV 03/10/24 01:00 03/11/24 00:43 125 MLS/HR Aspirin 81 mg DAILY PO 03/09/24 10:00 03/11/24 09:17 81 MG Levothyroxine Sodium 75 mcg QAM@0600 PO 03/09/24 06:00 03/11/24 06:00 75 MCG Gabapentin 300 mg TID PO 03/09/24 06:00 03/11/24 21:44 300 MG Dextrose 50 ml UD PRN IV 03/09/24 01:30 Methylprednisolone Sodium Succinate 40 mg BID IV 03/09/24 10:00 03/11/24 21:44 40 MG Ipratropium [place] 0.5 mg Q4HWA [facility] 03/09/24 10:00 03/11/24 18:26 0.5 MG Levalbuterol HCl 0.625 mg Q4HWA [facility] 03/09/24 10:00 03/11/24 18:26 0.625 MG Fentanyl Citrate 250 ml @ 2.5 mls/hr Q24H IV 03/09/24 12:45 03/11/24 05:21 20 MLS/HR Pantoprazole Sodium 40 mg DAILY IV 03/10/24 10:00 03/11/24 09:17 40 MG Enoxaparin Sodium 30 mg DAILY SC 03/11/24 10:00 03/11/24 09:17 30 MG Diagnostic Test (Pha) 1 strip Q6H 03/11/24 00:00 03/11/24 17:30 1 STRIP Insulin Human Regular Q6H SC 03/11/24 00:00 03/11/24 17:30 2 UNITS Propofol 100 ml @ 2.709 mls/ hr Q24H IV 03/11/24 09:45 03/11/24 21:02 10.836 MLS/HR Lactulose 30 ml BIDPRN PRN GT 03/11/24 14:15 Docusate Sodium 100 mg BID GT 03/11/24 22:00 03/11/24 21:44 100 MG Enteral Nutritional Formula 1,000 ml 30ML/HR GT 03/11/24 15:45 03/11/24 21:44 1,000 ML Norepinephrine Bitartrate 250 ml @ 1.875 mls/ hr Q24H IV 03/11/24 15:45 03/11/24 22:08 5.625 MLS/HR Piperacillin Sod/ Tazobactam Sod 100 ml @ 25 mls/hr Q12H IV 03/11/24 22:00 03/11/24 21:44 25 MLS/HR Examination General: RASS -4, afebrile, mucosae are moist Cardiovascular: Normal S1 and S2. No murmurs, gallops or rubs Respiratory: Mechanically assisted ventilation, equal bilateral airway entree. Bilateral rhonchi Abdomen: Soft, nontender, no organomegaly, normal bowel sounds MSK/skin: Mobilization of limbs cannot be evaluated. Skin is dry and warm. Neurological: Orientation cannot be assessed. No apparent motor no sensitive deficits. Pupils are isocoric and reactive laboratory and microbiology Laboratory Tests 03/11/24 04:31 Test 03/11/24 04:31 Range/Units Serum Glucose 166 H 74-106 mg/dL Microbiology Date/Time Source Procedure Growth Status 03/09/24 15:19 Blood Blood Culture - Preliminary NO GROWTH AFTER 48 HOURS OF INCUBATION. Resulted 03/09/24 15:10 Voided Urine Urine Culture - Final Complete 03/09/24 14:32 Nose MRSA Screen - Final Complete 03/09/24 14:15 Sputum Gram Stain - Final Resulted 03/09/24 14:15 Sputum Respiratory Culture - Preliminary Resulted Labs and/or images reviewed: Labs reviewed by me, Image(s) reviewed by me Problem List/Assessment/Plan Problem List/Assessment/Plan This is a 73-year-old obese woman with past medical history of COPD (on 2 L of of oxygen at home), CKD 2, dementia, prediabetes, dyslipidemia, hypertension, hypothyroidism, presented to the hospital with shortness of breaths, cough and wheezing for 1 week. Has history of recurrent hospital admission due to COPD exacerbation and noncompliant to the medicine. Admitted on 03/08. Put on BiPAP on 03/09. Intubated on 03/09. NEURO: Acute metabolic encephalopathy, likely due to respiratory failure Patient is sedated and on mechanical ventilation, RASS score -4 History of dementia Continue memantine CARDIOVASCULAR: Echocardiogram from 03/09 shows LVEF 55% with grade 1 diastolic dysfunction History of hypertension Discontinue antihypertensive medication, given septic shock of PULMONARY: Acute on chronic hypoxic and hypercapnic respiratory failure likely due to COPD exacerbation/pneumonia Acute COPD exacerbation likely emphysematous type Pneumonia, likely due to Gram-positive Gram-negative Respiratory Acidosis Current cigarette smoker Chest CT from 03/08 scan shows right lower lobe pneumonia with severe centrilobular emphysema Patient is sedated and on mechanical ventilation with a setting of VT 500, RR 24, peep 8 and FiO2 65% Chest x-ray shows bilateral lower zone infiltration, with a hyperinflated lung, same to previous film ABGs shows respiratory acidosis with partial metabolic compensation Discontinue cefepime, used for 3 days Discontinue vancomycin, used for 2 days Start Zosyn, started at 03/11 Continue azithromycin(started at 03/09) Continue methylprednisolone 40 mg b.i.d., started at 03/09 Continue breathing treatment q.4 hr GASTROINTESTINAL: GENITOURINARY: Acute on CKD grade 2, likely hemodynamically mediated, improving Continue normal saline at 75 mL/hours Check FENa UTI, unspecified location Urinalysis shows UTI picture Urine culture, preliminary result shows no growth ENDOCRINE: Hypothyroidism TSH is 6.37, free T4 is 058, free T3 is 1.68 Continue levothyroxine 75 mcg daily Prediabetes, HGB A1c 5.7 Hyperglycemia Accu-Chek q.6 hours Insulin mild sliding scale METABOLIC: Hyperlipidemia, continue rosuvastatin Hypokalemia, supplement HEME: Chest CT angiogram at 03/08 is negative for PE Doppler ultrasound of lower limb at 03/09 is negative for DVT INFECTIOUS DISEASE: Septic shock, likely due to pneumonia/UTI Panculture (blood, urine and sputum), result after 24 hour culture shows no growth MRSA nares is negative and discontinued vancomycin COVID-19 and flu is negative DIET: Nepro at 30 mL/hour DVT prophylax: Lovenox 40 mg GI prophylaxis: Protonix 40 mg IV Bowel regimen: Lactulose 30 mL b.i.d., Colace 200 mg b.i.d. Code status: Full code LINES/DRAINS/ACCESS: ETT: Intubated on 03/09 IV access: Right internal jugular CVC, placed on 03/09 Left antecubital peripheral line, placed on 03/09 Drips: Fentanyl 150 Propofol Levophed 6 Henderson catheter: Transurethral Henderson catheter, placed on 03/09 DISPOSITION: ICU status Patient's status discussed with daughters at the bedside. Critical care time spent more than 73 minutes, including patient care, chart review, and updating the family. Excluding any procedures. Case discussed with Dr. Aguirre Plan discussed with: Patient, Daughter, Other (RN) My Orders My Orders Orders - BLAKE REYES RESDIJOANN Procedure Category Date Status Time Urine Sodium LAB 03/11/24 Logged 08:00 Urine Creatinine LAB 03/11/24 Logged 08:00 Propofol (Diprivan) PHA 03/11/24 In Process 09:45 Creatinine LAB 03/12/24 Verified 04:00 Vancomycin Per SHAKIRA 03/11/24 In Process Pharmacy Protoc 10:08 Lactulose Oral PHA 03/11/24 In Process 14:15 Docusate Sodium PHA 03/11/24 In Process Liquid (Colace Liquid) 22:00 Nutritional PHA 03/11/24 In Process Supplements (Nepro 15:45 Complete Blood Count LAB 03/12/24 Verified 04:00 Comprehensive LAB 03/12/24 Verified Metabolic Panel 04:00 Chest Xray 1 View XY 03/12/24 Logged 04:00 Abg W/ Co-Ox RT 03/12/24 Logged 04:00 Piperacillin-Tazob PHA 03/11/24 In Process 3.375gm (Zosyn 3.375g 22:00 Date of Service: Mar 11, 2024 Billing Provider: CRISTIAN AGUIRRE MD Common Visit Codes: [id number] CARE 30-74 MIN BLAKE REYES RESDIENT Mar 11, 2024 23:22 CRISTIAN AGUIRRE MD Mar 18, 2024 14:46
[2024-03-12] VITALS (108 sets, daily range): BP systolic 88–143; BP diastolic 52–107; PULSE 53–107; RESP 12–25; TEMP 96.1–98.3; O2SAT 88–100
--- NOTE | 2024-03-12 05:50 | DVH ---
CHEST RADIOGRAPH Indication: Pneumonia Technique: Single frontal view of the chest was obtained Comparison: XY CHEST XRAY 1 VIEW on DOS: 03/11/24, XY CHEST PORTABLE on DOS: 03/10/24, XY CHEST XRAY 1 VIEW on DOS: 03/09/24 IMPRESSION: There are low lung volumes. The heart appears stable in size. No focal airspace opacity, effusion, o r pneumothorax. Support lines and tubes appear unchanged in position.
[2024-03-12 06:02] LABS: Basophils # (auto) 0 10 ^3/uL (0-0.2); Basophils % (auto) 0.1 % (0.0-2.0); Eosinophils # (auto) 0 10 ^3/uL (0-0.8); Hemoglobin 13.4 g/dL (12.2-16.2); Lymphocytes # (auto) 0.5 10 ^3/uL (0.4-5.4); Monocytes # (auto) 0.7 10 ^3/uL (0-1.3); Monocytes % (auto) 3.8 % (0.0-12.0)
[2024-03-12 06:05] LABS: Hematocrit 38.4 % (36.0-46.0); Lymphocytes % (auto) 3.1 % (10.0-50.0); Mean Corpuscular Hgb Conc. 34.8 g/dL (32.0-36.0); Mean Corpuscular Volume 100.6 fL (80.0-100.0); Neutrophils # (auto) 16.2 10 ^3/uL (1.6-8.6); Platelet Count (auto) 305 10^3/uL (140-450); Red Blood Cells 3.82 10^6/uL (4.0-5.20); Red Cell Distribution Width 13.2 % (11.8-14.3); White Blood Cell 17.5 10^3/uL (4.4-10.8)
[2024-03-12 06:12] LABS: Alanine Aminotransferase 16 U/L (7-40); Alkaline Phosphatase 66 U/L (46-116); Anion Gap 8 (5-15); Calcium 9.5 mg/dL (8.7-10.4); Carbon Dioxide 28 mmol/L (20-31); Chloride 104 mmol/L (98-107); Potassium 3.6 mmol/L (3.5-5.1); Sodium 140 mmol/L (136-145)
[2024-03-12 06:13] LABS: Albumin 3.6 g/dL (3.2-4.8); Bilirubin, Total 0.2 mg/dL (0.2-1.0)
[2024-03-12 06:41] LABS: Base Excess -2.3 mmol/L (-2.0-3.0)
[2024-03-12 06:42] LABS: Aspartate Aminotransferase < 8 U/L (13-40); Blood Urea Nitrogen 31 mg/dL (9-23); Glucose 155 mg/dL (74-106); Total Protein 5.6 g/dL (5.7-8.2)
[2024-03-12] MEDS: MEMANTINE HCL 5 MG TAB PO SCH (07:56)
[2024-03-12] MEDS: SODIUM CHLORIDE 0.9% 1,000 ML IV ONE (08:05)
--- NOTE | 2024-03-12 16:09 | DVHPN2 ---
Subjective This is a 73-year-old obese woman with past medical history of COPD (on 2 L of of oxygen at home), CKD 2, dementia, prediabetes, dyslipidemia, hypertension, hypothyroidism, presented to the hospital with shortness of breaths, cough and wheezing for 1 week. Has history of recurrent hospital admission due to COPD exacerbation and noncompliant to the medicine. Admitted on 03/08. Put on BiPAP on 03/09. Intubated on 03/09. Today patient is seen and examined at the bedside. Patient is sedated and on mechanical ventilation. Review of systems could not obtain. Changes from previous H/P or p: No Changes Objective Vitals Vital Signs Date Time Temp Pulse Resp B/P (MAP) Pulse Ox O2 Delivery O2 Flow Rate FiO2 03/12/24 15:30 61 03/12/24 15:30 24 93 Mechanical Ventilator+ 50 50 03/12/24 15:30 92/53 (66) 03/12/24 12:00 96.6 96.6 Intake/Output Intake and Output 03/12/24 05:00 Intake Total 2031.664 ml Output Total 400 ml Balance 1631.664 ml Intake Oral 160 ml IV Total 1871.664 ml Output Urine Total 400 ml Medications Current Medications Medications Dose Ordered Sig/Kinjal Route Start Time Stop Time Status Last Admin Dose Admin Azithromycin 250 ml @ 125 mls/hr DAILY@0100 IV 03/10/24 01:00 03/12/24 00:39 125 MLS/HR Aspirin 81 mg DAILY PO 03/09/24 10:00 03/12/24 07:56 81 MG Levothyroxine Sodium 75 mcg QAM@0600 PO 03/09/24 06:00 03/12/24 05:29 75 MCG Gabapentin 300 mg TID PO 03/09/24 06:00 03/12/24 13:05 300 MG Dextrose 50 ml UD PRN IV 03/09/24 01:30 Methylprednisolone Sodium Succinate 40 mg BID IV 03/09/24 10:00 03/12/24 07:55 40 MG Ipratropium [place] 0.5 mg Q4HWA NEB 03/09/24 10:00 03/12/24 13:26 0.5 MG Levalbuterol HCl 0.625 mg Q4HWA NEB 03/09/24 10:00 03/12/24 13:25 0.625 MG Fentanyl Citrate 250 ml @ 2.5 mls/hr Q24H IV 03/09/24 12:45 03/12/24 00:22 10 MLS/HR Pantoprazole Sodium 40 mg DAILY IV 03/10/24 10:00 03/12/24 07:55 40 MG Enoxaparin Sodium 30 mg DAILY SC 03/11/24 10:00 03/12/24 07:55 30 MG Diagnostic Test (Pha) 1 strip Q6H 03/11/24 00:00 03/12/24 11:19 1 STRIP Insulin Human Regular Q6H SC 03/11/24 00:00 03/12/24 12:00 3 UNITS Propofol 100 ml @ 2.709 mls/ hr Q24H IV 03/11/24 09:45 03/12/24 09:20 18.963 MLS/HR Lactulose 30 ml BIDPRN PRN GT 03/11/24 14:15 Docusate Sodium 100 mg BID GT 03/11/24 22:00 03/12/24 07:55 100 MG Enteral Nutritional Formula 1,000 ml 30ML/HR GT 03/11/24 15:45 03/11/24 21:44 1,000 ML Norepinephrine Bitartrate 250 ml @ 1.875 mls/ hr Q24H IV 03/11/24 15:45 03/11/24 22:08 5.625 MLS/HR Piperacillin Sod/ Tazobactam Sod 100 ml @ 25 mls/hr Q12H IV 03/11/24 22:00 03/12/24 07:55 25 MLS/HR Memantine 10 mg Q12HR PO 03/12/24 10:00 03/12/24 07:56 10 MG Laboratory Results Laboratory Tests 03/12/24 05:18 Chemistry Test 03/12/24 05:18 Albumin 3.6 g/dL (3.2-4.8) Calcium Level 9.5 mg/dL (8.7-10.4) Total Protein 5.6 g/dL (5.7-8.2) L LFT Test 03/12/24 05:18 Alanine Aminotransferase (ALT) 16 U/L (7-40) Alkaline Phosphatase 66 U/L (46-116) Aspartate Amino Transferase (AST) < 8 U/L (13-40) L Total Bilirubin 0.2 mg/dL (0.2-1.0) Urinalysis Test 03/09/24 15:10 Urine Color Yellow (Yellow) Urine Clarity Turbid (Clear) H Urine pH 5.5 (5.0-9.0) Urine Specific [place] 1.025 (1.001-1.035) Urine Protein 1+ (Negative) H Urine Ketones Negative (Negative) Urine Blood 2+ /uL (Negative) H Urine Nitrite Negative (Negative) Urine Bilirubin Negative (Negative) Urine Urobilinogen 2 mg/dL (Negative) H Urine Leukocyte Esterase Negative /uL (Negative) Urine RBC 58 /hpf (0 - 4) Urine WBC 13 /hpf (0 - 5) Urine Squamous Epithelial Cells Few /hpf (<5) Urine Bacteria Few /hpf (None Seen) H Urine Mucus Few (None Seen) Urine Glucose Normal mg/dL (Normal) Blood Gas Results Test 03/12/24 06:35 Arterial Blood pH 7.336 (7.350-7.450) FiO2 % 65.0 Microbiology Microbiology Date/Time Source Procedure Growth Status 03/09/24 15:19 Blood Blood Culture - Preliminary NO GROWTH AFTER 72 HOURS OF INCUBATION. Resulted 03/09/24 15:10 Voided Urine Urine Culture - Final Complete 03/09/24 14:32 Nose MRSA Screen - Final Complete 03/09/24 14:15 Sputum Gram Stain - Final Complete 03/09/24 14:15 Sputum Respiratory Culture - Final Complete Assessment/Plan Assessment/Plan This is a 73-year-old obese woman with past medical history of COPD (on 2 L of of oxygen at home), CKD 2, dementia, prediabetes, dyslipidemia, hypertension, hypothyroidism, presented to the hospital with shortness of breaths, cough and wheezing for 1 week. Has history of recurrent hospital admission due to COPD exacerbation and noncompliant to the medicine. Admitted on 03/08. Put on BiPAP on 03/09. Intubated on 03/09. NEURO: Acute metabolic encephalopathy, likely due to respiratory failure Patient is sedated and on mechanical ventilation, RASS score -4 History of dementia Continue memantine CARDIOVASCULAR: Echocardiogram from 03/09 shows LVEF 55% with grade 1 diastolic dysfunction History of hypertension Discontinue antihypertensive medication, given septic shock of PULMONARY: Acute on chronic hypoxic and hypercapnic respiratory failure likely due to COPD exacerbation/pneumonia Acute COPD exacerbation likely emphysematous type Pneumonia, likely due to Gram-positive Gram-negative Respiratory Acidosis Current cigarette smoker Chest CT from 03/08 scan shows right lower lobe pneumonia with severe centrilobular emphysema Patient is sedated and on mechanical ventilation with a setting of VT 500, RR 24, peep 8 and FiO2 65% Chest x-ray shows bilateral lower zone infiltration, with a hyperinflated lung, same to previous film ABGs shows respiratory acidosis with partial metabolic compensation Discontinue cefepime, used for 3 days Discontinue vancomycin, used for 2 days Start Zosyn, started at 03/11 Continue azithromycin(started at 03/09) Continue methylprednisolone 40 mg b.i.d., started at 03/09 Continue breathing treatment q.4 hr GASTROINTESTINAL: GENITOURINARY: Acute on CKD grade 2, likely hemodynamically mediated, improving Continue normal saline at 75 mL/hours Check FENa UTI, unspecified location Urinalysis shows UTI picture Urine culture, preliminary result shows no growth ENDOCRINE: Hypothyroidism TSH is 6.37, free T4 is 058, free T3 is 1.68 Continue levothyroxine 75 mcg daily Prediabetes, HGB A1c 5.7 Hyperglycemia Accu-Chek q.6 hours Insulin mild sliding scale METABOLIC: Hyperlipidemia, continue rosuvastatin Hypokalemia, supplement HEME: Chest CT angiogram at 03/08 is negative for PE Doppler ultrasound of lower limb at 03/09 is negative for DVT INFECTIOUS DISEASE: Septic shock, likely due to pneumonia/UTI Panculture (blood, urine and sputum), result after 24 hour culture shows no growth MRSA nares is negative and discontinued vancomycin COVID-19 and flu is negative DIET: Nepro at 30 mL/hour DVT prophylax: Lovenox 40 mg GI prophylaxis: Protonix 40 mg IV Bowel regimen: Lactulose 30 mL b.i.d., Colace 200 mg b.i.d. Code status: Full code LINES/DRAINS/ACCESS: ETT: Intubated on 03/09 IV access: Right internal jugular CVC, placed on 03/09 Left antecubital peripheral line, placed on 03/09 Drips: Fentanyl 150 Propofol Levophed 6 Henderson catheter: Transurethral Henderson catheter, placed on 03/09 DISPOSITION: ICU status Patient's status discussed with daughters at the bedside. Critical care time spent more than 73 minutes, including patient care, chart review, and updating the family. Excluding any procedures. Plan discussed with: Other (nurse) Date of Service: Mar 12, 2024 Billing Provider: SONYA DENNY MD Common Visit Codes: [id number] CARE 30-74 MIN SONYA DENNY MD Mar 12, 2024 16:09
--- NOTE | 2024-03-12 22:48 | DVHPN2 ---
Progress Note - Dictate Date Seen: Mar 12, 2024 Has the PT tested + for MRSA If YES, has PT been informed?: Yes Medical Necessity Reason Pt with a Central, PICC or Fol: Yes The following are medically ne: Central Line, Richardson Catheter Reason for richardson catheter: Strict I&O Subjective Patient seen and examined at bedside. Sedated, intubated on mechanical ventilator. Overnight events reviewed. vital signs Vital Sign Date Time Temp Pulse Resp B/P (MAP) Pulse Ox O2 Delivery O2 Flow Rate FiO2 03/12/24 22:11 65 24 133/76 (95) 95 45 03/12/24 20:00 98.3 98.3 03/12/24 18:57 Mechanical Ventilator Total Intake and Output 03/11/24 03/11/24 03/12/24 15:00 23:00 07:00 Intake Total 790.061 ml 371.071 ml 773.376 ml Output Total 300 ml 500 ml Balance 790.061 ml 71.071 ml 273.376 ml medications Current Medications Medications Dose Ordered Sig/Kinjal Route Start Time Stop Time Status Last Admin Dose Admin Azithromycin 250 ml @ 125 mls/hr DAILY@0100 IV 03/10/24 01:00 03/12/24 00:39 125 MLS/HR Aspirin 81 mg DAILY PO 03/09/24 10:00 03/12/24 07:56 81 MG Levothyroxine Sodium 75 mcg QAM@0600 PO 03/09/24 06:00 03/12/24 05:29 75 MCG Gabapentin 300 mg TID PO 03/09/24 06:00 03/12/24 21:01 300 MG Dextrose 50 ml UD PRN IV 03/09/24 01:30 Methylprednisolone Sodium Succinate 40 mg BID IV 03/09/24 10:00 03/12/24 21:01 40 MG Ipratropium [place] 0.5 mg Q4HWA NEB 03/09/24 10:00 03/12/24 22:10 0.5 MG Levalbuterol HCl 0.625 mg Q4HWA NEB 03/09/24 10:00 03/12/24 22:10 0.625 MG Fentanyl Citrate 250 ml @ 2.5 mls/hr Q24H IV 03/09/24 12:45 03/12/24 00:22 10 MLS/HR Pantoprazole Sodium 40 mg DAILY IV 03/10/24 10:00 03/12/24 21:01 40 MG Enoxaparin Sodium 30 mg DAILY SC 03/11/24 10:00 03/12/24 07:55 30 MG Diagnostic Test (Pha) 1 strip Q6H 03/11/24 00:00 03/12/24 17:53 1 STRIP Insulin Human Regular Q6H SC 03/11/24 00:00 03/12/24 17:53 2 UNITS Propofol 100 ml @ 2.709 mls/ hr Q24H IV 03/11/24 09:45 03/12/24 20:59 21.672 MLS/HR Lactulose 30 ml BIDPRN PRN GT 03/11/24 14:15 Docusate Sodium 100 mg BID GT 03/11/24 22:00 03/12/24 21:01 100 MG Enteral Nutritional Formula 1,000 ml 30ML/HR GT 03/11/24 15:45 03/11/24 21:44 1,000 ML Norepinephrine Bitartrate 250 ml @ 1.875 mls/ hr Q24H IV 03/11/24 15:45 03/11/24 22:08 5.625 MLS/HR Piperacillin Sod/ Tazobactam Sod 100 ml @ 25 mls/hr Q12H IV 03/11/24 22:00 03/12/24 21:00 25 MLS/HR Memantine 10 mg Q12HR PO 03/12/24 10:00 03/12/24 21:01 10 MG objective Gen.: Patient lying in bed in medical ICU. Sedated, intubated on mechanical ventilator. Head: Normocephalic, atraumatic. Eyes: PERRLA. Ears: Normal external anatomy. Throat: Endotracheal tube and orogastric tube in place. Neck: Supple, trachea midline. Chest: Transmitted breath sounds bilaterally. Decreased air entry bilaterally. No wheezing. Bibasilar crackles. Cardiovascular: Positive S1, positive S2. Regular rate and rhythm. Abdomen: Positive bowel sounds in all 4 quadrants. Soft, nontender, nondistended. : Richardson in place. Normal external genitalia. Rectal: Deferred. Skin: Warm, dry. Intact. Extremities: 2+ radial pulses bilaterally. No lower extremity edema. Neuro: Sedated. laboratory and microbiology Laboratory Tests 03/12/24 05:18 Test 03/12/24 05:18 Range/Units Serum Glucose 155 H 74-106 mg/dL Assessment/Plan Impression: Acute on chronic hypercarbic respiratory failure Pulmonary edema Nicotine dependence Obesity Events: On vent support AC mode with RR 24, VT 500, PEEP 8 and FiO2 50% Taper FiO2 as tolerated. Continue abx WBC trending down. Sedated on Propofol, Fentanyl Off Levophed since this AM, hemodynamically stable.. Will plan for CPAP trial once FiO2 is 45% or less. Labs and imaging reviewed. Rest of plan as noted below. Plan: S/p intubation on mechanical ventilator AC mode with RR 24, VT 500, PEEP 8 and FiO2 50% Taper FiO2 as tolerated. Off pressors, hemodynamically stable. Sedated on Propofol, Fentanyl Continue antibiotics Steroids Incentive spirometry Pain control Avoid oversedation Accu-Cheks, ISS. Monitor renal function. Monitor electrolytes. Supplement as necessary. Monitor ins and outs. Smoking cessation discussed for greater than 10 minutes Diet and lifestyle modifications for weight reduction Obesity - complicates all care Protonix for GI prophylaxis DVT prophylaxis. Prognosis: Poor given patient's multiple co-morbidities. Condition: Critical Rest of plan per hospitalist and other consultants. A total of 35 minutes of critical care time was spent reviewing the patient record, examining the patient, making a diagnostic and therapeutic plan, discussing this plan with the medical personnel, following up on diagnostic studies and following the patient for clinical stability excluding any and all procedures. At least 50% of this time was spent in direct, [id number] contact. Thank you Dr. Erik Gil MD, for allowing me to participate in this patient's care. Further recommendations will depend on the patient's clinical course. Please do not hesitate to contact me if you have any questions or concerns. This medical document was created using an electronic medical record system with [employer] dictation system. Although these documentations are being carefully reviewed, there may still be some phonetic and typographical changes. The errors are purely typographical, due to imperfection on the software program, and do not reflect any compromise in the patient's medical care. Plan discussed with: Other (FLORENCE Jerez) Critical Care Time(min): 35 MARYJANE HILLS MD Mar 12, 2024 22:48
[2024-03-13] VITALS (72 sets, daily range): BP systolic 80–177; BP diastolic 48–122; PULSE 57–109; RESP 12–28; TEMP 97.9–98.5; O2SAT 89–98
[2024-03-13 06:06] LABS: Anion Gap 8 (5-15); Carbon Dioxide 26 mmol/L (20-31); Chloride 104 mmol/L (98-107); Potassium 3.8 mmol/L (3.5-5.1); Sodium 138 mmol/L (136-145)
[2024-03-13 06:07] LABS: Calcium 9.5 mg/dL (8.7-10.4)
[2024-03-13 06:11] LABS: Basophils # (auto) 0 10 ^3/uL (0-0.2); Basophils % (auto) 0.1 % (0.0-2.0); Eosinophils # (auto) 0 10 ^3/uL (0-0.8); Hematocrit 38.3 % (36.0-46.0); Lymphocytes # (auto) 0.7 10 ^3/uL (0.4-5.4); Lymphocytes % (auto) 4.6 % (10.0-50.0); Mean Corpuscular Hgb Conc. 33.9 g/dL (32.0-36.0); Mean Corpuscular Volume 100.4 fL (80.0-100.0); Monocytes # (auto) 0.6 10 ^3/uL (0-1.3); Monocytes % (auto) 4.4 % (0.0-12.0); Neutrophils % (auto) 90.9 % (37.0-80.0); Platelet Count (auto) 281 10^3/uL (140-450); Red Blood Cells 3.81 10^6/uL (4.0-5.20); Red Cell Distribution Width 13.3 % (11.8-14.3); White Blood Cell 14.3 10^3/uL (4.4-10.8)
--- NOTE | 2024-03-13 06:11 | DVH ---
CHEST RADIOGRAPH Indication: intubated Technique: Single frontal view of the chest was obtained Comparison: XY CHEST XRAY 1 VIEW on DOS: 03/12/24, XY CHEST XRAY 1 VIEW on DOS: 03/11/24, XY CHEST PORT ABLE on DOS: 03/10/24, XY CHEST XRAY 1 VIEW on DOS: 03/09/24, XY CHEST XRAY 1 VIEW on DOS: 03/08/24, XY CHEST XRAY 1 VIEW on DOS: 03/12/24 FINDINGS: There are low lung volumes. The heart appears stable in size. No focal airspace opacity, effusion, o r pneumothorax. Support lines and tubes appear unchanged in position. IMPRESSION: There are low lung volumes. The heart appears stable in size. No focal airspace opacity, effusion, o r pneumothorax. Support lines and tubes appear unchanged in position.
[2024-03-13 06:12] LABS: BUN/Creatinine Ratio 23.5 (10.0-20.0)
[2024-03-13 06:13] LABS: Magnesium 2.3 mg/dL (1.6-2.6)
[2024-03-13 06:17] LABS: Blood Urea Nitrogen 27 mg/dL (9-23); Glucose 160 mg/dL (74-106)
[2024-03-13 09:48] LABS: Base Excess -2.5 mmol/L (-2.0-3.0)
[2024-03-13 13:49] LABS: Base Excess -1.4 mmol/L (-2.0-3.0)
[2024-03-13 13:52] LABS: Base Excess -3.8 mmol/L (-2.0-3.0)
[2024-03-13] MEDS: PIPERACILLIN-TAZOB 3.375GM 100 ML IV SCH (15:56)
[2024-03-13] MEDS: hydrALAZINE HCL 20 MG/ML VL IV PRN (16:40)
--- NOTE | 2024-03-13 19:37 | DVHPN2 ---
Progress Note - Dictate Date Seen: Mar 13, 2024 Has the PT tested + for MRSA If YES, has PT been informed?: Yes Medical Necessity Reason Pt with a Central, PICC or Fol: Yes The following are medically ne: Central Line, Richardson Catheter Reason for richardson catheter: Strict I&O Subjective Patient seen and examined at bedside. S/p extubation, on high flow supplemental oxygen Overnight events reviewed. vital signs Vital Sign Date Time Temp Pulse Resp B/P (MAP) Pulse Ox O2 Delivery O2 Flow Rate FiO2 03/13/24 19:03 90 Hi-Flow Heated NC+ 50 40 40 03/13/24 19:00 99 12 156/85 (108) 03/13/24 17:00 98.4 98.4 Total Intake and Output 03/12/24 03/12/24 03/13/24 15:00 23:00 07:00 Intake Total 611.911 ml 733.376 ml 659.417 ml Output Total 825 ml 450 ml Balance 611.911 ml -91.624 ml 209.417 ml medications Current Medications Medications Dose Ordered Sig/Kinjal Route Start Time Stop Time Status Last Admin Dose Admin Azithromycin 250 ml @ 125 mls/hr DAILY@0100 IV 03/10/24 01:00 03/13/24 01:29 125 MLS/HR Aspirin 81 mg DAILY PO 03/09/24 10:00 03/13/24 07:57 81 MG Levothyroxine Sodium 75 mcg QAM@0600 PO 03/09/24 06:00 03/13/24 05:46 75 MCG Gabapentin 300 mg TID PO 03/09/24 06:00 03/13/24 10:23 300 MG Dextrose 50 ml UD PRN IV 03/09/24 01:30 Methylprednisolone Sodium Succinate 40 mg BID IV 03/09/24 10:00 03/13/24 07:56 40 MG Ipratropium [place] 0.5 mg Q4HWA NEB 03/09/24 10:00 03/13/24 18:13 0.5 MG Levalbuterol HCl 0.625 mg Q4HWA NEB 03/09/24 10:00 03/13/24 18:12 0.625 MG Fentanyl Citrate 250 ml @ 2.5 mls/hr Q24H IV 03/09/24 12:45 03/13/24 05:58 7.5 MLS/HR Pantoprazole Sodium 40 mg DAILY IV 03/10/24 10:00 03/12/24 21:01 40 MG Enoxaparin Sodium 30 mg DAILY SC 03/11/24 10:00 03/13/24 07:55 30 MG Diagnostic Test (Pha) 1 strip Q6H 03/11/24 00:00 03/13/24 17:04 1 STRIP Insulin Human Regular Q6H SC 03/11/24 00:00 03/13/24 05:57 2 UNITS Propofol 100 ml @ 2.709 mls/ hr Q24H IV 03/11/24 09:45 03/13/24 06:37 18.963 MLS/HR Lactulose 30 ml BIDPRN PRN GT 03/11/24 14:15 Docusate Sodium 100 mg BID GT 03/11/24 22:00 03/13/24 07:56 100 MG Enteral Nutritional Formula 1,000 ml 30ML/HR GT 03/11/24 15:45 03/11/24 21:44 1,000 ML Norepinephrine Bitartrate 250 ml @ 1.875 mls/ hr Q24H IV 03/11/24 15:45 03/11/24 22:08 5.625 MLS/HR Memantine 10 mg Q12HR PO 03/12/24 10:00 03/13/24 07:56 10 MG Piperacillin Sod/ Tazobactam Sod 100 ml @ 25 mls/hr Q8H IV 03/13/24 16:00 03/13/24 15:56 25 MLS/HR Hydralazine HCl 10 mg Q6HP PRN IV 03/13/24 16:15 03/13/24 16:40 10 MG objective Gen.: Patient lying in bed in no apparent distress. On supplemental oxygen. Head: Normocephalic, atraumatic. Eyes: EOMI/PERRLA. Ears: Normal hearing. Normal anatomy. Neck/trachea: Trachea midline, supple. Nose: Normal external anatomy. Mouth: Moist mucous membranes. Chest: Decreased air entry bilaterally. No wheezing or rhonchi. Cardiovascular: Positive S1, positive S2. Regular rate and rhythm. Abdomen: Positive bowel sounds in all 4 quadrants. Soft, non-tender, non- distended. : Deferred. Rectal: Deferred. Skin: Warm, dry. Intact. Extremities: 2+ radial pulses bilaterally. No lower extremity edema. Neuro: Awake, alert, oriented x3. No gross motor or sensory deficits. Cranial nerves II through XII intact. Gait not assessed. laboratory and microbiology Laboratory Tests 03/13/24 05:32 Test 03/13/24 05:32 Range/Units Serum Glucose 160 H 74-106 mg/dL Assessment/Plan Impression: Acute on chronic hypercarbic respiratory failure Pulmonary edema Nicotine dependence Obesity Events: Patient is s/p extubation On high flow O2 at flow rate 50 LPM, FiO2 40%. Head of bed elevation Aspiration precautions Continue bronchodilators Continue abx WBC trending down. Off Levophed since 03/12/24, hemodynamically stable.. Swallow eval/PT eval. Labs and imaging reviewed. Rest of plan as noted below. Plan: Patient is s/p extubation On high flow O2 at flow rate 50 LPM, FiO2 40%. Off pressors, hemodynamically stable. Off sedation Continue antibiotics Steroids Incentive spirometry Pain control Avoid oversedation Accu-Cheks, insulin sliding scale PRN. Monitor renal function. Monitor electrolytes. Supplement as necessary. Monitor ins and outs. Smoking cessation discussed for greater than 10 minutes Diet and lifestyle modifications for weight reduction Obesity - complicates all care Protonix for GI prophylaxis DVT prophylaxis. Prognosis: Poor given patient's multiple co-morbidities. Condition: Critical Rest of plan per hospitalist and other consultants. A total of 35 minutes of critical care time was spent reviewing the patient record, examining the patient, making a diagnostic and therapeutic plan, discussing this plan with the medical personnel, following up on diagnostic studies and following the patient for clinical stability excluding any and all procedures. At least 50% of this time was spent in direct, [id number] contact. Thank you Dr. Erik Gil MD, for allowing me to participate in this patient's care. Further recommendations will depend on the patient's clinical course. Please do not hesitate to contact me if you have any questions or concerns. This medical document was created using an electronic medical record system with [employer]ation system. Although these documentations are being carefully reviewed, there may still be some phonetic and typographical changes. The errors are purely typographical, due to imperfection on the software program, and do not reflect any compromise in the patient's medical care. Plan discussed with: Other (RN Meri) Critical Care Time(min): 35 MARYJANE HILLS MD Mar 13, 2024 19:37
--- NOTE | 2024-03-13 20:52 | DVHPN2 ---
Subjective This is a 73-year-old obese woman with past medical history of COPD (on 2 L of of oxygen at home), CKD 2, dementia, prediabetes, dyslipidemia, hypertension, hypothyroidism, presented to the hospital with shortness of breaths, cough and wheezing for 1 week. Has history of recurrent hospital admission due to COPD exacerbation and noncompliant to the medicine. Admitted on 03/08. Put on BiPAP on 03/09. Intubated on 03/09. Today patient is seen and examined at the bedside. Patient is sedated and on mechanical ventilation. Review of systems could not obtain. Changes from previous H/P or p: No Changes Objective Vitals Vital Signs Date Time Temp Pulse Resp B/P (MAP) Pulse Ox O2 Delivery O2 Flow Rate FiO2 03/13/24 20:00 97 03/13/24 20:00 20 91 Hi-Flow Heated NC+ 50 55 55 03/13/24 19:00 156/85 (108) 03/13/24 17:00 98.4 98.4 Intake/Output Intake and Output 03/13/24 05:00 Intake Total 2037.413 ml Output Total 1325 ml Balance 712.413 ml Intake Oral 190 ml IV Total 1457.413 ml Tube Feeding 390 ml Output Urine Total 1325 ml Medications Current Medications Medications Dose Ordered Sig/Kinjal Route Start Time Stop Time Status Last Admin Dose Admin Azithromycin 250 ml @ 125 mls/hr DAILY@0100 IV 03/10/24 01:00 03/13/24 01:29 125 MLS/HR Aspirin 81 mg DAILY PO 03/09/24 10:00 03/13/24 07:57 81 MG Levothyroxine Sodium 75 mcg QAM@0600 PO 03/09/24 06:00 03/13/24 05:46 75 MCG Gabapentin 300 mg TID PO 03/09/24 06:00 03/13/24 10:23 300 MG Dextrose 50 ml UD PRN IV 03/09/24 01:30 Methylprednisolone Sodium Succinate 40 mg BID IV 03/09/24 10:00 03/13/24 07:56 40 MG Ipratropium [place] 0.5 mg Q4HWA NEB 03/09/24 10:00 03/13/24 18:13 0.5 MG Levalbuterol HCl 0.625 mg Q4HWA NEB 03/09/24 10:00 03/13/24 18:12 0.625 MG Fentanyl Citrate 250 ml @ 2.5 mls/hr Q24H IV 03/09/24 12:45 03/13/24 05:58 7.5 MLS/HR Pantoprazole Sodium 40 mg DAILY IV 03/10/24 10:00 03/12/24 21:01 40 MG Enoxaparin Sodium 30 mg DAILY SC 03/11/24 10:00 03/13/24 07:55 30 MG Diagnostic Test (Pha) 1 strip Q6H 03/11/24 00:00 03/13/24 17:04 1 STRIP Insulin Human Regular Q6H SC 03/11/24 00:00 03/13/24 05:57 2 UNITS Propofol 100 ml @ 2.709 mls/ hr Q24H IV 03/11/24 09:45 03/13/24 06:37 18.963 MLS/HR Lactulose 30 ml BIDPRN PRN GT 03/11/24 14:15 Docusate Sodium 100 mg BID GT 03/11/24 22:00 03/13/24 07:56 100 MG Enteral Nutritional Formula 1,000 ml 30ML/HR GT 03/11/24 15:45 03/11/24 21:44 1,000 ML Norepinephrine Bitartrate 250 ml @ 1.875 mls/ hr Q24H IV 03/11/24 15:45 03/11/24 22:08 5.625 MLS/HR Memantine 10 mg Q12HR PO 03/12/24 10:00 03/13/24 07:56 10 MG Piperacillin Sod/ Tazobactam Sod 100 ml @ 25 mls/hr Q8H IV 03/13/24 16:00 03/13/24 15:56 25 MLS/HR Hydralazine HCl 10 mg Q6HP PRN IV 03/13/24 16:15 03/13/24 16:40 10 MG Laboratory Results Laboratory Tests 03/13/24 05:32 Chemistry Test 03/13/24 05:32 Calcium Level 9.5 mg/dL (8.7-10.4) Magnesium Level 2.3 mg/dL (1.6-2.6) Urinalysis Test 03/09/24 15:10 Urine Color Yellow (Yellow) Urine Clarity Turbid (Clear) H Urine pH 5.5 (5.0-9.0) Urine Specific [place] 1.025 (1.001-1.035) Urine Protein 1+ (Negative) H Urine Ketones Negative (Negative) Urine Blood 2+ /uL (Negative) H Urine Nitrite Negative (Negative) Urine Bilirubin Negative (Negative) Urine Urobilinogen 2 mg/dL (Negative) H Urine Leukocyte Esterase Negative /uL (Negative) Urine RBC 58 /hpf (0 - 4) Urine WBC 13 /hpf (0 - 5) Urine Squamous Epithelial Cells Few /hpf (<5) Urine Bacteria Few /hpf (None Seen) H Urine Mucus Few (None Seen) Urine Glucose Normal mg/dL (Normal) Blood Gas Results Test 03/13/24 08:06 03/13/24 10:58 03/13/24 13:27 Arterial Blood pH 7.343 (7.350-7.450) 7.290 (7.350-7.450) 7.383 (7.350-7.450) FiO2 % 45.0 40.0 40.0 Microbiology Microbiology Date/Time Source Procedure Growth Status 03/09/24 15:19 Blood Blood Culture - Preliminary NO GROWTH AFTER 72 HOURS OF INCUBATION. Resulted 03/09/24 15:10 Voided Urine Urine Culture - Final Complete 03/09/24 14:32 Nose MRSA Screen - Final Complete 03/09/24 14:15 Sputum Gram Stain - Final Complete 03/09/24 14:15 Sputum Respiratory Culture - Final Complete Assessment/Plan Assessment/Plan This is a 73-year-old obese woman with past medical history of COPD (on 2 L of of oxygen at home), CKD 2, dementia, prediabetes, dyslipidemia, hypertension, hypothyroidism, presented to the hospital with shortness of breaths, cough and wheezing for 1 week. Has history of recurrent hospital admission due to COPD exacerbation and noncompliant to the medicine. Admitted on 03/08. Put on BiPAP on 03/09. Intubated on 03/09. NEURO: Acute metabolic encephalopathy, likely due to respiratory failure Patient is sedated and on mechanical ventilation, RASS score -4 History of dementia Continue memantine CARDIOVASCULAR: Echocardiogram from 03/09 shows LVEF 55% with grade 1 diastolic dysfunction History of hypertension Discontinue antihypertensive medication, given septic shock of PULMONARY: Acute on chronic hypoxic and hypercapnic respiratory failure likely due to COPD exacerbation/pneumonia Acute COPD exacerbation likely emphysematous type Pneumonia, likely due to Gram-positive Gram-negative Respiratory Acidosis Current cigarette smoker Chest CT from 03/08 scan shows right lower lobe pneumonia with severe centrilobular emphysema Patient is sedated and on mechanical ventilation with a setting of VT 500, RR 24, peep 8 and FiO2 65% Chest x-ray shows bilateral lower zone infiltration, with a hyperinflated lung, same to previous film ABGs shows respiratory acidosis with partial metabolic compensation Discontinue cefepime, used for 3 days Discontinue vancomycin, used for 2 days Start Zosyn, started at 03/11 Continue azithromycin(started at 03/09) Continue methylprednisolone 40 mg b.i.d., started at 03/09 Continue breathing treatment q.4 hr GASTROINTESTINAL: GENITOURINARY: Acute on CKD grade 2, likely hemodynamically mediated, improving Continue normal saline at 75 mL/hours Check FENa UTI, unspecified location Urinalysis shows UTI picture Urine culture, preliminary result shows no growth ENDOCRINE: Hypothyroidism TSH is 6.37, free T4 is 058, free T3 is 1.68 Continue levothyroxine 75 mcg daily Prediabetes, HGB A1c 5.7 Hyperglycemia Accu-Chek q.6 hours Insulin mild sliding scale METABOLIC: Hyperlipidemia, continue rosuvastatin Hypokalemia, supplement HEME: Chest CT angiogram at 03/08 is negative for PE Doppler ultrasound of lower limb at 03/09 is negative for DVT INFECTIOUS DISEASE: Septic shock, likely due to pneumonia/UTI Panculture (blood, urine and sputum), result after 24 hour culture shows no growth MRSA nares is negative and discontinued vancomycin COVID-19 and flu is negative DIET: Nepro at 30 mL/hour DVT prophylax: Lovenox 40 mg GI prophylaxis: Protonix 40 mg IV Bowel regimen: Lactulose 30 mL b.i.d., Colace 200 mg b.i.d. Code status: Full code LINES/DRAINS/ACCESS: ETT: Intubated on 03/09 IV access: Right internal jugular CVC, placed on 03/09 Left antecubital peripheral line, placed on 03/09 Drips: Fentanyl 150 Propofol Levophed 6 Henderson catheter: Transurethral Henderson catheter, placed on 03/09 DISPOSITION: ICU status Patient's status discussed with daughters at the bedside. Critical care time spent more than 73 minutes, including patient care, chart review, and updating the family. Excluding any procedures. Plan discussed with: Other (nurse) Date of Service: Mar 13, 2024 Billing Provider: SONYA DENNY MD Common Visit Codes: [id number] CARE 30-74 MIN SONYA DENNY MD Mar 13, 2024 20:52
[2024-03-14] VITALS (35 sets, daily range): BP systolic 108–176; BP diastolic 61–103; PULSE 64–108; RESP 2–25; TEMP 98.4–99.1; O2SAT 84–96
[2024-03-14 05:09] LABS: Red Blood Cells 4.08 10^6/uL (4.0-5.20); White Blood Cell 11.4 10^3/uL (4.4-10.8)
[2024-03-14 05:12] LABS: Hematocrit 40.6 % (36.0-46.0); Hemoglobin 13.8 g/dL (12.2-16.2); Mean Corpuscular Hemoglobin 33.8 pg (28.0-32.0); Mean Corpuscular Volume 99.5 fL (80.0-100.0); Platelet Count (auto) 266 10^3/uL (140-450)
[2024-03-14 05:19] LABS: Potassium 3.8 mmol/L (3.5-5.1)
[2024-03-14 05:20] LABS: Anion Gap 6 (5-15)
[2024-03-14 05:21] LABS: Calcium 9.3 mg/dL (8.7-10.4)
[2024-03-14 05:26] LABS: BUN/Creatinine Ratio 23.5 (10.0-20.0); Magnesium 2.1 mg/dL (1.6-2.6)
[2024-03-14 05:30] LABS: Blood Urea Nitrogen 24 mg/dL (9-23); Carbon Dioxide 32 mmol/L (20-31); Chloride 109 mmol/L (98-107); Glucose 116 mg/dL (74-106); Sodium 147 mmol/L (136-145)
[2024-03-14 05:50] LABS: Band Neutrophils % (manual) 0; Basophils % (manual) 0 (0.0-2.0); Blast Cells 0; Eosinophils % (manual) 0 (0-7); Metamyelocytes % 0; Myelocytes % 0; Promyelocytes % 0; Reactive Lymphocytes 0
[2024-03-14 08:16] LABS: Lymphocytes % (manual) 10 (10.0-50.0); Monocytes % (manual) 6 (0-12); Platelet Estimate Adequate
[2024-03-14] MEDS ORDERED: ACETAMINOPHEN 650 mg PER 20.3 mL UD PO PRN (08:45)
--- NOTE | 2024-03-14 09:19 | DVH ---
CHEST RADIOGRAPH Indication: Pneumonia Technique: Single frontal view of the chest was obtained Comparison: XY CHEST PORTABLE on DOS: 03/13/24, XY CHEST XRAY 1 VIEW on DOS: 03/12/24, XY CHEST XRAY 1 VIEW on DOS: 03/11/24, XY CHEST PORTABLE on DOS: 03/10/24, XY CHEST XRAY 1 VIEW on DOS: 03/09/24, XY [facility] PORTABLE on DOS: 03/13/24 FINDINGS: There are low lung volumes. The heart appears stable in size. No focal airspace opacity, effusion, o r pneumothorax. Endotracheal tube and nasogastric tube have been removed IMPRESSION: Endotracheal tube and nasogastric tube have been removed. Otherwise no interval change.
[2024-03-14] MEDS: amLODIPine BESYLATE 5 MG TAB PO SCH (09:32)
--- NOTE | 2024-03-14 10:19 | MEDREC ---
[facility] ASP Intervention Section I [facility] ASP Intervention: Review courses of therapy (6 DAYS ON AZITHROMYCIN - RECOMMENDED DURATION OF TREATMENT FOR COPD EXACERBATION 3 -5 DAYS PLEASE CONSIDER D/C AZITHROMYCIN IF PATIENT CLINICALLY STABLE ) WON MEDINA PHARMACIST Mar 14, 2024 10:19
[2024-03-14 10:58] LABS: Base Excess 2.6 mmol/L (-2.0-3.0)
[2024-03-14] MEDS: MORPHINE SULF 15mg ER tab PO SCH (13:27)
[2024-03-14] MEDS: FUROSEMIDE 20 MG/2 ML VIAL IV ONE (16:37)
[2024-03-14] MEDS: FUROSEMIDE 40 MG/4 ML VIAL ONE (16:39)
--- NOTE | 2024-03-14 19:24 | DVHPNRES ---
Progress Note Date Seen: Mar 14, 2024 Resident Creating Document: BLAKE REYES RESDIENT Has the PT tested + for MRSA If YES, has PT been informed?: Yes Medical Necessity Reason Pt with a Central, PICC or Fol: Yes The following are medically ne: Central Line, Richardson Catheter Reason for richardson catheter: Strict I&O Subjective Review of Systems This is a 73-year-old obese woman with past medical history of COPD (on 2 L of of oxygen at home), CKD 2, dementia, prediabetes, dyslipidemia, hypertension, hypothyroidism, presented to the hospital with shortness of breaths, cough and wheezing for 1 week. Has history of recurrent hospital admission due to COPD exacerbation and noncompliant to the medicine. Admitted on 03/08. Put on BiPAP on 03/09. Intubated on 03/09. Today patient is seen and examined at the bedside. Patient is on high-flow nasal cannula with 50 L of O2 per minute with FiO2 (55%). Objective vital signs Vital Sign Date Time Temp Pulse Resp B/P (MAP) Pulse Ox O2 Delivery O2 Flow Rate FiO2 03/14/24 18:29 79 12 94 40.0 50 03/14/24 18:00 Hi-Flow Heated NC+ 03/14/24 16:37 161/91 03/14/24 16:00 98.8 98.8 Total Intake and Output 03/13/24 03/13/24 03/14/24 15:00 23:00 07:00 Intake Total 87.918 ml 235 ml 350 ml Output Total 1200 ml 2800 ml Balance 87.918 ml -965 ml -2450 ml medications Current Medications Medications Dose Ordered Sig/Kinjal Route Start Time Stop Time Status Last Admin Dose Admin Azithromycin 250 ml @ 125 mls/hr DAILY@0100 IV 03/10/24 01:00 03/14/24 01:00 125 MLS/HR Aspirin 81 mg DAILY PO 03/09/24 10:00 03/14/24 09:32 81 MG Levothyroxine Sodium 75 mcg QAM@0600 PO 03/09/24 06:00 03/13/24 05:46 75 MCG Gabapentin 300 mg TID PO 03/09/24 06:00 03/14/24 13:32 300 MG Dextrose 50 ml UD PRN IV 03/09/24 01:30 Methylprednisolone Sodium Succinate 40 mg BID IV 03/09/24 10:00 03/14/24 09:31 40 MG Ipratropium [place] 0.5 mg Q4HWA [facility] 03/09/24 10:00 03/14/24 18:29 0.5 MG Levalbuterol HCl 0.625 mg Q4HWA [facility] 03/09/24 10:00 03/14/24 18:29 0.625 MG Pantoprazole Sodium 40 mg DAILY IV 03/10/24 10:00 03/14/24 09:31 40 MG Enoxaparin Sodium 30 mg DAILY SC 03/11/24 10:00 03/14/24 09:33 30 MG Diagnostic Test (Pha) 1 strip Q6H 03/11/24 00:00 03/14/24 17:32 1 STRIP Insulin Human Regular Q6H SC 03/11/24 00:00 03/14/24 11:46 2 UNITS Lactulose 30 ml BIDPRN PRN GT 03/11/24 14:15 Docusate Sodium 100 mg BID GT 03/11/24 22:00 03/14/24 09:31 100 MG Memantine 10 mg Q12HR PO 03/12/24 10:00 03/14/24 09:32 10 MG Piperacillin Sod/ Tazobactam Sod 100 ml @ 25 mls/hr Q8H IV 03/13/24 16:00 03/14/24 15:42 25 MLS/HR Hydralazine HCl 10 mg Q6HP PRN IV 03/13/24 16:15 03/14/24 12:23 10 MG Acetaminophen 650 mg Q6HP PRN PO 03/14/24 08:45 Amlodipine Besylate 10 mg DAILY PO 03/14/24 10:00 03/14/24 09:32 10 MG Morphine Sulfate 15 mg QID PO 03/14/24 13:15 03/14/24 18:13 15 MG Examination General: RASS 0, afebrile, mucosae are moist Cardiovascular: Normal S1 and S2. No murmurs, gallops or rubs Respiratory: On high-flow oxygen through nasal cannula, equal bilateral airway entree. Bilateral rhonchi Abdomen: Soft, nontender, no organomegaly, normal bowel sounds MSK/skin: Mobilization of limbs cannot be evaluated. Skin is dry and warm. Neurological: No apparent motor no sensitive deficits. Pupils are isocoric and reactive laboratory and microbiology Laboratory Tests 03/14/24 04:30 Test 03/14/24 04:30 Range/Units Serum Glucose 116 H 74-106 mg/dL Microbiology Date/Time Source Procedure Growth Status 03/09/24 15:19 Blood Blood Culture - Final NO GROWTH AFTER 5 DAYS OF INCUBATION. Complete 03/09/24 15:10 Voided Urine Urine Culture - Final Complete 03/09/24 14:32 Nose MRSA Screen - Final Complete 03/09/24 14:15 Sputum Gram Stain - Final Complete 03/09/24 14:15 Sputum Respiratory Culture - Final Complete Labs and/or images reviewed: Labs reviewed by me, Image(s) reviewed by me Problem List/Assessment/Plan Problem List/Assessment/Plan This is a 73-year-old obese woman with past medical history of COPD (on 2 L of of oxygen at home), CKD 2, dementia, prediabetes, dyslipidemia, hypertension, hypothyroidism, presented to the hospital with shortness of breaths, cough and wheezing for 1 week. Has history of recurrent hospital admission due to COPD exacerbation and noncompliant to the medicine. Admitted on 03/08. Put on BiPAP on 03/09. Intubated on 03/09. Extubated on 03/13. NEURO: Acute metabolic encephalopathy, likely due to respiratory failure Patient is on high-flow oxygen through nasal cannula(40 L), RASS score is 0 History of dementia Continue memantine CARDIOVASCULAR: Echocardiogram from 03/09 shows LVEF 55% with grade 1 diastolic dysfunction History of hypertension Resume amlodipine 10 mg daily Injection Lasix 20 mg once PULMONARY: Acute on chronic hypoxic and hypercapnic respiratory failure likely due to COPD exacerbation/pneumonia Acute COPD exacerbation likely emphysematous type Pneumonia, likely due to Gram-positive Gram-negative Respiratory Acidosis Current cigarette smoker Chest CT from 03/08 scan shows right lower lobe pneumonia with severe centrilobular emphysema [place] culture from 03/09 is negative Influenza type a, B, COVID-19, MRSA screening are negative, and discontinued vancomycin, used for 2 days Discontinued cefepime, used for 3 days CPAP trial performed yesterday, with weaning criteria of RSBI 30, NIF-27, 300, with patient being alert, and patient was extubated successfully on 03/13 Chest x-ray shows bilateral lower zone infiltration, with a hyperinflated lung, same to previous film ABGs shows respiratory acidosis with partial metabolic compensation Continue Zosyn, started at 03/11 Continue azithromycin(started at 03/09) Continue methylprednisolone 40 mg b.i.d., started at 03/09 Continue breathing treatment q.4 hr GASTROINTESTINAL: GENITOURINARY: Acute on CKD grade 2, likely hemodynamically mediated, improving Continue normal saline at 75 mL/hours Check FENa UTI, unspecified location Urinalysis shows UTI picture Urine culture, preliminary result shows no growth ENDOCRINE: Hypothyroidism TSH is 6.37, free T4 is 058, free T3 is 1.68 Continue levothyroxine 75 mcg daily Prediabetes, HbA1c 5.7 Hyperglycemia Accu-Chek q.6 hours Insulin mild sliding scale METABOLIC: Hyperlipidemia, continue rosuvastatin Hypokalemia, supplement Hypernatremia, monitoring Hyperchloremia, monitoring HEME: Chest CT angiogram at 03/08 is negative for PE Doppler ultrasound of lower limb at 03/09 is negative for DVT INFECTIOUS DISEASE: Septic shock, likely due to pneumonia/UTI Panculture (blood, urine and sputum), result after 24 hour culture shows no growth MRSA nares is negative and discontinued vancomycin COVID-19 and flu is negative MUSCULOSKELETAL: Chronic body pain Resume Morphine sulfate 15 mg q.i.d. p.o. Gabapentin 300 mg t.i.d. DIET: Full liquid diet DVT prophylax: Lovenox 30 mg daily GI prophylaxis: Protonix 40 mg po daily Bowel regimen: Lactulose 30 mL b.i.d., Colace 200 mg b.i.d. Code status: Full code PT/OT/BURIAL NEEDS SALESPERSON: Patient could tolerate fluid, started full liquid diet PT evaluation Chest percussion therapy LINES/DRAINS/ACCESS: ETT: Intubated on 03/09, extubated on 03/13 IV access: Right internal jugular CVC, placed on 03/09 Left antecubital peripheral line, placed on 03/09 Drips: No pressors Richardson catheter: Transurethral Richardson catheter, placed on 03/09 DISPOSITION: ICU status Patient's status discussed with the patient, tried to contact the daughter but could not reached out. Critical care time spent more than 61 minutes, including patient care, chart review, and updating the family. Excluding any procedures. Case discussed with Dr. Bhakta Plan discussed with: Patient, Other (RN) My Orders My Orders Orders - BLAKE REYES RESDIENT Procedure Category Date Status Time Chest Xray 1 View XY 03/14/24 Resulted 08:13 Acetaminophen PHA 03/14/24 In Process Solution Oral 08:45 Amlodipine Tablet PHA 03/14/24 In Process (Norvasc Tablet) 10:00 Abg W/ Co-Ox RT 03/14/24 Logged 10:07 Morphine Extended PHA 03/14/24 In Process Release Tab (Oramorph 13:15 Comprehensive LAB 03/15/24 Verified Metabolic Panel 04:00 Complete Blood Count LAB 03/15/24 Verified 04:00 Chest Xray 1 View XY 03/15/24 Logged 04:00 Dietary Evaluation Review Comments: Advance diet to CCHO-60g when medically feasible. Monitor PO intake to meet 75% of her needs. Expected Outcomes/Goals: controlled DM/ blood sugar, gradual weight loss. Date of Service: Mar 14, 2024 Billing Provider: MIKAYLA BHAKTA MD Common Visit Codes: [id number] CARE 30-74 MIN BLAKE REYES RESDIENT Mar 14, 2024 19:24 MIKAYLA BHAKTA MD Mar 15, 2024 16:42
[2024-03-15] VITALS (37 sets, daily range): BP systolic 111–149; BP diastolic 62–96; PULSE 56–89; RESP 11–22; TEMP 98.2–99.2; O2SAT 87–95
--- NOTE | 2024-03-15 05:07 | DVH ---
CHEST RADIOGRAPH Indication: Pneumonia Technique: Single frontal view of the chest was obtained Comparison: XY CHEST XRAY 1 VIEW on DOS: 03/14/24, XY CHEST PORTABLE on DOS: 03/13/24, XY CHEST XRAY 1 VIEW on DOS: 03/12/24 IMPRESSION: 1. Examination is limited by technique and over penetration. 2. The heart appears stable in size. The right lung appears relatively clear with interstitial promi nence and mild pulmonary vascular congestion. Possible airspace opacity in the right lower lung. The left lower lung is excluded from this examination. No discrete pneumothorax. Right IJ catheter unch anged in satisfactory position.
[2024-03-15 05:24] LABS: Hemoglobin 14.3 g/dL (12.2-16.2); Mean Corpuscular Hemoglobin 34.2 pg (28.0-32.0)
[2024-03-15 05:28] LABS: Hematocrit 41.5 % (36.0-46.0); Mean Corpuscular Hgb Conc. 34.5 g/dL (32.0-36.0); Mean Corpuscular Volume 99.2 fL (80.0-100.0); Platelet Count (auto) 251 10^3/uL (140-450); Red Blood Cells 4.18 10^6/uL (4.0-5.20); White Blood Cell 9.6 10^3/uL (4.4-10.8)
[2024-03-15 05:35] LABS: Alanine Aminotransferase 36 U/L (7-40); Alkaline Phosphatase 57 U/L (46-116); Anion Gap 7 (5-15); BUN/Creatinine Ratio 26.9 (10.0-20.0); Calcium 9.4 mg/dL (8.7-10.4); Chloride 102 mmol/L (98-107); Potassium 3.8 mmol/L (3.5-5.1); Sodium 144 mmol/L (136-145)
[2024-03-15 05:36] LABS: Albumin 3.6 g/dL (3.2-4.8); Band Neutrophils % (manual) 0; Basophils % (manual) 0 (0.0-2.0); Blast Cells 0; Eosinophils % (manual) 0 (0-7); Metamyelocytes % 0; Myelocytes % 0; Promyelocytes % 0; Reactive Lymphocytes 0
[2024-03-15 05:37] LABS: Aspartate Aminotransferase 21 U/L (13-40); Bilirubin, Total 0.5 mg/dL (0.2-1.0)
[2024-03-15] MEDS: PANTOPRAZOLE 40 MG TAB PO SCH (05:51)
[2024-03-15 05:52] LABS: Blood Urea Nitrogen 29 mg/dL (9-23); Carbon Dioxide 35 mmol/L (20-31); Glucose 155 mg/dL (74-106); Total Protein 5.5 g/dL (5.7-8.2)
[2024-03-15 08:45] LABS: Lymphocytes % (manual) 20 (10.0-50.0); Monocytes % (manual) 3 (0-12)
[2024-03-15 08:46] LABS: Platelet Estimate Adequate
--- NOTE | 2024-03-15 18:44 | DVHPNRES ---
Progress Note Date Seen: Mar 15, 2024 Resident Creating Document: BLAKE REYES RESDIENT Has the PT tested + for MRSA If YES, has PT been informed?: Yes Medical Necessity Reason Pt with a Central, PICC or Fol: Yes The following are medically ne: Central Line, Richardson Catheter Reason for richardson catheter: Strict I&O Subjective Review of Systems This is a 73-year-old obese woman with past medical history of COPD (on 2 L of of oxygen at home), CKD 2, dementia, prediabetes, dyslipidemia, hypertension, hypothyroidism, presented to the hospital with shortness of breaths, cough and wheezing for 1 week. Has history of recurrent hospital admission due to COPD exacerbation and noncompliant to the medicine. Admitted on 03/08. Put on BiPAP on 03/09. Intubated on 03/09. Today patient is seen and examined at the bedside. Patient is on 5 lit O2 through nasal canula. Patient reports: No new complaints, Feels better Changes from previous H/P or p: Changes Objective vital signs Vital Sign Date Time Temp Pulse Resp B/P (MAP) Pulse Ox O2 Delivery O2 Flow Rate FiO2 03/15/24 18:00 15 89 Nasal Cannula* 5 40 03/15/24 18:00 83 115/70 (85) 03/15/24 16:00 99.2 99.2 Total Intake and Output 03/14/24 03/14/24 03/15/24 15:00 23:00 07:00 Intake Total 100 ml 1050 ml 950 ml Output Total 3850 ml 575 ml Balance 100 ml -2800 ml 375 ml medications Current Medications Medications Dose Ordered Sig/Kinjal Route Start Time Stop Time Status Last Admin Dose Admin Aspirin 81 mg DAILY PO 03/09/24 10:00 03/15/24 09:11 81 MG Levothyroxine Sodium 75 mcg QAM@0600 PO 03/09/24 06:00 03/15/24 05:52 75 MCG Gabapentin 300 mg TID PO 03/09/24 06:00 03/15/24 13:29 300 MG Dextrose 50 ml UD PRN IV 03/09/24 01:30 Ipratropium [place] 0.5 mg Q4HWA NEB 03/09/24 10:00 03/15/24 14:21 0.5 MG Levalbuterol HCl 0.625 mg Q4HWA [facility] 03/09/24 10:00 03/15/24 14:22 0.625 MG Enoxaparin Sodium 30 mg DAILY SC 03/11/24 10:00 03/15/24 09:11 30 MG Diagnostic Test (Pha) 1 strip Q6H 03/11/24 00:00 03/15/24 18:09 1 STRIP Insulin Human Regular Q6H SC 03/11/24 00:00 03/15/24 18:10 2 UNITS Lactulose 30 ml BIDPRN PRN GT 03/11/24 14:15 Docusate Sodium 100 mg BID GT 03/11/24 22:00 03/14/24 21:55 100 MG Memantine 10 mg Q12HR PO 03/12/24 10:00 03/15/24 09:10 10 MG Piperacillin Sod/ Tazobactam Sod 100 ml @ 25 mls/hr Q8H IV 03/13/24 16:00 03/15/24 15:29 25 MLS/HR Hydralazine HCl 10 mg Q6HP PRN IV 03/13/24 16:15 03/14/24 12:23 10 MG Acetaminophen 650 mg Q6HP PRN PO 03/14/24 08:45 Amlodipine Besylate 10 mg DAILY PO 03/14/24 10:00 03/15/24 09:18 10 MG Morphine Sulfate 15 mg QID PO 03/14/24 13:15 03/15/24 18:24 15 MG Pantoprazole Sodium 40 mg DAILY@0600 PO 03/15/24 06:00 03/15/24 05:51 40 MG Prednisone 40 mg DAILY PO 03/16/24 10:00 UNV Azithromycin 500 mg DAILY PO 03/16/24 10:00 UNV Examination General: RASS 0, afebrile, mucosae are moist Cardiovascular: Normal S1 and S2. No murmurs, gallops or rubs Respiratory: On high-flow oxygen through nasal cannula, equal bilateral airway entree. Bilateral rhonchi Abdomen: Soft, nontender, no organomegaly, normal bowel sounds MSK/skin: Mobilization of limbs cannot be evaluated. Skin is dry and warm. Neurological: No apparent motor no sensitive deficits. Pupils are isocoric and reactive laboratory and microbiology Laboratory Tests 03/15/24 04:52 Test 03/15/24 04:52 Range/Units Serum Glucose 155 H 74-106 mg/dL Microbiology Date/Time Source Procedure Growth Status 03/09/24 15:19 Blood Blood Culture - Final NO GROWTH AFTER 5 DAYS OF INCUBATION. Complete 03/09/24 15:10 Voided Urine Urine Culture - Final Complete 03/09/24 14:32 Nose MRSA Screen - Final Complete 03/09/24 14:15 Sputum Gram Stain - Final Complete 03/09/24 14:15 Sputum Respiratory Culture - Final Complete Labs and/or images reviewed: Labs reviewed by me, Image(s) reviewed by me Problem List/Assessment/Plan Problem List/Assessment/Plan This is a 73-year-old obese woman with past medical history of COPD (on 2 L of of oxygen at home), CKD 2, dementia, prediabetes, dyslipidemia, hypertension, hypothyroidism, presented to the hospital with shortness of breaths, cough and wheezing for 1 week. Has history of recurrent hospital admission due to COPD exacerbation and noncompliant to the medicine. Admitted on 03/08. Put on BiPAP on 03/09. Intubated on 03/09. Extubated on 03/13. NEURO: Acute metabolic encephalopathy, likely due to respiratory failure Patient is on high-flow oxygen through nasal cannula(40 L), RASS score is 0 History of dementia Continue memantine CARDIOVASCULAR: Echocardiogram from 03/09 shows LVEF 55% with grade 1 diastolic dysfunction History of hypertension Resume amlodipine 10 mg daily PULMONARY: Acute on chronic hypoxic and hypercapnic respiratory failure likely due to COPD exacerbation/pneumonia Acute COPD exacerbation likely emphysematous type Pneumonia, likely due to Gram-positive Gram-negative Respiratory Acidosis Current cigarette smoker Chest CT from 03/08 scan shows right lower lobe pneumonia with severe centrilobular emphysema Webber culture from 03/09 is negative Influenza type a, B, COVID-19, MRSA screening are negative, and discontinued vancomycin, used for 2 days Discontinued cefepime, used for 3 days CPAP trial performed yesterday, with weaning criteria of RSBI 30, NIF-27, 300, with patient being alert, and patient was extubated successfully on 03/13 Chest x-ray shows bilateral lower zone infiltration, with a hyperinflated lung, same to previous film ABGs shows respiratory acidosis with partial metabolic compensation Continue Zosyn, started at 03/11 changed azithromycin IV to oral(started at 03/09) Discontinue methylprednisolone 40 mg b.i.d., used for 7 days Started prednisone 40 mg daily Continue breathing treatment q.4 hr GASTROINTESTINAL: GENITOURINARY: Acute on CKD grade 2, likely hemodynamically mediated, improving Continue normal saline at 75 mL/hours Check FENa UTI, unspecified location Urinalysis shows UTI picture Urine culture, preliminary result shows no growth ENDOCRINE: Hypothyroidism TSH is 6.37, free T4 is 058, free T3 is 1.68 Continue levothyroxine 75 mcg daily Prediabetes, HbA1c 5.7 Hyperglycemia Accu-Chek q.6 hours Insulin mild sliding scale METABOLIC: Hyperlipidemia, continue rosuvastatin Hypokalemia, supplement Hypernatremia, monitoring Hyperchloremia, monitoring HEME: Chest CT angiogram at 03/08 is negative for PE Doppler ultrasound of lower limb at 03/09 is negative for DVT INFECTIOUS DISEASE: Septic shock, likely due to pneumonia/UTI Panculture (blood, urine and sputum), result after 24 hour culture shows no growth MRSA nares is negative and discontinued vancomycin COVID-19 and flu is negative MUSCULOSKELETAL: Chronic body pain Resume Morphine sulfate 15 mg q.i.d. p.o. Gabapentin 300 mg t.i.d. DIET: Regular diet DVT prophylax: Lovenox 30 mg daily GI prophylaxis: Protonix 40 mg po daily Bowel regimen: Lactulose 30 mL b.i.d., Colace 200 mg b.i.d. Code status: Full code PT/OT/SECURITY SITE SUPERVISOR: Patient could tolerate fluid, started full liquid diet PT evaluation Chest percussion therapy LINES/DRAINS/ACCESS: ETT: Intubated on 03/09, extubated on 03/13 IV access: Right internal jugular CVC, placed on 03/09 Left antecubital peripheral line, placed on 03/09 Drips: No pressors Richardson catheter: Transurethral Richardson catheter, placed on 03/09 DISPOSITION: ICU status Patient's status discussed with the patient, tried to contact the daughter but could not reached out. Critical care time spent more than 51 minutes, including patient care, chart review, and updating the family. Excluding any procedures. Case discussed with Dr. Bhakta Plan discussed with: Patient My Orders My Orders Orders - BLAKE REYES RESDIJOANN Procedure Category Date Status Time Pantoprazole Tablet PHA 03/15/24 In Process (Protonix Tablet) 06:00 Transfer Orders XFER 03/15/24 Transmitted 15:14 Dietary Evaluation Review Comments: Advance diet to CCHO-60g when medically feasible. Monitor PO intake to meet 75% of her needs. Expected Outcomes/Goals: controlled DM/ blood sugar, gradual weight loss. Date of Service: Mar 15, 2024 Billing Provider: MIKAYLA BHAKTA MD Common Visit Codes: 38951-[id number] CARE 30-74 MIN BLAKE REYES Mar 15, 2024 18:44 MIKAYLA BHAKTA MD Mar 16, 2024 11:50
[2024-03-15] MEDS ORDERED: ENOXAPARIN SOD 30 MG/0.3 ML SYRINGE SC SCH (18:45)
[2024-03-16] VITALS (38 sets, daily range): BP systolic 109–175; BP diastolic 55–110; PULSE 53–91; RESP 10–25; TEMP 98.5–98.7; O2SAT 78–99
[2024-03-16 05:02] LABS: Hematocrit 42.3 % (36.0-46.0); Hemoglobin 14.2 g/dL (12.2-16.2); Mean Corpuscular Hemoglobin 33.7 pg (28.0-32.0); Mean Corpuscular Hgb Conc. 33.7 g/dL (32.0-36.0); Mean Corpuscular Volume 100.1 fL (80.0-100.0); Platelet Count (auto) 229 10^3/uL (140-450); Red Blood Cells 4.23 10^6/uL (4.0-5.20); Red Cell Distribution Width 12.7 % (11.8-14.3); White Blood Cell 11.5 10^3/uL (4.4-10.8)
--- NOTE | 2024-03-16 05:20 | DVH ---
CHEST RADIOGRAPH Indication: Pneumonia Technique: Single frontal view of the chest was obtained COMPARISON: XY CHEST XRAY 1 VIEW on DOS: 03/15/24, XY CHEST XRAY 1 VIEW on DOS: 03/14/24, XY CHEST POR TABLE on DOS: 03/13/24 FINDINGS: Lines and Tubes: Right central venous catheter in satisfactory position. Lungs: Congestion. Pleura: No effusion. No pneumothorax. Cardiomediastinal contours: Cardiomegaly Bones: Unremarkable IMPRESSION: Lines and tubes in satisfactory position. No significant interval change.
[2024-03-16 05:23] LABS: Basophils % (manual) 0 (0.0-2.0); Blast Cells 0; Eosinophils % (manual) 0 (0-7); Metamyelocytes % 0; Myelocytes % 0; Promyelocytes % 0
[2024-03-16 05:26] LABS: Alanine Aminotransferase 29 U/L (7-40); Albumin 3.5 g/dL (3.2-4.8); Alkaline Phosphatase 53 U/L (46-116); Anion Gap 3 (5-15); Aspartate Aminotransferase 13 U/L (13-40); Bilirubin, Total 0.4 mg/dL (0.2-1.0); Blood Urea Nitrogen 22 mg/dL (9-23); Calcium 9.6 mg/dL (8.7-10.4); Chloride 102 mmol/L (98-107); Potassium 3.5 mmol/L (3.5-5.1); Sodium 141 mmol/L (136-145)
[2024-03-16 05:27] LABS: Carbon Dioxide 36 mmol/L (20-31); Glucose 116 mg/dL (74-106); Total Protein 5.5 g/dL (5.7-8.2)
[2024-03-16 07:29] LABS: Band Neutrophils % (manual) 1; Lymphocytes % (manual) 15 (10.0-50.0); Monocytes % (manual) 13 (0-12); Platelet Estimate Adequate; Reactive Lymphocytes 5
[2024-03-16 08:55] LABS: Base Excess 3.1 mmol/L (-2.0-3.0)
[2024-03-16] MEDS: AZITHROMYCIN 250 MG TAB PO SCH (09:22)
[2024-03-16] MEDS: predniSONE 20 MG TAB PO SCH (09:24)
[2024-03-16] MEDS: FUROSEMIDE 20 MG/2 ML VIAL IV ONE ×2 (09:29→17:52)
[2024-03-16] MEDS: ENOXAPARIN SOD 40 MG/0.4 ML SYRINGE SC SCH (09:29)
--- NOTE | 2024-03-16 20:31 | DVHPNRES ---
Progress Note Date Seen: Mar 16, 2024 Resident Creating Document: BLAKE REYES RESDIENT Has the PT tested + for MRSA If YES, has PT been informed?: Yes Medical Necessity Reason Pt with a Central, PICC or Fol: Yes The following are medically ne: Central Line, Richardson Catheter Reason for richardson catheter: Strict I&O Subjective Review of Systems This is a 73-year-old obese woman with past medical history of COPD (on 2 L of of oxygen at home), CKD 2, dementia, prediabetes, dyslipidemia, hypertension, hypothyroidism, presented to the hospital with shortness of breaths, cough and wheezing for 1 week. Has history of recurrent hospital admission due to COPD exacerbation and noncompliant to the medicine. Admitted on 03/08. Put on BiPAP on 03/09. Intubated on 03/09. Today patient is seen and examined at the bedside. Patient is on 10 lit O2 through Oxymizer. Patient reports: Feels worse Changes from previous H/P or p: Changes Objective vital signs Vital Sign Date Time Temp Pulse Resp B/P (MAP) Pulse Ox O2 Delivery O2 Flow Rate FiO2 03/16/24 19:20 84 17 98 03/16/24 19:11 Oxymizer 10 72 72 03/16/24 18:00 124/81 (95) 03/16/24 12:00 98.7 98.7 Total Intake and Output 03/15/24 03/15/24 03/16/24 15:00 23:00 07:00 Intake Total 500 ml 1660 ml 460 ml Output Total 2350 ml 950 ml Balance 500 ml -690 ml -490 ml medications Current Medications Medications Dose Ordered Sig/Kinjal Route Start Time Stop Time Status Last Admin Dose Admin Aspirin 81 mg DAILY PO 03/09/24 10:00 03/16/24 09:24 81 MG Levothyroxine Sodium 75 mcg QAM@0600 PO 03/09/24 06:00 03/16/24 05:31 75 MCG Gabapentin 300 mg TID PO 03/09/24 06:00 03/16/24 14:16 300 MG Dextrose 50 ml UD PRN IV 03/09/24 01:30 Ipratropium [place] 0.5 mg Q4HWA NEB 03/09/24 10:00 03/16/24 19:12 0.5 MG Levalbuterol HCl 0.625 mg Q4HWA NEB 03/09/24 10:00 03/16/24 19:12 0.625 MG Diagnostic Test (Pha) 1 strip Q6H 03/11/24 00:00 03/16/24 18:17 1 STRIP Insulin Human Regular Q6H SC 03/11/24 00:00 03/16/24 18:20 4 UNITS Lactulose 30 ml BIDPRN PRN GT 03/11/24 14:15 Memantine 10 mg Q12HR PO 03/12/24 10:00 03/16/24 09:24 10 MG Piperacillin Sod/ Tazobactam Sod 100 ml @ 25 mls/hr Q8H IV 03/13/24 16:00 03/16/24 16:18 25 MLS/HR Hydralazine HCl 10 mg Q6HP PRN IV 03/13/24 16:15 03/14/24 12:23 10 MG Acetaminophen 650 mg Q6HP PRN PO 03/14/24 08:45 Amlodipine Besylate 10 mg DAILY PO 03/14/24 10:00 03/16/24 09:23 10 MG Morphine Sulfate 15 mg QID PO 03/14/24 13:15 03/16/24 12:09 15 MG Pantoprazole Sodium 40 mg DAILY@0600 PO 03/15/24 06:00 03/16/24 05:31 40 MG Prednisone 40 mg DAILY PO 03/16/24 10:00 03/16/24 12:09 40 MG Azithromycin 500 mg DAILY PO 03/16/24 10:00 03/16/24 09:22 500 MG Enoxaparin Sodium 40 mg DAILY SC 03/16/24 10:00 03/16/24 09:29 40 MG Examination General: Allert , oriented, afebrile, mucosae are moist Cardiovascular: Normal S1 and S2. No murmurs, gallops or rubs Respiratory: On high-flow oxygen through nasal cannula, equal bilateral airway entree. Bilateral rhonchi Abdomen: Soft, nontender, no organomegaly, normal bowel sounds MSK/skin: Mobilization of limbs cannot be evaluated. Skin is dry and warm. Neurological: No apparent motor no sensitive deficits. Pupils are isocoric and reactive laboratory and microbiology Laboratory Tests 03/16/24 04:36 Test 03/16/24 04:36 Range/Units Serum Glucose 116 H 74-106 mg/dL Microbiology Date/Time Source Procedure Growth Status 03/09/24 15:19 Blood Blood Culture - Final NO GROWTH AFTER 5 DAYS OF INCUBATION. Complete 03/09/24 15:10 Voided Urine Urine Culture - Final Complete 03/09/24 14:32 Nose MRSA Screen - Final Complete 03/09/24 14:15 Sputum Gram Stain - Final Complete 03/09/24 14:15 Sputum Respiratory Culture - Final Complete Labs and/or images reviewed: Labs reviewed by me, Image(s) reviewed by me Problem List/Assessment/Plan Problem List/Assessment/Plan This is a 73-year-old obese woman with past medical history of COPD (on 2 L of of oxygen at home), CKD 2, dementia, prediabetes, dyslipidemia, hypertension, hypothyroidism, presented to the hospital with shortness of breaths, cough and wheezing for 1 week. Has history of recurrent hospital admission due to COPD exacerbation and noncompliant to the medicine. Admitted on 03/08. Put on BiPAP on 03/09. Intubated on 03/09. Extubated on 03/13. NEURO: Acute metabolic encephalopathy, likely due to respiratory failure History of dementia Continue memantine CARDIOVASCULAR: Echocardiogram from 03/09 shows LVEF 55% with grade 1 diastolic dysfunction Inl. lasix 20mg once History of hypertension Resume amlodipine 10 mg daily PULMONARY: Acute on chronic hypoxic and hypercapnic respiratory failure likely due to COPD exacerbation/pneumonia Acute COPD exacerbation likely emphysematous type Pneumonia, likely due to Gram-positive Gram-negative Respiratory Acidosis Current cigarette smoker Chest CT from 03/08 scan shows right lower lobe pneumonia with severe centrilobular emphysema Webber culture from 03/09 is negative Influenza type a, B, COVID-19, MRSA screening are negative, and discontinued vancomycin, used for 2 days Discontinued cefepime, used for 3 days CPAP trial performed yesterday, with weaning criteria of RSBI 30, NIF-27, 300, with patient being alert, and patient was extubated successfully on 03/13 Chest x-ray shows bilateral lower zone infiltration, with a hyperinflated lung, same to previous film ABGs shows respiratory acidosis with partial metabolic compensation Continue Zosyn, started at 03/11 Continue azithromycin oral(started at 03/09) Discontinue methylprednisolone 40 mg b.i.d., used for 7 days Continue prednisone 40 mg daily, started on 03/16 Continue breathing treatment q.4 hr GASTROINTESTINAL: GENITOURINARY: Acute on CKD grade 2, likely hemodynamically mediated, improving Continue normal saline at 75 mL/hours Check FENa UTI, unspecified location Urinalysis shows UTI picture Urine culture, preliminary result shows no growth ENDOCRINE: Hypothyroidism TSH is 6.37, free T4 is 058, free T3 is 1.68 Continue levothyroxine 75 mcg daily Prediabetes, HbA1c 5.7 Hyperglycemia Accu-Chek q.6 hours Insulin mild sliding scale METABOLIC: Hyperlipidemia, continue rosuvastatin Hypokalemia, supplement Hypernatremia, monitoring Hyperchloremia, monitoring HEME: Chest CT angiogram at 03/08 is negative for PE Doppler ultrasound of lower limb at 03/09 is negative for DVT INFECTIOUS DISEASE: Septic shock, due to sepsis Sepsis likely due to pneumonia/UTI Panculture (blood, urine and sputum), result after 24 hour culture shows no growth MRSA nares is negative COVID-19 and flu is negative MUSCULOSKELETAL: Chronic body pain Resume Morphine sulfate 15 mg q.i.d. p.o. Gabapentin 300 mg t.i.d. DIET: Regular diet DVT prophylax: Lovenox 30 mg daily GI prophylaxis: Protonix 40 mg po daily Bowel regimen: Lactulose 30 mL b.i.d.PRN Code status: Full code PT/OT/SAP BI ARCHITECT: Patient could tolerate fluid, started full liquid diet PT evaluation Chest percussion therapy LINES/DRAINS/ACCESS: ETT: Intubated on 03/09, extubated on 03/13 IV access: Left antecubital peripheral line, placed on 03/09 Drips: No pressors Richardson catheter: Transurethral Richardson catheter, placed on 03/09 DISPOSITION: ICU status Patient's status discussed with the patient, tried to contact the daughter but could not reached out. Critical care time spent more than 41 minutes, including patient care, chart review, and updating the family. Excluding any procedures. Case discussed with Dr. Bhakta Plan discussed with: Patient My Orders My Orders Orders - BLAKE REYES RESDIJOANN Procedure Category Date Status Time Enoxaparin Sodium PHA 03/16/24 In Process (Lovenox) 10:00 Dietary Evaluation Review Comments: Advance diet to CCHO-60g when medically feasible. Monitor PO intake to meet 75% of her needs. Expected Outcomes/Goals: controlled DM/ blood sugar, gradual weight loss. Date of Service: Mar 16, 2024 Billing Provider: MIKAYLA BHAKTA MD Common Visit Codes: [id number] CARE 30-74 MIN BLAKE REYES Mar 16, 2024 20:31 MIKAYLA BHAKTA MD Mar 17, 2024 11:58
[2024-03-17] VITALS (30 sets, daily range): BP systolic 105–139; BP diastolic 65–93; PULSE 62–92; RESP 12–22; TEMP 97.4–99; O2SAT 85–97
--- NOTE | 2024-03-17 05:31 | DVH ---
CHEST RADIOGRAPH Indication: Pneumonia Technique: Single frontal view of the chest was obtained COMPARISON: XY CHEST XRAY 1 VIEW on DOS: 03/16/24, XY CHEST XRAY 1 VIEW on DOS: 03/15/24, XY CHEST XR AY 1 VIEW on DOS: 03/14/24 FINDINGS: Lines and Tubes: None Lungs: Bibasilar subsegmental atelectasis. Pleura: No effusion. No pneumothorax. Cardiomediastinal contours: Unremarkable Bones: Unremarkable IMPRESSION: Bibasilar subsegmental atelectasis.
[2024-03-17 05:35] LABS: Hematocrit 45.5 % (36.0-46.0); Hemoglobin 15.2 g/dL (12.2-16.2); Mean Corpuscular Hemoglobin 33.2 pg (28.0-32.0); Mean Corpuscular Hgb Conc. 33.5 g/dL (32.0-36.0); Mean Corpuscular Volume 99.3 fL (80.0-100.0); Platelet Count (auto) 248 10^3/uL (140-450); Red Blood Cells 4.59 10^6/uL (4.0-5.20); Red Cell Distribution Width 12.7 % (11.8-14.3); White Blood Cell 15.7 10^3/uL (4.4-10.8)
[2024-03-17 05:38] LABS: Basophils % (manual) 0 (0.0-2.0); Blast Cells 0; Eosinophils % (manual) 0 (0-7); Metamyelocytes % 0; Myelocytes % 0; Promyelocytes % 0
[2024-03-17 05:42] LABS: Alanine Aminotransferase 30 U/L (7-40); Albumin 3.8 g/dL (3.2-4.8); Alkaline Phosphatase 58 U/L (46-116); Anion Gap 8 (5-15); BUN/Creatinine Ratio 20.4 (10.0-20.0); Bilirubin, Total 0.5 mg/dL (0.2-1.0); Blood Urea Nitrogen 20 mg/dL (9-23); Calcium 10.2 mg/dL (8.7-10.4); Chloride 99 mmol/L (98-107); Potassium 3.7 mmol/L (3.5-5.1); Sodium 142 mmol/L (136-145); Total Protein 5.9 g/dL (5.7-8.2)
[2024-03-17 06:29] LABS: Aspartate Aminotransferase 12 U/L (13-40); Carbon Dioxide 35 mmol/L (20-31); Glucose 118 mg/dL (74-106)
[2024-03-17 09:29] LABS: Band Neutrophils % (manual) 1; Lymphocytes % (manual) 14 (10.0-50.0); Monocytes % (manual) 5 (0-12); Platelet Estimate Adequate; Reactive Lymphocytes 2
[2024-03-17] MEDS: FUROSEMIDE 20 MG/2 ML VIAL IV ONE (11:40)
--- NOTE | 2024-03-17 13:52 | DVHPNRES ---
Progress Note Date Seen: Mar 17, 2024 Resident Creating Document: BLAKE REYES RESDIENT Has the PT tested + for MRSA If YES, has PT been informed?: Yes Medical Necessity Reason Pt with a Central, PICC or Fol: Yes The following are medically ne: Central Line, Richardson Catheter Reason for richardson catheter: Strict I&O Subjective Review of Systems This is a 73-year-old obese woman with past medical history of COPD (on 2 L of of oxygen at home), CKD 2, dementia, prediabetes, dyslipidemia, hypertension, hypothyroidism, presented to the hospital with shortness of breaths, cough and wheezing for 1 week. Has history of recurrent hospital admission due to COPD exacerbation and noncompliant to the medicine. Admitted on 03/08. Put on BiPAP on 03/09. Intubated on 03/09. Today patient is seen and examined at the bedside. Patient is on 10 lit O2 through [employer]. Objective vital signs Vital Sign Date Time Temp Pulse Resp B/P (MAP) Pulse Ox O2 Delivery O2 Flow Rate FiO2 03/17/24 13:03 85 20 119/75 (90) 87 03/17/24 12:00 Simple Mask* 6 50 03/17/24 12:00 98.0 98.0 Total Intake and Output 03/16/24 03/16/24 03/17/24 15:00 23:00 07:00 Intake Total 400 ml 350 ml 700 ml Output Total 1500 ml 1000 ml 3150 ml Balance -1100 ml -650 ml -2450 ml medications Current Medications Medications Dose Ordered Sig/Kinjal Route Start Time Stop Time Status Last Admin Dose Admin Aspirin 81 mg DAILY PO 03/09/24 10:00 03/17/24 09:40 81 MG Levothyroxine Sodium 75 mcg QAM@0600 PO 03/09/24 06:00 03/17/24 06:09 75 MCG Gabapentin 300 mg TID PO 03/09/24 06:00 03/17/24 13:34 300 MG Dextrose 50 ml UD PRN IV 03/09/24 01:30 Ipratropium [place] 0.5 mg Q4HWA [facility] 03/09/24 10:00 03/17/24 05:56 0.5 MG Levalbuterol HCl 0.625 mg Q4HWA [facility] 03/09/24 10:00 03/17/24 05:56 0.625 MG Diagnostic Test (Pha) 1 strip Q6H 03/11/24 00:00 03/17/24 11:40 1 STRIP Insulin Human Regular Q6H SC 03/11/24 00:00 03/17/24 11:44 3 UNITS Lactulose 30 ml BIDPRN PRN GT 03/11/24 14:15 Memantine 10 mg Q12HR PO 03/12/24 10:00 03/17/24 09:41 10 MG Piperacillin Sod/ Tazobactam Sod 100 ml @ 25 mls/hr Q8H IV 03/13/24 16:00 03/17/24 07:51 25 MLS/HR Hydralazine HCl 10 mg Q6HP PRN IV 03/13/24 16:15 03/14/24 12:23 10 MG Acetaminophen 650 mg Q6HP PRN PO 03/14/24 08:45 Amlodipine Besylate 10 mg DAILY PO 03/14/24 10:00 03/17/24 09:41 10 MG Morphine Sulfate 15 mg QID PO 03/14/24 13:15 03/17/24 11:39 15 MG Pantoprazole Sodium 40 mg DAILY@0600 PO 03/15/24 06:00 03/17/24 06:10 40 MG Prednisone 40 mg DAILY PO 03/16/24 10:00 03/17/24 09:41 40 MG Azithromycin 500 mg DAILY PO 03/16/24 10:00 03/17/24 09:40 500 MG Enoxaparin Sodium 40 mg DAILY SC 03/16/24 10:00 03/17/24 09:40 40 MG Examination General: Allert , oriented, afebrile, mucosae are moist Cardiovascular: Normal S1 and S2. No murmurs, gallops or rubs Respiratory: On high-flow oxygen through nasal cannula, equal bilateral airway entree. Bilateral rhonchi Abdomen: Soft, nontender, no organomegaly, normal bowel sounds MSK/skin: Mobilization of limbs cannot be evaluated. Skin is dry and warm. Neurological: No apparent motor no sensitive deficits. Pupils are isocoric and reactive laboratory and microbiology Laboratory Tests 03/17/24 04:57 03/17/24 04:51 Test 03/17/24 04:51 Range/Units Serum Glucose 118 H 74-106 mg/dL Microbiology Date/Time Source Procedure Growth Status 03/09/24 15:19 Blood Blood Culture - Final NO GROWTH AFTER 5 DAYS OF INCUBATION. Complete 03/09/24 15:10 Voided Urine Urine Culture - Final Complete 03/09/24 14:32 Nose MRSA Screen - Final Complete 03/09/24 14:15 Sputum Gram Stain - Final Complete 03/09/24 14:15 Sputum Respiratory Culture - Final Complete Labs and/or images reviewed: Labs reviewed by me, Image(s) reviewed by me Problem List/Assessment/Plan Problem List/Assessment/Plan This is a 73-year-old obese woman with past medical history of COPD (on 2 L of of oxygen at home), CKD 2, dementia, prediabetes, dyslipidemia, hypertension, hypothyroidism, presented to the hospital with shortness of breaths, cough and wheezing for 1 week. Has history of recurrent hospital admission due to COPD exacerbation and noncompliant to the medicine. Admitted on 03/08. Put on BiPAP on 03/09. Intubated on 03/09. Extubated on 03/13. NEURO: Acute metabolic encephalopathy, likely due to respiratory failure History of dementia Continue memantine CARDIOVASCULAR: Echocardiogram from 03/09 shows LVEF 55% with grade 1 diastolic dysfunction Inl. lasix 20mg once History of hypertension Resume amlodipine 10 mg daily PULMONARY: Acute on chronic hypoxic and hypercapnic respiratory failure likely due to COPD exacerbation/pneumonia Acute COPD exacerbation likely emphysematous type Pneumonia, likely due to Gram-positive Gram-negative Respiratory Acidosis Current cigarette smoker Chest CT from 03/08 scan shows right lower lobe pneumonia with severe centrilobular emphysema Webber culture from 03/09 is negative Influenza type a, B, COVID-19, MRSA screening are negative, and discontinued vancomycin, used for 2 days Discontinued cefepime, used for 3 days CPAP trial performed yesterday, with weaning criteria of RSBI 30, NIF-27, 300, with patient being alert, and patient was extubated successfully on 03/13 Chest x-ray shows bilateral lower zone infiltration, with a hyperinflated lung, same to previous film ABGs shows respiratory acidosis with partial metabolic compensation Continue Zosyn, started at 03/11 Continue azithromycin oral(started at 03/09) Discontinue methylprednisolone 40 mg b.i.d., used for 7 days Continue prednisone 40 mg daily, started on 03/16 Continue breathing treatment q.4 hr Incentive spirometry GASTROINTESTINAL: GENITOURINARY: Acute on CKD grade 2, likely hemodynamically mediated, improving Continue normal saline at 75 mL/hours UTI, unspecified location Urinalysis shows UTI picture Urine culture, result shows no growth ENDOCRINE: Hypothyroidism TSH is 6.37, free T4 is 058, free T3 is 1.68 Continue levothyroxine 75 mcg daily Prediabetes, HbA1c 5.7 Hyperglycemia Accu-Chek q.6 hours Insulin mild sliding scale METABOLIC: Hyperlipidemia, continue rosuvastatin Hypokalemia, supplement Hypernatremia, monitoring Hyperchloremia, monitoring HEME: Chest CT angiogram at 03/08 is negative for PE Doppler ultrasound of lower limb at 03/09 is negative for DVT INFECTIOUS DISEASE: Septic shock, due to sepsis Sepsis likely due to pneumonia/UTI Panculture (blood, urine and sputum), result after 24 hour culture shows no growth MRSA nares is negative COVID-19 and flu is negative MUSCULOSKELETAL: Chronic body pain Resume Morphine sulfate 15 mg q.i.d. p.o. Gabapentin 300 mg t.i.d. 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 Critical care time spent more than 41 minutes, including patient care, chart review, and updating the family. Excluding any procedures. Case discussed with Dr. Bhakta Plan discussed with: Patient, Other (RN) My Orders My Orders Orders - BLAKE REYES Procedure Category Date Status Time Chest Xray 1 View XY 03/17/24 Resulted 04:00 Abg W/ Co-Ox RT 03/17/24 Logged 04:00 Abg W/ Co-Ox RT 03/17/24 Logged 04:00 Continous Pulse SHAKIRA 03/17/24 In Process Oximetry 10:49 Incentive Spirometry ORDERS 03/17/24 Transmitted Q 1hr 12:49 Dietary Evaluation Review Comments: Advance diet to CCHO-60g when medically feasible. Monitor PO intake to meet 75% of her needs. Expected Outcomes/Goals: controlled DM/ blood sugar, gradual weight loss. Date of Service: Mar 17, 2024 Billing Provider: MIKAYLA BHAKTA MD Common Visit Codes: [id number] CARE 30-74 MIN BLAKE REYES Mar 17, 2024 13:52 MIKAYLA BHAKTA MD Mar 20, 2024 12:11
[2024-03-17] MEDS: MAGNESIUM SULFATE 1GM/100ML 100 ML IV ONE (21:10)
[2024-03-17] MEDS: POTASSIUM CHL 20 Meq TABLET PO ONE (21:10)
[2024-03-18] VITALS (26 sets, daily range): BP systolic 107–141; BP diastolic 65–80; PULSE 61–104; RESP 15–21; TEMP 97.6–98.4; O2SAT 90–100
--- NOTE | 2024-03-18 06:30 | DVH ---
CHEST RADIOGRAPH Indication: Pneumonia Technique: Single frontal view of the chest was obtained Comparison: XY CHEST XRAY 1 VIEW on DOS: 03/17/24, XY CHEST XRAY 1 VIEW on DOS: 03/16/24, XY CHEST XR AY 1 VIEW on DOS: 03/15/24, XY CHEST XRAY 1 VIEW on DOS: 03/14/24, XY CHEST PORTABLE on DOS: 03/13/24, XY CHEST XRAY 1 VIEW on DOS: 03/17/24 FINDINGS: Lines and Tubes: None Lungs: Bibasilar subsegmental atelectasis. Pleura: SMALL LEFT PLEURAL EFFUSION. No pneumothorax. Cardiomediastinal contours: Unremarkable Bones: Unremarkable IMPRESSION: Small left pleural effusion. Bibasilar subsegmental atelectasis.
[2024-03-18 07:41] LABS: Basophils # (auto) 0 10 ^3/uL (0-0.2); Basophils % (auto) 0.1 % (0.0-2.0); Eosinophils # (auto) 0 10 ^3/uL (0-0.8); Hemoglobin 14.9 g/dL (12.2-16.2); Lymphocytes # (auto) 2.1 10 ^3/uL (0.4-5.4); Monocytes # (auto) 1.2 10 ^3/uL (0-1.3); Nucleated Red Blood Cells % 0.1 %; Red Cell Distribution Width 12.8 % (11.8-14.3); White Blood Cell 15.9 10^3/uL (4.4-10.8)
[2024-03-18 07:43] LABS: Eosinophils % (auto) 0.2 % (0.0-7.0); Hematocrit 43.6 % (36.0-46.0); Lymphocytes % (auto) 13.5 % (10.0-50.0); Mean Corpuscular Hemoglobin 34.1 pg (28.0-32.0); Mean Corpuscular Hgb Conc. 34.2 g/dL (32.0-36.0); Mean Corpuscular Volume 99.6 fL (80.0-100.0); Monocytes % (auto) 7.6 % (0.0-12.0); Neutrophils # (auto) 12.5 10 ^3/uL (1.6-8.6); Neutrophils % (auto) 78.6 % (37.0-80.0); Platelet Count (auto) 224 10^3/uL (140-450); Red Blood Cells 4.38 10^6/uL (4.0-5.20)
[2024-03-18 08:20] LABS: Alanine Aminotransferase 39 U/L (7-40); Albumin 3.7 g/dL (3.2-4.8); Alkaline Phosphatase 56 U/L (46-116); Anion Gap 5 (5-15); Aspartate Aminotransferase 26 U/L (13-40); BUN/Creatinine Ratio 30.9 (10.0-20.0); Calcium 9.9 mg/dL (8.7-10.4); Chloride 98 mmol/L (98-107); Potassium 4.7 mmol/L (3.5-5.1); Sodium 139 mmol/L (136-145)
[2024-03-18 08:21] LABS: Blood Urea Nitrogen 34 mg/dL (9-23); Carbon Dioxide 36 mmol/L (20-31); Glucose 113 mg/dL (74-106); Total Protein 5.6 g/dL (5.7-8.2)
[2024-03-18 08:46] LABS: Bilirubin, Total 0.4 mg/dL (0.2-1.0)
--- NOTE | 2024-03-18 19:06 | DVHPNRES ---
Progress Note Date Seen: Mar 18, 2024 Resident Creating Document: BLAKE REYES RESDIENT Has the PT tested + for MRSA If YES, has PT been informed?: Yes Medical Necessity Reason Pt with a Central, PICC or Fol: Yes The following are medically ne: Central Line, Richardson Catheter Reason for richardson catheter: Strict I&O Subjective Review of Systems This is a 73-year-old obese woman with past medical history of COPD (on 2 L of of oxygen at home), CKD 2, dementia, prediabetes, dyslipidemia, hypertension, hypothyroidism, presented to the hospital with shortness of breaths, cough and wheezing for 1 week. Has history of recurrent hospital admission due to COPD exacerbation and noncompliant to the medicine. Admitted on 03/08. Put on BiPAP on 03/09. Intubated on 03/09. Patient reports: No new complaints Objective vital signs Vital Sign Date Time Temp Pulse Resp B/P (MAP) Pulse Ox O2 Delivery O2 Flow Rate FiO2 03/18/24 18:42 86 18 93 03/18/24 18:34 Nasal Cannula* 4 36 03/18/24 16:30 97.6 111/65 (80) 97.6 Total Intake and Output 03/17/24 03/17/24 03/18/24 15:00 23:00 07:00 Intake Total 300 ml 1150 ml 150 ml Output Total 450 ml 2550 ml Balance -150 ml -1400 ml 150 ml medications Current Medications Medications Dose Ordered Sig/Kinjal Route Start Time Stop Time Status Last Admin Dose Admin Aspirin 81 mg DAILY PO 03/09/24 10:00 03/18/24 08:09 81 MG Levothyroxine Sodium 75 mcg QAM@0600 PO 03/09/24 06:00 03/18/24 05:15 75 MCG Gabapentin 300 mg TID PO 03/09/24 06:00 03/18/24 05:15 300 MG Dextrose 50 ml UD PRN IV 03/09/24 01:30 Ipratropium [place] 0.5 mg Q4HWA [facility] 03/09/24 10:00 03/18/24 18:34 0.5 MG Levalbuterol HCl 0.625 mg Q4HWA [facility] 03/09/24 10:00 03/18/24 18:34 0.625 MG Diagnostic Test (Pha) 1 strip Q6H 03/11/24 00:00 03/18/24 17:43 1 STRIP Insulin Human Regular Q6H SC 03/11/24 00:00 03/18/24 17:47 3 UNITS Lactulose 30 ml BIDPRN PRN GT 03/11/24 14:15 Memantine 10 mg Q12HR PO 03/12/24 10:00 03/18/24 08:09 10 MG Piperacillin Sod/ Tazobactam Sod 100 ml @ 25 mls/hr Q8H IV 03/13/24 16:00 03/18/24 17:34 25 MLS/HR Hydralazine HCl 10 mg Q6HP PRN IV 03/13/24 16:15 03/14/24 12:23 10 MG Acetaminophen 650 mg Q6HP PRN PO 03/14/24 08:45 Amlodipine Besylate 10 mg DAILY PO 03/14/24 10:00 03/18/24 08:10 10 MG Morphine Sulfate 15 mg QID PO 03/14/24 13:15 03/18/24 17:36 15 MG Pantoprazole Sodium 40 mg DAILY@0600 PO 03/15/24 06:00 03/18/24 05:14 40 MG Azithromycin 500 mg DAILY PO 03/16/24 10:00 03/18/24 08:09 500 MG Enoxaparin Sodium 40 mg DAILY SC 03/16/24 10:00 03/18/24 08:08 40 MG Examination General: Allert , oriented, afebrile, mucosae are moist Cardiovascular: Normal S1 and S2. No murmurs, gallops or rubs Respiratory: On high-flow oxygen through nasal cannula, equal bilateral airway entree. Bilateral rhonchi Abdomen: Soft, nontender, no organomegaly, normal bowel sounds MSK/skin: Mobilization of limbs cannot be evaluated. Skin is dry and warm. Neurological: No apparent motor no sensitive deficits. Pupils are isocoric and reactive laboratory and microbiology Laboratory Tests 03/18/24 06:40 Test 03/18/24 06:40 Range/Units Serum Glucose 113 H 74-106 mg/dL Microbiology Date/Time Source Procedure Growth Status 03/09/24 15:19 Blood Blood Culture - Final NO GROWTH AFTER 5 DAYS OF INCUBATION. Complete 03/09/24 15:10 Voided Urine Urine Culture - Final Complete 03/09/24 14:32 Nose MRSA Screen - Final Complete 03/09/24 14:15 Sputum Gram Stain - Final Complete 03/09/24 14:15 Sputum Respiratory Culture - Final Complete Labs and/or images reviewed: Labs reviewed by me, Image(s) reviewed by me Problem List/Assessment/Plan Problem List/Assessment/Plan This is a 73-year-old obese woman with past medical history of COPD (on 2 L of of oxygen at home), CKD 2, dementia, prediabetes, dyslipidemia, hypertension, hypothyroidism, presented to the hospital with shortness of breaths, cough and wheezing for 1 week. Has history of recurrent hospital admission due to COPD exacerbation and noncompliant to the medicine. Admitted on 03/08. Put on BiPAP on 03/09. Intubated on 03/09. Extubated on 03/13. NEURO: Acute metabolic encephalopathy, likely due to respiratory failure History of dementia Continue memantine CARDIOVASCULAR: Echocardiogram from 03/09 shows LVEF 55% with grade 1 diastolic dysfunction Inl. lasix 20mg once History of hypertension Resume amlodipine 10 mg daily PULMONARY: Acute on chronic hypoxic and hypercapnic respiratory failure likely due to COPD exacerbation/pneumonia Acute COPD exacerbation likely emphysematous type Pneumonia, likely due to Gram-positive Gram-negative Respiratory Acidosis Current cigarette smoker Chest CT from 03/08 scan shows right lower lobe pneumonia with severe centrilobular emphysema Webber culture from 03/09 is negative Influenza type a, B, COVID-19, MRSA screening are negative, and discontinued vancomycin, used for 2 days Discontinued cefepime, used for 3 days CPAP trial performed yesterday, with weaning criteria of RSBI 30, NIF-27, 300, with patient being alert, and patient was extubated successfully on 03/13 Chest x-ray shows bilateral lower zone infiltration, with a hyperinflated lung, same to previous film ABGs shows respiratory acidosis with partial metabolic compensation Discontinue Zosyn, used for 7 days Discontinue azithromycin used for 9 days Discontinue methylprednisolone 40 mg b.i.d., used for 7 days Discontinue prednisone 40 mg daily, given for 4 days Continue breathing treatment q.4 hr Incentive spirometry GASTROINTESTINAL: GENITOURINARY: Acute on CKD grade 2, likely hemodynamically mediated, normalized UTI, unspecified location Urinalysis shows UTI picture Urine culture, result shows no growth ENDOCRINE: Hypothyroidism TSH is 6.37, free T4 is 058, free T3 is 1.68 Continue levothyroxine 75 mcg daily Prediabetes, HbA1c 5.7 Hyperglycemia Accu-Chek q.6 hours Insulin mild sliding scale METABOLIC: Hyperlipidemia, continue rosuvastatin Hypokalemia, supplement Hypernatremia, monitoring Hyperchloremia, monitoring HEME: Chest CT angiogram at 03/08 is negative for PE Doppler ultrasound of lower limb at 03/09 is negative for DVT INFECTIOUS DISEASE: Septic shock, due to sepsis Sepsis likely due to pneumonia/UTI Panculture (blood, urine and sputum), result after 24 hour culture shows no growth MRSA nares is negative COVID-19 and flu is negative MUSCULOSKELETAL: Chronic body pain Resume Morphine sulfate 15 mg q.i.d. p.o. Gabapentin 300 mg t.i.d. 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 Case discussed with Dr. Marks Plan discussed with: Other (RN) My Orders My Orders Orders - BLAKE REYES Procedure Category Date Status Time D/C Richardson SHAKIRA 03/18/24 In Process 14:43 Dietary Evaluation Review Comments: Advance diet to CCHO-60g when medically feasible. Monitor PO intake to meet 75% of her needs. Expected Outcomes/Goals: controlled DM/ blood sugar, gradual weight loss. Date of Service: Mar 18, 2024 Billing Provider: CRISTIAN MARKS MD Common Visit Codes: [id number] CARE 30-74 MIN BLAKE REYES RESDIENT Mar 18, 2024 19:06 CRISTIAN MARKS MD Mar 19, 2024 09:27
[2024-03-19] VITALS (19 sets, daily range): BP systolic 103–158; BP diastolic 68–84; PULSE 56–78; RESP 18–97; TEMP 97.6–98.7; O2SAT 90–99
[2024-03-19 06:12] LABS: Basophils # (auto) 0 10 ^3/uL (0-0.2); Basophils % (auto) 0.1 % (0.0-2.0); Eosinophils # (auto) 0 10 ^3/uL (0-0.8); Eosinophils % (auto) 0.3 % (0.0-7.0); Hematocrit 43.6 % (36.0-46.0); Hemoglobin 14.6 g/dL (12.2-16.2); Lymphocytes # (auto) 2.6 10 ^3/uL (0.4-5.4); Lymphocytes % (auto) 17.9 % (10.0-50.0); Mean Corpuscular Hemoglobin 33.5 pg (28.0-32.0); Mean Corpuscular Hgb Conc. 33.4 g/dL (32.0-36.0); Mean Corpuscular Volume 100.2 fL (80.0-100.0); Monocytes # (auto) 1.1 10 ^3/uL (0-1.3); Monocytes % (auto) 7.6 % (0.0-12.0); Neutrophils # (auto) 10.8 10 ^3/uL (1.6-8.6); Neutrophils % (auto) 74.1 % (37.0-80.0); Platelet Count (auto) 213 10^3/uL (140-450); Red Blood Cells 4.35 10^6/uL (4.0-5.20); Red Cell Distribution Width 12.8 % (11.8-14.3); White Blood Cell 14.5 10^3/uL (4.4-10.8)
--- NOTE | 2024-03-19 06:18 | DVH ---
CHEST RADIOGRAPH Indication: Pneumonia Technique: Single frontal view of the chest was obtained COMPARISON: XY CHEST XRAY 1 VIEW on DOS: 03/18/24, XY CHEST XRAY 1 VIEW on DOS: 03/17/24, XY CHEST XR AY 1 VIEW on DOS: 03/16/24 FINDINGS: Lines and Tubes: None Lungs: Mild congestion Pleura: No effusion. No pneumothorax. Cardiomediastinal contours: Unremarkable Bones: Unremarkable IMPRESSION: Mild congestion, slightly improved.
[2024-03-19 06:34] LABS: Alanine Aminotransferase 35 U/L (7-40); Albumin 3.6 g/dL (3.2-4.8); Alkaline Phosphatase 54 U/L (46-116); Anion Gap 7 (5-15); Aspartate Aminotransferase 16 U/L (13-40); BUN/Creatinine Ratio 23.1 (10.0-20.0); Calcium 9.8 mg/dL (8.7-10.4); Chloride 99 mmol/L (98-107); Glucose 85 mg/dL (74-106); Potassium 4.4 mmol/L (3.5-5.1); Sodium 140 mmol/L (136-145)
[2024-03-19 06:35] LABS: Bilirubin, Total 0.5 mg/dL (0.2-1.0); Total Protein 5.8 g/dL (5.7-8.2)
[2024-03-19 06:37] LABS: Blood Urea Nitrogen 25 mg/dL (9-23); Carbon Dioxide 34 mmol/L (20-31)
[2024-03-20] VITALS (17 sets, daily range): BP systolic 101–135; BP diastolic 63–104; PULSE 54–81; RESP 16–19; TEMP 97.4–98.5; O2SAT 90–100
--- NOTE | 2024-03-20 12:59 | DVHPN2 ---
Subjective The patient is seen and examined at bedside. No events overnight. No fever or chill. Reviewed: Care Plan, H&P, Labs, Medications, Previous Orders, Radiology Changes from previous H/P or p: No Changes Objective Vitals Vital Signs Date Time Temp Pulse Resp B/P (MAP) Pulse Ox O2 Delivery O2 Flow Rate FiO2 03/20/24 10:17 74 16 98 03/20/24 10:11 Nasal Cannula 4.0 03/20/24 10:11 36 03/20/24 09:27 107/82 03/20/24 09:00 97.8 97.8 Intake/Output Intake and Output 03/20/24 07:00 Intake Total 3200 ml Output Total 2300 ml Balance 900 ml Intake Oral 3200 ml Output Urine Total 2300 ml # Bowel Movements 4 General Appearance: Alert, No acute distress HEENT: Atraumatic, PERRLA, EOMI, Mucous membr. moist/pink Lungs: Clear to auscultation, Normal air movement Cardiovascular: Regular rate, Normal S1, Normal S2, No murmurs, Gallops, Rubs Abdomen: Normal bowel sounds, Soft, No tenderness Neuro: Cranial nerves 3-12 NL Psych/Mental Status: Mental status NL Medications Current Medications Medications Dose Ordered Sig/Kinjal Route Start Time Stop Time Status Last Admin Dose Admin Aspirin 81 mg DAILY PO 03/09/24 10:00 03/20/24 09:27 81 MG Levothyroxine Sodium 75 mcg QAM@0600 PO 03/09/24 06:00 03/20/24 06:11 75 MCG Gabapentin 300 mg TID PO 03/09/24 06:00 03/20/24 06:11 300 MG Dextrose 50 ml UD PRN IV 03/09/24 01:30 Ipratropium [place] 0.5 mg Q4HWA [facility] 03/09/24 10:00 03/20/24 10:11 0.5 MG Levalbuterol HCl 0.625 mg Q4HWA [facility] 03/09/24 10:00 03/20/24 10:11 0.625 MG Diagnostic Test (Pha) 1 strip Q6H 03/11/24 00:00 03/20/24 00:58 1 STRIP Insulin Human Regular Q6H SC 03/11/24 00:00 03/20/24 01:00 2 UNITS Lactulose 30 ml BIDPRN PRN GT 03/11/24 14:15 Memantine 10 mg Q12HR PO 03/12/24 10:00 03/20/24 09:26 10 MG Hydralazine HCl 10 mg Q6HP PRN IV 03/13/24 16:15 03/14/24 12:23 10 MG Acetaminophen 650 mg Q6HP PRN PO 03/14/24 08:45 Amlodipine Besylate 10 mg DAILY PO 03/14/24 10:00 03/20/24 09:27 10 MG Morphine Sulfate 15 mg QID PO 03/14/24 13:15 03/20/24 12:15 15 MG Pantoprazole Sodium 40 mg DAILY@0600 PO 03/15/24 06:00 03/20/24 06:11 40 MG Enoxaparin Sodium 40 mg DAILY SC 03/16/24 10:00 03/20/24 09:28 40 MG Laboratory Results Laboratory Tests 03/19/24 05:01 Urinalysis Test 03/09/24 15:10 Urine Color Yellow (Yellow) Urine Clarity Turbid (Clear) H Urine pH 5.5 (5.0-9.0) Urine Specific [place] 1.025 (1.001-1.035) Urine Protein 1+ (Negative) H Urine Ketones Negative (Negative) Urine Blood 2+ /uL (Negative) H Urine Nitrite Negative (Negative) Urine Bilirubin Negative (Negative) Urine Urobilinogen 2 mg/dL (Negative) H Urine Leukocyte Esterase Negative /uL (Negative) Urine RBC 58 /hpf (0 - 4) Urine WBC 13 /hpf (0 - 5) Urine Squamous Epithelial Cells Few /hpf (<5) Urine Bacteria Few /hpf (None Seen) H Urine Mucus Few (None Seen) Urine Glucose Normal mg/dL (Normal) Microbiology Microbiology Date/Time Source Procedure Growth Status 03/09/24 15:19 Blood Blood Culture - Final NO GROWTH AFTER 5 DAYS OF INCUBATION. Complete 03/09/24 15:10 Voided Urine Urine Culture - Final Complete 03/09/24 14:32 Nose MRSA Screen - Final Complete 03/09/24 14:15 Sputum Gram Stain - Final Complete 03/09/24 14:15 Sputum Respiratory Culture - Final Complete Labs and/or images reviewed: Labs reviewed by me Assessment/Plan Assessment/Plan Aute metabolic encephalopathy, likely due to respiratory failure History of dementia: Continuing [place] Hypertension, EF 55% Acute on chronic hypoxic and hypercapnic respiratory failure likely due to COPD exacerbation/pneumonia Acute COPD exacerbation likely emphysematous type Pneumonia, likely due to Gram-positive Gram-negative Respiratory Acidosis Current cigarette smoker Chest CT from 03/08 scan shows right lower lobe pneumonia with severe centrilobular emphysema The patient has finished the course of IV antibiotic. Off IV antibiotics for now. Continuing monitor. Continuing breathing treatment every 4 hours as needed. 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i.d. p.o. Gabapentin 300 mg t.i.d. Continuing current management. Continuing with physical therapy to get the patient out of bed and ambulate This medical document was created using an electronic medical record system with [employer] direct computerized dictation system. Although this document has been carefully reviewed, there may still be some phonetic and typographical errors. These areas are purely typographical due to imperfections of the software programs, and do not reflect any compromise in the patient's medical care. Plan discussed with: Patient, Other (RN) Date of Service: Mar 20, 2024 Billing Provider: MIGEL JOSEPH MD Common Visit Codes: [id number] INP/OBS CARE(HIGH) MIGEL JOSEPH MD Mar 20, 2024 12:59
--- NOTE | 2024-03-20 12:59 | DVHPN2 ---
Subjective The patient is seen and examined at bedside. Sleepy and no complaint today. Reviewed: Care Plan, H&P, Labs, Medications, Previous Orders Changes from previous H/P or p: No Changes Objective Vitals Vital Signs Date Time Temp Pulse Resp B/P (MAP) Pulse Ox O2 Delivery O2 Flow Rate FiO2 03/19/24 10:17 74 16 98 03/19/24 10:11 Nasal Cannula 4.0 03/19/24 10:11 36 03/19/24 09:27 107/82 03/19/24 09:00 97.8 97.8 Intake/Output Intake and Output 03/20/24 07:00 Intake Total 3200 ml Output Total 2300 ml Balance 900 ml Intake Oral 3200 ml Output Urine Total 2300 ml # Bowel Movements 4 General Appearance: Alert, No acute distress HEENT: Atraumatic, PERRLA, EOMI, Mucous membr. moist/pink Neck: Supple Lungs: Clear to auscultation, Normal air movement Cardiovascular: Regular rate, Normal S1, Normal S2, No murmurs, Rubs Abdomen: Normal bowel sounds, Soft, No tenderness, No hepatospenomegaly Neuro: Cranial nerves 3-12 NL Psych/Mental Status: Mental status NL Medications Current Medications Medications Dose Ordered Sig/[place] Route Start Time Stop Time Status Last Admin Dose Admin Aspirin 81 mg DAILY PO 03/09/24 10:00 03/20/24 09:27 81 MG Levothyroxine Sodium 75 mcg QAM@0600 PO 03/09/24 06:00 03/20/24 06:11 75 MCG Gabapentin 300 mg TID PO 03/09/24 06:00 03/20/24 06:11 300 MG Dextrose 50 ml UD PRN IV 03/09/24 01:30 Ipratropium [place] 0.5 mg Q4HWA NEB 03/09/24 10:00 03/20/24 10:11 0.5 MG Levalbuterol HCl 0.625 mg Q4HWA NEB 03/09/24 10:00 03/20/24 10:11 0.625 MG Diagnostic Test (Pha) 1 strip Q6H 03/11/24 00:00 03/20/24 00:58 1 STRIP Insulin Human Regular Q6H SC 03/11/24 00:00 03/20/24 01:00 2 UNITS Lactulose 30 ml BIDPRN PRN GT 03/11/24 14:15 Memantine 10 mg Q12HR PO 03/12/24 10:00 03/20/24 09:26 10 MG Hydralazine HCl 10 mg Q6HP PRN IV 03/13/24 16:15 03/14/24 12:23 10 MG Acetaminophen 650 mg Q6HP PRN PO 03/14/24 08:45 Amlodipine Besylate 10 mg DAILY PO 03/14/24 10:00 03/20/24 09:27 10 MG Morphine Sulfate 15 mg QID PO 03/14/24 13:15 03/20/24 12:15 15 MG Pantoprazole Sodium 40 mg DAILY@0600 PO 03/15/24 06:00 03/20/24 06:11 40 MG Enoxaparin Sodium 40 mg DAILY SC 03/16/24 10:00 03/20/24 09:28 40 MG Laboratory Results Laboratory Tests 03/19/24 05:01 Urinalysis Test 03/09/24 15:10 Urine Color Yellow (Yellow) Urine Clarity Turbid (Clear) H Urine pH 5.5 (5.0-9.0) Urine Specific [place] 1.025 (1.001-1.035) Urine Protein 1+ (Negative) H Urine Ketones Negative (Negative) Urine Blood 2+ /uL (Negative) H Urine Nitrite Negative (Negative) Urine Bilirubin Negative (Negative) Urine Urobilinogen 2 mg/dL (Negative) H Urine Leukocyte Esterase Negative /uL (Negative) Urine RBC 58 /hpf (0 - 4) Urine WBC 13 /hpf (0 - 5) Urine Squamous Epithelial Cells Few /hpf (<5) Urine Bacteria Few /hpf (None Seen) H Urine Mucus Few (None Seen) Urine Glucose Normal mg/dL (Normal) Microbiology Microbiology Date/Time Source Procedure Growth Status 03/09/24 15:19 Blood Blood Culture - Final NO GROWTH AFTER 5 DAYS OF INCUBATION. Complete 03/09/24 15:10 Voided Urine Urine Culture - Final Complete 03/09/24 14:32 Nose MRSA Screen - Final Complete 03/09/24 14:15 Sputum Gram Stain - Final Complete 03/09/24 14:15 Sputum Respiratory Culture - Final Complete Labs and/or images reviewed: Labs reviewed by me Assessment/Plan Assessment/Plan Aute metabolic encephalopathy, likely due to respiratory failure History of dementia: Continuing [place] Hypertension, EF 55% Acute on chronic hypoxic and hypercapnic respiratory failure likely due to COPD exacerbation/pneumonia Acute COPD exacerbation likely emphysematous type Pneumonia, likely due to Gram-positive Gram-negative Respiratory Acidosis Current cigarette smoker Chest CT from 03/08 scan shows right lower lobe pneumonia with severe centrilobular emphysema The patient has finished the course of IV antibiotic. Off IV antibiotics for now. Continuing monitor. Continuing breathing treatment every 4 hours as needed. 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i.d. p.o. Gabapentin 300 mg t.i.d. Continuing current management. Continuing with physical therapy to get the patient out of bed and ambulate This medical document was created using an electronic medical record system with [employer] direct computerized dictation system. Although this document has been carefully reviewed, there may still be some phonetic and typographical errors. These areas are purely typographical due to imperfections of the software programs, and do not reflect any compromise in the patient's medical care. Plan discussed with: Patient, Other (Rn) Date of Service: Mar 19, 2024 Billing Provider: MIGEL JOSEPH MD Common Visit Codes: [id number] INP/OBS CARE(HIGH) MIGEL JOSEPH MD Mar 20, 2024 12:59
[2024-03-21] VITALS (10 sets, daily range): BP systolic 109–119; BP diastolic 62–63; PULSE 63–100; RESP 14–98; TEMP 97.7–98.4; O2SAT 90–100
--- NOTE | 2024-03-21 11:01 | DVHDS2 ---
Discharge Summary Date of Admission Mar 09, 2024 at 01:31 Date of Discharge: Mar 21, 2024 Labs/Diagnostic Data: Laboratory Results Test 03/21/24 05:13 03/19/24 05:01 03/17/24 04:57 03/17/24 04:51 POC Glucose 102 mg/dl (70-106) White Blood Count 14.5 10^3/uL (4.4-10.8) Red Blood Count 4.35 10^6/uL (4.0-5.20) Hemoglobin 14.6 g/dL (12.2-16.2) Hematocrit 43.6 % (36.0-46.0) Mean Corpuscular Volume 100.2 fL (80.0-100.0) Mean Corpuscular Hemoglobin 33.5 pg (28.0-32.0) Mean Corpuscular Hemoglobin Concent 33.4 g/dL (32.0-36.0) Red Cell Distribution Width 12.8 % (11.8-14.3) Platelet Count 213 10^3/uL (140-450) Mean Platelet Volume 7.8 fL (6.9-10.8) Neutrophils (%) (Auto) 74.1 % (37.0-80.0) Lymphocytes (%) (Auto) 17.9 % (10.0-50.0) Monocytes (%) (Auto) 7.6 % (0.0-12.0) Eosinophils (%) (Auto) 0.3 % (0.0-7.0) Basophils (%) (Auto) 0.1 % (0.0-2.0) Neutrophils # (Auto) 10.8 10 ^3/uL (1.6-8.6) Lymphocytes # (Auto) 2.6 10 ^3/uL (0.4-5.4) Monocytes # (Auto) 1.1 10 ^3/uL (0-1.3) Eosinophils # (Auto) 0 10 ^3/uL (0-0.8) Basophils # (Auto) 0 10 ^3/uL (0-0.2) Nucleated Red Blood Cells 0.0 % Sodium Level 140 mmol/L (136-145) Potassium Level 4.4 mmol/L (3.5-5.1) Chloride Level 99 mmol/L (98-107) Carbon Dioxide Level 34 mmol/L (20-31) Anion Gap 7 (5-15) Blood Urea Nitrogen 25 mg/dL (9-23) Creatinine 1.08 mg/dL (0.550-1.02) Glomerular Filtration Rate Calc 55 mL/min (>90) BUN/Creatinine Ratio 23.1 (10.0-20.0) Serum Glucose 85 mg/dL (74-106) Calcium Level 9.8 mg/dL (8.7-10.4) Total Bilirubin 0.5 mg/dL (0.2-1.0) Aspartate Amino Transferase (AST) 16 U/L (13-40) Alanine Aminotransferase (ALT) 35 U/L (7-40) Alkaline Phosphatase 54 U/L (46-116) Total Protein 5.8 g/dL (5.7-8.2) Albumin 3.6 g/dL (3.2-4.8) Differential Total Cells Counted 100.0 (100) Neutrophils % (Manual) 78 (37.0-80.0) Band Neutrophils % (Manual) 1 Lymphocytes % (Manual) 14 (10.0-50.0) Monocytes % (Manual) 5 (0-12) Eosinophils % (Manual) 0 (0-7) Basophils % (Manual) 0 (0.0-2.0) Metamyelocytes % (manual) 0 Myelocytes % (Manual) 0 Promyelocytes % (Manual) 0 Blast Cells % (Manual) 0 Reactive Lymphocytes 2 Platelet Estimate Adequate Magnesium Level 2.0 mg/dL (1.6-2.6) Test 03/16/24 08:32 03/13/24 13:27 03/13/24 10:58 03/13/24 08:06 Blood Gas Specimen Type Arterial Blood Gas Sample Site Right radial Blood Gas Patient Temperature 37.0 Arterial Blood Date Drawn [id number] Arterial Blood pH 7.416 (7.350-7.450) Arterial Blood Partial Pressure CO2 44.9 mmHg (32.0-45.0) Arterial Blood Partial Pressure O2 62.3 mmHg (83.0-108.0) Arterial Blood HCO3 28.2 mmol/L (21.0-28.0) Arterial Blood Oxygen Saturation 91.1 % (94.0-98.0) Arterial Blood Base Excess 3.1 mmol/L (-2.0-3.0) Arterial Blood Oxyhemoglobin 90.1 % (94.0-98.0) Arterial Blood Carboxyhemoglobin 1.0 % (0.5-1.5) Arterial Blood Methemoglobin 0.1 % (0.0-1.5) Mark Test Yes Blood Gas Total Hemoglobin 15.30 g/dL (12.0-16.0) Blood Gas Liter Flow 6.00 Blood Gas Modality Nasal cannula FiO2 % 44.0 Blood Gas Set Respiration Rate 14.0 Blood Gas EPAP 7 Blood Gas IPAP 14 Blood Gas Pressure Support 8 Blood Gas PEEP or CPAP 5.0 Blood Gas Tidal Volume 500.0 Test 03/12/24 05:18 03/11/24 04:31 03/10/24 04:50 03/09/24 16:15 Lactate Dehydrogenase 176 U/L (120-246) Random Vancomycin Level 11.3 ug/mL (5-10) Hemoglobin A1c 5.7 % A1C (<5.7) Free Thyroxine (T4) Calculated 0.58 ng/dL (0.89-1.76) Free Triiodothyronine (T3) pg/mL 1.68 pg/mL (2.3-4.2) Blood Gas Critical Value Read Back Yes Blood Gas Notified Whom Dr. fuentes Blood Gas Notified Time [id number] Blood Gas Notified By Lita galindo [employer] jig grinder Test 03/09/24 15:10 03/09/24 07:56 03/09/24 07:54 03/08/24 22:00 Urine Color Yellow (Yellow) Urine Clarity Turbid (Clear) Urine pH 5.5 (5.0-9.0) Urine Specific [place] 1.025 (1.001-1.035) Urine Protein 1+ (Negative) Urine Ketones Negative (Negative) Urine Blood 2+ /uL (Negative) Urine Nitrite Negative (Negative) Urine Bilirubin Negative (Negative) Urine Urobilinogen 2 mg/dL (Negative) Urine Leukocyte Esterase Negative /uL (Negative) Urine RBC 58 /hpf (0 - 4) Urine WBC 13 /hpf (0 - 5) Urine Squamous Epithelial Cells Few /hpf (<5) Urine Bacteria Few /hpf (None Seen) Urine Mucus Few (None Seen) Urine Glucose Normal mg/dL (Normal) Vitamin B12 Level 291 pg/mL (211-911) Thyroid Stimulating Hormone (TSH) 6.37 uIU/mL (0.55-4.78) D-Dimer, Quantitative 0.37 mg/L FEU (0.0-0.49) Influenza Type A Antigen Negative (Negative) Influenza Type B Antigen Negative (Negative) SARS-CoV-2 Antigen (Rapid) Negative (NEGATIVE) Test 03/08/24 21:45 Lactic Acid Level 1.6 mmol/L (0.4-2.0) Troponin I High Sensitivity 6 ng/L (</=34) B-Type Natriuretic Peptide 70.38 pg/mL (0-100) Other Laboratory Tests 03/19/24 05:01 Brief Hx & Hospital Course: see dictated note Condition at Discharge: Fair Final Diagnosis/Problems List resp failure Discharge Disposition: Home Discharge Instruct/Medications Diet: Cardiac 2g Na,low cholest Activity: No Restrictions, As Tolerated Follow Up/Referral: fu with pcp in 1 wk Medications: resume home meds Discharge Statement: "Patient was advised to return to the ER or call 911 if any headaches, dizziness, shortness of breath, chest pain, abdominal pain, bleeding, fevers, or worsening of medical condition. Patient was counseled about treatment plan, medications, possible side effects, patientverbalized understanding. All questions were answered to the best of my ability. This discharge took greater then 30 minutes in planning, reviewing documentation, counseling the patient, and discussing with other team members." ASSESSMENT ASSESSMENT Assessment resp failure Date of Service: Mar 21, 2024 Billing Provider: MIKAYLA BHAKTA MD Common Visit Codes: 65749-ATK/OBS DISCH DAY >30min MIKAYLA BHAKTA MD Mar 21, 2024 11:01
--- NOTE | 2024-03-21 11:05 | CODING ---
Date of Service: Mar 21, 2024 Billing Provider: MIKAYLA BHAKTA MD Common Visit Codes: 72611-KLX/OBS DISCH DAY >30min Secondary Visit Codes: 96420-ANHIP CHNG SMOKING >10MIN MIKAYLA BHAKTA MD Mar 21, 2024 11:05
--- NOTE | 2024-03-21 11:42 | DVHDS ---
DATE OF DISCHARGE: 03/21/2024 The patient is a 73-year-old lady who was admitted with history of shortness of breath, wheezing, and congestion and has history of COPD, chronic respiratory failure, hypertension, hypothyroidism, congestive heart failure, and chronic kidney disease. HOSPITAL COURSE: The patient was intubated and mechanically ventilated. Echocardiogram done showed ejection fraction of 55%. The patient's sputum cultures and blood cultures were negative. The patient was eventually successfully extubated. The patient is now doing well and wishes to go home. She will be discharged to resume her home medications and follow up with her primary in one week. The patient had a creatinine elevation of 1.9 that improved to 1.08 at the time of discharge. The patient's influenza and COVID tests were negative. Her CT angiography showed no pulmonary embolism but showed right lower lobe pneumonia with severe emphysema. The patient has been strongly advised to quit smoking. FINAL DIAGNOSES: * Acute respiratory failure, status post intubation and mechanical ventilation. * Right lower lobe pneumonia, gram-positive, gram-negative. * Severe emphysema with exacerbation. * Tobacco abuse for which the patient was advised to quit smoking. Time spent was 11 minutes. * Hypertension. * Metabolic encephalopathy, secondary to respiratory failure. * History of dementia. * [id number] renal failure, likely vasomotor nephropathy. * Hypothyroidism. * Hypokalemia. * Septic shock due to pneumonia. * Obesity. Time spent in discharge planning and review of plan with the patient and nursing was 39 minutes. MD MARCUS Dixon/BRITTANEY TID: [id number] RECEIPT: [id number]
== END 2024-03-21 13:50 | disposition home or self-care (01) | DRG 871 ==
LOC: ER 19:51 → EDBD 19:51 → OVERFLOW 03-09 01:31 → CENTRAL 03-09 03:07 → TELE-CENTR 03-09 09:13 → ICU CENTRL 03-09 14:26 → DOU IN ICU 03-15 20:19 → TELE-E-ADS 03-17 15:41 → TELE-CENTR 03-18 16:01
PROVIDERS: ADMIT Internal Medicine Pulmonary Disease; ATTEND Internal Medicine
PROC: 5A09357 Assistance with Respiratory Ventilation, Less than 24 Consecutive Hours, Continuous Positive Airway Pressure (ICD-10-PCS; principal; 2024-03-09)
PROC: 0BH17EZ Insertion of Endotracheal Airway into Trachea, Via Natural or Artificial Opening (ICD-10-PCS; 2024-03-09)
PROC: 5A1945Z Respiratory Ventilation, 24-96 Consecutive Hours (ICD-10-PCS; 2024-03-09)
PROC: 5A09357 Assistance with Respiratory Ventilation, Less than 24 Consecutive Hours, Continuous Positive Airway Pressure (ICD-10-PCS; 2024-03-13)
PROC: 5A0935A Assistance with Respiratory Ventilation, Less than 24 Consecutive Hours, High Flow/Velocity Cannula (ICD-10-PCS; 2024-03-13)
PROC: 5A0935A Assistance with Respiratory Ventilation, Less than 24 Consecutive Hours, High Flow/Velocity Cannula (ICD-10-PCS; 2024-03-14)
PROC: 5A0935A Assistance with Respiratory Ventilation, Less than 24 Consecutive Hours, High Flow/Velocity Cannula (ICD-10-PCS; 2024-03-15)
PROC: 5A09357 Assistance with Respiratory Ventilation, Less than 24 Consecutive Hours, Continuous Positive Airway Pressure (ICD-10-PCS; 2024-03-18)
DX: A41.50 Gram-negative sepsis, unspecified (principal); G93.41 Metabolic encephalopathy; R65.21 Severe sepsis with septic shock; J15.69 Pneumonia due to other Gram-negative bacteria; N17.0 Acute kidney failure with tubular necrosis; J15.9 Unspecified bacterial pneumonia; J96.00 Acute respiratory failure, unspecified whether with hypoxia or hypercapnia; I13.0 Hypertensive heart and chronic kidney disease with heart failure and stage 1 through stage 4 chronic kidney disease, or unspecified chronic kidney disease; J44.0 Chronic obstructive pulmonary disease with (acute) lower respiratory infection; J44.1 Chronic obstructive pulmonary disease with (acute) exacerbation; E87.29 Other acidosis; N39.0 Urinary tract infection, site not specified; E87.0 Hyperosmolality and hypernatremia; Z20.822 Contact with and (suspected) exposure to COVID-19; F03.90 Unspecified dementia, unspecified severity, without behavioral disturbance, psychotic disturbance, mood disturbance, and anxiety; J43.2 Centrilobular emphysema; N18.2 Chronic kidney disease, stage 2 (mild); E03.9 Hypothyroidism, unspecified; E87.8 Other disorders of electrolyte and fluid balance, not elsewhere classified; I50.9 Heart failure, unspecified; I25.10 Atherosclerotic heart disease of native coronary artery without angina pectoris; E66.9 Obesity, unspecified; E87.6 Hypokalemia; E11.65 Type 2 diabetes mellitus with hyperglycemia; Z90.710 Acquired absence of both cervix and uterus; Z88.1 Allergy status to other antibiotic agents; Z88.5 Allergy status to narcotic agent; Z88.0 Allergy status to penicillin; Z82.0 Family history of epilepsy and other diseases of the nervous system; Z82.49 Family history of ischemic heart disease and other diseases of the circulatory system; Z91.148 Patient's other noncompliance with medication regimen for other reason; Z86.73 Personal history of transient ischemic attack (TIA), and cerebral infarction without residual deficits; Z68.32 Body mass index [BMI] 32.0-32.9, adult
CPT/HCPCS: 36415; 36600; 71045; 71275; 76937; 80048; 80053; 80202; 81001; 82607; 82805; 82962; 83036; 83605; 83615; 83735; 83880; 84439; 84443; 84481; 84484; 85007; 85025; 85027; 85379; 87040; 87070; 87081; 87086; 87205; 87426; 87804; 92610; 93005; 93306; 93970; 94002; 94003; 94640; 94660; 94668; 97116; 97163; 97530; G0378; J1815; J2470; J2543; J2704; J3480; J7060